=== PATIENT | female | born 1970 | race African-American/Black ===

== ENCOUNTER → 2018-08-12 | Outpatient (CLI) | payer BC ==
--- NOTE | 2018-08-13 07:09 | US ---
EXAMINATION TYPE: US thyroid st tissue head/neck DATE OF EXAM: 08/12/2018 COMPARISON: NONE CLINICAL HISTORY: E04.1 SINGLE THYROID NODULE. Left neck palpable area x 1 month GLAND SIZE: Right Lobe: 6.4 x 1.6 x 2.2 cm Overall Parenchyma: mildly heterogeneous Left Lobe: 5.5 x 2.5 x 2.3 cm Overall Parenchyma: mildly heterogeneous Isthmus Thickness: 0.4 cm NODULES RIGHT: # of nodules measured on right: 1 1. 0.2 X 0.2 x 0.3 cm calcification at the mid pole with well-defined margins. This nodule is wider than tall and shows no intranodular vascularity. Prior size: no previous LEFT: # of nodules measured on left: 1 1. 2.4 X 2.2 x 2.4 cm hyperechoic solid nodule at the mid/inferior pole with well-defined margins. This nodule is wider than tall and shows intranodular vascularity. Prior size: no previous ISTHMUS: # of nodules measured in the isthmus: 0 Bilateral neck scanned, no evidence of lymphadenopathy. IMPRESSION: There is a 2.4 cm left thyroid nodule. Thyroid tissue is heterogeneous and thyroid gland is enlarged correlate for thyroiditis.
--- NOTE | 2018-08-13 07:09 | US ---
EXAMINATION TYPE: US pelvic complete DATE OF EXAM: 08/12/2018 COMPARISON: NONE CLINICAL HISTORY: D25.9 LELOMAYOMA OF UTERUS. History of uterine fibroids, 3, para 2, miscarr iage 1, history of 2 c-sections TECHNIQUE: . Transabdominal sonographic images of the pelvis were acquired. Transvaginal sonographi c images were medically necessary to better assess the following anatomy: ovaries and endometrium Date of LMP: 2 weeks ago EXAM MEASUREMENTS: Uterus: 13.7 x 10.4 x 10.1 cm Endometrial Stripe: not seen Right Ovary: not seen Left Ovary: not seen 1. Uterus: anteverted, enlarged, bulky, multiple nabothian cysts, 10.6 x 8.3 x 9.3cm hypoechoic area fundal portion of uterus, probable fibroid 2. Endometrium: unable to visualized due to uterine fibroid 3. Right Ovary: not seen 4. Left Ovary: not seen 5. Bilateral Adnexa: wnl 6. Posterior cul-de-sac: wnl IMPRESSION: 1. Uterus is enlarged and lobulated measuring 13.7 x 10.4 x 10.1 cm with a 10.6 suspected myometrial mass within the uterine fundus. This most likely is related to a uterine fibroid.
== END | disposition home or self-care (01) ==
LOC: RADUSWWP 15:37
PROVIDERS: ATTEND Family Medicine
DX: N85.2 Hypertrophy of uterus (principal); E04.1 Nontoxic single thyroid nodule
CPT/HCPCS: 76536; 76830; 76856

== ENCOUNTER → 2018-09-08 | Outpatient (CLI) | payer BC ==
[2018-09-08 15:46] LABS: Anisocytosis Slight; HCT 31.3 % (34.0-46.0); HGB 9.2 gm/dL (11.4-16.0); Hypochromasia Marked; MCH 20.9 pg (25.0-35.0); MCHC 29.5 g/dL (31.0-37.0); MCV 70.8 fL (80.0-100.0); Mean Platelet Volume 8.2; Microcytosis Marked; Platelet Count 245 k/uL (150-450); Poikilocytosis Slight; RBC 4.42 m/uL (3.80-5.40); RDW 18.5 % (11.5-15.5); WBC 5.6 k/uL (3.8-10.6)
[2018-09-09 01:24] LABS: Albumin 4.6 g/dL (3.80-4.90); Albumin/Globulin Ratio 1.64 (1.60-3.17); Anion Gap 10.8 mmol/L (4.00-12.00); BUN/Creat Ratio 15.56 Ratio (12.00-20.00); Calcium 9.5 mg/dL (8.7-10.3); Carbon Dioxide 24.2 mmol/L (21.6-31.8); Globulin 2.8 g/dL (1.6-3.3); Potassium 4.1 mmol/L (3.5-5.5); Total Bilirubin 0.2 mg/dL (0.2-1.2); Total Protein 7.4 g/dL (6.2-8.2)
[2018-09-09 01:25] LABS: Thyroid Peroxidase Antibodies 93.1 U/mL (0.0-60.0)
[2018-09-09 01:32] LABS: T4, Free (Free Thyroxine) 0.9 ng/dL (0.80-1.80)
== END | disposition home or self-care (01) ==
LOC: LABWHC1 15:19
PROVIDERS: ATTEND Internal Medicine Endocrinology, Diabetes & Metabolism
DX: E04.2 Nontoxic multinodular goiter (principal); R53.83 Other fatigue
CPT/HCPCS: 36415; 80053; 82024; 82533; 82607; 84146; 84439; 84443; 84481; 85027; 86376

== ENCOUNTER → 2018-09-18 | Outpatient (CLI) | payer BC ==
[2018-09-18 16:02] LABS: Anisocytosis Slight; Basophils # (A) 0.1 k/uL (0-0.2); Basophils % (A) 2 %; Eosinophils # (A) 0.1 k/uL (0-0.7); Eosinophils % (A) 2 %; HCT 31.6 % (34.0-46.0); HGB 9.2 gm/dL (11.4-16.0); Hypochromasia Marked; Lymphocytes # (A) 1.2 k/uL (1.0-4.8); Lymphocytes % (A) 25 %; MCH 21.2 pg (25.0-35.0); MCHC 29.1 g/dL (31.0-37.0); MCV 73.1 fL (80.0-100.0); Mean Platelet Volume 7.1; Microcytosis Moderate; Monocytes # (A) 0.5 k/uL (0-1.0); Monocytes % (A) 11 %; Neutrophils # (A) 2.6 k/uL (1.3-7.7); Neutrophils % (A) 57 %; Platelet Count 253 k/uL (150-450); Poikilocytosis Slight; RBC 4.33 m/uL (3.80-5.40); RDW 18.4 % (11.5-15.5); WBC 4.7 k/uL (3.8-10.6)
[2018-09-19 00:28] LABS: African American GFR (CKD) 117.9 (60.0-200.0); Albumin 4.4 g/dL (3.80-4.90); Albumin/Globulin Ratio 1.52 (1.60-3.17); Anion Gap 8.7 mmol/L (4.00-12.00); BUN/Creat Ratio 24.29 Ratio (12.00-20.00); Calcium 9.5 mg/dL (8.7-10.3); Carbon Dioxide 28.3 mmol/L (21.6-31.8); Globulin 2.9 g/dL (1.6-3.3); LDL Cholesterol,Calculated 114.6 mg/dL (0.0-131.0); Total Bilirubin 0.3 mg/dL (0.3-1.2); Total Protein 7.3 g/dL (6.2-8.2); VLDL Calculation 17.4 mg/dL (5.00-40.00)
== END | disposition home or self-care (01) ==
LOC: LABWHC1 15:16
PROVIDERS: ATTEND Physician Assistant
DX: Z00.00 Encounter for general adult medical examination without abnormal findings (principal); I10 Essential (primary) hypertension; D64.9 Anemia, unspecified; Z53.9 Procedure and treatment not carried out, unspecified reason
CPT/HCPCS: 36415; 80053; 80061; 80323; 82728; 84443; 85025

== ENCOUNTER → 2018-10-28 | Outpatient (CLI) | payer BC ==
--- NOTE | 2018-10-30 10:36 | MM ---
Reason for exam: screening (asymptomatic). History: Benign excisional biopsy of the left breast, 2008. Physical Findings: A clinical breast exam by your physician is recommended on an annual basis and results should be correlated with mammographic findings. MG 3D Screening Mammo W/Cad Bilateral CC and MLO view(s) were taken. No prior studies available for comparison. The breast tissue is heterogeneously dense. This may lower the sensitivity of mammography. There is a focal lobular asymmetry on left breast. ASSESSMENT: Probably benign, BI-RAD 3 RECOMMENDATION: Follow-up diagnostic mammogram of the left breast in 6 months.
== END | disposition home or self-care (01) ==
LOC: RADMAMWWP 15:26
PROVIDERS: ATTEND Family Medicine
DX: Z12.31 Encounter for screening mammogram for malignant neoplasm of breast (principal)
CPT/HCPCS: 77063; 77067

== ENCOUNTER 2018-11-14 10:19 | Day surgery (SDC) | payer BC ==
[2018-11-12 15:47] VITALS: BMI 31.7
--- NOTE | 2018-11-14 09:36 | P.GSHP ---
History of Present Illness H&P Date: 11/14/18 CHIEF COMPLAINT: Colon screen HISTORY OF PRESENT ILLNESS: The patient is a 48-year-old female who presents for colon screen. Lower endoscopy was offered for further evaluation and management. PAST MEDICAL HISTORY: Please see list. PAST SURGICAL HISTORY: Please see list. MEDICATIONS: Please see list. ALLERGIES: Please see list. SOCIAL HISTORY: No illicit drug use FAMILY HISTORY: No reports of Crohn disease or ulcerative colitis. REVIEW OF ORGAN SYSTEMS: CONSTITUTIONAL: No reports of fevers or chills. PHYSICAL EXAM: VITAL SIGNS: Stable GENERAL: Well-developed pleasant in no acute distress. HEENT: No scleral icterus. Extraocular movements grossly intact. Moist buccal mucosa. NECK: Supple without lymphadenopathy. CHEST: Unlabored respirations. Equal bilateral excursions. CARDIOVASCULAR: Regular rate and rhythm. Distal 2+ pulses. ABDOMEN: Soft, nontender, nondistended. MUSCULOSKELETAL: No clubbing, cyanosis, or edema. ASSESSMENT: 1. Colon screen. PLAN: 1. Recommend proceeding with a lower endoscopy Past Medical History Past Medical History: Hypertension History of Any Multi-Drug Resistant Organisms: None Reported Past Surgical History: Breast Surgery, Section Additional Past Surgical History / Comment(s): lt breast biospy-benign Past Anesthesia/Blood Transfusion Reactions: No Reported Reaction Smoking Status: Former smoker - Past Family History Mother Family Medical History: Cancer Medications and Allergies Home Medications Medication Instructions Recorded Confirmed Type Calcium/Magnesium/Zinc 1 each PO DAILY 11/12/18 11/12/18 History [Rqnsglm-Udhrrjtjr-Bitj Tablet] Ferrous Sulfate [Feosol] 325 mg PO DAILY 11/12/18 11/12/18 History Losartan [Cozaar] 12.5 mg PO DAILY 11/12/18 11/12/18 History Multivitamins, Thera [Multivitamin 1 tab PO DAILY 11/12/18 11/12/18 History (formulary)] Allergies Allergy/AdvReac Type Severity Reaction Status Date / Time No Known Allergies Allergy Verified 11/12/18 15:40
[~2018-11-14 10:19] MED LIST: DEXAMETHASONE SOD PHOSPHATE 10 MG/ML 1 ML VIAL IV ONE; LACTATED RINGERS 1,000 ML IV SCH; LIDOCAINE 1% 20 ML VIAL (10MG/ML) FOR IV START INTRADERMA PRN
[2018-11-14 10:51] VITALS: RESP 16; TEMP 97.5
[2018-11-14] MEDS ORDERED: PROPOFOL 10 MG/ML 20 ML VIAL IV ONE (11:31)
[2018-11-14] MEDS ORDERED: LIDOCAINE 1% INJ 10MG/ML (20 ML MDV) ONE (11:31)
--- NOTE | 2018-11-14 11:45 | P.PCN ---
Date of Procedure: 11/14/18 Description of Procedure: PREOPERATIVE DIAGNOSIS: Colonoscopy screening, first POSTOPERATIVE DIAGNOSIS: Colonoscopy screening, first Diverticulosis, scattered External hemorrhoids, grade 4 OPERATION: Colonoscopy to the ileocecal valve and appendiceal orifice. SURGEON: Lakia Ovalles MD. ANESTHESIA: MAC. INDICATIONS: The patient is a 48-year-old female who presents for colonoscopy screening. This is her first colonoscopy. Benefits and risks were described and informed consent was obtained. DESCRIPTION OF PROCEDURE: The patient had undergone Suprep. He had been brought into the operating room and laid in the left lateral decubitus position. After adequate intravenous sedation, the rectum was examined with 2% lidocaine jelly. External hemorrhoids were encountered. The rectal tone was within normal limits. No lesions were palpated in the rectal vault. An Olympus colonoscope was advanced until the ileocecal valve and appendiceal orifice were clearly viewed. The prep was excellent with clear visualization of the mucosal folds. The scope was removed with visualization of each mucosal fold. Moderate scattered diverticulosis was encountered. No colonic polyps were found. Localized inflammation of the rectum was identified however mild. Retroflexion of the scope demonstrated grade 2 internal hemorrhoids without active bleeding or inflammation. The colon was desufflated. The patient had tolerated the procedure well. Withdrawal time was over 6 minutes. FINDINGS: Aronchick preparation quality scale 1 (1-5) Internal hemorrhoids, grade 2 External prolapsed hemorrhoids, grade 4 No arteriovenous malformations. No adenomatous polyps. Moderate sigmoid including scattered diverticulosis Localized inflammation of the rectum, mild RECOMMENDATIONS: Lower endoscopy in 10 years, 2028 Plan - Discharge Summary Discharge Rx Participant: Yes New Discharge Prescriptions: No Action Multivitamins, Thera [Multivitamin (formulary)] 1 tab PO DAILY Losartan [Cozaar] 12.5 mg PO DAILY Ferrous Sulfate [Feosol] 325 mg PO DAILY Calcium/Magnesium/Zinc [Fpijrpf-Hqziabpiz-Gkwa Tablet] 1 each PO DAILY Discharge Medication List Calcium/Magnesium/Zinc [Pxcgrne-Fvueqshzq-Pikl Tablet] 1 each PO DAILY 11/12/18 [History] Ferrous Sulfate [Feosol] 325 mg PO DAILY 11/12/18 [History] Losartan [Cozaar] 12.5 mg PO DAILY 11/12/18 [History] Multivitamins, Thera [Multivitamin (formulary)] 1 tab PO DAILY 11/12/18 [History]
[2018-11-14 12:18] VITALS: BP 160/93; PULSE 66
== END 2018-11-14 12:26 | disposition home or self-care (01) ==
LOC: ORWHC2ENDO 10:19
PROVIDERS: ATTEND Surgery Plastic and Reconstructive Surgery
DX: Z12.11 Encounter for screening for malignant neoplasm of colon (principal); K57.30 Diverticulosis of large intestine without perforation or abscess without bleeding; K64.4 Residual hemorrhoidal skin tags; K64.1 Second degree hemorrhoids; K62.89 Other specified diseases of anus and rectum; I10 Essential (primary) hypertension; Z79.899 Other long term (current) drug therapy; Z98.890 Other specified postprocedural states; Z87.891 Personal history of nicotine dependence; Z80.9 Family history of malignant neoplasm, unspecified
CPT/HCPCS: 81025; J2001; J2704; G0121

== ENCOUNTER → 2019-12-04 | Outpatient (CLI) | payer BC ==
--- NOTE | 2019-12-07 09:03 | MM ---
Reason for exam: screening (asymptomatic). Last mammogram was performed 1 year and 1 month ago. History: Benign excisional biopsy of the left breast, 2008. Physical Findings: A clinical breast exam by your physician is recommended on an annual basis and results should be correlated with mammographic findings. MG 3D Screening Mammo W/Cad Bilateral CC and MLO view(s) were taken. Prior study comparison: October 28, 2018, bilateral MG 3d screening mammo w/cad. There are scattered fibroglandular densities. Finding #1: There is a 11 mm oval mass located 5.3 cm from the nipple in the lower outer quadrant, middle position of the left breast. Finding #2: There are typically benign calcifications in both breasts. More defined since October 28, 2018. ASSESSMENT: Incomplete: need additional imaging evaluation, BI-RAD 0 RECOMMENDATION: Special view mammogram and ultrasound of the left breast. [facility] will attempt to contact patient to return for supplemental views and ultrasound.
== END | disposition home or self-care (01) ==
LOC: RADMAMWWP 06:57
PROVIDERS: ATTEND Family Medicine
DX: Z12.31 Encounter for screening mammogram for malignant neoplasm of breast (principal)
CPT/HCPCS: 77063; 77067

== ENCOUNTER → 2019-12-25 | Outpatient (CLI) | payer BC ==
--- NOTE | 2019-12-25 10:14 | MM ---
Reason for exam: additional evaluation requested from abnormal screening. Last mammogram was performed 1 month ago. History: Benign excisional biopsy of the left breast, 2008. Physical Findings: Nurse did not find any significant physical abnormalities on exam. MG 3D Work Up W/Cad LT Spot compression CC, spot compression MLO, and LM view(s) were taken of the left breast. Prior study comparison: December 04, 2019, bilateral MG 3d screening mammo w/cad. October 28, 2018, bilateral MG 3d screening mammo w/cad. The breast tissue is heterogeneously dense. This may lower the sensitivity of mammography. Finding: There is a 11 mm microlobulated round mass located 6 cm from the nipple in the slight lower outer quadrant of the left breast. These results were verbally communicated with the patient and result sheet given to the patient on 12/25/19. ASSESSMENT: Incomplete: need additional imaging evaluation, BI-RAD 0 RECOMMENDATION: Ultrasound of the left breast.
--- NOTE | 2019-12-25 10:16 | USB ---
Reason for exam: additional evaluation requested from abnormal screening. History: Benign excisional biopsy of the left breast, 2008. US Breast Workup Limited LT Left limited breast ultrasound including focal area of concern, retroareolar and axilla demonstrates a 12 x 4 x 9mm oval, cystic lesion at 5 o'clock, stable from 10/28/18 mammogram, thin walled cyst. These results were verbally communicated with the patient and result sheet given to the patient on 12/25/19. ASSESSMENT: Benign, BI-RAD 2 RECOMMENDATION: Return to routine screening mammogram schedule for both breasts.
== END | disposition home or self-care (01) ==
LOC: RADMAMWWP 08:11
PROVIDERS: ATTEND Family Medicine
DX: R92.8 Other abnormal and inconclusive findings on diagnostic imaging of breast (principal)
CPT/HCPCS: 77061; 77065

== ENCOUNTER → 2020-07-22 | Outpatient (CLI) | payer BC ==
--- NOTE | 2020-07-22 20:18 | US ---
EXAMINATION TYPE: US pelvic complete DATE OF EXAM: 07/22/2020 COMPARISON: Previous pelvic ultrasound CLINICAL HISTORY: D25.9 Leiomyoma of uterus. TECHNIQUE: Transabdominal (TA). Transabdominal sonographic images of the pelvis were acquired. Tra nsvaginal sonographic images not attempted due to large uterine size. Transvaginal sonography would b e unable to penetrate. Date of LMP: 07-19-20 EXAM MEASUREMENTS: Uterus: 17.5 x 7.9 x 12.7 cm Endometrial Stripe: 1.7 cm Right Ovary: obscured by large uterus, overlying bowel Left Ovary: obscured by large uterus, overlying bowel 1. Uterus: grossly heterogeneous, fibroid uterus 2. Endometrium: appears heterogeneous and thickened 3. Right Ovary: obscured by large uterus, overlying bowel 4. Left Ovary: obscured by large uterus, overlying bowel 5. Bilateral Adnexa: wnl 6. Posterior cul-de-sac: wnl IMPRESSION: Fibroid uterus, measurement of endometrium is equivocal, endometrium not well seen, limit ed exam
== END | disposition home or self-care (01) ==
LOC: RADUSWWP 15:38
PROVIDERS: ATTEND Family Medicine
DX: D25.9 Leiomyoma of uterus, unspecified (principal)
CPT/HCPCS: 76856

== ENCOUNTER 2023-03-12 14:38 | Inpatient (IN) | payer BC, OTHER ==
[2023-03-12 15:50] LABS: Anisocytosis Slight; Basophils # (A) 0.1 k/uL (0-0.2); Basophils % (A) 1 %; Eosinophils # (A) 0.2 k/uL (0-0.7); Eosinophils % (A) 2 %; HCT 30.8 % (34.0-46.0); HGB 9.4 gm/dL (11.4-16.0); Hypochromasia Marked; Lymphocytes # (A) 0.8 k/uL (1.0-4.8); Lymphocytes % (A) 10 %; MCH 23.1 pg (25.0-35.0); MCHC 30.6 g/dL (31.0-37.0); MCV 75.4 fL (80.0-100.0); Mean Platelet Volume 8.7; Microcytosis Slight; Monocytes # (A) 0.7 k/uL (0-1.0); Monocytes % (A) 9 %; Neutrophils % (A) 75 %; Platelet Count 356 k/uL (150-450); RBC 4.08 m/uL (3.80-5.40); RDW 16.6 % (11.5-15.5)
[2023-03-12 16:08] LABS: Partial Thromboplastin Time 25.8 sec (22.0-30.0); Prothrombin Time 11.1 sec (10.0-12.5)
[2023-03-12 16:15] LABS: ALT 12 U/L (4-34); AST 17 U/L (14-36); African American GFR (CKD) >90 (>60 ml/min/1.73 sqM); Albumin 3.8 g/dL (3.5-5.0); Alkaline Phosphatase 107 U/L (38-126); Anion Gap 13 mmol/L; Blood Urea Nitrogen 10 mg/dL (7-17); Calcium 9.7 mg/dL (8.4-10.2); Carbon Dioxide 23 mmol/L (22-30); Chloride 103 mmol/L (98-107); Glucose 87 mg/dL (74-99); Lipase 31 U/L (23-300); Non-African American GFR(CKD) >90 (>60 ml/min/1.73 sqM); Potassium 3.8 mmol/L (3.5-5.1); Sodium 139 mmol/L (137-145); Total Bilirubin 0.5 mg/dL (0.2-1.3); Total Protein 7.8 g/dL (6.3-8.2)
--- NOTE | 2023-03-12 16:31 | ED ---
GI Bleed HPI - General Source: patient Mode of arrival: ambulatory Limitations: no limitations <JoseJamal - Last Filed: 03/12/23 16:28> - General Source: RN notes reviewed, old records reviewed - History of Present Illness MD complaint: blood on toilet paper -: days(s) Radiation: none Severity scale (1-10): 6 Quality: painless, cramping, burning Consistency: constant Improves with: none Worsens with: none Context: history of GI bleed Associated Symptoms: abdominal pain, loss of appetite, weakness Treatments Prior to Arrival: none <Jorge Rivas - Last Filed: 03/16/23 16:50> - General Chief complaint: GI Bleed Stated complaint: Abd/Rectal Pain - History of Present Illness Initial comments: This is a 52-year-old female to the ER for evaluation. Patient presents to the ER today for evaluation regards to severe weakness lightheadedness and nausea patient does not feel hungry but does have bloody bowel movement. No recent diarrhea no fever. Patient is recent travel history or sick contacts. Patient has severe abdominal pain. (Jorge Rivas) - Related Data Home Medications Medication Instructions Recorded Confirmed No Known Home Medications 03/12/23 03/12/23 Allergies Allergy/AdvReac Type Severity Reaction Status Date / Time No Known Allergies Allergy Verified 03/12/23 20:08 Review of Systems ROS Other: All systems not noted in ROS Statement are negative. <JoseJamal - Last Filed: 03/12/23 16:28> ROS Other: All systems not noted in ROS Statement are negative. <Jorge Rivas - Last Filed: 03/16/23 16:50> ROS Statement: Those systems with pertinent positive or pertinent negative responses have been documented in the HPI. Past Medical History Past Medical History: Hyperlipidemia, Hypertension History of Any Multi-Drug Resistant Organisms: None Reported Past Surgical History: Section Smoking Status: Former smoker Past Alcohol Use History: None Reported Past Drug Use History: None Reported <Jamal Garcia - Last Filed: 03/12/23 16:28> General Exam Limitations: no limitations <JoseJamal - Last Filed: 03/12/23 16:28> General appearance: alert, in no apparent distress Head exam: Present: atraumatic, normocephalic, normal inspection Eye exam: Present: normal appearance, PERRL, EOMI. Absent: scleral icterus, conjunctival injection, periorbital swelling ENT exam: Present: normal exam, mucous membranes moist Neck exam: Present: normal inspection. Absent: tenderness, meningismus, lymphadenopathy Respiratory exam: Present: normal lung sounds bilaterally. Absent: respiratory distress, wheezes, rales, rhonchi, stridor Cardiovascular Exam: Present: regular rate, normal rhythm, normal heart sounds. Absent: systolic murmur, diastolic murmur, rubs, gallop, clicks GI/Abdominal exam: Present: soft, normal bowel sounds. Absent: distended, tenderness, guarding, rebound, rigid Extremities exam: Present: normal inspection, full ROM, normal capillary refill. Absent: tenderness, pedal edema, joint swelling, calf tenderness Back exam: Present: normal inspection Neurological exam: Present: alert, oriented X3, CN II-XII intact Psychiatric exam: Present: normal affect, normal mood Skin exam: Present: warm, dry, intact, normal color. Absent: rash <Jorge Rivas - Last Filed: 03/16/23 16:50> Course <Jorge Rivas - Last Filed: 03/16/23 16:50> Vital Signs 03/12/23 03/12/23 03/12/23 14:52 20:05 22:23 Temperature 98.2 F Pulse Rate 92 94 80 Respiratory 16 18 18 Rate Blood Pressure 205/111 193/96 142/78 O2 Sat by Pulse 98 100 100 Oximetry 03/13/23 03/13/23 03/13/23 04:47 04:48 07:37 Temperature 99.6 F 97.8 F 99.8 F H Pulse Rate 88 74 79 Respiratory 18 16 16 Rate Blood Pressure 147/72 129/67 122/72 O2 Sat by Pulse 98 98 100 Oximetry 03/13/23 03/13/23 03/13/23 08:36 12:35 12:49 Temperature 100.8 F H 99 F 98.9 F Pulse Rate 52 L 54 L Respiratory 18 18 Rate Blood Pressure 128/78 116/68 O2 Sat by Pulse 95 100 Oximetry - Reevaluation(s) Reevaluation #1: 03/12/23 21:09 Records reviewed (Jorge Rivas) Reevaluation #2: 03/12/23 21:09 Patient symptoms are unchanged (Jorge Rivas) Reevaluation #3: 03/12/23 21:09 Patient for results questions answered (Jorge Rivas) Reevaluation #4: 03/12/23 21:09 Was pt. sent in by a medical professional or institution ([facility], [employer], urgent care, hospital, or half-way...) When possible be specific @ -no Did you speak to anyone other than the patient for history (EMS, parent, family, police, friend...)? What history was obtained from this source @ -no Did you review nursing and triage notes (agree or disagree)? Why? @ -agree Are old charts reviewed (outside hosp., previous admission, EMS record, old EKG, old radiological studies, urgent care reports/EKG's, half-way records)? Report findings @ -yes Differential Diagnosis (chest pain, altered mental status, abdominal pain women, abdominal pain men, vaginal bleeding, weakness, fever, dyspnea, syncope, headache, dizziness, GI bleed, back pain, seizure, CVA, palpatations, mental health, musculoskeletal)? @ -prior EKG interpreted by me (3pts min.). @ -yes X-rays interpreted by me (1pt min.). @ -no CT interpreted by me (1pt min.). @ -Yes negative for acute disease U/S interpreted by me (1pt. min.). @ -no What testing was considered but not performed or refused? (CT, X-rays, U/S, labs)? Why? @ -none What meds were considered but not given or refused? Why? @ -none Did you discuss the management of the patient with other professionals (professionals i.e. [facility] Moreau, [employer], lab, RT, psych nurse, director social welfare, reliability technologist, teacher, diplomatic officer, case loader operator)? Give summary @ -no Was smoking cessation discussed for >3mins.? @ -no Was critical care preformed (if so, how long)? @ -no Were there social determinants of health that impacted care today? How? (Homelessness, low income, unemployed, alcoholism, drug addiction, transportation, low edu. Level, literacy, decrease access to med. care, shelter, rehab)? @ -none Was there de-escalation of care discussed even if they declined (Discuss DNR or withdrawal of care, Hospice)? DNR status @ -no What co-morbidities impacted this encounter? (DM, HTN, Smoking, COPD, CAD, Cancer, CVA, ARF, Chemo, Hep., AIDS, mental health diagnosis, sleep apnea, morbid obesity)? @ -none Was patient admitted / discharged? Hospital course, mention meds given and route, prescriptions, significant lab abnormalities, going to OR and other pertinent info. @ - 52 female to the ER for evaluation of blood in the stool with significant weight loss and right red blood per rectum since yesterday. Patient is having diminished appetite and increased weight loss lately which she is not intentionally trying to lose weight she believes around 20 to 25 pounds Admitted Undiagnosed new problem with uncertain prognosis? @ -no Drug Therapy requiring intensive monitoring for toxicity (Heparin, Nitro, Insulin, Cardizem)? @ -no Were any procedures done? @ -no Diagnosis/symptom? @ -GI bleed Acute, or Chronic, or Acute on Chronic? @ -Acute Uncomplicated (without systemic symptoms) or Complicated (systemic symptoms)? @ -Complicated Side effects of treatment? @ -no Exacerbation, Progression, or Severe Exacerbation? @ -exacerbation Poses a threat to life or bodily function? How? (Chest pain, USA, DC, pneumonia, PE, COPD, DKA, ARF, appy, cholecystitis, CVA, Diverticulitis, Homicidal, Suicidal, threat to staff... and all critical care pts) @ -yes significant recent weight loss and GI bleed (Jorge Rivas) Reevaluation #5: 03/12/23 21:17 Differential Abdominal Pain Women: Appendicitis, Cholecystitis, diverticulosis, ischemic bowel, pancreatitis, h epatitis, UTI, gastroenteritis, AAA, incarcerated hernia, bowel obstruction, constipation, inflammatory bowel, hepatitis, peptic ulcer disease, splenic infarction, perforated viscus, vulvitis, ovarian torsion, PID, kidney stone, placenta abruption, this is not meant to be an all-inclusive list Differential Weakness: Hypoglycemia, shock, sepsis, hyponatremia, anemia, infection, DC, ETOH, adverse medicine reaction, overdose, stroke, this is not meant to be an all-inclusive list. (Jorge Rivas) - Consultations Consultation #1: spoke w admitted physician is Dr. Alas who agrees to admit the patient (Jorge Rivas) Medical Decision Making - Lab Data Result diagrams: 03/12/23 15:00 03/12/23 15:00 <Jamal Garcia - Last Filed: 03/12/23 16:28> - Lab Data Result diagrams: 03/16/23 08:29 03/16/23 08:29 - EKG Data -: EKG Interpreted by Me (EKG is sinus 74 IL 135 QRS 84 QTc 405) - Radiology Data Radiology results: report reviewed (CT chest abdomen pelvis negative for oncologic findings, patient does have colitis), image reviewed <Jorge Rivas - Last Filed: 03/16/23 16:50> - Medical Decision Making This patient presents to the emergency department complaining of dark red blood per rectum since yesterday. Complaining of some abdominal cramping. Does have a history of hypertension, did not take her blood pressure medications today. I have a diminished appetite and weight loss which is going on for a few months. Visual Physical Exam Vital signs reviewed General: Well-appearing, nontoxic, no acute distress. Head: Normocephalic, atraumatic Eyes: PERRLA, EOMI ENT: Airway patent Chest: Nonlabored breathing Skin: No visual rash, normal skin tone Neuro: Alert and oriented 3 Musculoskeletal: No gross abnormalities Jamal Garcia PA-C (Jamal Garcia) 52 female to the ER for evaluation of blood in the stool with significant weight loss and right red blood per rectum since yesterday. Patient is having diminished appetite and increased weight loss lately which she is not intentionally trying to lose weight she believes around 20 to 25 pounds. (Jorge Rivas) - Lab Data Lab Results 03/12/23 03/12/23 03/12/23 Range/Units 15:00 15:00 15:00 WBC 8.0 (3.8-10.6) k/uL RBC 4.08 (3.80-5.40) m/uL Hgb 9.4 L (11.4-16.0) gm/dL Hct 30.8 L (34.0-46.0) % MCV 75.4 L (80.0-100.0) fL MCH 23.1 L (25.0-35.0) pg MCHC 30.6 L (31.0-37.0) g/dL RDW 16.6 H (11.5-15.5) % Plt Count 356 (150-450) k/uL MPV 8.7 Neutrophils % 75 % Lymphocytes % 10 % Monocytes % 9 % Eosinophils % 2 % Basophils % 1 % Neutrophils # 6.0 (1.3-7.7) k/uL Lymphocytes # 0.8 L (1.0-4.8) k/uL Monocytes # 0.7 (0-1.0) k/uL Eosinophils # 0.2 (0-0.7) k/uL Basophils # 0.1 (0-0.2) k/uL Hypochromasia Marked Poikilocytosis Anisocytosis Slight Microcytosis Slight Retic Count (0.5-2.0) % PT 11.1 (10.0-12.5) sec INR 1.0 (<1.2) APTT 25.8 (22.0-30.0) sec Sodium 139 (137-145) mmol/L Potassium 3.8 (3.5-5.1) mmol/L Chloride 103 (98-107) mmol/L Carbon Dioxide 23 (22-30) mmol/L Anion Gap 13 mmol/L BUN 10 (7-17) mg/dL Creatinine 0.71 (0.52-1.04) mg/dL Est GFR (CKD-EPI)AfAm >90 (>60 ml/min/1.73 sqM) Est GFR (CKD-EPI)NonAf >90 (>60 ml/min/1.73 sqM) Glucose 87 (74-99) mg/dL Calcium 9.7 (8.4-10.2) mg/dL Phosphorus (2.5-4.5) mg/dL Magnesium 2.0 (1.6-2.3) mg/dL Iron (50-170) UG/DL TIBC (228-460) UG/DL % Saturation (12.00-45.00) Transferrin (204.0-354.0) mg/dL Ferritin (10.0-291.0) ng/mL Total Bilirubin 0.5 (0.2-1.3) mg/dL AST 17 (14-36) U/L ALT 12 (4-34) U/L Alkaline Phosphatase 107 (38-126) U/L Troponin I (0.000-0.034) ng/mL Total Protein 7.8 (6.3-8.2) g/dL Albumin 3.8 (3.5-5.0) g/dL Lipase 31 (23-300) U/L Vitamin B12 (200.0-944.0) pg/mL Folate (4.40-31.00) ng/mL Blood Type Blood Type Confirm Blood Type Recheck Bld Type Recheck Status Antibody Screen Crossmatch Spec Expiration Date 03/12/23 03/12/23 03/12/23 Range/Units 15:00 15:20 15:25 WBC (3.8-10.6) k/uL RBC (3.80-5.40) m/uL Hgb (11.4-16.0) gm/dL Hct (34.0-46.0) % MCV (80.0-100.0) fL MCH (25.0-35.0) pg MCHC (31.0-37.0) g/dL RDW (11.5-15.5) % Plt Count (150-450) k/uL MPV Neutrophils % % Lymphocytes % % Monocytes % % Eosinophils % % Basophils % % Neutrophils # (1.3-7.7) k/uL Lymphocytes # (1.0-4.8) k/uL Monocytes # (0-1.0) k/uL Eosinophils # (0-0.7) k/uL Basophils # (0-0.2) k/uL Hypochromasia Poikilocytosis Anisocytosis Microcytosis Retic Count (0.5-2.0) % PT (10.0-12.5) sec INR (<1.2) APTT (22.0-30.0) sec Sodium (137-145) mmol/L Potassium (3.5-5.1) mmol/L Chloride (98-107) mmol/L Carbon Dioxide (22-30) mmol/L Anion Gap mmol/L BUN (7-17) mg/dL Creatinine (0.52-1.04) mg/dL Est GFR (CKD-EPI)AfAm (>60 ml/min/1.73 sqM) Est GFR (CKD-EPI)NonAf (>60 ml/min/1.73 sqM) Glucose (74-99) mg/dL Calcium (8.4-10.2) mg/dL Phosphorus (2.5-4.5) mg/dL Magnesium (1.6-2.3) mg/dL Iron (50-170) UG/DL TIBC (228-460) UG/DL % Saturation (12.00-45.00) Transferrin (204.0-354.0) mg/dL Ferritin (10.0-291.0) ng/mL Total Bilirubin (0.2-1.3) mg/dL AST (14-36) U/L ALT (4-34) U/L Alkaline Phosphatase (38-126) U/L Troponin I <0.012 (0.000-0.034) ng/mL Total Protein (6.3-8.2) g/dL Albumin (3.5-5.0) g/dL Lipase (23-300) U/L Vitamin B12 (200.0-944.0) pg/mL Folate (4.40-31.00) ng/mL Blood Type A Positive Blood Type Confirm A Positive Blood Type Recheck No Previous Record Bld Type Recheck Status CABO Indicated Antibody Screen NEGATIVE Crossmatch See Detail Spec Expiration Date 03/15/2023 - 232403/13/23 03/13/23 03/13/23 Range/Units 09:29 09:29 09:29 WBC 7.4 (3.8-10.6) k/uL RBC 2.88 L (3.80-5.40) m/uL Hgb 6.8 L* D (11.4-16.0) gm/dL Hct 22.0 L (34.0-46.0) % MCV 76.3 L (80.0-100.0) fL MCH 23.5 L (25.0-35.0) pg MCHC 30.8 L (31.0-37.0) g/dL RDW 16.3 H (11.5-15.5) % Plt Count 270 (150-450) k/uL MPV 9.3 Neutrophils % 78 % Lymphocytes % 9 % Monocytes % 9 % Eosinophils % 1 % Basophils % 1 % Neutrophils # 5.8 (1.3-7.7) k/uL Lymphocytes # 0.7 L (1.0-4.8) k/uL Monocytes # 0.7 (0-1.0) k/uL Eosinophils # 0.1 (0-0.7) k/uL Basophils # 0.0 (0-0.2) k/uL Hypochromasia Marked Poikilocytosis Slight Anisocytosis Slight Microcytosis Slight Retic Count 1.3 (0.5-2.0) % PT (10.0-12.5) sec INR (<1.2) APTT (22.0-30.0) sec Sodium 136 L (137-145) mmol/L Potassium 3.2 L (3.5-5.1) mmol/L Chloride 107 (98-107) mmol/L Carbon Dioxide 20 L (22-30) mmol/L Anion Gap 9 mmol/L BUN 7 (7-17) mg/dL Creatinine 0.64 (0.52-1.04) mg/dL Est GFR (CKD-EPI)AfAm >90 (>60 ml/min/1.73 sqM) Est GFR (CKD-EPI)NonAf >90 (>60 ml/min/1.73 sqM) Glucose 111 H (74-99) mg/dL Calcium 8.4 (8.4-10.2) mg/dL Phosphorus 2.8 (2.5-4.5) mg/dL Magnesium 1.7 (1.6-2.3) mg/dL Iron (50-170) UG/DL TIBC (228-460) UG/DL % Saturation (12.00-45.00) Transferrin (204.0-354.0) mg/dL Ferritin (10.0-291.0) ng/mL Total Bilirubin 0.3 (0.2-1.3) mg/dL AST 15 (14-36) U/L ALT 10 (4-34) U/L Alkaline Phosphatase 79 (38-126) U/L Troponin I (0.000-0.034) ng/mL Total Protein 6.1 L (6.3-8.2) g/dL Albumin 2.8 L (3.5-5.0) g/dL Lipase (23-300) U/L Vitamin B12 (200.0-944.0) pg/mL Folate (4.40-31.00) ng/mL Blood Type Blood Type Confirm Blood Type Recheck Bld Type Recheck Status Antibody Screen Crossmatch Spec Expiration Date 03/13/23 03/13/23 Range/Units 09:29 09:29 WBC (3.8-10.6) k/uL RBC (3.80-5.40) m/uL Hgb (11.4-16.0) gm/dL Hct (34.0-46.0) % MCV (80.0-100.0) fL MCH (25.0-35.0) pg MCHC (31.0-37.0) g/dL RDW (11.5-15.5) % Plt Count (150-450) k/uL MPV Neutrophils % % Lymphocytes % % Monocytes % % Eosinophils % % Basophils % % Neutrophils # (1.3-7.7) k/uL Lymphocytes # (1.0-4.8) k/uL Monocytes # (0-1.0) k/uL Eosinophils # (0-0.7) k/uL Basophils # (0-0.2) k/uL Hypochromasia Poikilocytosis Anisocytosis Microcytosis Retic Count (0.5-2.0) % PT (10.0-12.5) sec INR (<1.2) APTT (22.0-30.0) sec Sodium (137-145) mmol/L Potassium (3.5-5.1) mmol/L Chloride (98-107) mmol/L Carbon Dioxide (22-30) mmol/L Anion Gap mmol/L BUN (7-17) mg/dL Creatinine (0.52-1.04) mg/dL Est GFR (CKD-EPI)AfAm (>60 ml/min/1.73 sqM) Est GFR (CKD-EPI)NonAf (>60 ml/min/1.73 sqM) Glucose (74-99) mg/dL Calcium (8.4-10.2) mg/dL Phosphorus (2.5-4.5) mg/dL Magnesium (1.6-2.3) mg/dL Iron <6 L (50-170) UG/DL TIBC 218 L (228-460) UG/DL % Saturation <2.75 L (12.00-45.00) Transferrin 156.0 L (204.0-354.0) mg/dL Ferritin 39.2 (10.0-291.0) ng/mL Total Bilirubin (0.2-1.3) mg/dL AST (14-36) U/L ALT (4-34) U/L Alkaline Phosphatase (38-126) U/L Troponin I (0.000-0.034) ng/mL Total Protein (6.3-8.2) g/dL Albumin (3.5-5.0) g/dL Lipase (23-300) U/L Vitamin B12 1504.0 H (200.0-944.0) pg/mL Folate 11.70 (4.40-31.00) ng/mL Blood Type Blood Type Confirm Blood Type Recheck Bld Type Recheck Status Antibody Screen Crossmatch Spec Expiration Date Disposition <Jamal Garcia - Last Filed: 03/12/23 16:28> Is patient prescribed a controlled substance at d/c from ED?: No Time of Disposition: 21:00 <Jorge Rivas - Last Filed: 03/16/23 16:50> Clinical Impression: GI bleed, Abdominal pain, Gastritis, Hemorrhoids Disposition: ADMITTED IP TO THIS HOSP Condition: Fair
[2023-03-12] MEDS ORDERED: SODIUM CHLORIDE 0.9% 1,000 ML IV STA (18:01)
--- NOTE | 2023-03-12 20:08 | CT ---
EXAMINATION TYPE: CT abdomen pelvis w con DATE OF EXAM: 03/12/2023 COMPARISON: None HISTORY: Lower abdominal cramping and rectal bleeding. CT DLP: 876.6 mGycm Automated exposure control for dose reduction was used. TECHNIQUE: Helical acquisition of images was performed from the lung bases through the pelvis. CONTRAST: Performed without Oral Contrast and with IV Contrast, patient injected with 100ml mL of Isovue 370. FINDINGS: The lung bases are clear. The gallbladder is normal without distention, wall thickening, pericholecystic fluid or gallstone. Th ere is no biliary ductal dilatation. There is no focal mass or organomegaly involving the liver, pancreas, spleen or adrenal glands. Caliber the abdominal aorta is normal. There is no solid renal mass or hydronephrosis. The bowel loops are normal in caliber is no evidence of obstruction. There is diffuse thickening of t he wall of the descending colon and within the rectum consistent with colitis. There is no free intraperitoneal air or fluid and no discrete abdominal or pelvic abscess. There is a large fibroid uterus measuring 11.3 x 17.6 x 11 cm. This was identified on prior pelvic ul trasound dated 07/14/2020. There is no pelvic adenopathy or free fluid. The osseous structures are intact. IMPRESSION: 1. Diffuse thickening of the descending colon wall and rectal wall consistent with colitis. No bowel obstruction, free intraperitoneal air or fluid. 2. Massive fibroid uterus as described above
--- NOTE | 2023-03-12 20:13 | CT ---
EXAMINATION TYPE: CT angio chest DATE OF EXAM: 03/12/2023 7:55 PM COMPARISON: None HISTORY: Lower abdominal cramping and rectal bleeding. CT DLP: 876.6 mGycm Automated exposure control for dose reduction was used. CONTRAST: CTA scan of the thorax is performed with IV Contrast, patient injected with 100ml mL of Isovue 370, p ulmonary embolism protocol. 3-D postprocessing was performed. FINDINGS: LUNGS: The lungs are grossly clear, there is no concerning parenchymal mass or nodule identified. T here is no pleural effusion or pneumothorax seen. The tracheobronchial tree is patent. MEDIASTINUM: There is satisfactory enhancement of the pulmonary artery and its branches, there is no CT evidence for pulmonary embolism. There are no greater than 1 cm hilar or mediastinal lymph nodes. No pericardial effusion is seen. OTHER: No additional significant abnormality is seen. IMPRESSION: 1. NO ACUTE CARDIOPULMONARY DISEASE. 2. NO EVIDENCE OF PULMONARY EMBOLISM.
[2023-03-12] MEDS ORDERED: NALOXONE 0.4 MG/ML 1 ML VIAL IV PRN (21:01)
[2023-03-12] MEDS: SODIUM CHLORIDE 0.9% 1,000 ML IV SCH (22:20)
[2023-03-12] MEDS: ONDANSETRON 4 MG/2 ML VIAL IVP PRN (22:31)
[2023-03-12] MEDS: MORPHINE SULFATE 4 MG/ML SYRINGE IV PRN (22:31)
--- NOTE | 2023-03-13 02:23 | HP ---
HISTORY AND PHYSICAL HISTORY OF PRESENT ILLNESS: A 52-year-old white female, abdominal pain, came to the ER for evaluations, found to have GI bleeding, bloody bowel movements. She came in for severe weakness, lightheadedness, found to have positive colitis on CT scan. She is admitted for CT scan for acute colitis, upper quadrant pain, possible GI bleed. HOME MEDICINES: Negative. REVIEW OF SYSTEMS: A 14-point review of systems otherwise negative. PHYSICAL EXAMINATION: VITAL SIGNS: Stable, afebrile. Temperature 98.2, pulse 92 to 94, respiratory rate 16 to 18, blood pressure is 193 to 205 over 96 to 111, O2 of 98% to 100%. CARDIOVASCULAR: S1, S2. LUNGS: Clear. GI: Soft. HEMATOLOGY: Negative Homans. PSYCH: Fair mood and affect. NEUROLOGIC: Alert and oriented x3. ASSESSMENT: Hypertension acceleration, acute colitis, acute on chronic anemia. GI consult. Check CBC in the morning, possible endoscopy. Prognosis guarded. MMODL / IJN: [id number] /
[2023-03-13] MEDS ORDERED: LEVOFLOXACIN 500MG-D5W PMX 500 MG in DEXTROSE/WATER 1 100ML.BAG IVPB SCH (08:15)
[2023-03-13] MEDS: MORPHINE SULFATE 4 MG/ML SYRINGE IV PRN ×2 (09:20→17:08)
[2023-03-13] MEDS: PANTOPRAZOLE 40 MG/10 ML VIAL IV SCH (09:20)
[2023-03-13] MEDS: LOSARTAN-HCTZ 50-12.5 MG 1 EACH TAB PO SCH (09:21)
[2023-03-13] MEDS: ONDANSETRON 4 MG/2 ML VIAL IVP PRN (09:21)
[2023-03-13 10:10] LABS: Anisocytosis Slight; Basophils % (A) 1 %; Eosinophils # (A) 0.1 k/uL (0-0.7); Eosinophils % (A) 1 %; Hypochromasia Marked; Lymphocytes # (A) 0.7 k/uL (1.0-4.8); Lymphocytes % (A) 9 %; MCH 23.5 pg (25.0-35.0); MCHC 30.8 g/dL (31.0-37.0); MCV 76.3 fL (80.0-100.0); Mean Platelet Volume 9.3; Microcytosis Slight; Monocytes # (A) 0.7 k/uL (0-1.0); Monocytes % (A) 9 %; Neutrophils # (A) 5.8 k/uL (1.3-7.7); Neutrophils % (A) 78 %; Platelet Count 270 k/uL (150-450); Poikilocytosis Slight; RBC 2.88 m/uL (3.80-5.40); RDW 16.3 % (11.5-15.5); WBC 7.4 k/uL (3.8-10.6)
[2023-03-13 10:49] LABS: HGB 6.8 gm/dL (11.4-16.0)
[2023-03-13 12:03] LABS: ALT 10 U/L (4-34); AST 15 U/L (14-36); African American GFR (CKD) >90 (>60 ml/min/1.73 sqM); Albumin 2.8 g/dL (3.5-5.0); Alkaline Phosphatase 79 U/L (38-126); Anion Gap 9 mmol/L; Blood Urea Nitrogen 7 mg/dL (7-17); Calcium 8.4 mg/dL (8.4-10.2); Carbon Dioxide 20 mmol/L (22-30); Chloride 107 mmol/L (98-107); Glucose 111 mg/dL (74-99); Magnesium 1.7 mg/dL (1.6-2.3); Non-African American GFR(CKD) >90 (>60 ml/min/1.73 sqM); Phosphorus 2.8 mg/dL (2.5-4.5); Potassium 3.2 mmol/L (3.5-5.1); Sodium 136 mmol/L (137-145); Total Bilirubin 0.3 mg/dL (0.2-1.3); Total Protein 6.1 g/dL (6.3-8.2)
--- NOTE | 2023-03-13 13:21 | P.GSCN ---
History of Present Illness Consult date: 03/13/23 History of present illness: CHIEF COMPLAINT: Abdominal pain HISTORY OF PRESENT ILLNESS: This is a 52-year-old female presented with left lower quadrant abdominal pain with bright red blood per rectum 2 days. Patient reports no prior history of GI bleed. She denies any NSAID use or any blood thinners. She also reports having some nausea. Last colonoscopy was 2019 revealing diverticulosis and hemorrhoids. Patient has computed tomography scan abdomen and pelvis reported a diffuse thickening of the distending colon wall and rectal wall consistent with colitis. No bowel obstruction, free intraperitoneal air or fluid. Massive fibroid uterus. Patient denies any fever chills or sweats. Patient did have a low-grade temp of 100.8 this morning. PAST MEDICAL HISTORY: Hyperlipidemia, hypertension, diverticulosis PAST SURGICAL HISTORY: MEDICATIONS: See below ALLERGIES: See below SOCIAL HISTORY: No illicit drug use. REVIEW OF SYSTEMS: CONSTITUTIONAL: Denies fever or chills. HEENT: Denies blurred vision, vision changes, or eye pain. Denies hemoptysis CARDIOVASCULAR: Denies chest pain or pressure. RESPIRATORY: No shortness of breath. GASTROINTESTINAL: See HPI for pertinent findings HEMATOLOGIC: Denies bleeding disorders. GENITOURINARY: Denies any blood in urine or increased urinary frequency. SKIN: Denies pruitis. Denies rash. PHYSICAL EXAM: VITAL SIGNS: Reviewed GENERAL: Well-developed in no acute distress. ABDOMEN: Soft. Nondistended. Tenderness to palpation left lower quadrant. Firmness noted with palpation of the suprapubic area NEUROLOGIC: Alert and oriented. Cranial nerves II through XII grossly intact. LABORATORY DATA: WBC 7.4 Hgb 9.4 down to 6.8 platelets 270 INR 1.0 Sodium 139 potassium 3.8 creatinine 0.71 IMAGING: Computed tomography scan abdomen and pelvis diffuse thickening of the descending colon wall and rectal wall consistent with colitis. No bowel obstruction. Massive fibroid uterus. CTA of the chest no acute cardiopulmonary disease. No evidence of PE. ASSESSMENT: 1. Acute GI bleed with bright red blood per rectum 2. Acute blood loss anemia 3. Colitis. Computed tomography scan reports diffuse thickening of the descending colon wall and rectal wall consistent with colitis PLAN: -Plan for EGD and colonoscopy tomorrow with Dr. Olvera -Continue antibiotics -1 unit of blood ordered for hemoglobin of 6.8 -Continue monitor hemoglobin -Continue to monitor for any signs or symptoms of bleeding -Continue IV fluids Thank you for this consultation Physician Order Puller note has been reviewed by physician. Signing provider agrees with the documented findings, assessment, and plan of care. Past Medical History Past Medical History: Hyperlipidemia, Hypertension History of Any Multi-Drug Resistant Organisms: None Reported Past Surgical History: Section Smoking Status: Former smoker Past Alcohol Use History: None Reported Past Drug Use History: None Reported Medications and Allergies Home Medications Medication Instructions Recorded Confirmed Type No Known Home Medications 03/12/23 03/12/23 History Allergies Allergy/AdvReac Type Severity Reaction Status Date / Time No Known Allergies Allergy Verified 03/12/23 20:08 Surgical - Exam Vital Signs Temp Pulse Resp BP Pulse Ox 98.2 F 92 16 205/111 98 03/12/23 14:52 03/12/23 14:52 03/12/23 14:52 03/12/23 14:52 03/12/23 14:52 Results - Labs 03/13/23 09:29 03/13/23 09:29 Abnormal Lab Results - Last 24 Hours (Table) 03/12/23 Range/Units 15:00 Hgb 9.4 L (11.4-16.0) gm/dL Hct 30.8 L (34.0-46.0) % MCV 75.4 L (80.0-100.0) fL MCH 23.1 L (25.0-35.0) pg MCHC 30.6 L (31.0-37.0) g/dL RDW 16.6 H (11.5-15.5) % Lymphocytes # 0.8 L (1.0-4.8) k/uL Diabetes panel 03/12/23 Range/Units 15:00 Sodium 139 (137-145) mmol/L Potassium 3.8 (3.5-5.1) mmol/L Chloride 103 (98-107) mmol/L Carbon Dioxide 23 (22-30) mmol/L BUN 10 (7-17) mg/dL Creatinine 0.71 (0.52-1.04) mg/dL Glucose 87 (74-99) mg/dL Calcium 9.7 (8.4-10.2) mg/dL AST 17 (14-36) U/L ALT 12 (4-34) U/L Alkaline Phosphatase 107 (38-126) U/L Total Protein 7.8 (6.3-8.2) g/dL Albumin 3.8 (3.5-5.0) g/dL Calcium panel 03/12/23 Range/Units 15:00 Calcium 9.7 (8.4-10.2) mg/dL Albumin 3.8 (3.5-5.0) g/dL Pituitary panel 03/12/23 Range/Units 15:00 Sodium 139 (137-145) mmol/L Potassium 3.8 (3.5-5.1) mmol/L Chloride 103 (98-107) mmol/L Carbon Dioxide 23 (22-30) mmol/L BUN 10 (7-17) mg/dL Creatinine 0.71 (0.52-1.04) mg/dL Glucose 87 (74-99) mg/dL Calcium 9.7 (8.4-10.2) mg/dL Adrenal panel 03/12/23 Range/Units 15:00 Sodium 139 (137-145) mmol/L Potassium 3.8 (3.5-5.1) mmol/L Chloride 103 (98-107) mmol/L Carbon Dioxide 23 (22-30) mmol/L BUN 10 (7-17) mg/dL Creatinine 0.71 (0.52-1.04) mg/dL Glucose 87 (74-99) mg/dL Calcium 9.7 (8.4-10.2) mg/dL Total Bilirubin 0.5 (0.2-1.3) mg/dL AST 17 (14-36) U/L ALT 12 (4-34) U/L Alkaline Phosphatase 107 (38-126) U/L Total Protein 7.8 (6.3-8.2) g/dL Albumin 3.8 (3.5-5.0) g/dL
[2023-03-13] MEDS ORDERED: PEG 3350 (236 GM/BTL) + LYTES 4,000 ML BOTTLE PO ONE (13:22)
[2023-03-13] MEDS ORDERED: POTASSIUM CHLORIDE ER 20 MEQ TAB.ER PO STA (13:24)
[2023-03-13] MEDS ORDERED: MAGNESIUM SULFATE-D5W PMX 1 GM in DEXTROSE/WATER 1 100ML.BAG IVPB ONE (13:24)
--- NOTE | 2023-03-13 14:44 | P.CONS ---
History of Present Illness - Reason for Consult Consult date: 03/13/23 GI bleed Requesting physician: Jorge Rivas - Chief Complaint Abdominal pain, rectal bleeding - History of Present Illness This is a 52-year-old female who presented with left lower quadrant abdominal pain with bright red blood per rectum 2 days. She states symptoms started mid Brennan with diarrhea and then with all blood, which she states is bright red. She states she had 10 bowel movements that day. States yesterday she had a bloody bowel movements. And this morning bleeding had slowed down. Patient reports no prior history of GI bleed. She denies any NSAID use or any blood thinners. She also reports having some nausea. Last col onoscopy was 2018 with Marcos Ovalles with findings of diverticulosis and grade 4 hemorrhoids. Patient has computed tomography scan abdomen and pelvis reported a diffuse thickening of the distending colon wall and rectal wall consistent with colitis. No bowel obstruction, free intraperitoneal air or fluid. Massive fibroid uterus. Patient denies any fever chills or sweats. Patient did have a low-grade temp of 100.8 this morning. Admitting labs WBC 8.0, hemoglobin 9.4, hematocrit 30.8, platelet count 356,000. INR 1.0, sodium 139, potassium 3.8, BUN 10, creatinine 0.7, total bilirubin 0.5, AST 17 ALT is 12, alkaline phosphatase 107. Review of Systems REVIEW OF SYSTEMS: CARDIOPULMONARY: No chest pain, shortness of breath. Gastrointestinal: Abdominal pain, mostly left lower quadrant. Nausea but no vomiting. No hematemesis, coffee-ground emesis. Diarrhea with Ganga rectal bleeding. GENITOURINARY: No dysuria or hematuria. MUSCULOSKELETAL: Reports normal range of motion. SKIN: No rashes. No jaundice. ENDOCRINE: No chills, fevers. No excessive weight gain or loss. No polydipsia or polyuria. PSYCHIATRIC: Unremarkable. NEUROLOGY: No change in mental status. Denies dizziness, headache. ENT: Vision unremarkable. CONSTITUTIONAL: No recent weight loss. No fever, chills, night sweats. Past Medical History Past Medical History: Hyperlipidemia, Hypertension History of Any Multi-Drug Resistant Organisms: None Reported Past Surgical History: Section Smoking Status: Former smoker Past Alcohol Use History: None Reported Past Drug Use History: None Reported Medications and Allergies Home Medications Medication Instructions Recorded Confirmed Type No Known Home Medications 03/12/23 03/12/23 History Allergies Allergy/AdvReac Type Severity Reaction Status Date / Time No Known Allergies Allergy Verified 03/12/23 20:08 Physical Exam Vitals: Vital Signs Temp Pulse Resp BP Pulse Ox 03/13/23 07:37 99.8 F H 79 16 122/72 100 03/13/23 04:48 97.8 F 74 16 129/67 98 03/13/23 04:47 99.6 F 88 18 147/72 98 03/12/23 22:23 80 18 142/78 100 03/12/23 20:05 94 18 193/96 100 03/12/23 14:52 98.2 F 92 16 205/111 98 General appearance: The patient is alert, oriented, appears in no acute distress. HET: Head is normocephalic and atraumatic. Conjunctiva pink. Sclera anicteric. Neck: Supple without lymphadenopathy. Trachea midline. Heart: Regular. Lungs: Equal expansion, normal respiratory effort. Abdomen: Soft, left lower quadrant tenderness nondistended. No guarding or rigidity. Skin: No rashes. No jaundice. Extremities: Normal skin color and turgor. No pedal edema. Neurological: No focal deficits. Alert and oriented x3. Results CBC & Chem 7: 03/13/23 09:29 03/13/23 09:29 Labs: Abnormal Lab Results - Last 24 Hours (Table) 03/12/23 Range/Units 15:00 Hgb 9.4 L (11.4-16.0) gm/dL Hct 30.8 L (34.0-46.0) % MCV 75.4 L (80.0-100.0) fL MCH 23.1 L (25.0-35.0) pg MCHC 30.6 L (31.0-37.0) g/dL RDW 16.6 H (11.5-15.5) % Lymphocytes # 0.8 L (1.0-4.8) k/uL Comments: computed tomography scan abdomen and pelvis reported a diffuse thickening of the distending colon wall and rectal wall consistent with colitis. No bowel obstruction, free intraperitoneal air or fluid. Massive fibroid uterus. Assessment and Plan (1) GI bleed Narrative/Plan: 52-year-old female presenting with abdominal pain and rectal bleeding 2 days duration with low-grade fever of 100.8. No prior history of GI bleed. No anticoagulation use. Last colonoscopy 2019 significant for diverticulosis and grade 4 internal hemorrhoids. She had a CT of the abdomen and pelvis significant for diffuse thickening of descending colon and rectal wall consistent with colitis. Most likely infectious colitis. Will start patient on antibiotics, maintain on clear liquid diet, and continue to follow. If no improvement will consider possible colonoscopy. Current Visit: Yes Status: Acute Code(s): K92.2 - GASTROINTESTINAL HEMORRHAGE, UNSPECIFIED SNOMED Code(s): 75805399 (2) Colitis Current Visit: Yes Status: Acute Code(s): K52.9 - NONINFECTIVE GASTROENTERITIS AND COLITIS, UNSPECIFIED SNOMED Code(s): 10813173 (3) Abdominal pain Current Visit: Yes Status: Acute Code(s): R10.9 - UNSPECIFIED ABDOMINAL PAIN SNOMED Code(s): 84297995 Plan: 1. Continue symptomatic and supportive care. 2. Patient may have clear liquid diet. 3. Daily CBC, transfuse for hemoglobin less than 7 4. IV Levaquin and Flagyl started 5. Zofran as needed for nausea 6. No planned at this time for endoscopic evaluation, we'll continue to follow. If no improvement will consider colonoscopy Thank you for this consultation, we will continue to follow. Dr. Anton Cee I agree with the dictator's note, documented as a scribe by Ngozi Gil.
[2023-03-13] MEDS: SODIUM CHLORIDE 0.9% 1,000 ML IV SCH (15:58)
[2023-03-13] MEDS: metroNIDAZOLE-NS PMX 500 MG in SALINE 1 100ML.BAG IVPB SCH ×2 (15:59→23:44)
[2023-03-13 22:35] LABS: Anisocytosis Slight; HCT 24.6 % (34.0-46.0); Hypochromasia Marked; MCH 24.7 pg (25.0-35.0); MCHC 32.4 g/dL (31.0-37.0); MCV 76.2 fL (80.0-100.0); Microcytosis Slight; Platelet Count 268 k/uL (150-450); Poikilocytosis Slight; RBC 3.23 m/uL (3.80-5.40); RDW 17.1 % (11.5-15.5); WBC 10.7 k/uL (3.8-10.6)
--- NOTE | 2023-03-13 22:50 | PN ---
PROGRESS NOTE SUBJECTIVE: Lanie Hooper came in with bright red blood per rectum for 2 days. Denies any NSAIDs. She had a colonoscopy in 2019, diverticulitis and hemorrhoids. CT of abdomen shows diffuse thickening of the distal colon and rectal vault consistent with colitis. Hemoglobin is down to 8.3, she was given IV Venofer. She has GI and Surgery seeing her. They said she had acute GI bleed with bright red blood per rectum, acute blood- loss anemia with colitis of the diffuse descending colon and rectal wall consistent with colitis. They ordered unit of blood for hemoglobin of 6.8. Monitor hemoglobin. EGD and colonoscopy tomorrow with surgery. Continue IV antibiotics for colitis. PROGNOSIS: Guarded. Please see further orders. MMODL / IJN: [id number] /
[2023-03-14] MEDS: SODIUM CHLORIDE 0.9% 1,000 ML IV SCH ×2 (04:45→16:11)
--- NOTE | 2023-03-14 07:30 | P.PN ---
Subjective Progress Note Date: 03/14/23 Principal diagnosis: GI bleed, colitis This is a 52-year-old female who presented with left lower quadrant abdominal pain with bright red blood per rectum 2 days. She states symptoms started mid Saturday with diarrhea and then with all blood, which she states is bright red. She states she had 10 bowel movements that day. States yesterday she had a bloody bowel movements. And this morning bleeding had slowed down. Patient reports no prior history of GI bleed. She denies any NSAID use or any blood thinners. She also reports having some nausea. Last co lonoscopy was 2018 with Marcos Ovalles with findings of diverticulosis and grade 4 hemorrhoids. Patient has computed tomography scan abdomen and pelvis reported a diffuse thickening of the distending colon wall and rectal wall consistent with colitis. No bowel obstruction, free intraperitoneal air or fluid. Massive fibroid uterus. Patient denies any fever chills or sweats. Patient did have a low-grade temp of 100.8 this morning. Admitting labs WBC 8.0, hemoglobin 9.4, hematocrit 30.8, platelet count 356,000. INR 1.0, sodium 139, potassium 3.8, BUN 10, creatinine 0.7, total bilirubin 0.5, AST 17 ALT is 12, alkaline phosphatase 107. 03/14/2023 Patient seen and examined today as a follow-up. She states she's continued to have bright red blood per rectum. Multiple times through the night. She was seen by general surgery yesterday who scheduled patient for colonoscopy today. States she did bowel prep. She received 1 unit of blood yesterday with a repeat hemoglobin of 8.0. Still having lower abdominal cramping and pain. No nausea or vomiting. She is currently afebrile. She did have low-grade fever yesterday afternoon. Objective - Vital Signs Vital signs: Vital Signs Temp 98.2 F 03/14/23 04:00 Pulse 82 03/14/23 04:00 Resp 16 03/14/23 04:00 BP 142/74 03/14/23 04:00 Pulse Ox 97 03/14/23 04:00 FiO2 Intake & Output 03/13/23 03/14/23 03/14/23 18:59 06:59 18:59 Intake Total 310 720 Balance 310 720 Intake: Oral 720 Blood Product 310 Rc As-1 Unit 310 [id number] Other: Voiding Method Toilet Toilet # Voids 2 - Exam General appearance: The patient is alert, oriented, appears in no acute distress. HET: Head is normocephalic and atraumatic. Conjunctiva pink. Sclera anicteric. Neck: Supple without lymphadenopathy. Abdomen: Soft, tender to palpation, nondistended. No guarding or rigidity. Extremities: Normal skin color and turgor. No pedal edema Skin: No rashes, no jaundice Neurological: No focal deficits. Alert and oriented. - Labs CBC & Chem 7: 03/13/23 22:11 03/13/23 09:29 Labs: Abnormal Lab Results - Last 24 Hours (Table) 03/12/23 03/13/23 03/13/23 Range/Units 15:25 09:29 09:29 WBC (3.8-10.6) k/uL RBC 2.88 L (3.80-5.40) m/uL Hgb 6.8 L* D (11.4-16.0) gm/dL Hct 22.0 L (34.0-46.0) % MCV 76.3 L (80.0-100.0) fL MCH 23.5 L (25.0-35.0) pg MCHC 30.8 L (31.0-37.0) g/dL RDW 16.3 H (11.5-15.5) % Lymphocytes # 0.7 L (1.0-4.8) k/uL Sodium 136 L (137-145) mmol/L Potassium 3.2 L (3.5-5.1) mmol/L Carbon Dioxide 20 L (22-30) mmol/L Glucose 111 H (74-99) mg/dL Total Protein 6.1 L (6.3-8.2) g/dL Albumin 2.8 L (3.5-5.0) g/dL Crossmatch See Detail 03/13/23 Range/Units 22:11 WBC 10.7 H (3.8-10.6) k/uL RBC 3.23 L (3.80-5.40) m/uL Hgb 8.0 L (11.4-16.0) gm/dL Hct 24.6 L (34.0-46.0) % MCV 76.2 L (80.0-100.0) fL MCH 24.7 L (25.0-35.0) pg MCHC (31.0-37.0) g/dL RDW 17.1 H (11.5-15.5) % Lymphocytes # (1.0-4.8) k/uL Sodium (137-145) mmol/L Potassium (3.5-5.1) mmol/L Carbon Dioxide (22-30) mmol/L Glucose (74-99) mg/dL Total Protein (6.3-8.2) g/dL Albumin (3.5-5.0) g/dL Crossmatch Assessment and Plan (1) GI bleed Narrative/Plan: 52-year-old female presenting with abdominal pain and rectal bleeding 2 days duration with low-grade fever of 100.8. No prior history of GI bleed. No anticoagulation use. Last colonoscopy 2019 significant for diverticulosis and grade 4 internal hemorrhoids. She had a CT of the abdomen and pelvis s ignificant for diffuse thickening of descending colon and rectal wall consistent with colitis. Most likely infectious colitis. Will start patient on antibiotics, maintain on clear liquid diet, and continue to follow. If no improvement will consider possible colonoscopy. Current Visit: Yes Status: Acute Code(s): K92.2 - GASTROINTESTINAL HEMORRHAGE, UNSPECIFIED SNOMED Code(s): 72843447 (2) Colitis Current Visit: Yes Status: Acute Code(s): K52.9 - NONINFECTIVE GASTROENTERITIS AND COLITIS, UNSPECIFIED SNOMED Code(s): 12029692 (3) Abdominal pain Current Visit: Yes Status: Acute Code(s): R10.9 - UNSPECIFIED ABDOMINAL PAIN SNOMED Code(s): 93725484 Plan: 1. Continue symptomatic and supportive care. 2. Continue IV Levaquin and Flagyl started 3. Zofran as needed for nausea 4. Patient is scheduled for colonoscopy with general surgery, Dr. Olvera Thank you for allowing us to participate in the care of the patient, the GI service will sign off, gastroenterology will not be available at the hospital this weekend and through next week. Dr. Anton Cee I agree with the dictator's note, documented as a scribe by Ngozi Gil.
[2023-03-14 07:35] LABS: Anisocytosis Slight; Basophils % (A) 1 %; Eosinophils # (A) 0.1 k/uL (0-0.7); Eosinophils % (A) 1 %; HCT 24.7 % (34.0-46.0); HGB 7.9 gm/dL (11.4-16.0); Hypochromasia Marked; Lymphocytes # (A) 0.8 k/uL (1.0-4.8); Lymphocytes % (A) 9 %; MCH 24.4 pg (25.0-35.0); MCV 76.3 fL (80.0-100.0); Mean Platelet Volume 9.3; Microcytosis Slight; Monocytes # (A) 0.8 k/uL (0-1.0); Monocytes % (A) 9 %; Neutrophils # (A) 6.9 k/uL (1.3-7.7); Neutrophils % (A) 78 %; Platelet Count 289 k/uL (150-450); Poikilocytosis Slight; RBC 3.24 m/uL (3.80-5.40); RDW 17.1 % (11.5-15.5); WBC 8.9 k/uL (3.8-10.6)
[2023-03-14 08:07] LABS: ALT 10 U/L (4-34); AST 15 U/L (14-36); African American GFR (CKD) >90 (>60 ml/min/1.73 sqM); Albumin 2.8 g/dL (3.5-5.0); Alkaline Phosphatase 84 U/L (38-126); Anion Gap 8 mmol/L; Blood Urea Nitrogen 6 mg/dL (7-17); Calcium 8.5 mg/dL (8.4-10.2); Carbon Dioxide 23 mmol/L (22-30); Chloride 105 mmol/L (98-107); Glucose 100 mg/dL (74-99); Non-African American GFR(CKD) >90 (>60 ml/min/1.73 sqM); Potassium 2.9 mmol/L (3.5-5.1); Sodium 136 mmol/L (137-145); Total Bilirubin 0.5 mg/dL (0.2-1.3); Total Protein 6.1 g/dL (6.3-8.2)
[2023-03-14] MEDS ORDERED: IV FLUID CONTINUATION 600 ML IV ONE (08:42)
[2023-03-14] MEDS ORDERED: PROPOFOL 10 MG/ML 20 ML VIAL IV ONE (08:45)
--- NOTE | 2023-03-14 09:01 | P.CONS ---
History of Present Illness - Reason for Consult Consult date: 03/13/23 Fever Requesting physician: Phi Alas - Chief Complaint Bleeding per rectum x 1 day - History of Present Illness Patient is a 52-year-old -[place] female with a past medical history significant for hypertension hyperlipidemia patient presenting to the hospital for evaluation of bleeding per rectum patient symptoms started the day of presentation to the hospital patient was complaining of feeling nauseated and did have lightheadedness also complaining of some left lower abdominal pain describing the pain to be more of a dull aching to colicky moderate intensity without any radiation patient on presentation to the hospital was afebrile however he did spike a fever this morning of 100.8 F from previous infectious disease consultation patient was not significantly tachycardic hypotensive or hypoxic patient did have a white count of 10.7 hemoglobin 8 after transfusion creatinine was normal liver isms are normal patient did have a CT abdominal pelvis diffuse thickening of the descending colon wall and rectal wall consistent with colitis no bowel obstruction patient also have a CT angiogram of the chest no acute cardiopulmonary disease and no evidence of pulm embolism patient was started on Levaquin and Flagyl, pending infectious disease evaluati on patient mention she has not been on antibiotic in the recent past and has never problem with the bleeding per rectum in the past Review of Systems Positive point and negatives has been mentioned in the HPI, complete review of systems was performed and all other systems are negative Past Medical History Past Medical History: Hyperlipidemia, Hypertension History of Any Multi-Drug Resistant Organisms: None Reported Past Surgical History: Section Past Anesthesia/Blood Transfusion Reactions: No Reported Reaction Smoking Status: Former smoker Past Alcohol Use History: None Reported Past Drug Use History: None Reported Medications and Allergies Home Medications Medication Instructions Recorded Confirmed Type Pantoprazole [Protonix] 40 mg PO AC-BRKFST 90 Days #90 tab 03/18/23 Rx amLODIPine [Norvasc] 5 mg PO DAILY 90 Days #90 tab 03/18/23 Rx metroNIDAZOLE [Flagyl] 500 mg PO TID 7 Days #21 tab 03/18/23 Rx predniSONE [Deltasone] 40 mg PO DAILY 5 Days #5 tab 03/18/23 Rx Allergies Allergy/AdvReac Type Severity Reaction Status Date / Time No Known Allergies Allergy Verified 03/12/23 20:08 Physical Exam Vitals: Vital Signs Temp Pulse Resp BP Pulse Ox 03/13/23 16:03 99.8 F H 99 16 137/81 98 03/13/23 14:10 100.5 F H 98 16 127/78 94 L 03/13/23 12:49 98.9 F 54 L 18 116/68 100 03/13/23 12:35 99 F 52 L 18 128/78 95 03/13/23 08:36 100.8 F H 03/13/23 07:37 99.8 F H 79 16 122/72 100 03/13/23 04:48 97.8 F 74 16 129/67 98 03/13/23 04:47 99.6 F 88 18 147/72 98 03/12/23 22:23 80 18 142/78 100 03/12/23 20:05 94 18 193/96 100 Intake and Output 03/13/23 03/13/23 03/13/23 06:59 14:59 22:59 Intake Total 0 310 Balance 0 310 Intake: Blood Product 0 310 Rc As-1 Unit 0 310 [id number] Other: Voiding Method Toilet GENERAL DESCRIPTION: Middle-aged female lying in bed, no distress. No tachypnea or accessory muscle of respiration use. HEENT: Shows Pallor , no scleral icterus. Oral mucous membrane is dry. No pharyngeal erythema or thrush NECK: Trachea central, no thyromegaly. LUNGS: Unlabored breathing. Clear to auscultation anteriorly. No wheeze or crackle. HEART: S1, S2, regular rate and rhythm. No loud murmur ABDOMEN: Soft, no tenderness , guarding or rigidity, no organomegaly EXTREMITIES: No edema of feet. SKIN: No rash, no masses palpable. NEUROLOGICAL: The patient is awake, alert, oriented x3, mood and affect normal. Results CBC & Chem 7: 03/16/23 08:29 03/16/23 08:29 Labs: Abnormal Lab Results - Last 24 Hours (Table) 03/12/23 03/13/23 03/13/23 Range/Units 15:25 09:29 09:29 RBC 2.88 L (3.80-5.40) m/uL Hgb 6.8 L* D (11.4-16.0) gm/dL Hct 22.0 L (34.0-46.0) % MCV 76.3 L (80.0-100.0) fL MCH 23.5 L (25.0-35.0) pg MCHC 30.8 L (31.0-37.0) g/dL RDW 16.3 H (11.5-15.5) % Lymphocytes # 0.7 L (1.0-4.8) k/uL Sodium 136 L (137-145) mmol/L Potassium 3.2 L (3.5-5.1) mmol/L Carbon Dioxide 20 L (22-30) mmol/L Glucose 111 H (74-99) mg/dL Total Protein 6.1 L (6.3-8.2) g/dL Albumin 2.8 L (3.5-5.0) g/dL Crossmatch See Detail Assessment and Plan (1) Colitis Status: Acute Priority: High Code(s): K52.9 - NONINFECTIVE GASTROENTERITIS AND COLITIS, UNSPECIFIED SNOMED Code(s): 51826614 (2) Fever Status: Acute Code(s): R50.9 - FEVER, UNSPECIFIED SNOMED Code(s): 239257348 Plan: 1patient with a fever in this patient presented to hospital predominantly with GI symptoms patient did have a lower abdominal pain and bleeding per rectum also have evidence of colitis on the CT concerning for possible infectious colitis versus ischemic no history of recent antibiotic exposure 2-we will obtain stool studies and the patient is getting bowel prep for colonoscopy and GI 3-we will discontinue Levaquin and start the patient on Rocephin 2 g daily and continue with the Flagyl 4-avoid antimotility agents We will follow on clinical condition and cultures to further adjust medication if needed Thank you for this consultation we will follow the patient along with you Dictation was produced using [employer] dictation software. please excuse any grammatical, word or spelling errors. Time with Patient: Less than 30
--- NOTE | 2023-03-14 09:22 | P.OP ---
Date of Procedure: 03/14/23 Preoperative Diagnosis: GI bleed Postoperative Diagnosis: GI bleed External hemorrhoids Mild gastritis Procedure(s) Performed: EGD Colonoscopy Anesthesia: MAC Surgeon: Celestine Olvera Pathology: other (Antrum) Condition: stable Disposition: PACU Description of Procedure: The patient's placed on the endoscopy table in the lateral position. She received IV sedation. The gastro-/oropharynx passed in the esophagus and stomach. Scope was placed through the pylorus. The first and second portion of the duodenum appeared normal. Scope summer back the antrum this. Mildly inflamed. A biopsy was performed. Scope was then retroflexed remainder stomach appeared normal. The GE junction was at 40 cm. The distal esophagus appeared normal. The proximal esophagus appeared normal. Scope was then withdrawn. Next digital rectal exam was performed. There were extensive external and internal hemorrhoids appeared to be some bleeding from hemorrhoids. The flexible colonoscope was then placed patient anus passed with colon. The scope couldn't be advanced the cecum due to poor colon prep. This point scope withdrawn. The visualized right colon, transverse colon and descending colon appeared normal. The sigmoid colon appeared normal. Scope was brought back the rectum this appeared normal. Scope was withdrawn through the anus and internal extremities are noted. Presumed patient's bleeding from internal and external hemorrhoids.
[2023-03-14] MEDS: PANTOPRAZOLE 40 MG/10 ML VIAL IV SCH (10:00)
[2023-03-14] MEDS: LOSARTAN-HCTZ 50-12.5 MG 1 EACH TAB PO SCH (10:00)
[2023-03-14] MEDS: metroNIDAZOLE-NS PMX 500 MG in SALINE 1 100ML.BAG IVPB SCH ×3 (10:01→23:51)
[2023-03-14 10:29] LABS: Reticulocyte % 1.3 % (0.5-2.0)
--- NOTE | 2023-03-14 11:34 | P.PN ---
Subjective Progress Note Date: 03/14/23 CHIEF COMPLAINT: GI bleeding HISTORY OF PRESENT ILLNESS: Patient lying in bed comfortably. She status post EGD and colonoscopy. The results revealed external hemorrhoids and mild gastritis. Presumed patient's bleeding is from internal and external hemorrhoids. Patient denies any abdominal pain. Denies any nausea vomiting she did have a low-grade temperature 100.5 yesterday afternoon. Hemoglobin is up from 6.8 to 7.9 this morning. Potassium 2.9. Mg 1.9Vital stable. Patient status post 1 unit of blood yesterday. PHYSICAL EXAM: VITAL SIGNS: Reviewed. GENERAL: Well-developed in no acute distress. ABDOMEN: Soft. Nondistended. Nontender. ASSESSMENT: 1. Acute GI bleed likely due to hemorrhoids status post EGD and colonoscopy revealing external hemorrhoids and mild gastritis 2. Colitis on computed tomography scan 3. Hypokalemia PLAN: -Continue antibiotic -Continue PPI -Advance diet to Full liquids Physician Opto Mechanical Technician note has been reviewed by physician. Signing provider agrees with the documented findings, assessment, and plan of care. Objective - Vital Signs Vital signs: Vital Signs Temp 98.9 F 03/14/23 08:00 Pulse 98 03/14/23 08:00 Resp 16 03/14/23 08:00 BP 147/80 03/14/23 08:00 Pulse Ox 98 03/14/23 08:00 FiO2 Intake & Output 03/13/23 03/14/23 03/14/23 18:59 06:59 18:59 Intake Total 310 720 200 Balance 310 720 200 Intake: IV 200 Oral 720 Blood Product 310 Rc As-1 Unit 310 [id number] Other: Voiding Method Toilet Toilet Toilet # Voids 2 - Labs CBC & Chem 7: 03/14/23 07:21 03/14/23 07:21 Labs: Abnormal Lab Results - Last 24 Hours (Table) 03/12/23 03/13/23 03/13/23 Range/Units 15:25 09:29 09:29 WBC (3.8-10.6) k/uL RBC 2.88 L (3.80-5.40) m/uL Hgb 6.8 L* D (11.4-16.0) gm/dL Hct 22.0 L (34.0-46.0) % MCV 76.3 L (80.0-100.0) fL MCH 23.5 L (25.0-35.0) pg MCHC 30.8 L (31.0-37.0) g/dL RDW 16.3 H (11.5-15.5) % Lymphocytes # 0.7 L (1.0-4.8) k/uL Sodium 136 L (137-145) mmol/L Potassium 3.2 L (3.5-5.1) mmol/L Carbon Dioxide 20 L (22-30) mmol/L BUN (7-17) mg/dL Glucose 111 H (74-99) mg/dL Total Protein 6.1 L (6.3-8.2) g/dL Albumin 2.8 L (3.5-5.0) g/dL Crossmatch See Detail 03/13/23 03/14/23 03/14/23 Range/Units 22:11 07:21 07:21 WBC 10.7 H (3.8-10.6) k/uL RBC 3.23 L 3.24 L (3.80-5.40) m/uL Hgb 8.0 L 7.9 L (11.4-16.0) gm/dL Hct 24.6 L 24.7 L (34.0-46.0) % MCV 76.2 L 76.3 L (80.0-100.0) fL MCH 24.7 L 24.4 L (25.0-35.0) pg MCHC (31.0-37.0) g/dL RDW 17.1 H 17.1 H (11.5-15.5) % Lymphocytes # 0.8 L (1.0-4.8) k/uL Sodium 136 L (137-145) mmol/L Potassium 2.9 L (3.5-5.1) mmol/L Carbon Dioxide (22-30) mmol/L BUN 6 L (7-17) mg/dL Glucose 100 H (74-99) mg/dL Total Protein 6.1 L (6.3-8.2) g/dL Albumin 2.8 L (3.5-5.0) g/dL Crossmatch
[2023-03-14] MEDS: POTASSIUM CHLORIDE ER 20 MEQ TAB.ER PO SCH ×2 (12:20→13:27)
--- NOTE | 2023-03-14 15:09 | P.PN ---
Subjective Progress Note Date: 03/14/23 Principal diagnosis: Reason for follow-up is fever and colitis Patient is a 52-year-old -[place] female with a past medical history significant for hypertension hyperlipidemia patient presenting to the hospital for evaluation of bleeding per rectum, patient did have a CT abdominal pelvis concerning for diffuse thickening of the descending colon and rectal wall concerning for colitis and the patient spike a fever prompting this infectious disease consultation. The patient is status post EGD and colonoscopy completed on 03/14/2023 with evidence of gastritis and hemorrhoids. On today's evaluation that is 03/14/2023 the patient did have resolution of her fever and is afebrile this morning, the patient is breathing comfortably on room air, patient denies chest pain cough, the patient denies having any abdominal pain no nausea vomiting still complaining of some bleeding per rectum. Patient white count is 8.9, creatinine 0.60 cultures pending Objective - Vital Signs Vital signs: Vital Signs Temp 99 F 03/14/23 12:00 Pulse 90 03/14/23 12:00 Resp 16 03/14/23 12:00 BP 157/86 03/14/23 12:00 Pulse Ox 98 03/14/23 12:00 FiO2 Intake & Output 03/13/23 03/14/23 03/14/23 18:59 06:59 18:59 Intake Total 310 720 200 Balance 310 720 200 Intake: IV 200 Oral 720 Blood Product 310 Rc As-1 Unit 310 [id number] Other: Voiding Method Toilet Toilet Toilet # Voids 2 - Exam GENERAL DESCRIPTION: Middle-aged female lying in bed in no distress RESPIRATORY SYSTEM: Unlabored breathing , decreased breath sounds at bases HEART: S1 S2 regular rate and rhythm , ABDOMEN: Soft , no tenderness EXTREMITIES: No edema feet - Labs CBC & Chem 7: 03/14/23 07:21 03/14/23 07:21 Labs: Abnormal Lab Results - Last 24 Hours (Table) 03/12/23 03/13/23 03/14/23 Range/Units 15:25 22:11 07:21 WBC 10.7 H (3.8-10.6) k/uL RBC 3.23 L (3.80-5.40) m/uL Hgb 8.0 L (11.4-16.0) gm/dL Hct 24.6 L (34.0-46.0) % MCV 76.2 L (80.0-100.0) fL MCH 24.7 L (25.0-35.0) pg RDW 17.1 H (11.5-15.5) % Lymphocytes # (1.0-4.8) k/uL Sodium 136 L (137-145) mmol/L Potassium 2.9 L (3.5-5.1) mmol/L BUN 6 L (7-17) mg/dL Glucose 100 H (74-99) mg/dL Total Protein 6.1 L (6.3-8.2) g/dL Albumin 2.8 L (3.5-5.0) g/dL Crossmatch See Detail 03/14/23 Range/Units 07:21 WBC (3.8-10.6) k/uL RBC 3.24 L (3.80-5.40) m/uL Hgb 7.9 L (11.4-16.0) gm/dL Hct 24.7 L (34.0-46.0) % MCV 76.3 L (80.0-100.0) fL MCH 24.4 L (25.0-35.0) pg RDW 17.1 H (11.5-15.5) % Lymphocytes # 0.8 L (1.0-4.8) k/uL Sodium (137-145) mmol/L Potassium (3.5-5.1) mmol/L BUN (7-17) mg/dL Glucose (74-99) mg/dL Total Protein (6.3-8.2) g/dL Albumin (3.5-5.0) g/dL Crossmatch Assessment and Plan (1) Fever Current Visit: Yes Status: Acute Code(s): R50.9 - FEVER, UNSPECIFIED SNO MED Code(s): 971582197 (2) Colitis Current Visit: Yes Status: Acute Code(s): K52.9 - NONINFECTIVE GASTROENTERITIS AND COLITIS, UNSPECIFIED SNOMED Code(s): 81896429 Plan: 1patient with a fever in this patient presented to hospital predominantly with GI symptoms patient did have a lower abdominal pain and bleeding per rectum also have evidence of colitis on the CT concerning for possible infectious colitis versus ischemic no history of recent antibiotic exposure 2-patient is status post colonoscopy mention hemorrhoids and gastritis on the EGD 3-patient to continue Rocephin 2 g daily and Flagyl while waiting for the workup to be completed Dictation was produced using [employer] dictation software. please excuse any grammatical, word or spelling errors. Time with Patient: Less than 30
[2023-03-14 16:41] LABS: % Iron Saturation <2.75 (12.00-45.00); Ferritin 39.2 ng/mL (10.0-291.0); Iron <6 UG/DL (50-170); Total Iron Binding Capacity 218 UG/DL (228-460)
--- NOTE | 2023-03-14 16:45 | P.CONS ---
History of Present Illness - Reason for Consult Consult date: 03/14/23 anemia Requesting physician: Phi Alas - Chief Complaint abd pain, rectal bleeding - History of Present Illness Mrs. Hooper is a pleasant 52-year-old female we have been asked to see for anemia. She presented with complaints of left lower quadrant abdominal pain, diarrhea and bright red blood with stool for a few weeks. She reports occasional NSAID use, no blood thinners. She had a colonoscopy a few years ago, denied any pathology from that exam, no history of GI disease or GI surgeries. She denies requiring blood transfusion previously, she has been instructed to take iron in the past but, she only does it occasionally due to constipation. She has not had a menstrual period for over a year, no Hx of menorrhagia. Denies any recent vaginal bleeding or discharge. She has lost 30 pounds in about the last 3 months due to loss of appetite. No other constitutional symptoms reported. In this medical record hemoglobin in 2019 was noted to be at 9. Last colonoscopy was 2019 revealing diverticulosis and hemorrhoids. CT AP with contrast reports diffuse thickening of the distending colon wall and rectal wall consistent with colitis. No bowel obstruction, free intraperitoneal air or fluid. Massive fibroid uterus. CTA was negative for PE or other acute process. Operative note reports extensive external and internal hemorrhoids. Scope was not advanced to the cecum due to poor colon prep transverse, descending, sigmoid colon appeared normal. EGD reports mild inflammation of the antrum, biopsy performed, normal esophagus. Hgb 7.9, microcytic, hypochromic, potassium 2.9, BUN and creatinine normal. Back in 2019 ferritin was 12.7. Review of Systems 10 point review of systems is negative except as stated in HPI Past Medical History Past Medical History: Hyperlipidemia, Hypertension History of Any Multi-Drug Resistant Organisms: None Reported Past Surgical History: Section Past Anesthesia/Blood Transfusion Reactions: No Reported Reaction Past Psychological History: No Psychological Hx Reported Smoking Status: Former smoker Past Alcohol Use History: None Reported Past Drug Use History: None Reported Medications and Allergies Home Medications Medication Instructions Recorded Confirmed Type No Known Home Medications 03/12/23 03/12/23 History Allergies Allergy/AdvReac Type Severity Reaction Status Date / Time No Known Allergies Allergy Verified 03/12/23 20:08 Physical Exam Vitals: Vital Signs Temp Pulse Pulse Resp BP BP Pulse Ox 03/14/23 08:00 98.9 F 98 16 147/80 98 03/14/23 04:00 98.2 F 82 16 142/74 97 03/14/23 01:39 66 18 03/14/23 00:00 66 18 112/79 98 03/13/23 20:00 98.2 F 98 16 166/100 03/13/23 16:06 99.8 F H 99 16 137/81 98 03/13/23 16:03 99.8 F H 99 16 137/81 98 03/13/23 14:10 100.5 F H 98 16 127/78 94 L 03/13/23 12:49 98.9 F 54 L 18 116/68 100 03/13/23 12:35 99 F 52 L 18 128/78 95 Intake and Output 03/13/23 03/14/23 03/14/23 22:59 06:59 14:59 Intake Total 790 240 200 Balance 790 240 200 Intake: IV 200 Oral 480 240 Blood Product 310 Rc As-1 Unit 310 [id number] Other: Voiding Method Toilet Toilet Toilet # Voids 3 2 - Constitutional General appearance: average body habitus, cooperative, no acute distress - EENT Eyes: anicteric sclerae, EOMI ENT: hearing grossly normal, normal oropharynx - Neck Neck: no lymphadenopathy - Respiratory Respiratory: bilateral: CTA - Cardiovascular Rhythm: regular Heart sounds: normal: S1, S2 Abnormal Heart Sounds: no systolic murmur, no diastolic murmur, no rub, no S3 Gallop, no S4 Gallop, no click, no other leg Peripheral Edema: bilateral: None - Gastrointestinal General gastrointestinal: no absent bowel sounds, no decreased bowel sounds, no distended, no hepatomegaly, no hyperactive bowel sounds, normal bowel sounds, no organomegaly, no rigid, no scaphoid, soft, no splenomegaly, no tenderness, no umbilical hernia, no ventral hernia - Integumentary Integumentary: normal - Neurologic Neurologic: CNII-XII intact - Musculoskeletal Musculoskeletal: strength equal bilaterally - Psychiatric Psychiatric: A&O x's 3, appropriate affect, intact judgment & insight Results CBC & Chem 7: 03/14/23 07:21 03/14/23 07:21 Labs: Abnormal Lab Results - Last 24 Hours (Table) 03/12/23 03/13/23 03/13/23 Range/Units 15:25 09:29 09:29 WBC (3.8-10.6) k/uL RBC 2.88 L (3.80-5.40) m/uL Hgb 6.8 L* D (11.4-16.0) gm/dL Hct 22.0 L (34.0-46.0) % MCV 76.3 L (80.0-100.0) fL MCH 23.5 L (25.0-35.0) pg MCHC 30.8 L (31.0-37.0) g/dL RDW 16.3 H (11.5-15.5) % Lymphocytes # 0.7 L (1.0-4.8) k/uL Sodium 136 L (137-145) mmol/L Potassium 3.2 L (3.5-5.1) mmol/L Carbon Dioxide 20 L (22-30) mmol/L BUN (7-17) mg/dL Glucose 111 H (74-99) mg/dL Total Protein 6.1 L (6.3-8.2) g/dL Albumin 2.8 L (3.5-5.0) g/dL Crossmatch See Detail 03/13/23 03/14/23 03/14/23 Range/Units 22:11 07:21 07:21 WBC 10.7 H (3.8-10.6) k/uL RBC 3.23 L 3.24 L (3.80-5.40) m/uL Hgb 8.0 L 7.9 L (11.4-16.0) gm/dL Hct 24.6 L 24.7 L (34.0-46.0) % MCV 76.2 L 76.3 L (80.0-100.0) fL MCH 24.7 L 24.4 L (25.0-35.0) pg MCHC (31.0-37.0) g/dL RDW 17.1 H 17.1 H (11.5-15.5) % Lymphocytes # 0.8 L (1.0-4.8) k/uL Sodium 136 L (137-145) mmol/L Potassium 2.9 L (3.5-5.1) mmol/L Carbon Dioxide (22-30) mmol/L BUN 6 L (7-17) mg/dL Glucose 100 H (74-99) mg/dL Total Protein 6.1 L (6.3-8.2) g/dL Albumin 2.8 L (3.5-5.0) g/dL Crossmatch CT scan - abdomen: report reviewed CT scan - chest: report reviewed CT scan - pelvis: report reviewed Assessment and Plan (1) Microcytic hypochromic anemia Current Visit: Yes Status: Chronic Priority: Medium Code(s): D50.9 - IRON DEFICIENCY ANEMIA, UNSPECIFIED SNOMED Code(s): 47736059 (2) GI bleed Current Visit: Yes Status: Acute Priority: High Code(s): K92.2 - GASTROINTESTINAL HEMORRHAGE, UNSPECIFIED SNOMED Code(s): 43029606 Plan: Microcytic, hypochromic anemia -Anemia work up ordered -Did have appropriate response to 1 unit PRBCs. -Endoscopy report reviewed. Recommend repeat endoscopy in the near future with better prep for full examination of colon -ID and GI have seen pt. Stool cultures ordered. Abx ordered -Is the wt loss 2/2 colitis? Pending work up results for further rec ommendations. Doctor attests: I performed a history and physical examination of this patient, developed impression and plan of care. Discussed with dictator. I agree with dictators note, documented as a scribe.
[2023-03-14] MEDS: amLODIPine 5 MG TAB PO SCH (21:30)
[2023-03-14] MEDS: MORPHINE SULFATE 4 MG/ML SYRINGE IV PRN (23:51)
--- NOTE | 2023-03-15 01:38 | PN ---
PROGRESS NOTE SUBJECTIVE: A 52-year-old female, had an EGD and colonoscopy today. Remains on , Hyzaar for hypertension. Biopsy of the stomach was done. CT abdomen and pelvis concerned for diffuse thickening of the descending colon and rectal vault with colitis. Infectious Disease has been consulted. Creatinine 0.6, platelets 329. OBJECTIVE: CARDIOVASCULAR: S1, S2. LUNGS: Clear. GI: Soft. HEMATOLOGY: Negative Homans. PSYCH: Fair mood and affect. Hemoglobin is 8. Fever, possible dehiscence, possible colitis, possible GI bleed. Transfuse 1 unit of blood. Prognosis guarded. Follow up in the next 24 to 48 hours. Continue Rocephin 2 g daily and Flagyl. She had hemorrhoids and gastritis on EGD. Please see further orders. MMODL / IJN: [id number] /
[2023-03-15] MEDS: SODIUM CHLORIDE 0.9% 1,000 ML IV SCH ×2 (02:55→16:16)
[2023-03-15] MEDS: metroNIDAZOLE-NS PMX 500 MG in SALINE 1 100ML.BAG IVPB SCH ×3 (09:25→23:18)
[2023-03-15] MEDS: LOSARTAN-HCTZ 50-12.5 MG 1 EACH TAB PO SCH (09:25)
[2023-03-15] MEDS: amLODIPine 5 MG TAB PO SCH (09:25)
[2023-03-15] MEDS: PANTOPRAZOLE 40 MG/10 ML VIAL IV SCH (09:26)
--- NOTE | 2023-03-15 10:39 | P.PN ---
Subjective Progress Note Date: 03/15/23 Principal diagnosis: Reason for follow-up is fever and colitis Patient is a 52-year-old -[place] female with a past medical history significant for hypertension hyperlipidemia patient presenting to the hospital for evaluation of bleeding per rectum, patient did have a CT abdominal pelvis concerning for diffuse thickening of the descending colon and rectal wall concerning for colitis and the patient spike a fever prompting this infectious disease consultation. The patient is status post EGD and colonoscopy completed on 03/14/2023 with evidence of gastritis and hemorrhoids. On today's evaluation that is 03/15/2023 the patient did have a low-grade fever of 100 F last night however the patient is afebrile this morning, the patient is breathing comfortably on room air, patient denies chest pain cough, the patient complaining of some lower abdominal pain no nausea vomiting no further bleeding per rectum did have loose stool Patient white count is 8.9 as of 03/14/2023, creatinine 0.60 cultures pending Objective - Vital Signs Vital signs: Vital Signs Temp 98.6 F 03/15/23 09:16 Pulse 91 03/15/23 09:16 Resp 16 03/15/23 09:16 BP 145/86 03/15/23 09:16 Pulse Ox 98 03/15/23 09:16 FiO2 Intake & Output 03/14/23 03/15/23 03/15/23 18:59 06:59 18:59 Intake Total 800 1000 125 Output Total 540 Balance 800 460 125 Intake: IV 200 Intake, IV Titration 1000 Amount Sodium Chloride 0.9% 1, 900 000 ml @ 75 mls/hr IV . [id number] [facility] Rx#:[id number] metroNIDAZOLE-NS PMX 500 100 mg In Saline 1 100ml.bag @ 100 mls/hr IVPB Q8HR [facility] Rx#:[id number] Oral 600 125 Output: Urine 540 Other: Voiding Method Toilet Toilet # Voids 2 2 - Exam GENERAL DESCRIPTION: Middle-aged female lying in bed in no distress RESPIRATORY SYSTEM: Unlabored breathing , decreased breath sounds at bases HEART: S1 S2 regular rate and rhythm , ABDOMEN: Soft , no tenderness EXTREMITIES: No edema feet - Labs CBC & Chem 7: 03/14/23 07:21 03/15/23 07:59 Labs: Abnormal Lab Results - Last 24 Hours (Table) 03/13/23 03/15/23 Range/Units 09:29 07:59 Potassium 3.4 L (3.5-5.1) mmol/L Iron <6 L (50-170) UG/DL TIBC 218 L (228-460) UG/DL % Saturation <2.75 L (12.00-45.00) Transferrin 156.0 L (204.0-354.0) mg/dL Vitamin B12 1504.0 H (200.0-944.0) pg/mL Microbiology - Last 24 Hours (Table) 03/13/23 08:25 Blood Culture - Preliminary Blood 03/13/23 08:10 Blood Culture - Preliminary Blood Assessment and Plan (1) Fever Current Visit: Yes Status: Acute Code(s): R50.9 - FEVER, UNSPECIFIED SNOMED Code(s): 879745841 (2) Colitis Current Visit: Yes Status: Acute Code(s): K52.9 - NONINFECTIVE GASTROENTERITIS AND COLITIS, UNSPECIFIED SNOMED Code(s): 57962940 Plan: 1patient with a fever in this patient presented to hospital predominantly with GI symptoms patient did have a lower abdominal pain and bleeding per rectum also have evidence of colitis on the CT concerning for possible infectious colitis versus ischemic no history of recent antibiotic exposure 2-patient is status post colonoscopy mention hemorrhoids and gastritis on the EGD 3-patient did have overall improvement in the fever pattern, patient to continue Rocephin 2 g daily and Flagyl with a plan to finish therapy with oral antibiotics Dictation was produced using [employer] dictation software. please excuse any grammatical, word or spelling errors. Time with Patient: Less than 30
[2023-03-15] MEDS ORDERED: POTASSIUM CHLORIDE ER 20 MEQ TAB.ER PO STA (11:23)
--- NOTE | 2023-03-15 11:26 | P.PN ---
Subjective Progress Note Date: 03/15/23 CHIEF COMPLAINT: GI bleeding HISTORY OF PRESENT ILLNESS: Patient lying in bed comfortably. She status post EGD and colonoscopy. The results revealed external hemorrhoids and mild gastritis. Presumed patient's bleeding is from internal and external hemorrhoids. Patient denies any abdominal pain. Patient has had no further rectal bleeding. Denies any nausea vomiting. Low-grade temp of 100.1 last n ight. Potassium 3.4 PHYSICAL EXAM: VITAL SIGNS: Reviewed. GENERAL: Well-developed in no acute distress. ABDOMEN: Soft. Nondistended. Nontender. ASSESSMENT: 1. Acute GI bleed likely due to hemorrhoids status post EGD and colonoscopy revealing external hemorrhoids and mild gastritis 2. Colitis on computed tomography scan 3. Hypokalemia PLAN: -Patient scheduled for hemorrhoidectomy 03/20/[address] Olvera -Patient to receive a Fleet enema the morning of surgery -Continue antibiotics per ID -Continue PPI -Continue Regular diet -Replace Potassium Physician Remote Inpatient Coder note has been reviewed by physician. Signing provider agrees with the documented findings, assessment, and plan of care. Objective - Vital Signs Vital signs: Vital Signs Temp 98.6 F 03/15/23 09:16 Pulse 91 03/15/23 09:16 Resp 16 03/15/23 09:16 BP 145/86 03/15/23 09:16 Pulse Ox 98 03/15/23 09:16 FiO2 Intake & Output 03/14/23 03/15/23 03/15/23 18:59 06:59 18:59 Intake Total 800 1000 125 Output Total 540 Balance 800 460 125 Intake: IV 200 Intake, IV Titration 1000 Amount Sodium Chloride 0.9% 1, 900 000 ml @ 75 mls/hr IV . [id number] [facility] Rx#:[id number] metroNIDAZOLE-NS PMX 500 100 mg In Saline 1 100ml.bag @ 100 mls/hr IVPB Q8HR [facility] Rx#:[id number] Oral 600 125 Output: Urine 540 Other: Voiding Method Toilet Toilet # Voids 2 2 - Labs CBC & Chem 7: 03/14/23 07:21 03/15/23 07:59 Labs: Abnormal Lab Results - Last 24 Hours (Table) 03/13/23 03/15/23 Range/Units 09:29 07:59 Potassium 3.4 L (3.5-5.1) mmol/L Iron <6 L (50-170) UG/DL TIBC 218 L (228-460) UG/DL % Saturation <2.75 L (12.00-45.00) Transferrin 156.0 L (204.0-354.0) mg/dL Vitamin B12 1504.0 H (200.0-944.0) pg/mL Microbiology - Last 24 Hours (Table) 03/13/23 08:25 Blood Culture - Preliminary Blood 03/13/23 08:10 Blood Culture - Preliminary Blood
--- NOTE | 2023-03-15 16:58 | P.PN ---
Subjective Progress Note Date: 03/15/23 At today's visit patient is resting currently in bed. Denies nausea vomiting and abdominal pain. Reports feeling improved today. hemoglobin 7.9, platelets 289,000 Objective - Vital Signs Vital signs: Vital Signs Temp 98.6 F 03/15/23 09:16 Pulse 87 03/15/23 16:19 Resp 18 03/15/23 16:19 BP 157/88 03/15/23 16:19 Pulse Ox 98 03/15/23 16:19 FiO2 Intake & Output 03/14/23 03/15/23 03/15/23 18:59 06:59 18:59 Intake Total 800 1000 365 Output Total 540 Balance 800 460 365 Intake: IV 200 Intake, IV Titration 1000 Amount Sodium Chloride 0.9% 1, 900 000 ml @ 75 mls/hr IV . [id number] [facility] Rx#:[id number] metroNIDAZOLE-NS PMX 500 100 mg In Saline 1 100ml.bag @ 100 mls/hr IVPB Q8HR [facility] Rx#:[id number] Oral 600 365 Output: Urine 540 Other: Voiding Method Toilet Toilet Toilet # Voids 2 2 - Constitutional General appearance: Present: average body habitus, no acute distress - EENT Eyes: Present: anicteric sclerae, EOMI ENT: Present: hearing grossly normal - Respiratory Details: breathing even and unlabored - Cardiovascular Details: skin warm and dry - Gastrointestinal General gastrointestinal: Present: soft. Absent: tenderness - Integumentary Integumentary: Absent: cyanotic - Neurologic Neurologic: Present: CNII-XII intact - Musculoskeletal Musculoskeletal: Present: strength equal bilaterally - Psychiatric Psychiatric: Present: A&O x's 3 - Labs CBC & Chem 7: 03/14/23 07:21 03/15/23 07:59 Labs: Abnormal Lab Results - Last 24 Hours (Table) 03/15/23 Range/Units 07:59 Potassium 3.4 L (3.5-5.1) mmol/L Microbiology - Last 24 Hours (Table) 03/13/23 08:25 Blood Culture - Preliminary Blood 03/13/23 08:10 Blood Culture - Preliminary Blood Assessment and Plan (1) Colitis Current Visit: Yes Status: Acute Priority: High Code(s): K52.9 - NO NINFECTIVE GASTROENTERITIS AND COLITIS, UNSPECIFIED SNOMED Code(s): 75556612 (2) GI bleed Current Visit: Yes Status: Acute Priority: High Code(s): K92.2 - GASTROINTESTINAL HEMORRHAGE, UNSPECIFIED SNOMED Code(s): 33670781 (3) Microcytic hypochromic anemia Current Visit: Yes Status: Chronic Priority: Medium Code(s): D50.9 - IRON DEFICIENCY ANEMIA, UNSPECIFIED SNOMED Code(s): 33704053 Plan: Microcytic, hypochromic anemia -Anemia work up ordered. Anemia labs consistent with iron deficiency anemia. Vitamin B12/folate normal. Will hold parenteral iron at this time due to acute infection. Once acutely recovered can order transfusion, this can also be scheduled oupt -Did have appropriate response to 1 unit PRBCs. Hgb 7.9 today -Endoscopy report reviewed. Recommend repeat endoscopy in the near future with better prep for full examination of colon. Acute GI bleed likely due to hemorrhoids. Plan for hemorrhoidectomy on 03/20/23. -ID and GI following. Stool cultures ordered. Continues on abx -Will continue to monitor. Please transfuse for hgb < 7 or if symptomatic
--- NOTE | 2023-03-15 19:31 | PN ---
PROGRESS NOTE SUBJECTIVE: This 52-year-old -Serbian female came in with hypertension acceleration and bleeding. She is given 1 unit of blood. Her blood pressure was treated with Norvasc last night. OBJECTIVE: VITAL SIGNS: Blood pressure is improving down to 116-150 over 70s to 80s, O2 saturation 98 on room air, temp, pulse 87 to 88, respiratory rate 16 to 18. CARDIOVASCULAR: S1, S2. LUNGS: Transmitted upper sounds. GI: Soft. HEMATOLOGY: Negative Homans. Possible discharge home is improved. Did have some loose stool. No further blood per rectum. Breathing better. EGD was reviewed cardiovascular S1, S2. Lungs clear. GI soft on aspirin. The patient over improvement of the fever pattern on Rocephin and Flagyl. Switched to oral antibiotics. History of colitis on CAT scan for possible infectious colitis. Please see further orders. MMODL / IJN: [id number] /
[2023-03-15] MEDS: MORPHINE SULFATE 4 MG/ML SYRINGE IV PRN (19:45)
[2023-03-15] MEDS: methylPREDNISolone SOD SUCCI 40 MG/ML 1 ML VIAL IV SCH (23:18)
[2023-03-16] MEDS ORDERED: LACTATED RINGERS 1,000 ML IV SCH (01:05)
[2023-03-16] MEDS: SODIUM CHLORIDE 0.9% 1,000 ML IV SCH (04:37)
[2023-03-16 09:00] LABS: Anisocytosis Slight; Basophils % (A) 0 %; Eosinophils % (A) 0 %; HCT 30.1 % (34.0-46.0); HGB 9.1 gm/dL (11.4-16.0); Hypochromasia Marked; Lymphocytes # (A) 0.6 k/uL (1.0-4.8); Lymphocytes % (A) 7 %; MCH 23.7 pg (25.0-35.0); MCHC 30.1 g/dL (31.0-37.0); MCV 78.6 fL (80.0-100.0); Mean Platelet Volume 8.4; Microcytosis Slight; Monocytes # (A) 0.2 k/uL (0-1.0); Monocytes % (A) 2 %; Neutrophils # (A) 7.8 k/uL (1.3-7.7); Neutrophils % (A) 90 %; Platelet Count 417 k/uL (150-450); Poikilocytosis Slight; RBC 3.84 m/uL (3.80-5.40); RDW 17.5 % (11.5-15.5); WBC 8.7 k/uL (3.8-10.6)
[2023-03-16] MEDS: PANTOPRAZOLE 40 MG/10 ML VIAL IV SCH (09:11)
[2023-03-16] MEDS: LOSARTAN-HCTZ 50-12.5 MG 1 EACH TAB PO SCH (09:11)
[2023-03-16] MEDS: amLODIPine 5 MG TAB PO SCH (09:11)
[2023-03-16] MEDS: methylPREDNISolone SOD SUCCI 40 MG/ML 1 ML VIAL IV SCH ×3 (09:11→23:46)
[2023-03-16 09:21] LABS: ALT 10 U/L (4-34); AST 17 U/L (14-36); African American GFR (CKD) >90 (>60 ml/min/1.73 sqM); Albumin 3.2 g/dL (3.5-5.0); Alkaline Phosphatase 98 U/L (38-126); Anion Gap 8 mmol/L; Blood Urea Nitrogen 4 mg/dL (7-17); Calcium 9.1 mg/dL (8.4-10.2); Carbon Dioxide 24 mmol/L (22-30); Chloride 102 mmol/L (98-107); Glucose 185 mg/dL (74-99); Non-African American GFR(CKD) >90 (>60 ml/min/1.73 sqM); Potassium 3.9 mmol/L (3.5-5.1); Sodium 134 mmol/L (137-145); Total Bilirubin 0.3 mg/dL (0.2-1.3); Total Protein 6.8 g/dL (6.3-8.2)
[2023-03-16] MEDS: metroNIDAZOLE-NS PMX 500 MG in SALINE 1 100ML.BAG IVPB SCH ×3 (10:45→23:46)
--- NOTE | 2023-03-16 16:33 | P.PN ---
Subjective Progress Note Date: 03/16/23 Principal diagnosis: GI bleeding CHIEF COMPLAINT: GI bleeding HISTORY OF PRESENT ILLNESS: Patient lying in bed comfortably. She status post EGD and colonoscopy. The results revealed external hemorrhoids and mild gastritis. Presumed patient's bleeding is from internal and external hemorrhoids. plan for hemorrhoidectomy by the surgeon on records during the week. Objective - Vital Signs Vital signs: Vital Signs Temp 98.5 F 03/16/23 09:08 Pulse 85 03/16/23 14:00 Resp 16 03/16/23 14:00 BP 131/84 03/16/23 14:00 Pulse Ox 98 03/16/23 14:00 FiO2 Intake & Output 03/15/23 03/16/23 03/16/23 18:59 06:59 18:59 Intake Total 365 360 Balance 365 360 Intake: Oral 365 360 Other: Voiding Method Toilet Toilet Toilet - Labs CBC & Chem 7: 03/16/23 08:29 03/16/23 08:29 Labs: Abnormal Lab Results - Last 24 Hours (Table) 03/16/23 03/16/23 Range/Units 08:29 08:29 Hgb 9.1 L (11.4-16.0) gm/dL Hct 30.1 L (34.0-46.0) % MCV 78.6 L (80.0-100.0) fL MCH 23.7 L (25.0-35.0) pg MCHC 30.1 L (31.0-37.0) g/dL RDW 17.5 H (11.5-15.5) % Neutrophils # 7.8 H (1.3-7.7) k/uL Lymphocytes # 0.6 L (1.0-4.8) k/uL Sodium 134 L (137-145) mmol/L BUN 4 L (7-17) mg/dL Creatinine 0.50 L (0.52-1.04) mg/dL Glucose 185 H (74-99) mg/dL Albumin 3.2 L (3.5-5.0) g/dL Microbiology - Last 24 Hours (Table) 03/13/23 08:25 Blood Culture - Preliminary Blood 03/13/23 08:10 Blood Culture - Preliminary Blood
[2023-03-16] MEDS: hydrALAZINE HCL 20 MG/ML 1 ML VIAL IVP PRN (20:27)
--- NOTE | 2023-03-17 00:08 | P.PN ---
Progress Note - Text Progress Note Date: 03/16/23 Hospital course: I'm rounding for Dr. Phi Alas. 03/16/2023: Laying in bed. Tired. Has trouble sitting up because of her hemorrhoids. Has been taking full liquids. Up to the bathroom. Some abdominal discomfort. No tenderness. Patient is having 2 or 3 bowel movements a day. No blood in the stool for last couple of days. Active Medications Amlodipine Besylate (Amlodipine 5 Mg Tab) 5 mg PO DAILY [facility] Last Admin: 03/16/23 09:11 Dose: 5 mg HCTZ/Losartan Potassium (Losartan-Hctz 50-12.5 Mg 1 Each Tab) 1 each PO DAILY [facility] Last Admin: 03/16/23 09:11 Dose: 1 each Hydralazine HCl (Hydralazine Hcl 20 Mg/Ml 1 Ml Vial) 10 mg IVP Q6HR PRN PRN Reason: Blood Pressure - High Last Admin: 03/16/23 20:27 Dose: 10 mg Sodium Chloride (Saline 0.9%) 1,000 mls @ 75 mls/hr IV .[id number] [facility] Last Admin: 03/16/23 04:37 Dose: 75 mls/hr Metronidazole 500 mg/ IV (Solution) 100 mls @ 100 mls/hr IVPB Q8HR [facility]; Protocol Last Admin: 03/16/23 23:46 Dose: 100 mls/hr Ceftriaxone Sodium 2 gm/ (Sodium Chloride) 50 mls @ 100 mls/hr IVPB Q24HR [facility]; Protocol Last Admin: 03/16/23 09:11 Dose: 100 mls/hr Lactated Ringer's (Lactated Ringers) 1,000 mls @ 20 mls/hr IV .Q24H [facility] Last Admin: 03/16/23 09:10 Dose: Not Given Methylprednisolone Sodium Succinate (Methylprednisolone Sod Succi 40 Mg/Ml 1 Ml Vial) 40 mg IV Q8HR [facility] Last Admin: 03/16/23 23:46 Dose: 40 mg Morphine Sulfate (Morphine Sulfate 4 Mg/Ml Syringe) 4 mg IV Q4HR PRN PRN Reason: Severe Pain (Scale 7 to 10) Last Admin: 03/15/23 19:45 Dose: 4 mg Naloxone HCl (Naloxone 0.4 Mg/Ml 1 Ml Vial) 0.2 mg IV Q2M PRN PRN Reason: Opioid Reversal Ondansetron HCl (Ondansetron 4 Mg/2 Ml Vial) 4 mg IVP Q8HR PRN PRN Reason: Nausea And Vomiting Last Admin: 03/13/23 09:21 Dose: 4 mg Pantoprazole Sodium (Pantoprazole 40 Mg Tablet) 40 mg PO AC-BRKFST [facility] Sodium Biphosphate/Sodium Phosphate (Na Phos,M-B/Na Phos,Di-Ba 133 Ml Enema) 133 ml RECTAL ONCE ONE Stop: 03/20/23 07:01 On examination: VITAL SIGNS: [98.5, 94, 16, 1 4687, 98% room air] GENERAL APPEARANCE: Laying in bed, awake, tired. HEENT: Normal external appearance of nose and ear. Oral cavity normal EYES: Pupils equal. Conjunctiva normal. NECK: JVD not raised. Mass not palpable. RESPIRATORY: Respiratory effort normal. Lungs clear to auscultation. CARDIOVASCULAR: First and second sounds normal. No edema. ABDOMEN: Soft. Liver and spleen not palpable. Minimal tenderness. No mass palpable. PSYCHIATRY: Alert and oriented x3. Mood and affect normal. INVESTIGATIONS, reviewed in the clinical context: 03/16/2023: White count 8.7 hemoglobin 9.1 potassium 3.9 BUN 4 creatinine 0.5 Stool: C. diff negative Chest CTA: Negative for PE CT abdomen pelvis: Diffuse thickening of the descending colon wall rectal wall consistent with colitis. Massive fibroid uterus. Assessment and plan: -Acute left-sided descending colitis: Slowly improving IV ceftriaxone. IV Flagyl. IV Solu-Medrol. -Painful symptomatic hemorrhoids Scheduled for hemorrhoidectomy by Dr. Olvera 03/20/2023. -Macrocytic Anemia, secondary to blood loss anemia and iron deficiency anemia. Patient received 1 unit of blood -Mild gastritis and esophagitis PPI -Massive fibroid uterus -Essential hypertension Amlodipine -Full code
[2023-03-17] MEDS: SODIUM CHLORIDE 0.9% 1,000 ML IV SCH (01:46)
--- NOTE | 2023-03-17 02:51 | P.PN ---
Subjective Progress Note Date: 03/16/23 Principal diagnosis: Reason for follow-up is fever and colitis This is a telehealth visit Patient is a 52-year-old -[place] female with a past medical history significant for hypertension hyperlipidemia patient presenting to the hospital for evaluation of bleeding per rectum, patient did have a CT abdominal pelvis concerning for diffuse thickening of the descending colon and rectal wall concerning for colitis and the patient spike a fever prompting this infectious disease consultation. The patient is status post EGD and colonoscopy completed on 03/14/2023 with evide nce of gastritis and hemorrhoids. On today's evaluation that is 03/16/2023 the patient remains to be afebrile, the patient is breathing comfortably currently on room air, the patient denies having any chest pain shortness of breath or cough no nausea no vomiting no abdominal pain however still having some diarrhea but no further bleeding per rectum. The patient white count 8.7, creatinine is 0.50 cultures are currently pending Objective - Vital Signs Vital signs: Vital Signs Temp 98.5 F 03/16/23 09:08 Pulse 85 03/16/23 14:00 Resp 16 03/16/23 14:00 BP 131/84 03/16/23 14:00 Pulse Ox 98 03/16/23 14:00 FiO2 Intake & Output 03/15/23 03/16/23 03/16/23 18:59 06:59 18:59 Intake Total 365 360 Output Total 0 Balance 365 360 Intake: Oral 365 360 Output: Gastric Drainage 0 Urine 0 Stool 0 Urine/Stool Mix 0 Emesis 0 Oral Regurgitation 0 Other 0 Other: Voiding Method Toilet Toilet Toilet # Bowel Movements 0 - Exam GENERAL DESCRIPTION: Middle-aged female lying in bed in no distress RESPIRATORY SYSTEM: Unlabored breathing , decreased breath sounds at bases HEART: S1 S2 regular rate and rhythm , ABDOMEN: Soft , no tenderness EXTREMITIES: No edema feet - Labs CBC & Chem 7: 03/16/23 08:29 03/16/23 08:29 Labs: Abnormal Lab Results - Last 24 Hours (Table) 03/16/23 03/16/23 Range/Units 08:29 08:29 Hgb 9.1 L (11.4-16.0) gm/dL Hct 30.1 L (34.0-46.0) % MCV 78.6 L (80.0-100.0) fL MCH 23.7 L (25.0-35.0) pg MCHC 30.1 L (31.0-37.0) g/dL RDW 17.5 H (11.5-15.5) % Neutrophils # 7.8 H (1.3-7.7) k/uL Lymphocytes # 0.6 L (1.0-4.8) k/uL Sodium 134 L (137-145) mmol/L BUN 4 L (7-17) mg/dL Creatinine 0.50 L (0.52-1.04) mg/dL Glucose 185 H (74-99) mg/dL Albumin 3.2 L (3.5-5.0) g/dL Microbiology - Last 24 Hours (Table) 03/13/23 08:25 Blood Culture - Preliminary Blood 03/13/23 08:10 Blood Culture - Preliminary Blood Assessment and Plan (1) Fever Current Visit: Yes Status: Acute Code(s): R50.9 - FEVER, UNSPECIFIED SNOMED Code(s): 340811928 (2) Colitis Current Visit: Yes Status: Acute Priority: High Code(s): K52.9 - NONINF ECTIVE GASTROENTERITIS AND COLITIS, UNSPECIFIED SNOMED Code(s): 44259744 Plan: 1patient with a fever in this patient presented to hospital predominantly with GI symptoms patient did have a lower abdominal pain and bleeding per rectum also have evidence of colitis on the CT concerning for possible infectious colitis versus ischemic no history of recent antibiotic exposure 2-patient is status post colonoscopy mention hemorrhoids and gastritis on the EGD 3-patient did have resolution of her fever and white count normal, patient to continue Rocephin 2 g daily and Flagyl and monitor clinical course closely Dictation was produced using [employer] dictation software. please excuse any grammatical, word or spelling errors. Time with Patient: Less than 30
[2023-03-17] MEDS: DEXTROSE 5%-0.45% NACL 1,000 ML IV SCH ×3 (05:49→23:34)
[2023-03-17] MEDS: PANTOPRAZOLE 40 MG TABLET PO SCH (05:57)
[2023-03-17] MEDS: metroNIDAZOLE-NS PMX 500 MG in SALINE 1 100ML.BAG IVPB SCH ×3 (08:41→23:34)
[2023-03-17] MEDS: amLODIPine 5 MG TAB PO SCH (08:41)
[2023-03-17] MEDS: LOSARTAN-HCTZ 50-12.5 MG 1 EACH TAB PO SCH (08:41)
--- NOTE | 2023-03-17 10:50 | P.PN ---
Subjective Progress Note Date: 03/17/23 Patient [place] stable. Patient has very large internal/external hemorrhoids. Patient is tentatively scheduled for hemorrhoidectomy on Saturday. Objective - Vital Signs Vital signs: Vital Signs Temp 97.8 F 03/17/23 08:39 Pulse 75 03/17/23 10:34 Resp 18 03/17/23 10:34 BP 149/80 03/17/23 08:39 Pulse Ox 100 03/17/23 08:39 FiO2 Intake & Output 03/16/23 03/17/23 03/17/23 18:59 06:59 18:59 Intake Total 480 240 Output Total 0 Balance 480 240 Intake: Oral 480 240 Output: Gastric Drainage 0 Urine 0 Stool 0 Urine/Stool Mix 0 Emesis 0 Oral Regurgitation 0 Other 0 Other: Voiding Method Toilet Toilet Toilet # Bowel Movements 0 - Labs CBC & Chem 7: 03/16/23 08:29 03/16/23 08:29 Labs: Microbiology - Last 24 Hours (Table) 03/13/23 08:25 Blood Culture - Preliminary Blood 03/13/23 08:10 Blood Culture - Preliminary Blood
--- NOTE | 2023-03-17 11:44 | CA ---
Transthoracic Echo Report Name: Lanie Hooper Age: 52 Gender: F : 1970 Exam Date: 03/16/2023 13:38 Exam Location: [facility] Ht (in): 61 Wt (lb): 147 Ordering Physician: Phi Alas MD Attending/Referring Phys: Ins[employer] Cutter And Former Tabatha Aburto Procedure CPT: Indications: HTN Cardiac Hx: Technical Quality: Fair Contrast 1: Total Dose (mL): Contrast 2: Total Dose (mL): MEASUREMENTS (Male / Female) Normal Values 2D ECHO LV Diastolic Diameter PLAX 4.4 cm 4.2 - 5.9 / 3.9 - 5.3 cm LV Systolic Diameter PLAX 2.2 cm IVS Diastolic Thickness 1.2 cm 0.6 - 1.0 / 0.6 - 0.9 cm LVPW Diastolic Thickness 1.1 cm 0.6 - 1.0 / 0.6 - 0.9 cm LV Relative Wall Thickness 0.5 RV Internal Dim ED PLAX 2.8 cm LVOT Diameter 1.9 cm Aortic Root Diameter 2.9 cm LA Systolic Diameter LX 2.4 cm 3.0 - 4.0 / 2.7 - 3.8 cm LV Diastolic Volume MOD BP 49.4 cm??? 67 - 155 / 56 - 104 cm??? LV Systolic Volume MOD BP 19.0 cm??? 22 - 58 / 19 - 49 cm??? LV Ejection Fraction MOD BP 61.6 % >= 55 % LV Cardiac Index MOD BP 1384.7 cm???/min???m??? LV Diastolic Volume MOD 4C 56.2 cm??? LV Systolic Volume MOD 4C 18.5 cm??? LV Ejection Fraction MOD 4C 67.1 % LV Cardiac Index MOD 4C 1715.6 cm???/min???m??? LV Diastolic Length 4C 6.1 cm LV Systolic Length 4C 5.3 cm LV Diastolic Volume MOD 2C 42.4 cm??? LV Systolic Volume MOD 2C 17.5 cm??? LV Ejection Fraction MOD 2C 58.7 % LV Cardiac Index MOD 2C 1132.1 cm???/min???m??? LV Diastolic Length 2C 6.3 cm LV Systolic Length 2C 5.9 cm LA Volume 37.4 cm??? 18 - 58 / 22 - 52 cm??? LA Volume Index 21.8 cm???/m??? 16 - 28 cm???/m??? Ascending Aorta Diameter 2.8 cm DOPPLER AV Peak Velocity 157.2 cm/s AV Peak Gradient 9.9 mmHg AV Mean Velocity 93.4 cm/s AV Mean Gradient 4.0 mmHg AV Velocity Time Integral 26.8 cm MV Peak Velocity 116.6 cm/s MV Peak Gradient 5.4 mmHg MV Mean Velocity 62.4 cm/s MV Mean Gradient 1.9 mmHg MV Velocity Time Integral 37.1 cm Mitral E Point Velocity 78.8 cm/s Mitral A Point Velocity 96.1 cm/s Mitral E to A Ratio 0.8 MV Deceleration Time 187.9 ms TR Peak Velocity 115.4 cm/s TR Peak Gradient 5.3 mmHg Right Ventricular Systolic Press 10.3 mmHg FINDINGS Left Ventricle Normal LV size. Moderate concentric LVH. Left ventricular ejection fraction is estimated at 55-60 %. Right Ventricle Normal right ventricular size and function. Right Atrium Normal right atrial size. Left Atrium Mild left atrial dilatation. LA volume index= 22.5ml/m2 Mitral Valve Structurally normal mitral valve. No mitral stenosis. No mitral regurgitation. Aortic Valve Trileaflet aortic valve. No aortic stenosis. No aortic regurgitation. Tricuspid Valve Structurally normal tricuspid valve. Trace TR. Pulmonic Valve Pulmonic valve not well visualized. No pulmonic regurgitation. Pericardium Small global pericardial effusion. Aorta Normal size aortic root and proximal ascending aorta. CONCLUSIONS Normal LV size and systolic function. Moderate concentric LVH, EF 55% Mild LV dilatation No significant valvular dysfunction Small pericardial effusion Previewed by: Dr Randy Valverde (Electronically Signed) Final Date: 17 March 2023 11:43
[2023-03-17] MEDS: hydrALAZINE HCL 20 MG/ML 1 ML VIAL IVP PRN (14:38)
[2023-03-17 19:54] VITALS: RESP 16
--- NOTE | 2023-03-17 22:29 | P.PN ---
Subjective Progress Note Date: 03/17/23 Principal diagnosis: Reason for follow-up is fever and colitis This is a telehealth visit Patient is a 52-year-old -[place] female with a past medical history significant for hypertension hyperlipidemia patient presenting to the hospital for evaluation of bleeding per rectum, patient did have a CT abdominal pelvis concerning for diffuse thickening of the descending colon and rectal wall concerning for colitis and the patient spike a fever prompting this infectious disease consultation. The patient is status post EGD and colonoscopy completed on 03/14/2023 with evide nce of gastritis and hemorrhoids. On today's evaluation that is 03/17/2023 the patient continues to be afebrile, the patient is breathing comfortably on room air patient denies having any chest pain occasional cough no sputum production, the pt denies nausea vomiting no abdominal pain did have improvement in her diarrhea and no further hematochezia. Patient white count of 8.7, creatinine 0.50 culture has been negative Objective - Vital Signs Vital signs: Vital Signs Temp 98.7 F 03/17/23 19:38 Pulse 70 03/17/23 19:38 Resp 16 03/17/23 19:38 BP 153/77 03/17/23 19:38 Pulse Ox 99 03/17/23 19:38 FiO2 Intake & Output 03/17/23 03/17/23 03/18/23 06:59 18:59 06:59 Intake Total 960 Balance 960 Intake: Intake, IV Titration 600 Amount Dextrose 5%-0.45% NaCl 1, 300 000 ml @ 100 mls/hr IV . Q10H [facility] Rx#:[id number] cefTRIAXone 2 gm In 100 Sodium Chloride 0.9% 50 ml @ 100 mls/hr IVPB Q24HR [facility] Rx#:[id number] metroNIDAZOLE-NS PMX 500 200 mg In Saline 1 100ml.bag @ 100 mls/hr IVPB Q8HR [facility] Rx#:[id number] Oral 360 Other: Voiding Method Toilet Toilet Toilet - Exam GENERAL DESCRIPTION: Middle-aged female lying in bed in no distress RESPIRATORY SYSTEM: Unlabored breathing , decreased breath sounds at bases HEART: S1 S2 regular rate and rhythm , ABDOMEN: Soft , no tenderness EXTREMITIES: No edema feet - Labs CBC & Chem 7: 03/16/23 08:29 03/16/23 08:29 Labs: Microbiology - Last 24 Hours (Table) 03/14/23 20:27 Stool Culture - Final Stool Assessment and Plan (1) Fever Current Visit: Yes Status: Acute Code(s): R50.9 - FEVER, UNSPECIFIED SNOMED Code(s): 481528456 (2) Colitis Current Visit: Yes Status: Acute Priority: High Code(s): K52.9 - NONINFECTIVE GASTROENTERITIS AND COLITIS, UNSPECIFIED SNOMED Code(s): 31697310 Plan: 1patient with a fever in this patient presented to hospital predominantly with GI symptoms patient did have a lower abdominal pain and bleeding per rectum also have evidence of colitis on the CT concerning for possible infectious colitis versus ischemic no history of recent antibiotic exposure 2-patient is status post colonoscopy mention hemorrhoids and gastritis on the EGD 3-patient did have resolution of her fever and white count normal, culture has been negative so far 4-patient to continue Rocephin 2 g daily and Flagyl with a plan to finish therapy with oral Ceftin and Flagyl x 7 days on discharge Dictation was produced using [employer] dictation software. please excuse any grammatical, word or spelling errors. Time with Patient: Less than 30
--- NOTE | 2023-03-17 23:23 | P.PN ---
Progress Note - Text Progress Note Date: 03/17/23 Hospital course: I'm rounding for Dr. hPi Alas. 03/16/2023: Laying in bed. Tired. Has trouble sitting up because of her hemorrhoids. Has been taking full liquids. Up to the bathroom. Some abdominal discomfort. No tenderness. Patient is having 2 or 3 bowel movements a day. No blood in the stool for last couple of days. 03/17/2023: Patient feels much better. She had good meial today after several days. Had a bowel movement. No abdominal pain. Dr. Olvera spreading outpatient surgery for hemorrhoids. Was changed to oral prednisone for the morning. Discussed with patient. She is keen to go home tomorrow.. Antibiotics per ID Active Medications Amlodipine Besylate (Amlodipine 5 Mg Tab) 5 mg PO DAILY [facility] Last Admin: 03/17/23 08:41 Dose: 5 mg HCTZ/Losartan Potassium (Losartan-Hctz 50-12.5 Mg 1 Each Tab) 1 each PO DAILY [facility] Last Admin: 03/17/23 08:41 Dose: 1 each Hydralazine HCl (Hydralazine Hcl 20 Mg/Ml 1 Ml Vial) 10 mg IVP Q6HR PRN PRN Reason: Blood Pressure - High Last Admin: 03/17/23 14:38 Dose: 10 mg Metronidazole 500 mg/ IV (Solution) 100 mls @ 100 mls/hr IVPB Q8HR [facility]; Protocol Last Admin: 03/17/23 15:32 Dose: 100 mls/hr Ceftriaxone Sodium 2 gm/ (Sodium Chloride) 50 mls @ 100 mls/hr IVPB Q24HR [facility]; Protocol Last Admin: 03/17/23 10:07 Dose: 100 mls/hr Dextrose/Sodium Chloride (Dextrose 5%-1/2ns Iv Soln) 1,000 mls @ 100 mls/hr IV .Q10H [facility] Last Admin: 03/17/23 12:17 Dose: 100 mls/hr Morphine Sulfate (Morphine Sulfate 4 Mg/Ml Syringe) 4 mg IV Q4HR PRN PRN Reason: Severe Pain (Scale 7 to 10) Last Admin: 03/15/23 19:45 Dose: 4 mg Naloxone HCl (Naloxone 0.4 Mg/Ml 1 Ml Vial) 0.2 mg IV Q2M PRN PRN Reason: Opioid Reversal Ondansetron HCl (Ondansetron 4 Mg/2 Ml Vial) 4 mg IVP Q8HR PRN PRN Reason: Nausea And Vomiting Last Admin: 03/13/23 09:21 Dose: 4 mg Pantoprazole Sodium (Pantoprazole 40 Mg Tablet) 40 mg PO AC-BRKFST [facility] Last Admin: 03/17/23 05:57 Dose: 40 mg Prednisone (Prednisone 20 Mg Tab) 40 mg PO DAILY [facility] Sodium Biphosphate/Sodium Phosphate (Na Phos,M-B/Na Phos,Di-Ba 133 Ml Enema) 133 ml RECTAL ONCE ONE Stop: 03/20/23 07:01 On examination: VITAL SIGNS: 98.7, 70, 16, 153 with 77, 99% room air GENERAL APPEARANCE: Laying in bed, awake, not comfortable today HEENT: Normal external appearance of nose and ear. Oral cavity normal EYES: Pupils equal. Conjunctiva normal. NECK: JVD not raised. Mass not palpable. RESPIRATORY: Respiratory effort normal. Lungs clear to auscultation. CARDIOVASCULAR: First and second sounds normal. No edema. ABDOMEN: Soft. Liver and spleen not palpable. no tenderness. No mass palpable. PSYCHIATRY: Alert and oriented x3. Mood and affect normal. INVESTIGATIONS, reviewed in the clinical context: 03/16/2023: White count 8.7 hemoglobin 9.1 potassium 3.9 BUN 4 creatinine 0.5 Stool: C. diff negative Chest CTA: Negative for PE CT abdomen pelvis: Diffuse thickening of the descending colon wall rectal wall consistent with colitis. Massive fibroid uterus. Assessment and plan: -Acute left-sided descending colitis: Much better IV ceftriaxone. IV Flagyl. IV [id number] after today Start prednisone 40 mg tomorrow further dosing as per Dr. Alas. -Painful symptomatic hemorrhoids Scheduled for hemorrhoidectomy by Dr. Olvera 03/20/2023. -Macrocytic Anemia, secondary to blood loss anemia and iron deficiency anemia. Patient received 1 unit of blood -Mild gastritis and esophagitis PPI -Massive fibroid uterus -Essential hypertension Amlodipine -Full code
[2023-03-18] MEDS: PANTOPRAZOLE 40 MG TABLET PO SCH (06:24)
[2023-03-18] MEDS ORDERED: methylPREDNISolone SOD SUCCI 40 MG/ML 1 ML VIAL IV SCH (09:00)
[2023-03-18] MEDS ORDERED: predniSONE 20 MG TAB PO SCH (09:00)
[2023-03-18] MEDS: LOSARTAN-HCTZ 50-12.5 MG 1 EACH TAB PO SCH (09:02)
[2023-03-18] MEDS: metroNIDAZOLE-NS PMX 500 MG in SALINE 1 100ML.BAG IVPB SCH ×2 (09:02→15:44)
[2023-03-18] MEDS: amLODIPine 5 MG TAB PO SCH (09:02)
[2023-03-18] MEDS: DEXTROSE 5%-0.45% NACL 1,000 ML IV SCH ×2 (12:41→15:45)
--- NOTE | 2023-03-18 14:20 | P.PN ---
Subjective Progress Note Date: 03/18/23 CHIEF COMPLAINT: GI bleeding HISTORY OF PRESENT ILLNESS: Patient lying in bed comfortably. She status post EGD and colonoscopy. The results revealed external hemorrhoids and mild gastritis. Presumed patient's bleeding is from internal and external hemorrhoids. Patient denies any abdominal pain. Patient has had no further rectal bleeding. Denies any nausea vomiting. Afebrile. WBC 8.7 hgb is up from 7.9-9.1 as of 03/16/23 PHYSICAL EXAM: VITAL SIGNS: Reviewed. GENERAL: Well-developed in no acute distress. ABDOMEN: Soft. Nondistended. Nontender. ASSESSMENT: 1. Acute GI bleed likely due to hemorrhoids status post EGD and colonoscopy revealing external hemorrhoids and mild gastritis 2. Colitis on computed tomography scan 3. Hypokalemia resolved PLAN: -Patient scheduled for hemorrhoidectomy 03/20/[address] Olvera -Patient to receive a Fleet enema the morning of surgery -Continue antibiotics per ID -Continue PPI -Continue Regular diet -Hemorrhoidectomy can be completed outpatient Physician Air Vice [employer] note has been reviewed by physician. Signing provider agrees with the documented findings, assessment, and plan of care. Objective - Vital Signs Vital signs: Vital Signs Temp 98.0 F 03/18/23 11:20 Pulse 74 03/18/23 11:20 Resp 16 03/18/23 11:20 BP 128/82 03/18/23 11:20 Pulse Ox 99 03/18/23 11:20 FiO2 Intake & Output 03/17/23 03/18/23 03/18/23 18:59 06:59 18:59 Intake Total 960 400 Balance 960 400 Intake: Intake, IV Titration 600 Amount Dextrose 5%-0.45% NaCl 1, 300 000 ml @ 100 mls/hr IV . Q10H [facility] Rx#:[id number] cefTRIAXone 2 gm In 100 Sodium Chloride 0.9% 50 ml @ 100 mls/hr IVPB Q24HR [facility] Rx#:[id number] metroNIDAZOLE-NS PMX 500 200 mg In Saline 1 100ml.bag @ 100 mls/hr IVPB Q8HR [facility] Rx#:[id number] Oral 360 400 Other: Voiding Method Toilet Toilet Toilet # Voids 1 - Labs CBC & Chem 7: 03/16/23 08:29 03/16/23 08:29 Labs: Microbiology - Last 24 Hours (Table) 03/14/23 20:27 Stool Culture - Final Stool
--- NOTE | 2023-03-18 14:29 | P.PN ---
Subjective Progress Note Date: 03/18/23 Principal diagnosis: Iron def anemia In f/u pt reports feeling pretty good, no fever, N,V, acute bleeding. She is ambulatory, no breathing difficulties. Objective - Vital Signs Vital signs: Vital Signs Temp 98.0 F 03/18/23 11:20 Pulse 74 03/18/23 11:20 Resp 16 03/18/23 11:20 BP 128/82 03/18/23 11:20 Pulse Ox 99 03/18/23 11:20 FiO2 Intake & Output 03/17/23 03/18/23 03/18/23 18:59 06:59 18:59 Intake Total 960 400 Balance 960 400 Intake: Intake, IV Titration 600 Amount Dextrose 5%-0.45% NaCl 1, 300 000 ml @ 100 mls/hr IV . Q10H [facility] Rx#:[id number] cefTRIAXone 2 gm In 100 Sodium Chloride 0.9% 50 ml @ 100 mls/hr IVPB Q24HR [facility] Rx#:[id number] metroNIDAZOLE-NS PMX 500 200 mg In Saline 1 100ml.bag @ 100 mls/hr IVPB Q8HR [facility] Rx#:[id number] Oral 360 400 Other: Voiding Method Toilet Toilet Toilet # Voids 1 - Constitutional General appearance: Present: average body habitus, cooperative, no acute distress - EENT Eyes: Present: anicteric sclerae, EOMI ENT: Present: hearing grossly normal - Respiratory Details: resp even and unlabored - Cardiovascular Details: skin warm and dry to touch - Peripheral edema leg Peripheral Edema: bilateral: None - Integumentary Integumentary: Present: normal - Neurologic Neurologic: Present: CNII-XII intact - Musculoskeletal Musculoskeletal: Present: strength equal bilaterally - Psychiatric Psychiatric: Present: A&O x's 3, appropriate affect, intact judgment & insight - Labs CBC & Chem 7: 03/16/23 08:29 03/16/23 08:29 Labs: Microbiology - Last 24 Hours (Table) 03/14/23 20:27 Stool Culture - Final Stool Assessment and Plan (1) Microcytic hypochromic anemia Current Visit: Yes Status: Chronic Priority: Medium Code(s): D50.9 - IRON DEFICIENCY ANEMIA, UNSPECIFIED SNOMED Code(s): 48098255 (2) GI bleed Current Visit: Yes Status: Acute Priority: High Code(s): K92.2 - GASTROINTESTINAL HEMORRHAGE, UNSPECIFIED SNOMED Code(s): 26545096 Plan: Microcytic, hypochromic anemia -Anemia work up revealed significant iron deficiency. Plan for IV supplementation outpt, after pt treated adequately for colitis -Did have appropriate response to 1 unit PRBCs on 03/13. Hgb 9.1 today -Endoscopy report reviewed. Gastritis. Recommend repeat lower endoscopy in the near future with better prep for full examination of colon but, hemorrhoids seen. Tx for the same planned 03/20 -ID and GI have seen pt. Stool cultures ordered. Abx cont -Is the wt loss 2/2 colitis? Pt will be followed outpt and see how she does once colitis and anemia treated. Pt agrees with plan. Will get appt to discharge plan
[2023-03-18 20:10] VITALS: BP 153/84; PULSE 66; TEMP 98.5
[2023-03-18] MEDS ORDERED: metroNIDAZOLE 500 MG TAB PO SCH (22:00)
--- NOTE | 2023-03-18 23:46 | P.PN ---
Subjective Progress Note Date: 03/18/23 Principal diagnosis: Reason for follow-up is fever and colitis This is a telehealth visit Patient is a 52-year-old -[place] female with a past medical history significant for hypertension hyperlipidemia patient presenting to the hospital for evaluation of bleeding per rectum, patient did have a CT abdominal pelvis concerning for diffuse thickening of the descending colon and rectal wall concerning for colitis and the patient spike a fever prompting this infectious disease consultation. The patient is status post EGD and colonoscopy completed on 03/14/2023 with evide nce of gastritis and hemorrhoids. On today's evaluation that is 03/18/2023 the patient remains to be afebrile, patient is breathing comfortably on room air without need for supplemental oxygen, the patient denies having any chest pain no significant cough or sputum production no nausea vomiting no abdominal pain no further hematochezia and the patient diarrhea has resolved. Patient white count of 8.7 creatinine 0.50 as of 03/16/2023 no lab draw today stool culture has been negative Objective - Vital Signs Vital signs: Vital Signs Temp 98.3 F 03/18/23 08:58 Pulse 74 03/18/23 08:58 Resp 16 03/18/23 08:58 BP 147/87 03/18/23 08:58 Pulse Ox 99 03/18/23 08:58 FiO2 Intake & Output 03/17/23 03/18/23 03/18/23 18:59 06:59 18:59 Intake Total 960 Balance 960 Intake: Intake, IV Titration 600 Amount Dextrose 5%-0.45% NaCl 1, 300 000 ml @ 100 mls/hr IV . Q10H SORIN Rx#:[id number] cefTRIAXone 2 gm In 100 Sodium Chloride 0.9% 50 ml @ 100 mls/hr IVPB Q24HR SORIN Rx#:[id number] metroNIDAZOLE-NS PMX 500 200 mg In Saline 1 100ml.bag @ 100 mls/hr IVPB Q8HR SORIN Rx#:[id number] Oral 360 Other: Voiding Method Toilet Toilet Toilet # Voids 1 - Labs CBC & Chem 7: 03/16/23 08:29 03/16/23 08:29 Labs: Microbiology - Last 24 Hours (Table) 03/14/23 20:27 Stool Culture - Final Stool Assessment and Plan (1) Fever Status: Acute Code(s): R50.9 - FEVER, UNSPECIFIED SNOMED Code(s): 307980090 (2) Colitis Status: Acute Priority: High Code(s): K52.9 - NONINFECTIVE GASTROENTERITIS AND COLITIS, UNSPECIFIED SNOMED Code(s): 28593523 Plan: 1patient with a fever in this patient presented to hospital predominantly with GI symptoms patient did have a lower abdominal pain and bleeding per rectum also have evidence of colitis on the CT concerning for possible infectious colitis versus ischemic no history of recent antibiotic exposure 2-patient is status post colonoscopy mention hemorrhoids and gastritis on the EGD 3-patient did have resolution of her fever and white count normal, culture has been negative so far 4-patient has shown clinical improvement and will finish therapy with oral Ceftin and Flagyl x 7 days on discharge Dictation was produced using [employer] dictation software. please excuse any grammatical, word or spelling errors. Time with Patient: Less than 30
--- NOTE | 2023-03-19 00:15 | PN ---
PROGRESS NOTE MEDICATIONS: 1. Rocephin 2 g daily. 2. Amlodipine 5 mg daily. 3. Hyzaar 50/12.5 one daily. 4. Flagyl 500 IV q.8h. 5. Protonix 40 daily. 6. Prednisone oral daily. 7. Fleet enema p.r.n. Hemoglobin bleeding, she is better. OBJECTIVE: HEENT: Normocephalic. ABDOMEN: Soft. HEMATOLOGY: Negative Homans. PSYCH: Fair mood and affect. ASSESSMENT: Microcytic hypochromic anemia, gastrointestinal bleed. treated for colitis. She got 1 unit of packed red blood. Hemoglobin is better. She would possibly be able to go home in a day or 2. Prognosis guarded. MMODL / RAYN: [id number] /
[2023-03-20] MEDS ORDERED: NA PHOS,M-B/NA PHOS,DI-BA 133 ML ENEMA RECTAL ONE (07:00)
== END 2023-03-18 21:41 | disposition home or self-care (01) | DRG 254 ==
LOC: EC 14:38 → 3SCARD 21:01 → INTOOBSV 03-13 14:37 → OBSVTOIN 03-13 14:37
PROVIDERS: ADMIT Family Medicine; ATTEND Family Medicine
PROC: 30233N1 Transfusion of Nonautologous Red Blood Cells into Peripheral Vein, Percutaneous Approach (ICD-10-PCS; 2023-03-13)
PROC: 0DB78ZX Excision of Stomach, Pylorus, Via Natural or Artificial Opening Endoscopic, Diagnostic (ICD-10-PCS; principal; 2023-03-14 10:35)
PROC: 0DJD8ZZ Inspection of Lower Intestinal Tract, Via Natural or Artificial Opening Endoscopic (ICD-10-PCS; 2023-03-14 10:35)
DX: K64.3 Fourth degree hemorrhoids (principal); K29.51 Unspecified chronic gastritis with bleeding; D62 Acute posthemorrhagic anemia; I10 Essential (primary) hypertension; R63.4 Abnormal weight loss; E78.5 Hyperlipidemia, unspecified; D25.9 Leiomyoma of uterus, unspecified; E87.6 Hypokalemia; K20.90 Esophagitis, unspecified without bleeding; A09 Infectious gastroenteritis and colitis, unspecified; Z87.19 Personal history of other diseases of the digestive system; Z87.891 Personal history of nicotine dependence; Z79.899 Other long term (current) drug therapy; Z68.27 Body mass index [BMI] 27.0-27.9, adult
CPT/HCPCS: 36415; 43239; 45378; 71275; 74177; 80053; 82607; 82728; 82746; 83540; 83550; 83690; 83735; 84100; 84132; 84484; 85025; 85027; 85045; 85610; 85730; 86850; 86900; 86901; 86920; 87040; 87045; 87046; 87324; 88305; 93005; 93306; 96361; 96365; 96375; 96376; 99285

== ENCOUNTER 2023-03-20 08:27 | Day surgery (SDC) | payer OTHER ==
[~2023-03-20 08:27] MED LIST changes: +ACETAMINOPHEN TAB 500 MG TAB PO PRN; -DEXAMETHASONE SOD PHOSPHATE 10 MG/ML 1 ML VIAL IV ONE; +HEPARIN SODIUM,PORCINE 5,000 UNIT/ML 1 ML VIAL SQ PRN; -LACTATED RINGERS 1,000 ML IV SCH; -LIDOCAINE 1% 20 ML VIAL (10MG/ML) FOR IV START INTRADERMA PRN; +Pre Op ABX Message 1 EACH MISC MISCELLANE ONE
[2023-03-20] MEDS ORDERED: DEXAMETHASONE SOD PHOSPHATE 4 MG/ML 1 ML VIAL IV ONE (08:45)
[2023-03-20] MEDS ORDERED: ONDANSETRON 4 MG/2 ML VIAL IVP ONE (08:45)
[2023-03-20] MEDS ORDERED: HYDROmorphone 0.5 MG/0.5 ML SYRINGE IVP PRN (08:45)
[2023-03-20] MEDS ORDERED: LACTATED RINGERS 1,000 ML IV SCH (08:45)
--- NOTE | 2023-03-20 09:58 | P.GSHP ---
History of Present Illness H&P Date: 03/20/23 Chief Complaint: Internal and external hemorrhoids This is a 52-year-old female who had complaints of rectal bleeding due to internal/external hemorrhoids. Patient presents today for hemorrhoidectomy. Past Medical History Past Medical History: Hyperlipidemia, Hypertension History of Any Multi-Drug Resistant Organisms: None Reported Past Surgical History: Section Past Anesthesia/Blood Transfusion Reactions: No Reported Reaction Smoking Status: Former smoker - Past Family History Mother Family Medical History: Cancer Additional Family Medical History / Comment(s): lung Medications and Allergies Home Medications Medication Instructions Recorded Confirmed Type amLODIPine [Norvasc] 5 mg PO DAILY 90 Days #90 tab 03/18/23 03/20/23 Rx Acetaminophen Tab [Tylenol] 325 mg PO Q4H PRN 03/19/23 03/20/23 History Ibuprofen [Advil] 1 tab PO Q4H PRN 03/19/23 03/20/23 History Allergies Allergy/AdvReac Type Severity Reaction Status Date / Time Milk Containing Products AdvReac Abdominal Verified 03/20/23 08:45 (Dairy) Pain [Dairy] Surgical - Exam Vital Signs Temp Pulse Resp BP Pulse Ox 97.2 F L 81 18 151/80 100 03/20/23 08:45 03/20/23 08:45 03/20/23 08:45 03/20/23 08:45 03/20/23 08:45 - General well developed, well nourished, no distress - Eyes PERRL - ENT normal pinna - Neck no masses - Respiratory normal expansion - Cardiovascular Rhythm: regular - Abdomen Abdomen: soft, non tender - Rectum Large internal/external hemorrhoids Assessment and Plan Assessment: Large internal/external hemorrhoids. Patient be scheduled for hemorrhoidectomy.
[2023-03-20] MEDS ORDERED: fentaNYL (PF) 50 MCG/ML 2 ML AMP ONE (10:13)
[2023-03-20] MEDS ORDERED: SUCCINYLCHOLINE CHLORIDE 200 MG/10 ML VIAL IV ONE (10:13)
[2023-03-20] MEDS ORDERED: KETOROLAC 15 MG/ML 1 ML VIAL ONE (10:13)
[2023-03-20] MEDS ORDERED: PROPOFOL 10 MG/ML 20 ML VIAL IV ONE (10:13)
[2023-03-20] MEDS ORDERED: KETAMINE HCL IN 0.9 % NACL 50 MG/5 ML SYRINGE ONE (10:13)
[2023-03-20] MEDS ORDERED: MIDAZOLAM 2 MG/2 ML VIAL ONE (10:13)
[2023-03-20] MEDS ORDERED: LIDOCAINE 1% INJ 10MG/ML (20 ML MDV) ONE (10:13)
[2023-03-20] MEDS ORDERED: SODIUM CHLORIDE 0.9% 50 ML with ceFAZolin 1,000 MG IV ONE ×2 (10:18)
[2023-03-20] MEDS ORDERED: LIDOCAINE 1%-EPI 1:100,000 50 ML VIAL SQ ONE (10:18)
--- NOTE | 2023-03-20 11:00 | P.OP ---
Date of Procedure: 03/20/23 Preoperative Diagnosis: Internal/external hemorrhoids Postoperative Diagnosis: Internal and external hemorrhoids Anal fistula Procedure(s) Performed: Excision of internal/external hemorrhoids Unroofing of anal fistula Anesthesia: [facility] Surgeon: Celestine Olvera Estimated Blood Loss (ml): 10 Pathology: other (Internal/external hemorrhoids) Condition: stable Disposition: PACU Description of Procedure: The patient was placed in the operative table in the prone jackknife position after receiving general anesthesia. Her anus was prepped and draped in sterile fashion. The patient had extensive internal extra hemorrhoids. The anal retractor placed anus. There appeared to be a fistula at the 7 o'clock position. The fistula was probed with a anal probe and the opening was seen in the rectum. The patient was then unroofed electrocautery. Next the hemorrhoidal columns were dissected. The left lateral right anterior and right posterior hemorrhoidal columns were grasped with a pair of Allis clamps and removed with the harmonic scissors. The wound is better hemostasis. The anus is anesthetized with 1% local Xylocaine. There was no bleeding seen. Patient tolerated well. She was sent to recovery room in stable condition.
[2023-03-20 11:35] VITALS: TEMP 97.7
[2023-03-20] MEDS ORDERED: hydrALAZINE HCL 20 MG/ML 1 ML VIAL IVP ONE (11:39)
[2023-03-20 12:26] VITALS: BP 145/82
[2023-03-20 12:52] VITALS: PULSE 102; RESP 16
== END 2023-03-20 13:19 | disposition home or self-care (01) ==
LOC: OR 08:27
PROVIDERS: ATTEND Surgery
DX: K64.8 Other hemorrhoids (principal); K64.4 Residual hemorrhoidal skin tags; K60.3 Anal fistula; I10 Essential (primary) hypertension; E78.5 Hyperlipidemia, unspecified; L72.0 Epidermal cyst; Z87.891 Personal history of nicotine dependence
CPT/HCPCS: 81025; 88304; 46260; J2250; J0330; J0360; J1644; J1100; J2405; J0690; J2001; J3010; J1885; J2704; J1170

== ENCOUNTER → 2024-06-09 | Outpatient (CLI) | payer OTHER ==
[2024-06-09 15:00] LABS: Basophils # (A) 0.09 X 10*3/uL (0.00-0.10); Basophils % (A) 1.2 %; Eosinophils # (A) 0.26 X 10*3/uL (0.04-0.35); Eosinophils % (A) 3.4 %; HCT 34.3 % (37.2-46.3); Lymphocytes # (A) 1.61 X 10*3/uL (0.90-5.00); Lymphocytes % (A) 21.3 %; MCH 25.1 pg (27.0-32.0); MCHC 29.2 g/dL (32.0-37.0); MCV 86.2 FL (80.0-97.0); Mean Platelet Volume 11.2 FL (9.5-12.2); Monocytes # (A) 0.61 X 10*3/uL (0.20-1.00); Monocytes % (A) 8.1 %; NRBC Per 100 WBC 0 X 10*3/uL (0.00-0.01); Neutrophils # (A) 4.97 X 10*3/uL (1.80-7.70); Neutrophils % (A) 65.9 %; Platelet Count 384 X 10*3/uL (140-440); RBC 3.98 X 10*6/uL (4.10-5.20); RDW 18.6 % (11.5-14.5); WBC 7.55 X 10*3/uL (4.50-10.00)
[2024-06-09 15:28] LABS: % Iron Saturation 39.72 (12.00-45.00)
== END | disposition home or self-care (01) ==
LOC: LABWHC1 08:54
PROVIDERS: ATTEND Internal Medicine
DX: D64.9 Anemia, unspecified (principal); E61.1 Iron deficiency
CPT/HCPCS: 36415; 82728; 83540; 83550; 85025

== ENCOUNTER → 2024-06-15 | Outpatient (CLI) | payer OTHER ==
[2024-06-15 15:37] LABS: Basophils # (A) 0.09 X 10*3/uL (0.00-0.10); Basophils % (A) 1.4 %; Eosinophils % (A) 4.7 %; HCT 33.7 % (37.2-46.3); Lymphocytes # (A) 0.96 X 10*3/uL (0.90-5.00); Lymphocytes % (A) 15.1 %; MCH 25.6 pg (27.0-32.0); MCHC 29.7 g/dL (32.0-37.0); MCV 86.2 FL (80.0-97.0); Mean Platelet Volume 10.9 FL (9.5-12.2); Monocytes # (A) 0.45 X 10*3/uL (0.20-1.00); Monocytes % (A) 7.1 %; NRBC Per 100 WBC 0 X 10*3/uL (0.00-0.01); Neutrophils # (A) 4.54 X 10*3/uL (1.80-7.70); Neutrophils % (A) 71.5 %; Platelet Count 371 X 10*3/uL (140-440); RBC 3.91 X 10*6/uL (4.10-5.20); WBC 6.35 X 10*3/uL (4.50-10.00)
[2024-06-15 16:03] LABS: % Iron Saturation 15.71 (12.00-45.00)
== END | disposition home or self-care (01) ==
LOC: LABWHC1 08:59
PROVIDERS: ATTEND Internal Medicine
DX: D50.9 Iron deficiency anemia, unspecified (principal); D72.819 Decreased white blood cell count, unspecified
CPT/HCPCS: 36415; 82728; 83540; 83550; 85025

== ENCOUNTER 2024-07-21 17:16 | Inpatient (IN) | payer OTHER ==
--- NOTE | 2024-07-21 17:51 | ED ---
Weakness HPI - General Chief complaint: Weakness Stated complaint: Pain, fatigue Time Seen by Provider: 07/21/24 17:35 Source: patient, RN notes reviewed, old records reviewed Mode of arrival: wheelchair Limitations: no limitations - History of Present Illness Initial comments: This is a53 female with a poor story and weakness chest pain back pain light headedness dizziness nausea vomiting at times decreased appetite increased weight loss multiple recent hospital admissions. Patient is a poor historian MD Complaint: generalized weakness, lack of energy, difficulty walking -: week(s) Severity: severe Severity scale (1-10): 10 Consistency: constant Improves with: none Worsens with: none Context: recent illness, history of similar Associated Symptoms: confusion, loss of appetite, nausea/vomiting, shortness of breath - Related Data Home Medications Medication Instructions Recorded Confirmed Ciprofloxacin HCl [Cipro] 500 mg PO BID 07/21/24 07/21/24 metroNIDAZOLE [Flagyl] 500 mg PO TID 07/21/24 07/21/24 Allergies Allergy/AdvReac Type Severity Reaction Status Date / Time lisinopril Allergy Swelling Verified 07/21/24 18:45 Review of Systems ROS Statement: Those systems with pertinent positive or pertinent negative responses have been documented in the HPI. ROS Other: All systems not noted in ROS Statement are negative. Past Medical History Past Medical History: Hyperlipidemia, Hypertension Additional Past Medical History / Comment(s): Iron deficiency anemia History of Any Multi-Drug Resistant Organisms: None Reported Past Surgical History: Section Additional Past Surgical History / Comment(s): Breast Biopsy; D/C for mi scarriage, colon resection for bowel obstruction april 2023-ileostomy, was in ICU had trach, fistula repair Past Anesthesia/Blood Transfusion Reactions: No Reported Reaction Past Psychological History: No Psychological Hx Reported Smoking Status: Former smoker Past Alcohol Use History: None Reported Past Drug Use History: Marijuana - Past Family History Mother Family Medical History: Cancer Additional Family Medical History / Comment(s): lung General Exam Limitations: no limitations, altered mental status General appearance: alert, anxious, in distress, cachectic Head exam: Present: atraumatic, normocephalic, normal inspection Eye exam: Present: normal appearance, PERRL, EOMI. Absent: scleral icterus, conjunctival injection, periorbital swelling ENT exam: Present: normal exam, mucous membranes moist Neck exam: Present: normal inspection. Absent: tenderness, meningismus, lymphadenopathy Respiratory exam: Present: normal lung sounds bilaterally. Absent: respiratory distress, wheezes, rales, rhonchi, stridor Cardiovascular Exam: Present: regular rate, normal rhythm, normal heart sounds. Absent: systolic murmur, diastolic murmur, rubs, gallop, clicks GI/Abdominal exam: Present: soft, normal bowel sounds. Absent: distended, tenderness, guarding, rebound, rigid Extremities exam: Present: normal inspection, full ROM, normal capillary refill. Absent: tenderness, pedal edema, joint swelling, calf tenderness Back exam: Present: normal inspection Neurological exam: Present: alert, oriented X3, CN II-XII intact Psychiatric exam: Present: normal affect, normal mood Skin exam: Present: warm, dry, intact, normal color. Absent: rash Course Vital Signs 07/21/24 07/21/24 07/21/24 17:19 17:25 18:17 Temperature 97.8 F Pulse Rate 127 H 94 Respiratory 20 22 18 Rate Blood Pressure 85/67 125/68 O2 Sat by Pulse 94 L 98 Oximetry 07/21/24 07/21/24 07/21/24 18:23 19:41 22:50 Temperature 98.7 F 98.4 F Pulse Rate 81 79 61 Respiratory 16 16 16 Rate Blood Pressure 100/72 117/85 104/62 O2 Sat by Pulse 100 99 99 Oximetry 07/22/24 07/22/24 07/22/24 02:04 02:31 04:15 Temperature 97.5 F L Pulse Rate 68 68 61 Respiratory 16 16 16 Rate Blood Pressure 106/68 97/63 100/63 O2 Sat by Pulse 98 99 97 Oximetry - Reevaluation(s) Reevaluation #1: 07/21/24 21:47 Medical records reviewed Reevaluation #2: 07/21/24 21:48 Patient symptoms improving Reevaluation #3: 07/21/24 21:48 Patient informed of results and questions answered Reevaluation #4: Was pt. sent in by a medical professional or institution (, PA, CREAM DUMPER, urgent care, hospital, or retirement...) When possible be specific @ -no Did you speak to anyone other than the patient for history (EMS, parent, family, police, friend...)? What history was obtained from this source @ -no Did you review nursing and triage notes (agree or disagree)? Why? @ -agree Are old charts reviewed (outside hosp., previous admission, EMS record, old EKG, old radiological studies, urgent care reports/EKG's, retirement records)? Report findings @ -yes Differential Diagnosis (chest pain, altered mental status, abdominal pain women, abdominal pain men, vaginal bleeding, weakness, fever, dyspnea, syncope, headache, dizziness, GI bleed, back pain, seizure, CVA, palpatations, mental health, musculoskeletal)? @ -prior EKG interpreted by me (3pts min.). @ -yes X-rays interpreted by me (1pt min.). @ -Yes negative for acute disease CT interpreted by me (1pt min.). @ -yes negative for acute disease U/S interpreted by me (1pt. min.). @ -no What testing was considered but not performed or refused? (CT, X-rays, U/S, la bs)? Why? @ -none What meds were considered but not given or refused? Why? @ -none Did you discuss the management of the patient with other professionals (professionals i.e. , PA, CREAM DUMPER, lab, RT, psych nurse, social media marketing specialist, glue spreader, teacher, safety officer, watch caser)? Give summary @ -no Was smoking cessation discussed for >3mins.? @ -no Was critical care preformed (if so, how long)? @ -no Were there social determinants of health that impacted care today? How? (Homelessness, low income, unemployed, alcoholism, drug addiction, transportation, low edu. Level, literacy, decrease access to med. care, alf, rehab)? @ -none Was there de-escalation of care discussed even if they declined (Discuss DNR or withdrawal of care, Hospice)? DNR status @ -no What co-morbidities impacted this encounter? (DM, HTN, Smoking, COPD, CAD, Cancer, CVA, ARF, Chemo, Hep., AIDS, mental health diagnosis, sleep apnea, morbid obesity)? @ -none Was patient admitted / discharged? Hospital course, mention meds given and route, prescriptions, significant lab abnormalities, going to OR and other pertinent info. @ - 53 female rule out infection rule out sepsis will admit for severe malnutrition and chronic pain Admit Undiagnosed new problem with uncertain prognosis? @ -no Drug Therapy requiring intensive monitoring for toxicity (Heparin, Nitro, Insulin, Cardizem)? @ -no Were any procedures done? @ -no Diagnosis/symptom? @ -Severe malnutrition, chronic pain, abdominal pain postoperative pain Acute, or Chronic, or Acute on Chronic? @ -Acute Uncomplicated (without systemic symptoms) or Complicated (systemic symptoms)? @ -Complicated Side effects of treatment? @ -no Exacerbation, Progression, or Severe Exacerbation? @ -exacerbation Poses a threat to life or bodily function? How? (Chest pain, USA, CA, pneumonia, PE, COPD, DKA, ARF, appy, cholecystitis, CVA, Diverticulitis, Homicidal, Suici manish, threat to staff... and all critical care pts) @ -yes severe malnutrition Reevaluation #5: Differential Weakness: Hypoglycemia, shock, sepsis, hyponatremia, anemia, infection, CA, ETOH, adverse medicine reaction, overdose, stroke, this is not meant to be an all-inclusive list. - Consultations Consultation #1: Spoke with Dr. J Luis Snow who agrees to admit this patient EKG Findings - EKG Comments: EKG Findings:: EKG is sinus tachycardia 127 NE 100 QRS 81 QTc 353 there does appear to be ST elevation on this EKG although tachycardic - EKG Results: EKG: interpreted by ERMD EKG shows: tachycardia Medical Decision Making - Medical Decision Making 53 female rule out infection rule out sepsis will admit for severe malnutrition and chronic pain - Lab Data Result diagrams: 07/25/24 04:20 07/25/24 04:20 Lab Results 07/21/24 07/21/24 07/21/24 Range/Units 17:43 17:43 17:43 WBC 20.98 H (4.50-10.00) 10*3/uL RBC 4.19 (4.10-5.20) 10*6/uL Hgb 11.0 L (12.0-15.0) g/dL Hct 34.4 L (37.2-46.3) % MCV 82.1 (80.0-97.0) fL MCH 26.3 L (27.0-32.0) pg MCHC 32.0 (32.0-37.0) g/dL Plt Count 678 H (140-440) 10*3/uL MPV 10.4 (9.5-12.2) fL Immature Gran % (Auto) 0.6 % Neutrophils % 85.4 % Lymphocytes % 6.5 % Monocytes % 6.5 % Eosinophils % 0.3 % Basophils % 0.7 % Immature Gran # 0.13 H (0.00-0.04) 10*3/uL Neutrophils # 17.90 H (1.80-7.70) 10*3/uL Lymphocytes # 1.37 (0.90-5.00) 10*3/uL Monocytes # 1.37 H (0.20-1.00) 10*3/uL Eosinophils # 0.06 (0.04-0.35) 10*3/uL Basophils # 0.15 H (0.00-0.10) 10*3/uL PT 10.8 (10.0-12.5) sec INR 1.0 (<1.2) APTT 22.4 (22.0-30.0) sec D-Dimer 1.49 H (<0.60) mg/L FEU Sodium 136 L (137-145) mmol/L Potassium 5.3 H (3.5-5.1) mmol/L Chloride 113 H (98-107) mmol/L Carbon Dioxide 9 L* (22-30) mmol/L Anion Gap 14 mmol/L BUN 61 H (7-17) mg/dL Creatinine 1.81 H (0.52-1.04) mg/dL Est GFR (CKD-EPI)AfAm 36 (>60 ml/min/1.73 sqM) Est GFR (CKD-EPI)NonAf 31 (>60 ml/min/1.73 sqM) Glucose 154 H (74-99) mg/dL Plasma Lactic Acid Reyes (0.7-2.0) mmol/L Calcium 12.1 H (8.4-10.2) mg/dL Phosphorus 5.2 H (2.5-4.5) mg/dL Magnesium 2.5 H (1.6-2.3) mg/dL Total Bilirubin 0.4 (0.2-1.3) mg/dL AST 18 (14-36) U/L ALT 11 (4-34) U/L Alkaline Phosphatase 121 (38-126) U/L Troponin I (0.000-0.034) ng/mL C-Reactive Protein (<1.0) mg/dL NT-Pro-B Natriuret Pep 166 pg/mL Total Protein 8.4 H (6.3-8.2) g/dL Albumin 4.0 (3.5-5.0) g/dL Prealbumin (18.0-42.0) mg/dL Lipase (23-300) U/L Procalcitonin (0.02-0.50) ng/mL TSH 1.520 (0.465-4.680) mIU/L Urine Color Urine Appearance (Clear) Urine pH (5.0-8.0) Ur Specific [place] (1.001-1.035) Urine Protein (Negative) Urine Glucose (UA) (Negative) Urine Ketones (Negative) Urine Blood (Negative) Urine Nitrite (Negative) Urine Bilirubin (Negative) Urine Urobilinogen (<2.0) mg/dL Ur Leukocyte Esterase (Negative) Urine RBC (0-5) /hpf Urine WBC (0-5) /hpf Ur Squamous Epith Cells (0-4) /hpf Calcium Oxalate Crystal (None) /hpf Urine Bacteria (None) /hpf Hyaline Casts (0-2) /lpf Granular Casts (0) /lpf Urine Mucus (None) /hpf 07/21/24 07/21/24 07/21/24 Range/Units 17:43 17:43 17:43 WBC (4.50-10.00) 10*3/uL RBC (4.10-5.20) 10*6/uL Hgb (12.0-15.0) g/dL Hct (37.2-46.3) % MCV (80.0-97.0) fL MCH (27.0-32.0) pg MCHC (32.0-37.0) g/dL Plt Count (140-440) 10*3/uL MPV (9.5-12.2) fL Immature Gran % (Auto) % Neutrophils % % Lymphocytes % % Monocytes % % Eosinophils % % Basophils % % Immature Gran # (0.00-0.04) 10*3/uL Neutrophils # (1.80-7.70) 10*3/uL Lymphocytes # (0.90-5.00) 10*3/uL Monocytes # (0.20-1.00) 10*3/uL Eosinophils # (0.04-0.35) 10*3/uL Basophils # (0.00-0.10) 10*3/uL PT (10.0-12.5) sec INR (<1.2) APTT (22.0-30.0) sec D-Dimer (<0.60) mg/L FEU Sodium (137-145) mmol/L Potassium (3.5-5.1) mmol/L Chloride (98-107) mmol/L Carbon Dioxide (22-30) mmol/L Anion Gap mmol/L BUN (7-17) mg/dL Creatinine (0.52-1.04) mg/dL Est GFR (CKD-EPI)AfAm (>60 ml/min/1.73 sqM) Est GFR (CKD-EPI)NonAf (>60 ml/min/1.73 sqM) Glucose (74-99) mg/dL Plasma Lactic Acid Reyes 1.8 (0.7-2.0) mmol/L Calcium (8.4-10.2) mg/dL Phosphorus (2.5-4.5) mg/dL Magnesium (1.6-2.3) mg/dL Total Bilirubin (0.2-1.3) mg/dL AST (14-36) U/L ALT (4-34) U/L Alkaline Phosphatase (38-126) U/L Troponin I <0.012 (0.000-0.034) ng/mL C-Reactive Protein (<1.0) mg/dL NT-Pro-B Natriuret Pep pg/mL Total Protein (6.3-8.2) g/dL Albumin (3.5-5.0) g/dL Prealbumin (18.0-42.0) mg/dL Lipase 283 (23-300) U/L Procalcitonin (0.02-0.50) ng/mL TSH (0.465-4.680) mIU/L Urine Color Urine Appearance (Clear) Urine pH (5.0-8.0) Ur Specific [place] (1.001-1.035) Urine Protein (Negative) Urine Glucose (UA) (Negative) Urine Ketones (Negative) Urine Blood (Negative) Urine Nitrite (Negative) Urine Bilirubin (Negative) Urine Urobilinogen (<2.0) mg/dL Ur Leukocyte Esterase (Negative) Urine RBC (0-5) /hpf Urine WBC (0-5) /hpf Ur Squamous Epith Cells (0-4) /hpf Calcium Oxalate Crystal (None) /hpf Urine Bacteria (None) /hpf Hyaline Casts (0-2) /lpf Granular Casts (0) /lpf Urine Mucus (None) /hpf 07/21/24 07/21/24 07/21/24 Range/Units 17:43 17:43 21:20 WBC (4.50-10.00) 10*3/uL RBC (4.10-5.20) 10*6/uL Hgb (12.0-15.0) g/dL Hct (37.2-46.3) % MCV (80.0-97.0) fL MCH (27.0-32.0) pg MCHC (32.0-37.0) g/dL Plt Count (140-440) 10*3/uL MPV (9.5-12.2) fL Immature Gran % (Auto) % Neutrophils % % Lymphocytes % % Monocytes % % Eosinophils % % Basophils % % Immature Gran # (0.00-0.04) 10*3/uL Neutrophils # (1.80-7.70) 10*3/uL Lymphocytes # (0.90-5.00) 10*3/uL Monocytes # (0.20-1.00) 10*3/uL Eosinophils # (0.04-0.35) 10*3/uL Basophils # (0.00-0.10) 10*3/uL PT (10.0-12.5) sec INR (<1.2) APTT (22.0-30.0) sec D-Dimer (<0.60) mg/L FEU Sodium (137-145) mmol/L Potassium (3.5-5.1) mmol/L Chloride (98-107) mmol/L Carbon Dioxide (22-30) mmol/L Anion Gap mmol/L BUN (7-17) mg/dL Creatinine (0.52-1.04) mg/dL Est GFR (CKD-EPI)AfAm (>60 ml/min/1.73 sqM) Est GFR (CKD-EPI)NonAf (>60 ml/min/1.73 sqM) Glucose (74-99) mg/dL Plasma Lactic Acid Reyes (0.7-2.0) mmol/L Calcium (8.4-10.2) mg/dL Phosphorus (2.5-4.5) mg/dL Magnesium (1.6-2.3) mg/dL Total Bilirubin (0.2-1.3) mg/dL AST (14-36) U/L ALT (4-34) U/L Alkaline Phosphatase (38-126) U/L Troponin I (0.000-0.034) ng/mL C-Reactive Protein 1.7 H (<1.0) mg/dL NT-Pro-B Natriuret Pep pg/mL Total Protein (6.3-8.2) g/dL Albumin (3.5-5.0) g/dL Prealbumin 32.0 (18.0-42.0) mg/dL Lipase (23-300) U/L Procalcitonin 0.46 (0.02-0.50) ng/mL TSH (0.465-4.680) mIU/L Urine Color Yellow Urine Appearance Cloudy H (Clear) Urine pH 5.5 (5.0-8.0) Ur Specific [place] 1.015 (1.001-1.035) Urine Protein 1+ H (Negative) Urine Glucose (UA) Negative (Negative) Urine Ketones Negative (Negative) Urine Blood Small H (Negative) Urine Nitrite Negative (Negative) Urine Bilirubin Negative (Negative) Urine Urobilinogen <2.0 (<2.0) mg/dL Ur Leukocyte Esterase Large H (Negative) Urine RBC 7 H (0-5) /hpf Urine WBC 171 H (0-5) /hpf Ur Squamous Epith Cells 3 (0-4) /hpf Calcium Oxalate Crystal Rare H (None) /hpf Urine Bacteria Few H (None) /hpf Hyaline Casts 15 H (0-2) /lpf Granular Casts 8 (0) /lpf Urine Mucus Rare H (None) /hpf - EKG Data -: EKG Interpreted by Me - Radiology Data Radiology results: report reviewed (Chest x-ray CT abdomen pelvis negative for acute disease), image reviewed Disposition Clinical Impression: Abdominal pain, Gastritis, Colitis, Dehydration, Malnutrition Disposition: ADMITTED IP TO THIS HOSP Condition: Fair Is patient prescribed a controlled substance at d/c from ED?: No Time of Disposition: 21:45
[2024-07-21] MEDS: SODIUM CHLORIDE 0.9% 1,000 ML IV ONE (18:01)
[2024-07-21] MEDS: HYDROmorphone 1 MG/ML 1 ML SYRINGE IVP STA (18:03)
[2024-07-21] MEDS: ONDANSETRON 4 MG/2 ML VIAL IVP STA (18:03)
[2024-07-21 18:06] LABS: Basophils # (A) 0.15 10*3/uL (0.00-0.10); Basophils % (A) 0.7 %; Eosinophils # (A) 0.06 10*3/uL (0.04-0.35); Eosinophils % (A) 0.3 %; HCT 34.4 % (37.2-46.3); Lymphocytes # (A) 1.37 10*3/uL (0.90-5.00); Lymphocytes % (A) 6.5 %; MCH 26.3 pg (27.0-32.0); MCV 82.1 fL (80.0-97.0); Mean Platelet Volume 10.4 fL (9.5-12.2); Monocytes # (A) 1.37 10*3/uL (0.20-1.00); Monocytes % (A) 6.5 %; Neutrophils % (A) 85.4 %; Platelet Count 678 10*3/uL (140-440); RBC 4.19 10*6/uL (4.10-5.20); RDW 19.4 % (11.5-14.5); WBC 20.98 10*3/uL (4.50-10.00)
[2024-07-21 18:18] LABS: ALT 11 U/L (4-34); AST 18 U/L (14-36); African American GFR (CKD) 36 (>60 ml/min/1.73 sqM); Alkaline Phosphatase 121 U/L (38-126); Anion Gap 14 mmol/L; Blood Urea Nitrogen 61 mg/dL (7-17); Calcium 12.1 mg/dL (8.4-10.2); Chloride 113 mmol/L (98-107); Glucose 154 mg/dL (74-99); Magnesium 2.5 mg/dL (1.6-2.3); Non-African American GFR(CKD) 31 (>60 ml/min/1.73 sqM); Phosphorus 5.2 mg/dL (2.5-4.5); Potassium 5.3 mmol/L (3.5-5.1); Sodium 136 mmol/L (137-145); Total Bilirubin 0.4 mg/dL (0.2-1.3); Total Protein 8.4 g/dL (6.3-8.2)
[2024-07-21 18:23] LABS: Carbon Dioxide 9 mmol/L (22-30)
[2024-07-21 18:26] LABS: NT-Pro-B-Type Natriuretic Pept 166 pg/mL
--- NOTE | 2024-07-21 18:47 | XR ---
EXAMINATION TYPE: XR chest 2V DATE OF EXAM: 07/21/2024 6:39 PM COMPARISON: None. CLINICAL INDICATION: Female, 53 years old with history of Weakness: Shortness of breath TECHNIQUE: XR chest 2V views of the chest are obtained. FINDINGS: Scattered senescent parenchymal changes noted. Hyperinflation compatible with COPD. No evidence for infiltrate. No evidence for atelectasis. Heart size is stable. Mediastinal structures are stable and grossly unremarkable. No evidence for hilar prominence. Degenerative changes dorsal spine. IMPRESSION: 1. No evidence for acute pulmonary disease. [facility], , 07/21/2024 6:45 PM
[2024-07-21] MEDS: AMPICILLIN-SULBACTAM 3 GM in SODIUM CHLORIDE 0.9% 100 ML IVPB STA (18:55)
[2024-07-21 18:56] LABS: Partial Thromboplastin Time 22.4 sec (22.0-30.0); Prothrombin Time 10.8 sec (10.0-12.5)
[2024-07-21] MEDS: SODIUM CHLORIDE 0.9% 500 ML 500 ML IV ONE (18:57)
[2024-07-21] MEDS: ENOXAPARIN 40 MG/0.4 ML SYRINGE SQ STA (19:56)
--- NOTE | 2024-07-21 20:32 | CT ---
EXAMINATION TYPE: CT abdomen pelvis wo con DATE OF EXAM: 07/21/2024 8:14 PM COMPARISON: 03/12/2023 CLINICAL INDICATION: Female, 53 years old with history of pain, Adominal and rectal pain with minor r ectal bleeding, hx of rectal fistula surgery back in May. TECHNIQUE: Axial images with sagittal coronal reformats. Examination of the solid and hollow viscera is limited given the lack of contrast. CT DLP: 195.2 mGycm, Automated exposure control for dose reduction was used. FINDINGS: LUNG BASES: No evidence for nodule. No evidence for infiltrate. LIVER/GB: The gallbladder is unremarkable. No space-occupying hepatic lesion. PANCREAS: No pancreatic mass identified. No inflammatory process seen. SPLEEN: No evidence for splenomegaly. No intrasplenic lesions seen. ADRENALS: No adrenal nodules identified. No evidence for thickening. KIDNEYS: No evidence for renal mass. 4 mm nonobstructing calculus upper pole right kidney. No hydrone phrosis. BOWEL: Left-sided ostomy with parastomal hernia. Appendix has a normal appearance. No evidence of bow el obstruction. No inflammatory process. Lymph nodes: No evidence for adenopathy greater than 1 cm. Abdominal aorta: Atheromatous changes seen. No evidence for aneurysm. Genital organs: Large difficult to measure soft tissue mass within the pelvis may reflect leiomyomato us change with areas of internal calcification. Mass of other etiology is difficult to exclude. Appea rs to be an IUD in place. Other: No significant abnormality. IMPRESSION: 1.Large difficult to measure soft tissue mass within the pelvis may reflect leiomyomatous change with areas of internal calcification. Mass of other etiology is difficult to exclude. 2. Left-sided ostomy with peristomal hernia. No obstructive changes seen. No evidence for free air or abscess. 3. Nonobstructing right-sided renal calculus. [facility], , 07/21/2024 8:30 PM
[2024-07-21 21:36] LABS: Appearance,Urine Cloudy (Clear); Bacteria,Urine Few /hpf; Bilirubin,Urine Negative (Negative); Blood,Urine Small (Negative); Calcium Oxalate Crystals,Urine Rare /hpf; Color,Urine Yellow; Glucose,Urine (UA) Negative (Negative); Granular Casts,Urine 8 /lpf (0); Hyaline Casts,Urine 15 /lpf (0-2); Ketones,Urine Negative (Negative); Leukocyte Esterase,Urine Large (Negative); Mucus,Urine Rare /hpf; Nitrite,Urine Negative (Negative); PH, Urine 5.5 (5.0-8.0); Protein,Urine 1+ (Negative); RBC,Urine 7 /hpf (0-5); Specific Gravity,Urine 1.015 (1.001-1.035); Squamous Epithelial Cell,Urine 3 /hpf (0-4); Urobilinogen,Urine <2.0 mg/dL (<2.0); WBC,Urine 171 /hpf (0-5)
[2024-07-21] MEDS ORDERED: ONDANSETRON 4 MG/2 ML VIAL IVP PRN (21:41)
[2024-07-21] MEDS ORDERED: NALOXONE 0.4 MG/ML 1 ML VIAL IV PRN (21:41)
[2024-07-21] MEDS: DEXTROSE 5%-0.45% NACL 1,000 ML IV SCH (21:59)
[2024-07-21 22:01] LABS: C Reactive Protein 1.7 mg/dL (<1.0)
[2024-07-21 22:52] LABS: Influenza A Not Detected (Not Detectd); Influenza B Not Detected (Not Detectd); RSV Not Detected (Not Detectd)
[2024-07-21] MEDS: HEPARIN SODIUM,PORCINE 5,000 UNIT/ML 1 ML VIAL SQ SCH (23:52)
[2024-07-22] MEDS: DEXTROSE 5%-LACTATED RINGERS 1,000 ML IV SCH (00:13)
[2024-07-22 00:25] LABS: Basophils # (A) 0.12 10*3/uL (0.00-0.10); Basophils % (A) 0.8 %; Eosinophils # (A) 0.04 10*3/uL (0.04-0.35); Eosinophils % (A) 0.3 %; HCT 27.8 % (37.2-46.3); Lymphocytes # (A) 1.12 10*3/uL (0.90-5.00); Lymphocytes % (A) 7.3 %; MCH 26.4 pg (27.0-32.0); MCHC 31.3 g/dL (32.0-37.0); MCV 84.2 fL (80.0-97.0); Mean Platelet Volume 9.8 fL (9.5-12.2); Monocytes # (A) 1.36 10*3/uL (0.20-1.00); Monocytes % (A) 8.9 %; Neutrophils # (A) 12.55 10*3/uL (1.80-7.70); Neutrophils % (A) 81.7 %; Platelet Count 496 10*3/uL (140-440); RDW 19.7 % (11.5-14.5); WBC 15.34 10*3/uL (4.50-10.00)
[2024-07-22 00:36] LABS: ALT 9 U/L (4-34); AST 14 U/L (14-36); African American GFR (CKD) 44 (>60 ml/min/1.73 sqM); Albumin 3.2 g/dL (3.5-5.0); Alkaline Phosphatase 108 U/L (38-126); Anion Gap 11 mmol/L; Blood Urea Nitrogen 53 mg/dL (7-17); Chloride 113 mmol/L (98-107); Glucose 117 mg/dL (74-99); Magnesium 2.3 mg/dL (1.6-2.3); Non-African American GFR(CKD) 38 (>60 ml/min/1.73 sqM); Phosphorus 4.6 mg/dL (2.5-4.5); Potassium 4.4 mmol/L (3.5-5.1); Sodium 133 mmol/L (137-145); Total Bilirubin 0.2 mg/dL (0.2-1.3); Total Protein 6.7 g/dL (6.3-8.2)
[2024-07-22 00:37] LABS: Carbon Dioxide 9 mmol/L (22-30)
[2024-07-22 00:42] LABS: HGB 8.7 g/dL (12.0-15.0)
[2024-07-22] MEDS: HYDROmorphone 1 MG/ML 1 ML SYRINGE IVP PRN (02:09)
--- NOTE | 2024-07-22 08:18 | US ---
EXAMINATION TYPE: US kidneys/renal and bladder DATE OF EXAM: 07/22/2024 COMPARISON: CT 07/21/24 CLINICAL INDICATION: Female, 53 years old with history of marisa,pyelonephitis; MARISA. Patient has left si ded ostomy bag TECHNIQUE: Grayscale imaging of the bilateral kidneys and urinary bladder: FINDINGS: EXAM MEASUREMENTS: Right Kidney: 10.4 x 4.2 x 5.2 cm Left Kidney: 10.7 x 5.3 x 4.3 cm Right Kidney: wnl as best seen Left Kidney: wnl as best seen, posterior approach used Bladder: wnl as best seen Bilateral Jets seen: not visualized at this time There is a 12.0 x 7.7 x 9.5cm heterogeneous, complex area with internal calcifications and vascular ity seen within the midline pelvis There is no evidence for hydronephrosis at this point in time. No nephrolithiasis is seen. No su s are identified. The urinary bladder is anechoic. IMPRESSION: 1. Heterogenous complex mass arising from the pelvis of uncertain etiology. 2. No sonographic evidence to suggest pyelonephritis however clinical correlation is advised. [facility], , 07/22/2024 8:16 AM
--- NOTE | 2024-07-22 09:03 | NM ---
EXAMINATION TYPE: NM pul vent and perfuse DATE OF EXAM: 07/22/2024 CLINICAL INDICATION: Female, 53 years old with history of PE; COMPARISON: Radiograph 07/21/2024 TECHNIQUE: Utilizing inhalation of 66.8 mCi Tc 99m DTPA aerosol and intravenous injection of 5.2 mCi of Tc 99m MAA, ventilation and perfusion images are acquired post injection in multiple projections. FINDINGS: Normal radiotracer distribution is noted in the lungs. There is no evidence of mismatched defects. IMPRESSION: No mismatched defects to suggest pulmonary embolus by PIOPED criteria. [facility], , 07/22/2024 9:01 AM
[2024-07-22] MEDS: PANTOPRAZOLE 40 MG/10 ML VIAL IV SCH (09:35)
[2024-07-22 10:50] LABS: % Iron Saturation 18.28 (12.00-45.00)
--- NOTE | 2024-07-22 12:47 | P.CONS ---
History of Present Illness - Reason for Consult Consult date: 07/22/24 Failure to thrive Requesting physician: Jorge Rivas - Chief Complaint Increased weakness, nausea and decreased appetite - History of Present Illness This a pleasant 53-year-old female who is admitted to the hospital with leukocytosis, chest pain, back pain, weakness, nausea and decreased appetite. She was admitted with acute kidney injury. She has a past medical history of hypertension, hyperlipidemia, iron deficiency anemia, bowel obstruction status post resection with ileostomy, rectal fistula with flap repair recently done in May at [facility] on [address]. Patient states that since her rectal fistula flap repair done in May she has felt like she has been going downhill. States that she has little appetite, she has nausea without vomiting. States that she feels that she lost 68 pounds in the last 2 weeks duration. Last few days she has had nausea, denies any abdominal pain. She has ileostomy states that she has good output from her ileostomy. States she just does not have an appetite and nothing sounds good to eat. She does drink Ensure clear at home as she does have a lactose allergy. Patient was admitted with leukocytosis with a white count as high as 20.9, hyperkalemia, acute kidney injury, again denies any abdominal pain states that she was having some back pain and chest pain. She has been afebrile but states that she does have chills but that she is always cold. Patient's admitting hemoglobin 11.0, with repeat today of 8.7. She denies any blood in her stool or black stool. She is supposed to be taking iron but she stopped taking it because it was making her stool dark. Today's labs WBC 15.3 hemoglobin 8.7 hematocrit 27.8 platelet count 496,000 sodium 133 potassium 4.4 BUN 53 creatinine 1.5 glucose 117 iron 34 TIBC 186 saturation 18.2 ferritin 879 total bilirubin 0.2 AST 14 ALT 9 alkaline phosphatase 108 albumin 3.2 vitamin B12 [address] abdomen pelvis without contrast reports large difficult to measure soft tissue mass within the pelvis may reflect Avi myomatous change with areas of internal calcification. Mass of other etiologies difficult to exclude. Left- sided ostomy with parastomal hernia. No obstructive changes seen. No evidence for free air or abscess. Nonobstructing right-sided renal calculus Ultrasound kidneys/renal and bladder reports heterogeneous complex mass arising from the pelvis of uncertain etiology. No sonographic evidence to suggest py elonephritis however clinical correlation is advised. Review of Systems REVIEW OF SYSTEMS: CARDIOPULMONARY: No chest pain or shortness of breath. Gastrointestinal: No abdominal pain. Nausea without vomiting. No hematemesis, coffee-ground emesis. No rectal bleeding, or melena. Ileostomy with soft green stool. Decreased appetite. GENITOURINARY: No dysuria or hematuria. MUSCULOSKELETAL: Reports normal range of motion. Joint pain. SKIN: No rashes. No jaundice. ENDOCRINE: Chills, no fevers. Decreased appetite with 68 pound weight loss last 2 weeks. No polydipsia or polyuria. PSYCHIATRIC: Unremarkable. NEUROLOGY: No change in mental status. Denies dizziness, headache. ENT: Vision unremarkable. CONSTITUTIONAL: Decreased appetite with 6 to 8 pound weight loss in last 2 weeks, no fever, night sweats. Past Medical History Past Medical History: Hyperlipidemia, Hypertension Additional Past Medical History / Comment(s): Iron deficiency anemia, "lung collapsed" may 2023 History of Any Multi-Drug Resistant Organisms: None Reported Past Surgical History: Section Additional Past Surgical History / Comment(s): Breast Biopsy; D/C for miscarriage, colon resection for bowel obstruction april 2023-ileostomy, was in ICU had trach, fistula repair may 2024 Past Anesthesia/Blood Transfusion Reactions: No Reported Reaction Past Psychological History: No Psychological Hx Reported Smoking Status: Former smoker Past Alcohol Use History: None Reported Past Drug Use History: Marijuana - Past Family History Mother Family Medical History: Cancer Additional Family Medical History / Comment(s): lung Medications and Allergies Home Medications Medication Instructions Recorded Confirmed Type Ciprofloxacin HCl [Cipro] 500 mg PO BID 07/21/24 07/21/24 History metroNIDAZOLE [Flagyl] 500 mg PO TID 07/21/24 07/21/24 History Allergies Allergy/AdvReac Type Severity Reaction Status Date / Time lisinopril Allergy Swelling Verified 07/21/24 18:45 Milk Containing Products Allergy Anaphylaxis Verified 07/21/24 18:45 (Dairy) [Dairy] Physical Exam Vitals: Vital Signs Temp Pulse Pulse Pulse Resp BP BP 07/22/24 12:00 97.7 F 69 16 104/60 07/22/24 09:30 98.3 F 62 16 112/65 07/22/24 04:42 97.5 F L 54 L 17 142/81 07/22/24 04:15 97.5 F L 61 16 100/63 07/22/24 02:31 68 16 97/63 07/22/24 02:04 68 16 106/68 07/21/24 22:50 98.4 F 61 16 104/62 07/21/24 19:41 98.7 F 79 16 117/85 07/21/24 18:23 81 16 100/72 07/21/24 18:17 18 07/21/24 17:25 94 22 125/68 07/21/24 17:19 97.8 F 127 H 20 85/67 Pulse Ox 07/22/24 12:00 92 L 07/22/24 09:30 97 07/22/24 04:42 97 07/22/24 04:15 97 07/22/24 02:31 99 07/22/24 02:04 98 07/21/24 22:50 99 07/21/24 19:41 99 07/21/24 18:23 100 07/21/24 18:17 07/21/24 17:25 98 07/21/24 17:19 94 L Intake and Output 07/21/24 07/22/24 07/22/24 22:59 06:59 14:59 Intake Total 180 Balance 180 Intake: Oral 180 Other: # Voids 1 1 # Bowel Movements 1 Weight 39.009 kg 39.009 kg General appearance: The patient is alert, oriented, appears in no acute distress. HET: Head is normocephalic and atraumatic. Conjunctiva pink. Sclera anicteric. Neck: Supple without lymphadenopathy. Trachea midline. Heart: Regular. Lungs: Equal expansion, normal respiratory effort. Abdomen: Soft, nontender, thin, ileostomy with loose green stool, nondistended. Skin: No rashes. No jaundice. Extremities: Normal skin color and turgor. No pedal edema. Neurological: No focal deficits. Alert and oriented x3. Results CBC & Chem 7: 07/22/24 00:05 07/22/24 00:05 Labs: Abnormal Lab Results - Last 24 Hours (Table) 07/21/24 07/21/24 07/21/24 Range/Units 17:43 17:43 17:43 WBC 20.98 H (4.50-10.00) 10*3/uL RBC (4.10-5.20) 10*6/uL Hgb 11.0 L (12.0-15.0) g/dL Hct 34.4 L (37.2-46.3) % MCH 26.3 L (27.0-32.0) pg MCHC (32.0-37.0) g/dL Plt Count 678 H (140-440) 10*3/uL Immature Gran # 0.13 H (0.00-0.04) 10*3/uL Neutrophils # 17.90 H (1.80-7.70) 10*3/uL Monocytes # 1.37 H (0.20-1.00) 10*3/uL Basophils # 0.15 H (0.00-0.10) 10*3/uL D-Dimer 1.49 H (<0.60) mg/L FEU Sodium 136 L (137-145) mmol/L Potassium 5.3 H (3.5-5.1) mmol/L Chloride 113 H (98-107) mmol/L Carbon Dioxide 9 L* (22-30) mmol/L BUN 61 H (7-17) mg/dL Creatinine 1.81 H (0.52-1.04) mg/dL Glucose 154 H (74-99) mg/dL Calcium 12.1 H (8.4-10.2) mg/dL Phosphorus 5.2 H (2.5-4.5) mg/dL Magnesium 2.5 H (1.6-2.3) mg/dL Iron (50-170) UG/DL TIBC (228-460) UG/DL Transferrin (204.0-354.0) mg/dL Ferritin (10.0-291.0) ng/mL C-Reactive Protein (<1.0) mg/dL Total Protein 8.4 H (6.3-8.2) g/dL Albumin (3.5-5.0) g/dL Urine Appearance (Clear) Urine Protein (Negative) Urine Blood (Negative) Ur Leukocyte Esterase (Negative) Urine RBC (0-5) /hpf Urine WBC (0-5) /hpf Calcium Oxalate Crystal (None) /hpf Urine Bacteria (None) /hpf Hyaline Casts (0-2) /lpf Urine Mucus (None) /hpf 07/21/24 07/21/24 07/22/24 Range/Units 17:43 21:20 00:05 WBC 15.34 H (4.50-10.00) 10*3/uL RBC 3.30 L (4.10-5.20) 10*6/uL Hgb 8.7 L D (12.0-15.0) g/dL Hct 27.8 L (37.2-46.3) % MCH 26.4 L (27.0-32.0) pg MCHC 31.3 L (32.0-37.0) g/dL Plt Count 496 H (140-440) 10*3/uL Immature Gran # 0.15 H (0.00-0.04) 10*3/uL Neutrophils # 12.55 H (1.80-7.70) 10*3/uL Monocytes # 1.36 H (0.20-1.00) 10*3/uL Basophils # 0.12 H (0.00-0.10) 10*3/uL D-Dimer (<0.60) mg/L FEU Sodium (137-145) mmol/L Potassium (3.5-5.1) mmol/L Chloride (98-107) mmol/L Carbon Dioxide (22-30) mmol/L BUN (7-17) mg/dL Creatinine (0.52-1.04) mg/dL Glucose (74-99) mg/dL Calcium (8.4-10.2) mg/dL Phosphorus (2.5-4.5) mg/dL Magnesium (1.6-2.3) mg/dL Iron (50-170) UG/DL TIBC (228-460) UG/DL Transferrin (204.0-354.0) mg/dL Ferritin (10.0-291.0) ng/mL C-Reactive Protein 1.7 H (<1.0) mg/dL Total Protein (6.3-8.2) g/dL Albumin (3.5-5.0) g/dL Urine Appearance Cloudy H (Clear) Urine Protein 1+ H (Negative) Urine Blood Small H (Negative) Ur Leukocyte Esterase Large H (Negative) Urine RBC 7 H (0-5) /hpf Urine WBC 171 H (0-5) /hpf Calcium Oxalate Crystal Rare H (None) /hpf Urine Bacteria Few H (None) /hpf Hyaline Casts 15 H (0-2) /lpf Urine Mucus Rare H (None) /hpf 07/22/24 07/22/24 Range/Units 00:05 00:05 WBC (4.50-10.00) 10*3/uL RBC (4.10-5.20) 10*6/uL Hgb (12.0-15.0) g/dL Hct (37.2-46.3) % MCH (27.0-32.0) pg MCHC (32.0-37.0) g/dL Plt Count (140-440) 10*3/uL Immature Gran # (0.00-0.04) 10*3/uL Neutrophils # (1.80-7.70) 10*3/uL Monocytes # (0.20-1.00) 10*3/uL Basophils # (0.00-0.10) 10*3/uL D-Dimer (<0.60) mg/L FEU Sodium 133 L (137-145) mmol/L Potassium (3.5-5.1) mmol/L Chloride 113 H (98-107) mmol/L Carbon Dioxide 9 L* (22-30) mmol/L BUN 53 H (7-17) mg/dL Creatinine 1.52 H (0.52-1.04) mg/dL Glucose 117 H (74-99) mg/dL Calcium 11.0 H (8.4-10.2) mg/dL Phosphorus 4.6 H (2.5-4.5) mg/dL Magnesium (1.6-2.3) mg/dL Iron 34 L (50-170) UG/DL TIBC 186 L (228-460) UG/DL Transferrin 133.0 L (204.0-354.0) mg/dL Ferritin 879.0 H (10.0-291.0) ng/mL C-Reactive Protein (<1.0) mg/dL Total Protein (6.3-8.2) g/dL Albumin 3.2 L (3.5-5.0) g/dL Urine Appearance (Clear) Urine Protein (Negative) Urine Blood (Negative) Ur Leukocyte Esterase (Negative) Urine RBC (0-5) /hpf Urine WBC (0-5) /hpf Calcium Oxalate Crystal (None) /hpf Urine Bacteria (None) /hpf Hyaline Casts (0-2) /lpf Urine Mucus (None) /hpf Assessment and Plan (1) Decreased appetite Narrative/Plan: 53-year-old female with multiple comorbidities with decreased appetite, nausea without vomiting who recently underwent fistula rectal flap repair in May at [facility] with increase in her symptoms since that surgery with increase in the last couple weeks duration. Patient states she has been very weak she was complaining of chest pain and back pain. She has a history of bowel obstruction with perforation and resection with ileostomy. Also has history of iron deficiency anemia she is supposed to be taking iron supplementations but states that she stabbed secondary to making her stool black. She is supposed to follow-up with her surgeon Dr. Olsen July 29. Talked to patient recommend small frequent meals, will order Ensure clear secondary to patient's lactose intolerance last allergy. Current Visit: Yes Status: Acute Code(s): R63.0 - ANOREXIA SNOMED Code(s): 32634288 (2) Nausea without vomiting Narrative/Plan: Antiemetics as needed. Protonix 40 mg daily for GI prophylaxis Current Visit: Yes Status: Acute Code(s): R11.0 - NAUSEA SNOMED Code(s): 696417837 (3) Acute kidney injury Current Visit: Yes Status: Acute Code(s): N17.9 - ACUTE KIDNEY FAILURE, UNSPECIFIED SNOMED Code(s): 25100468 (4) Leukocytosis Current Visit: Yes Status: Acute Code(s): D72.829 - ELEVATED WHITE BLOOD CELL COUNT, UNSPECIFIED SNOMED Code(s): 597220861 (5) Chronic anemia Current Visit: Yes Status: Acute Code(s): D64.9 - ANEMIA, UNSPECIFIED SNOMED Code(s): 530275375 (6) Pelvic mass Current Visit: Yes Status: Acute Code(s): R19.00 - INTRA-ABD AND PELVIC SWELLING, MASS AND LUMP, UNSP SITE SNOMED Code(s): 62118963 Plan: 1. Continue symptomatic and supportive care 2. Antiemetics as needed 3. Protonix 40 mg daily for GI prophylaxis 4. Encourage patient to have small frequent meals we will add Ensure clear 3 times daily with meals 5. Infectious disease on consultation for leukocytosis 6. No plans on endoscopic evaluation 7. Consider further evaluation of pelvic mass will defer to primary medical physician Thank you for this consultation, we will continue to follow. Dr. Anton Cee I agree with the dictator's note, documented as a scribe by Ngozi Gil.
--- NOTE | 2024-07-22 13:16 | CA ---
Transthoracic Echo Report Name: Lanie Hooper Age: 53 Gender: F : 1970 Exam Date: 07/22/2024 10:26 Exam Location: [place] [facility] Ht (in): 61 Wt (lb): 85 Ordering Physician: Bong Nichols MD Attending/Referring Phys: Skin Toggler Alfredo Guzmán RDCS Procedure CPT: Indications: antroseptal TX by EKG,hypotension Cardiac Hx: Technical Quality: Good Contrast 1: Total Dose (mL): Contrast 2: Total Dose (mL): MEASUREMENTS (Male / Female) Normal Values 2D ECHO LV Diastolic Diameter PLAX 4.2 cm 4.2 - 5.9 / 3.9 - 5.3 cm LV Systolic Diameter PLAX 2.5 cm IVS Diastolic Thickness 0.9 cm 0.6 - 1.0 / 0.6 - 0.9 cm LVPW Diastolic Thickness 0.9 cm 0.6 - 1.0 / 0.6 - 0.9 cm LV Relative Wall Thickness 0.4 RV Internal Dim ED PLAX 3.2 cm LVOT Diameter 1.7 cm LA Systolic Diameter LX 3.0 cm 3.0 - 4.0 / 2.7 - 3.8 cm LV Diastolic Volume MOD 4C 68.1 cm??? LV Systolic Volume MOD 4C 26.4 cm??? LV Ejection Fraction MOD 4C 61.2 % LV Diastolic Length 4C 6.4 cm LV Systolic Length 4C 5.4 cm LA Volume 35.9 cm??? 18 - 58 / 22 - 52 cm??? LA Volume Index 28.1 cm???/m??? 16 - 28 cm???/m??? DOPPLER MV Area PHT 3.3 cm??? Mitral E Point Velocity 91.2 cm/s Mitral A Point Velocity 85.8 cm/s Mitral E to A Ratio 1.1 MV Deceleration Time 230.9 ms FINDINGS Left Ventricle Left ventricular ejection fraction is estimated at 55-60%. Normal Left ventricular size, wall thickness, systolic function with no obvious regional wall motion abnormalities. Right Ventricle Normal right ventricular size and function. Unable to estimate the right ventricular systolic pressure. Right Atrium Normal right atrial size. Left Atrium Normal left atrial size. Mitral Valve Mitral valve thickened. No mitral stenosis. Trace mitral regurgitation. Aortic Valve Trileaflet aortic valve. No aortic valve stenosis or regurgitation. Tricuspid Valve Structurally normal tricuspid valve. No tricuspid stenosis. Trace tricuspid regurgitation. Pulmonic Valve Structurally normal pulmonic valve. No pulmonic stenosis. No pulmonic regurgitation. Pericardium Small pericardial effusion. Aorta Normal size aortic root and proximal ascending aorta. CONCLUSIONS Normal biventricular systolic function Small pericardial effusion Previewed by: Dr. Isaias Zimmerman MD (Electronically Signed) Final Date: 22 Jul 2024 13:16
[2024-07-22 14:35] VITALS: BMI 16.2
--- NOTE | 2024-07-22 14:47 | P.HPIM ---
History of Present Illness H&P Date: 07/22/24 History and physical Date of Location 355 bed [address]. D[address]ation [address]. Nichols Chief complaint Patient presented to the ER physician with weakness fatigue, arrived by wheelchair. History of present illness 53 years old female single she presented to Dr. Malik Humphrey With pain weakness dizziness lightheaded nausea and vomiting at times, decreased appetite, severe weight loss with multiple hospitalization in [facility] By general surgeon for fistula repair, her done third time on June 18 and was discharged on June 19, 2024 with the severe pain in the pelvic and anal area Which she was medicated with [place] for 1 week and subsequently advised by them to use ibuprofen and Tylenol which patient was in the average 7-8/10 and internal medicine severe With lack of energy, difficulty of walking and generalized weakness, she estimated in her just last surgery lost 14 pound. With the occasional scale 10/10. She was treated with Cipro and Flagyl, Cipro 500 mg twice daily for 2 months prescription and Flagyl 500 mg 3 times daily for 2 months prescription on June 26, 2024. Past medical history: Initial story that she was admitted to [facility] with acute perforation of the colon assumed to be ruptured diverticula and was complicated admission was not under my care at that time she was also intubated and on ventilator followed by tracheostomy and colostomy that happened last year on [address] Huber who who is not in the [facility] anymore At the time 6 months later patient seeks several entity of surgeon to do the revision of the colostomy and found Dr. Conner a general surgeon at [facility] who did her revision of the colostomy but he found another problem with the bowel and he did ileostomy which currently she had. 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 In between the follow-up she underwent another surgery for repair of the fistulectomy and subsequently she become ill and sick admitted again to [facility] was sepsis and she had infection as well as E SLB E. coli resistant and treated with Bactrim per infectious disease at [facility] and subsequently she was also anemic and had iron transfusion time 3. Patient did well improved and she was able to start to gain weight after severe nutritional deficiency and protein calorie deficiency, Subsequently patient went to Dr. Olsen who on June 18 did the last revision of her fistulectomy and it did help however they discharged her on the second day with the continued poor control of her pain and she lost the appetite. And activities could not move as well as lost her ADLs The illness has been continued uncontrolled she presented in in the ER at [facility], because her insurance was not accepted in [facility] anymore. On admission Laboratory on admission: WBC 20.98, hemoglobin 11, hematocrit 34.4, MCV 82, and platelet 678. PT 10.8, INR 1, PTT 22.4 with a D-dimer 1.49 Chemistry sodium 136, potassium four 5.3, chloride 113 and anion gap 14 BUN 61, creatinine 1.81, glucose 154, lactic acid 1.8, calcium 12.1, phosphorus 5.2, magnesium 2.5 Total bilirubin 0.4, AST 18, ALT 11, alk phos 121, troponin was less than 0.012 C-reactive protein 1.7 total protein 8.4, albumin 4 and prealbumin was 32 lipase 283 procalcitonin 0.46, TSH 1.520 Urine analysis indicating large leukocyte Estrace small blood RBCs 7, WBC 171 and few bacteria 15 hyaline cast. Her semiology was indicating negative influenza AMB PCR, negative RSV PCR, negative SARSCove2 PCR. Social history she is single live with her granddaughter Non-smoker nondrinker and no alcohol intake to marijuana no street drugs. Central nervous system negative and no blurred vision no headache and no falling attacks. She is conscious alert oriented severe discomfort with pain. Cardiovascular no chest pain and no palpitation Respiratory no shortness of breath GI she lost her appetite and she had ileostomy bag and decrease oral intake and severe pain in her anal area. Endocrine no history of diabetes or thyroid disease History of iron deficiency anemia in the past with multiple surgery. Skin no complaint Genitourinary no complaint except that she had flank pain Rest of 14 [place] noncontributory On exam: Temperature on admission 97.5, pulse rate 61 regular, respiratory rate 16, blood pressure 100/63 with fluctuating hypotension and leukocytosis. Head was normocephalic atraumatic, pupils equal reactive conjunctiva was pale, severely dehydrated, normal hearing, oropharynx natural teeth able to swallow Neck supple, scar from previous tracheostomy tube for ventilation on her last year surgery no lymphadenopathy Chest severe loss of muscle mass on the chest, atrophic breast mild increased anteroposterior diameter Normal breath sound bilateral no wheezes no rhonchi's Heart regular sinus rhythm soft murmur on the apex grade 1/6 Abdomen ileostomy bag with the stoma functioning. Positive bowel sounds. Pain in her anal area. Extremities no edema and positive pulses. Neurologically: No lateralizing sign no neurodeficit Psychiatry no depression or anxiety but severely frustrated with her illness. Assessment: And plan 1. In the CT scan done in the ER mentioned mass in the pelvis, however patient said that she had history of fibroid since her age of 18 and 28 and we will be obtaining consultation with the gynecology Dr. Chavez to evaluate the fibroid if it is versus mass or abscess 2. Leukocytosis with a probable association with the urinary tract infection a nd pyelonephritis with a history of prior infection and sepsis and leg [facility] and the organism was ESBL resistant E. coli urine culture and sensitivity has been requested 3. Sepsis and hypotension 4. Dehydration. 5. Consultation with infectious disease 6. Consultation with gastroenterology for evaluation with the association of the diverticulosis and fistula in the anal area and ileostomy bag after revision of the colostomy I thought possibility of inflammatory bowel disease for that reason I did consult gastroenterology to evaluate for probability of Crohn's disease. #7 severe dehydration and anemia and will repeat again the iron study after hydration as well as protein and albumin and calcium. 8. Falls assumption of hypercalcemia, hyper proteinemia which is associated with severe volume contraction and once patient hydrated will be changed. 9. Hydration gradually 10 nutritional support with severe weight loss. Past Medical History Past Medical History: Hyperlipidemia, Hypertension Additional Past Medical History / Comment(s): Iron deficiency anemia, "lung collapsed" may 2023 History of Any Multi-Drug Resistant Organisms: None Reported Past Surgical History: Section Additional Past Surgical History / Comment(s): Breast Biopsy; D/C for miscarriage, colon resection for bowel obstruction april 2023-ileostomy, was in ICU had trach, fistula repair may 2024 Past Anesthesia/Blood Transfusion Reactions: No Reported Reaction Past Psychological History: No Psychological Hx Reported Smoking Status: Former smoker Past Alcohol Use History: None Reported Past Drug Use History: Marijuana - Past Family History Mother Family Medical History: Cancer Additional Family Medical History / Comment(s): lung Medications and Allergies Home Medications Medication Instructions Recorded Confirmed Type Ciprofloxacin HCl [Cipro] 500 mg PO BID 07/21/24 07/21/24 History metroNIDAZOLE [Flagyl] 500 mg PO TID 07/21/24 07/21/24 History Allergies Allergy/AdvReac Type Severity Reaction Status Date / Time lisinopril Allergy Swelling Verified 07/21/24 18:45 Milk Containing Products Allergy Anaphylaxis Verified 07/21/24 18:45 (Dairy) [Dairy] Physical Exam Vitals: Vital Signs Temp Pulse Pulse Pulse Resp BP BP 07/22/24 12:00 97.7 F 69 16 104/60 07/22/24 09:30 98.3 F 62 16 112/65 07/22/24 04:42 97.5 F L 54 L 17 142/81 07/22/24 04:15 97.5 F L 61 16 100/63 07/22/24 02:31 68 16 97/63 07/22/24 02:04 68 16 106/68 07/21/24 22:50 98.4 F 61 16 104/62 07/21/24 19:41 98.7 F 79 16 117/85 07/21/24 18:23 81 16 100/72 07/21/24 18:17 18 07/21/24 17:25 94 22 125/68 07/21/24 17:19 97.8 F 127 H 20 85/67 Pulse Ox 07/22/24 12:00 92 L 07/22/24 09:30 97 07/22/24 04:42 97 07/22/24 04:15 97 07/22/24 02:31 99 07/22/24 02:04 98 07/21/24 22:50 99 07/21/24 19:41 99 07/21/24 18:23 100 07/21/24 18:17 07/21/24 17:25 98 07/21/24 17:19 94 L Intake and Output 07/21/24 07/22/24 07/22/24 22:59 06:59 14:59 Intake Total 180 Balance 180 Intake: Oral 180 Other: # Voids 1 1 # Bowel Movements 1 Weight 39.009 kg 39.009 kg Results CBC & Chem 7: 07/22/24 00:05 07/22/24 00:05 Labs: Abnormal Lab Results - Last 24 Hours (Table) 07/21/24 07/21/24 07/21/24 Range/Units 17:43 17:43 17:43 WBC 20.98 H (4.50-10.00) 10*3/uL RBC (4.10-5.20) 10*6/uL Hgb 11.0 L (12.0-15.0) g/dL Hct 34.4 L (37.2-46.3) % MCH 26.3 L (27.0-32.0) pg MCHC (32.0-37.0) g/dL Plt Count 678 H (140-440) 10*3/uL Immature Gran # 0.13 H (0.00-0.04) 10*3/uL Neutrophils # 17.90 H (1.80-7.70) 10*3/uL Monocytes # 1.37 H (0.20-1.00) 10*3/uL Basophils # 0.15 H (0.00-0.10) 10*3/uL D-Dimer 1.49 H (<0.60) mg/L FEU Sodium 136 L (137-145) mmol/L Potassium 5.3 H (3.5-5.1) mmol/L Chloride 113 H (98-107) mmol/L Carbon Dioxide 9 L* (22-30) mmol/L BUN 61 H (7-17) mg/dL Creatinine 1.81 H (0.52-1.04) mg/dL Glucose 154 H (74-99) mg/dL Calcium 12.1 H (8.4-10.2) mg/dL Phosphorus 5.2 H (2.5-4.5) mg/dL Magnesium 2.5 H (1.6-2.3) mg/dL Iron (50-170) UG/DL TIBC (228-460) UG/DL Transferrin (204.0-354.0) mg/dL Ferritin (10.0-291.0) ng/mL C-Reactive Protein (<1.0) mg/dL Total Protein 8.4 H (6.3-8.2) g/dL Albumin (3.5-5.0) g/dL Urine Appearance (Clear) Urine Protein (Negative) Urine Blood (Negative) Ur Leukocyte Esterase (Negative) Urine RBC (0-5) /hpf Urine WBC (0-5) /hpf Calcium Oxalate Crystal (None) /hpf Urine Bacteria (None) /hpf Hyaline Casts (0-2) /lpf Urine Mucus (None) /hpf 07/21/24 07/21/24 07/22/24 Range/Units 17:43 21:20 00:05 WBC 15.34 H (4.50-10.00) 10*3/uL RBC 3.30 L (4.10-5.20) 10*6/uL Hgb 8.7 L D (12.0-15.0) g/dL Hct 27.8 L (37.2-46.3) % MCH 26.4 L (27.0-32.0) pg MCHC 31.3 L (32.0-37.0) g/dL Plt Count 496 H (140-440) 10*3/uL Immature Gran # 0.15 H (0.00-0.04) 10*3/uL Neutrophils # 12.55 H (1.80-7.70) 10*3/uL Monocytes # 1.36 H (0.20-1.00) 10*3/uL Basophils # 0.12 H (0.00-0.10) 10*3/uL D-Dimer (<0.60) mg/L FEU Sodium (137-145) mmol/L Potassium (3.5-5.1) mmol/L Chloride (98-107) mmol/L Carbon Dioxide (22-30) mmol/L BUN (7-17) mg/dL Creatinine (0.52-1.04) mg/dL Glucose (74-99) mg/dL Calcium (8.4-10.2) mg/dL Phosphorus (2.5-4.5) mg/dL Magnesium (1.6-2.3) mg/dL Iron (50-170) UG/DL TIBC (228-460) UG/DL Transferrin (204.0-354.0) mg/dL Ferritin (10.0-291.0) ng/mL C-Reactive Protein 1.7 H (<1.0) mg/dL Total Protein (6.3-8.2) g/dL Albumin (3.5-5.0) g/dL Urine Appearance Cloudy H (Clear) Urine Protein 1+ H (Negative) Urine Blood Small H (Negative) Ur Leukocyte Esterase Large H (Negative) Urine RBC 7 H (0-5) /hpf Urine WBC 171 H (0-5) /hpf Calcium Oxalate Crystal Rare H (None) /hpf Urine Bacteria Few H (None) /hpf Hyaline Casts 15 H (0-2) /lpf Urine Mucus Rare H (None) /hpf 07/22/24 07/22/24 Range/Units 00:05 00:05 WBC (4.50-10.00) 10*3/uL RBC (4.10-5.20) 10*6/uL Hgb (12.0-15.0) g/dL Hct (37.2-46.3) % MCH (27.0-32.0) pg MCHC (32.0-37.0) g/dL Plt Count (140-440) 10*3/uL Immature Gran # (0.00-0.04) 10*3/uL Neutrophils # (1.80-7.70) 10*3/uL Monocytes # (0.20-1.00) 10*3/uL Basophils # (0.00-0.10) 10*3/uL D-Dimer (<0.60) mg/L FEU Sodium 133 L (137-145) mmol/L Potassium (3.5-5.1) mmol/L Chloride 113 H (98-107) mmol/L Carbon Dioxide 9 L* (22-30) mmol/L BUN 53 H (7-17) mg/dL Creatinine 1.52 H (0.52-1.04) mg/dL Glucose 117 H (74-99) mg/dL Calcium 11.0 H (8.4-10.2) mg/dL Phosphorus 4.6 H (2.5-4.5) mg/dL Magnesium (1.6-2.3) mg/dL Iron 34 L (50-170) UG/DL TIBC 186 L (228-460) UG/DL Transferrin 133.0 L (204.0-354.0) mg/dL Ferritin 879.0 H (10.0-291.0) ng/mL C-Reactive Protein (<1.0) mg/dL Total Protein (6.3-8.2) g/dL Albumin 3.2 L (3.5-5.0) g/dL Urine Appearance (Clear) Urine Protein (Negative) Urine Blood (Negative) Ur Leukocyte Esterase (Negative) Urine RBC (0-5) /hpf Urine WBC (0-5) /hpf Calcium Oxalate Crystal (None) /hpf Urine Bacteria (None) /hpf Hyaline Casts (0-2) /lpf Urine Mucus (None) /hpf Thrombosis Risk Factor Assmnt - Choose All That Apply Any of the Below Risk Factors Present?: Yes Each Factor Represents 1 point: Age 41-60 years Other Risk Factors: No Other congenital or acquired thrombophilia - If yes, enter type in comment: No Thrombosis Risk Factor Assessment Total Risk Factor Score: 1 Thrombosis Risk Factor Assessment Level: Low Risk
[2024-07-22] MEDS: PIPERACILLIN-TAZOBACTAM 3.375 GM in SODIUM CHLORIDE 0.9% 100 ML IVPB SCH (16:23)
[2024-07-22] MEDS: IOPAMIDOL CONTRAST (ORAL USE) VIAL PO PRN (16:52)
--- NOTE | 2024-07-22 18:43 | CT ---
EXAMINATION TYPE: CT abdomen pelvis wo con DATE OF EXAM: 07/22/2024 6:24 PM COMPARISON: None. CLINICAL INDICATION: Female, 53 years old with history of abd pain and leukocytosis, Abdominal pain a nd leukocytosis TECHNIQUE: Axial images were obtained from above the diaphragm to the pubic rami in the axial plane a t 5 mm thick sections. Reconstructed images are reviewed on the computer in the coronal plane. CONTRAST: mL of . Study performed with Oral Contrast DLP: 226.7 mGycm, Automated exposure control for dose reduction was used. FINDINGS: Limited CT sections are obtained the lung bases. The lung bases are clear. CT ABDOMEN: Abdomen evaluation is somewhat limited due to lack of intra-abdominal fat. Subcutaneous a ir in the right anterior mid subcutaneous tissues diminished from comparison Liver: Normal Spleen: Normal Pancreas: Normal Adrenal glands: The adrenal glands are normal. Gallbladder: Not visualized Kidneys: No masses are evident. No hydronephrosis is present. No cysts are present. There may be a 0.3 cm calcification medial mid right kidney. No hydronephrosis is evident. No obvious hydroureter Aorta: Normal Inferior vena cava: Normal. CT PELVIS: Loops of bowel distended with oral contrast appear normal. There are multiple small bowel loops herni ated within the anterior left abdomen. Ostomy is present. A second ostomy may be present on the mid p eriumbilical region There are loops of bowel which are incompletely distended or lack oral contrast l imiting their evaluation. Appendix: Not identified Urinary bladder: Normal. Genitourinary structures: There is marked enlargement of the uterus. Multiple calcifications within t he uterus are present related to calcified fibroids. IUD is present Osseous structures: No suspicious lytic or sclerotic lesions. IMPRESSION: 1. Herniated contrast-filled small bowel loops into the ostomy region. No obstruction is identified. 2. 0.3 cm nonobstructing mid right ureteral stone may be present. 3. Enlarged uterus with multiple ossified fibroids. IUD is present. [facility], , 07/22/2024 6:40 PM
--- NOTE | 2024-07-22 22:23 | P.CONS ---
History of Present Illness - Reason for Consult Consult date: 07/22/24 ID Requesting physician: Jorge Rivas - Chief Complaint Lower abdominal/rectal pain and nausea x days - History of Present Illness Patient is a 53-year-old -[place] female with a past medical history of hypertension hyperlipidemia patient did have a complicated history of perforated diverticulitis with sepsis in 2023 for which the patient was treated at [facility] and did have a tracheostomy as well as colostomy during that admission subsequently the patient did [facility] also found to have fistula and subsequently patient did have ileostomy recently did have surgery at [facility] for revision of the fistulectomy and the patient was subsequently discharged however the patient could not have a follow-up with the fracture lower abdominal pain patient describes the pain to be mostly dull aching to sharp moderate intensity patient also felt nauseated and did have vomiting at times and severe weight loss with the symptoms the patient was evaluated on presentation to the hospital the patient was afebrile and no fever have been called subsequently patient was not tachycardic hypotensive or hypoxic not requiring any supplemental oxygen she did have a white count of 20,000 with a left shift BUN and creatinine was mildly elevated liver enzymes were normal patient did have a positive UA influenza RSV COVID testing was negative patient did have a chest x-ray that was reported evidence for acute pulmonary process did have abdominal pelvis CT however that was done without contrast mention soft tissue mass within the pelvis may reflect leiomyomatous change no obstruction free air or abscess patient was admitted to the hospital the patient was consulted because of elevated white count and need for antibiotic therapy Review of Systems Positive point and negatives has been mentioned in the HPI, complete review of systems was performed and all other systems are negative Past Medical History Past Medical History: Hyperlipidemia, Hypertension Additional Past Medical History / Comment(s): Iron deficiency anemia, "lung collapsed" may 2023 History of Any Multi-Drug Resistant Organisms: None Reported Past Surgical History: Section Additional Past Surgical History / Comment(s): Breast Biopsy; D/C for miscarriage, colon resection for bowel obstruction april 2023-ileostomy, was in ICU had trach, fistula repair may 2024 Past Anesthesia/Blood Transfusion Reactions: No Reported Reaction Past Psychological History: No Psychological Hx Reported Smoking Status: Former smoker Past Alcohol Use History: None Reported Past Drug Use History: Marijuana - Past Family History Mother Family Medical History: Cancer Additional Family Medical History / Comment(s): lung Medications and Allergies Home Medications Medication Instructions Recorded Confirmed Type Ciprofloxacin HCl [Cipro] 500 mg PO BID 07/21/24 07/21/24 History metroNIDAZOLE [Flagyl] 500 mg PO TID 07/21/24 07/21/24 History Allergies Allergy/AdvReac Type Severity Reaction Status Date / Time lisinopril Allergy Swelling Verified 07/21/24 18:45 Milk Containing Products Allergy Anaphylaxis Verified 07/21/24 18:45 (Dairy) [Dairy] Physical Exam Vitals: Vital Signs Temp Pulse Pulse Pulse Resp BP BP 07/22/24 09:30 98.3 F 62 16 112/65 07/22/24 04:42 97.5 F L 54 L 17 142/81 07/22/24 04:15 97.5 F L 61 16 100/63 07/22/24 02:31 68 16 97/63 07/22/24 02:04 68 16 106/68 07/21/24 22:50 98.4 F 61 16 104/62 07/21/24 19:41 98.7 F 79 16 117/85 07/21/24 18:23 81 16 100/72 07/21/24 18:17 18 07/21/24 17:25 94 22 125/68 07/21/24 17:19 97.8 F 127 H 20 85/67 Pulse Ox 07/22/24 09:30 97 07/22/24 04:42 97 07/22/24 04:15 97 07/22/24 02:31 99 07/22/24 02:04 98 07/21/24 22:50 99 07/21/24 19:41 99 07/21/24 18:23 100 07/21/24 18:17 07/21/24 17:25 98 07/21/24 17:19 94 L Intake and Output 07/21/24 07/22/24 07/22/24 22:59 06:59 14:59 Intake Total 180 Balance 180 Intake: Oral 180 Other: # Voids 1 1 # Bowel Movements 1 Weight 39.009 kg 39.009 kg GENERAL DESCRIPTION: Middle-age female lying in bed, no distress. No tachypnea or accessory muscle of respiration use. HEENT: Shows Pallor , no scleral icterus. Oral mucous membrane is dry. No pharyngeal erythema or thrush NECK: Trachea central, no thyromegaly. LUNGS: Unlabored breathing. Clear to auscultation anteriorly. No wheeze or crackle. HEART: S1, S2, regular rate and rhythm. No loud murmur ABDOMEN: Soft, mild tenderness EXTREMITIES: No edema of feet. SKIN: No rash, no masses palpable. NEUROLOGICAL: The patient is awake, alert, oriented x3, mood and affect normal. Results CBC & Chem 7: 07/23/24 05:15 07/23/24 05:15 Labs: Abnormal Lab Results - Last 24 Hours (Table) 07/21/24 07/21/24 07/21/24 Range/Units 17:43 17:43 17:43 WBC 20.98 H (4.50-10.00) 10*3/uL RBC (4.10-5.20) 10*6/uL Hgb 11.0 L (12.0-15.0) g/dL Hct 34.4 L (37.2-46.3) % MCH 26.3 L (27.0-32.0) pg MCHC (32.0-37.0) g/dL Plt Count 678 H (140-440) 10*3/uL Immature Gran # 0.13 H (0.00-0.04) 10*3/uL Neutrophils # 17.90 H (1.80-7.70) 10*3/uL Monocytes # 1.37 H (0.20-1.00) 10*3/uL Basophils # 0.15 H (0.00-0.10) 10*3/uL D-Dimer 1.49 H (<0.60) mg/L FEU Sodium 136 L (137-145) mmol/L Potassium 5.3 H (3.5-5.1) mmol/L Chloride 113 H (98-107) mmol/L Carbon Dioxide 9 L* (22-30) mmol/L BUN 61 H (7-17) mg/dL Creatinine 1.81 H (0.52-1.04) mg/dL Glucose 154 H (74-99) mg/dL Calcium 12.1 H (8.4-10.2) mg/dL Phosphorus 5.2 H (2.5-4.5) mg/dL Magnesium 2.5 H (1.6-2.3) mg/dL Iron (50-170) UG/DL TIBC (228-460) UG/DL Transferrin (204.0-354.0) mg/dL Ferritin (10.0-291.0) ng/mL C-Reactive Protein (<1.0) mg/dL Total Protein 8.4 H (6.3-8.2) g/dL Albumin (3.5-5.0) g/dL Urine Appearance (Clear) Urine Protein (Negative) Urine Blood (Negative) Ur Leukocyte Esterase (Negative) Urine RBC (0-5) /hpf Urine WBC (0-5) /hpf Calcium Oxalate Crystal (None) /hpf Urine Bacteria (None) /hpf Hyaline Casts (0-2) /lpf Urine Mucus (None) /hpf 07/21/24 07/21/24 07/22/24 Range/Units 17:43 21:20 00:05 WBC 15.34 H (4.50-10.00) 10*3/uL RBC 3.30 L (4.10-5.20) 10*6/uL Hgb 8.7 L D (12.0-15.0) g/dL Hct 27.8 L (37.2-46.3) % MCH 26.4 L (27.0-32.0) pg MCHC 31.3 L (32.0-37.0) g/dL Plt Count 496 H (140-440) 10*3/uL Immature Gran # 0.15 H (0.00-0.04) 10*3/uL Neutrophils # 12.55 H (1.80-7.70) 10*3/uL Monocytes # 1.36 H (0.20-1.00) 10*3/uL Basophils # 0.12 H (0.00-0.10) 10*3/uL D-Dimer (<0.60) mg/L FEU Sodium (137-145) mmol/L Potassium (3.5-5.1) mmol/L Chloride (98-107) mmol/L Carbon Dioxide (22-30) mmol/L BUN (7-17) mg/dL Creatinine (0.52-1.04) mg/dL Glucose (74-99) mg/dL Calcium (8.4-10.2) mg/dL Phosphorus (2.5-4.5) mg/dL Magnesium (1.6-2.3) mg/dL Iron (50-170) UG/DL TIBC (228-460) UG/DL Transferrin (204.0-354.0) mg/dL Ferritin (10.0-291.0) ng/mL C-Reactive Protein 1.7 H (<1.0) mg/dL Total Protein (6.3-8.2) g/dL Albumin (3.5-5.0) g/dL Urine Appearance Cloudy H (Clear) Urine Protein 1+ H (Negative) Urine Blood Small H (Negative) Ur Leukocyte Esterase Large H (Negative) Urine RBC 7 H (0-5) /hpf Urine WBC 171 H (0-5) /hpf Calcium Oxalate Crystal Rare H (None) /hpf Urine Bacteria Few H (None) /hpf Hyaline Casts 15 H (0-2) /lpf Urine Mucus Rare H (None) /hpf 07/22/24 07/22/24 Range/Units 00:05 00:05 WBC (4.50-10.00) 10*3/uL RBC (4.10-5.20) 10*6/uL Hgb (12.0-15.0) g/dL Hct (37.2-46.3) % MCH (27.0-32.0) pg MCHC (32.0-37.0) g/dL Plt Count (140-440) 10*3/uL Immature Gran # (0.00-0.04) 10*3/uL Neutrophils # (1.80-7.70) 10*3/uL Monocytes # (0.20-1.00) 10*3/uL Basophils # (0.00-0.10) 10*3/uL D-Dimer (<0.60) mg/L FEU Sodium 133 L (137-145) mmol/L Potassium (3.5-5.1) mmol/L Chloride 113 H (98-107) mmol/L Carbon Dioxide 9 L* (22-30) mmol/L BUN 53 H (7-17) mg/dL Creatinine 1.52 H (0.52-1.04) mg/dL Glucose 117 H (74-99) mg/dL Calcium 11.0 H (8.4-10.2) mg/dL Phosphorus 4.6 H (2.5-4.5) mg/dL Magnesium (1.6-2.3) mg/dL Iron 34 L (50-170) UG/DL TIBC 186 L (228-460) UG/DL Transferrin 133.0 L (204.0-354.0) mg/dL Ferritin 879.0 H (10.0-291.0) ng/mL C-Reactive Protein (<1.0) mg/dL Total Protein (6.3-8.2) g/dL Albumin 3.2 L (3.5-5.0) g/dL Urine Appearance (Clear) Urine Protein (Negative) Urine Blood (Negative) Ur Leukocyte Esterase (Negative) Urine RBC (0-5) /hpf Urine WBC (0-5) /hpf Calcium Oxalate Crystal (None) /hpf Urine Bacteria (None) /hpf Hyaline Casts (0-2) /lpf Urine Mucus (None) /hpf Assessment and Plan (1) Abdominal pain Current Visit: Yes Status: Acute Code(s): R10.9 - UNSPECIFIED ABDOMINAL PAIN SNOMED Code(s): 81575432 (2) Leukocytosis Current Visit: Yes Status: Acute Code(s): D72.829 - ELEVATED WHITE BLOOD CELL COUNT, UNSPECIFIED SNOMED Code(s): 420348367 Plan: 1patient with a complicated history of perforated diverticulitis in this patient who did have initial colostomy subsequently worsened and did have ileostomy and recently surgery for fistulectomy and [facility] enter male presenting to hospital with rectal and abdominal pain along with nausea and vomiting with abnormality seen on a noncontrast CT likely the source for her elevated white count and high clinical suspicion for possible abscess 2-we will obtain CT of abdominal pelvis with oral contrast for better definition of underlying abdominal pathology 3-I will empirically start the patient on Zosyn while waiting for the culture to finalize Multiple question concern answered We will follow on clinical condition and cultures to further adjust medication if needed Thank you for this consultation we will follow the patient along with you Dictation was produced using [employer] software. please excuse any grammatical, word or spelling errors. Time with Patient: Greater than 30
[2024-07-23 05:53] LABS: Basophils # (A) 0.09 10*3/uL (0.00-0.10); Basophils % (A) 0.9 %; Eosinophils # (A) 0.24 10*3/uL (0.04-0.35); Eosinophils % (A) 2.4 %; HCT 21.9 % (37.2-46.3); Lymphocytes # (A) 0.85 10*3/uL (0.90-5.00); Lymphocytes % (A) 8.4 %; MCH 26.2 pg (27.0-32.0); MCHC 31.5 g/dL (32.0-37.0); MCV 83.3 fL (80.0-97.0); Mean Platelet Volume 10.2 fL (9.5-12.2); Monocytes # (A) 1.16 10*3/uL (0.20-1.00); Monocytes % (A) 11.5 %; Neutrophils # (A) 7.63 10*3/uL (1.80-7.70); Neutrophils % (A) 75.9 %; Platelet Count 388 10*3/uL (140-440); RBC 2.63 10*6/uL (4.10-5.20); RDW 19.1 % (11.5-14.5); WBC 10.06 10*3/uL (4.50-10.00)
[2024-07-23 06:02] LABS: Ionized Calcium 5.6 mg/dL (4.5-5.3)
[2024-07-23 06:19] LABS: African American GFR (CKD) 77 (>60 ml/min/1.73 sqM); Anion Gap 11 mmol/L; Blood Urea Nitrogen 27 mg/dL (7-17); Calcium 9.5 mg/dL (8.4-10.2); Carbon Dioxide 12 mmol/L (22-30); Chloride 114 mmol/L (98-107); Glucose 139 mg/dL (74-99); Magnesium 1.8 mg/dL (1.6-2.3); Non-African American GFR(CKD) 67 (>60 ml/min/1.73 sqM); Potassium 3.2 mmol/L (3.5-5.1); Sodium 137 mmol/L (137-145)
[2024-07-23 06:30] LABS: HGB 6.9 g/dL (12.0-15.0)
[2024-07-23] MEDS ORDERED: Potassium Replacement Protocol 1 EACH MISC MISCELLANE PRN (07:37)
[2024-07-23] MEDS: POTASSIUM CHLORIDE ER 20 MEQ TAB.ER PO SCH (08:25)
--- NOTE | 2024-07-23 10:14 | P.NPCON ---
History of Present Illness - Reason for Consult acute renal failure - History of Present Illness Reason for consultation: Acute kidney injury History of present illness: Patient is a 53-year-old female seen in renal consultation for acute kidney injury. Creatinine on admission yesterday was 1.52 and is improved to 0.96 today. Quite acidotic with a bicarb level of 12 today. She is currently receiving LR at 100 cc an hour. Patient came to the hospital due to generalized weakness and nausea and poor intake going for about 2 weeks. Patient states in April 2023 she had a bowel perforation and underwent surgery. 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 Her most recent surgery was in May 2024. She currently has an ileostomy. Patient states she has 20/20 times a day. She denies any active bleeding. Hemoglobin was noted to be 6.9 and she is currently receiving blood transfusions. She does admit to taking Motrin 1-2 times daily as needed for pain. Denies history of diabetes or coronary artery disease. No vomiting. Vital signs are stable. General: No acute distress. HEENT: Head exam is unremarkable. LUNGS: No audible rhonchi or wheezes. HEART: Rate and Rhythm are regular. ABDOMEN: Nontender. Ileostomy noted. EXTREMITITES: No edema. Past Medical History Past Medical History: Hyperlipidemia, Hypertension Additional Past Medical History / Comment(s): Iron deficiency anemia, "lung collapsed" may 2023 History of Any Multi-Drug Resistant Organisms: None Reported Past Surgical History: Section Additional Past Surgical History / Comment(s): Breast Biopsy; D/C for miscarri age, colon resection for bowel obstruction april 2023-ileostomy, was in ICU had trach, fistula repair may 2024 Past Anesthesia/Blood Transfusion Reactions: No Reported Reaction Past Psychological History: No Psychological Hx Reported Smoking Status: Former smoker Past Alcohol Use History: None Reported Past Drug Use History: Marijuana - Past Family History Mother Family Medical History: Cancer Additional Family Medical History / Comment(s): lung Medications and Allergies Home Medications Medication Instructions Recorded Confirmed Type Ciprofloxacin HCl [Cipro] 500 mg PO BID 07/21/24 07/21/24 History metroNIDAZOLE [Flagyl] 500 mg PO TID 07/21/24 07/21/24 History Allergies Allergy/AdvReac Type Severity Reaction Status Date / Time lisinopril Allergy Swelling Verified 07/21/24 18:45 Milk Containing Products Allergy Anaphylaxis Verified 07/21/24 18:45 (Dairy) [Dairy] Physical Exam Vitals: Vital Signs Temp Pulse Pulse Pulse Resp BP BP 07/23/24 09:26 98.2 F 75 17 102/63 07/23/24 09:16 98.4 F 67 102/62 07/23/24 08:20 98.1 F 67 17 101/60 07/23/24 03:37 71 18 108/65 07/22/24 23:24 67 18 93/56 07/22/24 20:10 98.5 F 72 18 102/63 07/22/24 15:00 56 L 18 128/81 07/22/24 12:00 97.7 F 69 16 104/60 Pulse Ox 07/23/24 09:26 96 07/23/24 09:16 97 07/23/24 08:20 98 07/23/24 03:37 99 07/22/24 23:24 100 07/22/24 20:10 100 07/22/24 15:00 92 L 07/22/24 12:00 92 L Intake and Output 07/22/24 07/23/24 07/23/24 22:59 06:59 14:59 Intake Total 0 Balance 0 Intake: Blood Product 0 Unit 0 Other: Voiding Method Toilet # Voids 1 Results - Lab Results Most recent lab results Calcium 9.5 mg/dL (8.4-10.2) 07/23/24 05:15 Phosphorus 2.6 mg/dL (2.5-4.5) 07/22/24 22:38 Magnesium 1.8 mg/dL (1.6-2.3) 07/23/24 05:15 07/23/24 05:15 07/23/24 05:15 Assessment and Plan Plan: Assessment: 1. Acute kidney injury secondary to vasomotor nephropathy secondary to hypovolemia. Improved. Creatinine 0.96 today. No hydronephrosis noted on CT. 2. Metabolic acidosis secondary to GI losses and IV fluids. 3. Acute blood loss anemia. 4. Hypokalemia from poor intake and renal losses. 5. Hypercalcemia secondary to volume contraction. Improved. 6. Crohn's disease. Has ileostomy. Plan: Change IV fluids to isotonic bicarb drip. Potassium replaced. Consider GI evaluation. Has excessive output from ileostomy. Receiving blood transfusions today. Continue to monitor renal function and urine output. Preserved ejection fraction noted on echocardiogram. Thank you for the consultation. I will continue to follow the patient with you during her hospital stay.
--- NOTE | 2024-07-23 10:40 | CDI ---
Documentation Clarification Form Date: 07/23/2024 10:12:27 AM From: Padmini Christianson RN, CCDS Phone: [phone] Admit Date: 07/21/2024 09:42:00 PM Patient Name: Lanie Hooper Visit Number: [id number] Discharge Date: ATTENTION: The Clinical Documentation Specialists (CDI) and [facility] Coding Staff appreciate your assistance in clarifying documentation. Please respond to the clarification below the line at the bottom and electronically sign. The CDI & [facility] Coding staff will review the response and follow-up if needed. Please note: Queries are made part of the Legal Health Record. If you have any questions, please contact the author of this message via ITS. Doctor. Bong Nichols Malnutrition is documented in the ER assessment. Additional clarification regarding the severity of malnutrition is requested. History/Risk Factors: Iron deficiency anemia, bowel obstruction s/p resection w ileostomy. Clinical Indicators: weakness, inadequate energy intake, depression, nausea Current BMI: 16.2 Physical Findings: Emaciated severe muscle/fat loses: temporalis, trapezius, deltoids, quadriceps, calf, severe subcutaneous fat loses, </75% of EER>/=[address] Consult Assessment: Inadequate energy intake Malnutrition Severe, chronic Treatment: Commercial beverage Mirametrix BID Monitor PO Please clarify the severity of malnutrition, if known: [ ] Mild Protein-Calorie Malnutrition [ ] Moderate Protein-Calorie Malnutrition [ ] Severe Protein-Calorie Malnutrition [ ] Other condition, please specify [ ] Unable to Determine (Template Last Revised: August 2022) MTDD
[2024-07-23] MEDS: DEXTROSE 5% IN WATER 1,000 ML with SODIUM BICARB (1 MEQ/ML) 150 ML IV SCH (11:23)
--- NOTE | 2024-07-23 12:36 | P.PN ---
Subjective Progress Note Date: 07/23/24 Principal diagnosis: Failure to thrive This a pleasant 53-year-old female who is admitted to the hospital with leukocytosis, chest pain, back pain, weakness, nausea and decreased appetite. She was admitted with acute kidney injury. She has a past medical history of hypertension, hyperlipidemia, iron deficiency anemia, bowel obstruction status post resection with ileostomy, rectal fistula with flap repair recently done in May at [facility]. Patient states that since her rectal fistula flap repair done in May she has felt like she has been going downhill. States that she has little appetite, she has nausea without vomiting. States that she feels that she lost 68 pounds in the last 2 weeks duration. Last few days she has had nausea, denies any abdominal pain. She has ileostomy states that she has good output from her ileostomy. States she just does not have an appetite and nothing sounds good to eat. She does drink Ensure clear at home as she does have a lactose allergy. Patient was admitted with leukocytosis with a white count as high as 20.9, hyperkalemia, acute kidney injury, again denies any abdominal pain states that she was having some back pain and chest pain. She has been afebrile but states that she does have chills but that she is always cold. Patient's admitting hemoglobin 11.0, with repeat today of 8.7. She denies any blood in her stool or black stool. She is supposed to be taking iron but she stopped taking it because it was making her stool dark. Today's labs WBC 15.3 hemoglobin 8.7 hematocrit 27.8 platelet count 496,000 sodium 133 potassium 4.4 BUN 53 creatinine 1.5 glucose 117 iron 34 TIBC 186 saturation 18.2 ferritin 879 total bilirubin 0.2 AST 14 ALT 9 alkaline phosphatase 108 albumin 3.2 vitamin B12 908 folate 6.8 07/23/2024 Patient seen and examined today as a follow-up. States overall she is doing okay. Apparently had some rectal bleeding last night where she has fistula. Drop in hemoglobin today to 6.9. She denies any nausea or vomiting. States that she ate well yesterday. General surgery consulted for rectal bleeding. Objective - Vital Signs Vital signs: Vital Signs Temp 98.5 F 07/22/24 20:10 Pulse 71 07/23/24 03:37 Resp 18 07/23/24 03:37 BP 108/65 07/23/24 03:37 Pulse Ox 99 07/23/24 03:37 FiO2 Intake & Output 07/22/24 07/23/24 07/23/24 18:59 06:59 18:59 Intake Total 180 Balance 180 Weight 39.009 kg Intake: Oral 180 Other: Voiding Method Toilet # Voids 1 1 - Exam General appearance: The patient is alert, oriented, appears in no acute distress. HET: Head is normocephalic and atraumatic. Conjunctiva pink. Sclera anicteric. Neck: Supple without lymphadenopathy. Abdomen: Soft, thin, nontender, ileostomy, nondistended. Extremities: Normal skin color and turgor. No pedal edema Skin: No rashes, no jaundice Neurological: No focal deficits. Alert and oriented. - Labs CBC & Chem 7: 07/23/24 05:15 07/23/24 05:15 Labs: Abnormal Lab Results - Last 24 Hours (Table) 07/22/24 07/23/24 07/23/24 Range/Units 00:05 05:15 05:15 WBC 10.06 H (4.50-10.00) 10*3/uL RBC 2.63 L (4.10-5.20) 10*6/uL Hgb 6.9 L* D (12.0-15.0) g/dL Hct 21.9 L (37.2-46.3) % MCH 26.2 L (27.0-32.0) pg MCHC 31.5 L (32.0-37.0) g/dL Immature Gran # 0.09 H (0.00-0.04) 10*3/uL Lymphocytes # 0.85 L (0.90-5.00) 10*3/uL Monocytes # 1.16 H (0.20-1.00) 10*3/uL Potassium 3.2 L (3.5-5.1) mmol/L Chloride 114 H (98-107) mmol/L Carbon Dioxide 12 L (22-30) mmol/L BUN 27 H (7-17) mg/dL Glucose 139 H (74-99) mg/dL Ionized Calcium Ayaz 5.6 H (4.5-5.3) mg/dL Iron 34 L (50-170) UG/DL TIBC 186 L (228-460) UG/DL Transferrin 133.0 L (204.0-354.0) mg/dL Ferritin 879.0 H (10.0-291.0) ng/mL Crossmatch 07/23/24 Range/Units 06:57 WBC (4.50-10.00) 10*3/uL RBC (4.10-5.20) 10*6/uL Hgb (12.0-15.0) g/dL Hct (37.2-46.3) % MCH (27.0-32.0) pg MCHC (32.0-37.0) g/dL Immature Gran # (0.00-0.04) 10*3/uL Lymphocytes # (0.90-5.00) 10*3/uL Monocytes # (0.20-1.00) 10*3/uL Potassium (3.5-5.1) mmol/L Chloride (98-107) mmol/L Carbon Dioxide (22-30) mmol/L BUN (7-17) mg/dL Glucose (74-99) mg/dL Ionized Calcium Ayaz (4.5-5.3) mg/dL Iron (50-170) UG/DL TIBC (228-460) UG/DL Transferrin (204.0-354.0) mg/dL Ferritin (10.0-291.0) ng/mL Crossmatch See Detail Microbiology - Last 24 Hours (Table) 07/21/24 18:45 Blood Culture - Preliminary Blood Assessment and Plan (1) Decreased appetite Narrative/Plan: 53-year-old female with multiple comorbidities with decreased appetite, nausea without vomiting who recently underwent fistula rectal flap repair in May at [facility] with increase in her symptoms since that surgery with increase in the last couple weeks duration. Patient states she has been very weak she was complaining of chest pain and back pain. She has a history of bowel obstruction with perforation and resection with ileostomy. Also has history of iron deficiency anemia she is supposed to be taking iron supplementations but states that she stabbed secondary to making her stool black. She is supposed to follow-up with her surgeon Dr. Olsen July 29. Talked to patient recommend small frequent meals, will order Ensure clear secondary to patient's lactose intolerance last allergy. Current Visit: Yes Status: Acute Code(s): R63.0 - ANOREXIA SNOMED Code(s): 82137461 (2) Nausea without vomiting Narrative/Plan: Antiemetics as needed. Protonix 40 mg daily for GI prophylaxis Current Visit: Yes Status: Acute Code(s): R11.0 - NAUSEA SNOMED Code(s): 828350873 (3) Acute kidney injury Current Visit: Yes Status: Acute Code(s): N17.9 - ACUTE KIDNEY FAILURE, UNSPECIFIED SNOMED Code(s): 38802904 (4) Leukocytosis Current Visit: Yes Status: Acute Code(s): D72.829 - ELEVATED WHITE BLOOD CELL COUNT, UNSPECIFIED SNOMED Code(s): 802510003 (5) Chronic anemia Narrative/Plan: Acute on chronic anemia likely secondary to rectal bleeding. General surgery following. 1 unit of blood ordered Current Visit: Yes Status: Acute Code(s): D64.9 - ANEMIA, UNSPECIFIED SNO MED Code(s): 432288906 (6) Pelvic mass Current Visit: Yes Status: Acute Code(s): R19.00 - INTRA-ABD AND PELVIC SWELLING, MASS AND LUMP, UNSP SITE SNOMED Code(s): 44225766 (7) Hypokalemia Current Visit: Yes Status: Acute Code(s): E87.6 - HYPOKALEMIA SNOMED Code(s): 14108101 Plan: 1. Continue symptomatic and supportive care 2. Antiemetics as needed 3. Protonix 40 mg daily for GI prophylaxis 4. Encourage patient to have small frequent meals we will add Ensure clear 3 times daily with meals 5. Infectious disease on consultation for leukocytosis 6. I agree with blood transfusion as ordered 7. Replace potassium per protocol 8. No plans on endoscopic evaluation from gastroenterology 9. Continue with recommendations from multiple consultants Thank you for this consultation, we will sign off at this time. Dr. Anton Cee I agree with the dictator's note, documented as a scribe by Ngozi Gil.
--- NOTE | 2024-07-23 13:48 | P.GSCN ---
History of Present Illness Consult date: 07/23/24 History of present illness: CHIEF COMPLAINT: Weakness, fatigue and rectal pain HISTORY OF PRESENT ILLNESS: This is a 53-year-old female who presented the hospital with complaints of weakness, fatigue and rectal pain. Patient reports that she has been having pain from the rectum with passage of pink-tinged drainage. Patient reports that she is have this chronic date drainage. She has known fistulas and follows up with Dr. Olsen out of [facility] [place]. Patient has a hi story of perforated diverticulitis with a colostomy placed in May 2023 at [facility] by Dr. Huber. Patient reports having the colostomy reversed and due to a complication had the ileostomy placed by Dr. Conner. Patient has fistulas in the rectal area. She reports she has had chronic drainage from these fistulas. She also reports intermittent pink drainage from the rectum. She has had 3 repairs the last repair was June 18, [address] Olsen out of [facility] [place]. Patient reports she has a follow-up with him next week July 29. Patient's ileostomy is functioning appropriately. She denies any abdominal pain. Denies any blood in the ostomy output. Her hemoglobin has dropped to 6.9 from 8.7 and was 11 on admission. She is receiving 2 units of blood. Surgical service is consulted for low hemoglobin and blood from rectum. PAST MEDICAL HISTORY: See below PAST SURGICAL HISTORY: See below MEDICATIONS: See below ALLERGIES: See below SOCIAL HISTORY: No illicit drug use. REVIEW OF SYSTEMS: CONSTITUTIONAL: Denies fever or chills. HEENT: Denies blurred vision, vision changes, or eye pain. Denies hemoptysis CARDIOVASCULAR: Denies chest pain or pressure. RESPIRATORY: No shortness of breath. GASTROINTESTINAL: See HPI for pertinent findings HEMATOLOGIC: Denies bleeding disorders. GENITOURINARY: Denies any blood in urine or increased urinary frequency. SKIN: Denies pruitis. Denies rash. PHYSICAL EXAM: VITAL SIGNS: Reviewed GENERAL: Well-developed in no acute distress. HEENT: No sclera icterus. Extraocular movements grossly intact. Moist buccal mucosa. Head is atraumatic, normocephalic. No nasal drainage. ABDOMEN: Soft. Nondistended. Abdomen nontender. Ileostomy with liquidy greenish stool. Stoma present and pink in color. Anus opening is large with harrell pink-tinged fluid draining NEUROLOGIC: Alert and oriented. Cranial nerves II through XII grossly intact. LABORATORY DATA: WBC 20.9 down to 10.06 Hgb 11.0 down to 8.7 and then 6.9 platelets 388 Sodium 137 potassium 3.2 creatinine 0.96 Iron 34 IMAGING: CT scan abdomen pelvis reports herniated contrast filled small bowel loops into the ostomy region. No obstruction is identified. 0.3 cm nonobstructing mid right ureteral stone. Enlarged uterus with multiple ossified fibroids. IUD is present. ASSESSMENT: 1. Rectal pain with harrell and pink tinged drainage with known history of fistulous PLAN: - Agree with blood transfusion - Continue supportive care - Continue monitor hemoglobin - No surgical intervention planned - Recommend that patient follows up with GI service and her surgeon out of [place] after discharge Physician Fire Eater note has been reviewed by physician. Signing provider agrees with the documented findings, assessment, and plan of care. I have personally seen and examined the patient, reviewed the INDUSTRIAL ENGINEER /PAs history, exam and MDM and agree with the assessment and plan as written. Based on total visit time, I have performed more than 50% of the visit. As above: Patient with extensive perianal surgery by colorectal team at [facility]. No acute issues need to be addressed surgically at this time. Agree with transfusion. Short-term follow-up with them after discharge. Past Medical History Past Medical History: Hyperlipidemia, Hypertension Additional Past Medical History / Comment(s): Iron deficiency anemia, "lung collapsed" may 2023 History of Any Multi-Drug Resistant Organisms: None Reported Past Surgical History: Section Additional Past Surgical History / Comment(s): Breast Biopsy; D/C for miscarriage, colon resection for bowel obstruction april 2023-ileostomy, was in ICU had trach, fistula repair may 2024 Past Anesthesia/Blood Transfusion Reactions: No Reported Reaction Past Psychological History: No Psychological Hx Reported Smoking Status: Former smoker Past Alcohol Use History: None Reported Past Drug Use History: Marijuana - Past Family History Mother Family Medical History: Cancer Additional Family Medical History / Comment(s): lung Medications and Allergies Home Medications Medication Instructions Recorded Confirmed Type Ciprofloxacin HCl [Cipro] 500 mg PO BID 07/21/24 07/21/24 History metroNIDAZOLE [Flagyl] 500 mg PO TID 07/21/24 07/21/24 History Allergies Allergy/AdvReac Type Severity Reaction Status Date / Time lisinopril Allergy Swelling Verified 07/21/24 18:45 Milk Containing Products Allergy Anaphylaxis Verified 07/21/24 18:45 (Dairy) [Dairy] Surgical - Exam Vital Signs Temp Pulse Resp BP Pulse Ox 97.8 F 127 H 20 85/67 94 L 07/21/24 17:19 07/21/24 17:19 07/21/24 17:19 07/21/24 17:19 07/21/24 17:19 Results - Labs 07/23/24 05:15 07/23/24 05:15 Abnormal Lab Results - Last 24 Hours (Table) 07/22/24 07/23/24 07/23/24 Range/Units 00:05 05:15 05:15 WBC 10.06 H (4.50-10.00) 10*3/uL RBC 2.63 L (4.10-5.20) 10*6/uL Hgb 6.9 L* D (12.0-15.0) g/dL Hct 21.9 L (37.2-46.3) % MCH 26.2 L (27.0-32.0) pg MCHC 31.5 L (32.0-37.0) g/dL Immature Gran # 0.09 H (0.00-0.04) 10*3/uL Lymphocytes # 0.85 L (0.90-5.00) 10*3/uL Monocytes # 1.16 H (0.20-1.00) 10*3/uL Potassium 3.2 L (3.5-5.1) mmol/L Chloride 114 H (98-107) mmol/L Carbon Dioxide 12 L (22-30) mmol/L BUN 27 H (7-17) mg/dL Glucose 139 H (74-99) mg/dL Ionized Calcium Ayaz 5.6 H (4.5-5.3) mg/dL Iron 34 L (50-170) UG/DL TIBC 186 L (228-460) UG/DL Transferrin 133.0 L (204.0-354.0) mg/dL Ferritin 879.0 H (10.0-291.0) ng/mL Crossmatch 07/23/24 Range/Units 06:57 WBC (4.50-10.00) 10*3/uL RBC (4.10-5.20) 10*6/uL Hgb (12.0-15.0) g/dL Hct (37.2-46.3) % MCH (27.0-32.0) pg MCHC (32.0-37.0) g/dL Immature Gran # (0.00-0.04) 10*3/uL Lymphocytes # (0.90-5.00) 10*3/uL Monocytes # (0.20-1.00) 10*3/uL Potassium (3.5-5.1) mmol/L Chloride (98-107) mmol/L Carbon Dioxide (22-30) mmol/L BUN (7-17) mg/dL Glucose (74-99) mg/dL Ionized Calcium Ayaz (4.5-5.3) mg/dL Iron (50-170) UG/DL TIBC (228-460) UG/DL Transferrin (204.0-354.0) mg/dL Ferritin (10.0-291.0) ng/mL Crossmatch See Detail Microbiology - Last 24 Hours (Table) 07/21/24 18:45 Blood Culture - Preliminary Blood Diabetes panel 07/23/24 Range/Units 05:15 Sodium 137 (137-145) mmol/L Potassium 3.2 L (3.5-5.1) mmol/L Chloride 114 H (98-107) mmol/L Carbon Dioxide 12 L (22-30) mmol/L BUN 27 H (7-17) mg/dL Creatinine 0.96 (0.52-1.04) mg/dL Glucose 139 H (74-99) mg/dL Calcium 9.5 (8.4-10.2) mg/dL Calcium panel 07/22/24 07/23/24 Range/Units 22:38 05:15 Calcium 9.5 (8.4-10.2) mg/dL Ionized Calcium Ayaz 5.6 H (4.5-5.3) mg/dL Phosphorus 2.6 (2.5-4.5) mg/dL Pituitary panel 07/23/24 Range/Units 05:15 Sodium 137 (137-145) mmol/L Potassium 3.2 L (3.5-5.1) mmol/L Chloride 114 H (98-107) mmol/L Carbon Dioxide 12 L (22-30) mmol/L BUN 27 H (7-17) mg/dL Creatinine 0.96 (0.52-1.04) mg/dL Glucose 139 H (74-99) mg/dL Calcium 9.5 (8.4-10.2) mg/dL Adrenal panel 07/23/24 Range/Units 05:15 Sodium 137 (137-145) mmol/L Potassium 3.2 L (3.5-5.1) mmol/L Chloride 114 H (98-107) mmol/L Carbon Dioxide 12 L (22-30) mmol/L BUN 27 H (7-17) mg/dL Creatinine 0.96 (0.52-1.04) mg/dL Glucose 139 H (74-99) mg/dL Calcium 9.5 (8.4-10.2) mg/dL
--- NOTE | 2024-07-23 14:46 | P.PN ---
Subjective Progress Note Date: 07/23/24 Principal diagnosis: Reason for follow-up is leukocytosis Patient is a 53-year-old -Martiniquais female with a past medical history of hypertension hyperlipidemia patient did have a complicated history of perforated diverticulitis with sepsis in 2023 for which the patient was treated at [facility] and did have a tracheostomy as well as colostomy during that admission subsequently the patient [facility] also found to have fistula and subsequently patient did have ileostomy recently did have surgery at [facility] for revision of the fistulectomy now presented to hospital with rectal pain and drainage and abdominal pain did have elevated white count prompting this consultation. On today's evaluation that is 07/23/2024,the patient denies any fever or any chills, patient is breathing comfortably on room air, the patient denies chest pain shortness of breath and no significant cough, patient denies abdominal pain, no nausea vomiting still complaining of pain to the fistula area and some drainage as reported by the nursing staff. Patient white count is down to 10.06.6.9, creatinine of 9.6 urine with Yina albicans Objective - Vital Signs Vital signs: Vital Signs Temp 98.3 F 07/23/24 13:59 Pulse 90 07/23/24 13:59 Resp 16 07/23/24 13:59 BP 99/60 07/23/24 13:59 Pulse Ox 100 07/23/24 13:59 FiO2 Intake & Output 07/22/24 07/23/24 07/23/24 18:59 06:59 18:59 Intake Total 180 570 Balance 180 570 Weight 39.009 kg Intake: IV 20 Invasive Line 1 10 Invasive Line 2 10 Oral 180 240 Blood Product 310 Rc As-1 Unit 0 [id number] Rc As-1 Unit 310 [id number] Other: Voiding Method Toilet Toilet # Voids 1 1 - Exam GENERAL DESCRIPTION: Middle-age female lying in bed in no distress RESPIRATORY SYSTEM: Unlabored breathing , decreased breath sounds at bases HEART: S1 S2 regular rate and rhythm , ABDOMEN: Soft , no tenderness patient did have open wound to the perirectal area with some purulent drainage was cultured EXTREMITIES: No edema feet - Labs CBC & Chem 7: 07/23/24 05:15 07/23/24 05:15 Labs: Abnormal Lab Results - Last 24 Hours (Table) 07/23/24 07/23/24 07/23/24 Range/Units 05:15 05:15 06:57 WBC 10.06 H (4.50-10.00) 10*3/uL RBC 2.63 L (4.10-5.20) 10*6/uL Hgb 6.9 L* D (12.0-15.0) g/dL Hct 21.9 L (37.2-46.3) % MCH 26.2 L (27.0-32.0) pg MCHC 31.5 L (32.0-37.0) g/dL Immature Gran # 0.09 H (0.00-0.04) 10*3/uL Lymphocytes # 0.85 L (0.90-5.00) 10*3/uL Monocytes # 1.16 H (0.20-1.00) 10*3/uL Potassium 3.2 L (3.5-5.1) mmol/L Chloride 114 H (98-107) mmol/L Carbon Dioxide 12 L (22-30) mmol/L BUN 27 H (7-17) mg/dL Glucose 139 H (74-99) mg/dL Ionized Calcium Ayaz 5.6 H (4.5-5.3) mg/dL Crossmatch See Detail Microbiology - Last 24 Hours (Table) 07/21/24 23:53 Blood Culture - Preliminary Blood 07/21/24 21:20 Urine Culture - Final Urine,Voided Yina albicans 07/21/24 18:45 Blood Culture - Preliminary Blood Assessment and Plan (1) Abdominal pain Current Visit: Yes Status: Acute Code(s): R10.9 - UNSPECIFIED ABDOMINAL PAIN SNOMED Code(s): 59454417 (2) Leukocytosis Current Visit: Yes Status: Acute Code(s): D72.829 - ELEVATED WHITE BLOOD CELL COUNT, UNSPECIFIED SNOMED Code(s): 911548729 Plan: 1patient with a complicated history of perforated diverticulitis in this patient who did have initial colostomy subsequently worsened and did have ileostomy and recently surgery for fistulectomy and [facility] male presenting to hospital with rectal and abdominal pain along with nausea and vomiting with abnormality seen on a noncontrast CT likely the source for her elevated white count and high clinical suspicion for possible abscess 2-patient did have CT of abdominal pelvis with oral contrast did not show any intra-abdominal abscess or colitis patient did have a open draining wound to the perirectal area which has been cultured and more likely the source of this elevated white count 3-patient white count is down continue with Zosyn while waiting for the culture to finalize Dictation was produced using [employer] dictation software. please excuse any grammatical, word or spelling errors. Time with Patient: Less than 30
--- NOTE | 2024-07-23 17:07 | P.PN ---
Subjective Progress Note Date: 07/23/24 Progress note Date of service 07/23/[address] Nichols Location 355 bed 1 Interval event: I received a call from nursing staff at 5:30 AM with the complaint of bleeding per rectum and her hemoglobin dropped to 6.9. With the active bleeding, we ask for consultation with surgical consult from the on-call surgeon, Dr. Posada, as well as transfusion of 2 units packed RBCs with the history of previous fistulectomy repair by Dr. Olsen in [facility] who is the general surgeon. Which was done in June 1405/2024 and that is her third surgery on the same location. We also because of the active bleeding held aspirin as well heparin subcu and continue stocking and ambulation if possible. Her vital sign temperature 98.3 pulse rate 90/min and respiratory rate 16/min and a blood pressure fluctuating, earlier was 125/93 and subsequently dropped to 99/60 with a mean 73, oxygen saturation was 100% on room air. Laboratory: WBC 10.06, hemoglobin 6.9 however yesterday was 8.7 with the drop secondary to rectal bleeding Hematocrit today 21.9 and yesterday 27.8 Platelet count 388 and yesterday was 496. For the chemistry today sodium 137 recovered and potassium 3.2 and patient supplemented by protocol. Chloride 114, and carbon dioxide was 12 her BUN 27 was yesterday 53, creatinine 0.96 and yesterday was 1.52 eGFR today 67 and yesterday was 78 with the conclusion of good recovery except the bleeding per rectum Calcium was today 9.5 normal and yesterday was 11, however ionized calcium 5.6 mildly elevated Phosphate 4.6 yesterday and today's normalized to 2.6 Magnesium today normal 1.8 however yesterday 2.3 Knoop Her iron was 34 with the bleeding and she may need iron supplementation She had leukocytosis and improving with the current antibiotic and the urine cul ture was indicating Yina albicans [id number]. PA/physician publisher assistant from surgical team dictated the note for behalf of surgery stated they have no concern and to follow with her surgeon Dr. Rosi calixto. For underlying history of fibroid and IUD since age of 30s and currently she is in menopausal and postmenopausal actually and that IUD has been sitting there for long time and we consulted Dr. Chavez the PHOTOGRAPH EDITOR to evaluate and possible to remove that IUD to avoid infection also patient not in the age of as well as possibility of getting infection with the prolonged presence, so far we do not have response from PHOTOGRAPH EDITOR. I did also consult pain clinic with the severe pain in the anal area and the rectum requiring having injection and we looking for pain control and possible pelvic block by the pain management and anesthesia. Dr. Cates nephrology came and saw the patient thanks for his help and effort. On the physical examination: Patient is conscious alert oriented x 3 able to eat and swallow Head was normocephalic atraumatic and pupil equal reactive she was pale and we transfused her 2 units of packed RBCs and will check tomorrow CBC and a BMP Oropharynx natural teeth, normal hearing, no nasal rhinitis Neck supple no JVD no thyromegaly no lymphadenopathy General condition severe weight loss and cachectic, emaciated and clinically severe protein calorie deficiency Chest: Normal breath sound no wheezes no rhonchi Heart regular sinus rhythm on the mitral area soft murmur grade 1/6 no gallop Abdomen: She has positive bowel sound, ileostomy bag functioning with the pr esence of abnormalities on the CT of the pelvis parastomal hernia hernia. Extremities: No edema and positive pulses Neurologically: Stable no lateralizing sign Psychiatry stable Pain assessment, she had still severe pain in the anal area and we control it with IV medication and we waiting for pain management for helping the patient and if possible block that would be great Assessment: 1. Acute GI bleeding from the anal rectal area with a drop of hemoglobin to 6.9 2. Severe dehydration 3. Mixed anemia with blood loss due to repeated surgical intervention. 4. Ileostomy with ileostomy bag will consult ostomy service and nurse 5. Blood transfusion 2 units. 6. Leukocytosis and dehydration and pain and loss of muscle mass 7. Protein calorie deficiency severe on admission prealbumin was normal due to severe dehydration with the hydration hemoglobin and everything else to drop we will 8. Hypercalcemia on admission due to severe contracted volume 9. Acute kidney injury secondary to vasomotor and volume restriction. 10. Hypotension, used to be hypertension echocardiogram done negative results. Plan: 1. Continue hydration 2. Recheck hemoglobin with the CBC in a.m. as well as BMP and magnesium 3. Waiting for PHOTOGRAPH EDITOR exam and recommendation and hopefully the IUD removed. 4. Waiting for pain management to evaluate and if possible block for the pelvic pain., #5 Patient management and communication with the patient and consulting physician 6. Time spent more than 35 minutes. Objective - Vital Signs Vital signs: Vital Signs Temp 98.6 F 07/23/24 16:32 Pulse 61 07/23/24 16:32 Resp 17 07/23/24 16:32 BP 115/70 07/23/24 16:32 Pulse Ox 100 07/23/24 16:32 FiO2 Intake & Output 07/22/24 07/23/24 07/23/24 18:59 06:59 18:59 Intake Total 180 880 Balance 180 880 Weight 39.009 kg Intake: IV 20 Invasive Line 1 10 Invasive Line 2 10 Oral 180 240 Blood Product 620 Rc As-1 Unit 310 [id number] Rc As-1 Unit 310 [id number] Other: Voiding Method Toilet Toilet # Voids 1 1 - Labs CBC & Chem 7: 07/23/24 05:15 07/23/24 05:15 Labs: Abnormal Lab Results - Last 24 Hours (Table) 07/23/24 07/23/24 07/23/24 Range/Units 05:15 05:15 06:57 WBC 10.06 H (4.50-10.00) 10*3/uL RBC 2.63 L (4.10-5.20) 10*6/uL Hgb 6.9 L* D (12.0-15.0) g/dL Hct 21.9 L (37.2-46.3) % MCH 26.2 L (27.0-32.0) pg MCHC 31.5 L (32.0-37.0) g/dL Immature Gran # 0.09 H (0.00-0.04) 10*3/uL Lymphocytes # 0.85 L (0.90-5.00) 10*3/uL Monocytes # 1.16 H (0.20-1.00) 10*3/uL Potassium 3.2 L (3.5-5.1) mmol/L Chloride 114 H (98-107) mmol/L Carbon Dioxide 12 L (22-30) mmol/L BUN 27 H (7-17) mg/dL Glucose 139 H (74-99) mg/dL Ionized Calcium Ayaz 5.6 H (4.5-5.3) mg/dL Crossmatch See Detail Microbiology - Last 24 Hours (Table) 07/21/24 23:53 Blood Culture - Preliminary Blood 07/21/24 21:20 Urine Culture - Final Urine,Voided Yina albicans 07/21/24 18:45 Blood Culture - Preliminary Blood
--- NOTE | 2024-07-23 20:19 | P.OBCN ---
History of Present Illness Consult date: 07/23/24 Reason for consult: pelvic mass History of present illness: The patient is a 53-year-old 3 para 2-0-1-2. As noted on multiple previous dictations, the patient has a longstanding history over the last year of several GI surgeries to include colostomy for ruptured diverticular abscess. She then had the colostomy reversed after which time there were some complications leading to ileostomy placement through a general surgeon at [facility]. She presented to this hospital with complaints of abdominal and rectal pain. She continues to have some drainage from the rectum which is somewhat bloody in nature. On questioning, the patient has had a longstanding known history of fibroid uterus. She had an IUD placed at approximately age 28 by her recollection, likely a ParaGard or copper IUD, placed by Dr. Gongora. Fibroids were known at that time. Historically, the fibroids were present at the time of her deliveries which were both by section with 1 miscarriage. Menopause occurred approximately 5 years ago and she has had no vaginal bleeding since that time. It has been several years since she has had a gynecologic examination but she reports the Pap smears and other gynecologic concerns have been benign in the past. CT scan and abdominal ultrasound at the time of this admission demonstrated an enlarged uterus with calcified fibroids present. There was initially some concern as to whether they could represent a source of infection or potential abscess. Obstetrical history: 3 para 2-0-1-2 with 2 term sections and 1 early miscarriage. She has had an IUD, most likely a ParaGard, in place since around the age of 28. Gynecologic history: Menopause has been in place for approximately 5 years with no postmenopausal bleeding nor any gynecologic concerns. Pap smears have reportedly been benign in nature though it has been several years. Fibroids have been a known finding for more than 20 years and have caused her no significant discomfort or problems. Review of Systems Review of systems is confined to history of present illness. Past Medical History Past Medical History: Hyperlipidemia, Hypertension Additional Past Medical History / Comment(s): Iron deficiency anemia, "lung collapsed" may 2023 History of Any Multi-Drug Resistant Organisms: None Reported Past Surgical History: Section Additional Past Surgical History / Comment(s): Breast Biopsy; D/C for miscarriage, colon resection for bowel obstruction april 2023-ileostomy, was in ICU had trach, fistula repair may 2024 Past Anesthesia/Blood Transfusion Reactions: No Reported Reaction Past Psychological History: No Psychological Hx Reported Smoking Status: Former smoker Past Alcohol Use History: None Reported Past Drug Use History: Marijuana - Past Family History Mother Family Medical History: Cancer Additional Family Medical History / Comment(s): lung Medications and Allergies Home Medications Medication Instructions Recorded Confirmed Type Ciprofloxacin HCl [Cipro] 500 mg PO BID 07/21/24 07/21/24 History metroNIDAZOLE [Flagyl] 500 mg PO TID 07/21/24 07/21/24 History Allergies Allergy/AdvReac Type Severity Reaction Status Date / Time lisinopril Allergy Swelling Verified 07/21/24 18:45 Milk Containing Products Allergy Anaphylaxis Verified 07/21/24 18:45 (Dairy) [Dairy] Exam Vital Signs Temp Pulse Pulse Resp BP BP Pulse Ox 07/23/24 16:32 98.6 F 61 17 115/70 100 07/23/24 13:59 98.3 F 90 16 99/60 100 07/23/24 13:39 98.7 F 93 17 104/65 100 07/23/24 13:29 99.2 F 93 17 129/88 100 07/23/24 12:06 98.9 F 64 17 115/65 07/23/24 11:47 98.9 F 68 17 125/73 97 07/23/24 09:46 98.4 F 70 17 115/60 95 07/23/24 09:26 98.2 F 75 17 102/63 96 07/23/24 09:16 98.4 F 67 102/62 97 07/23/24 08:20 98.1 F 67 17 101/60 98 07/23/24 03:37 71 18 108/65 99 07/22/24 23:24 67 18 93/56 100 Intake and Output 07/23/24 07/23/24 07/23/24 06:59 14:59 22:59 Intake Total 570 310 Balance 570 310 Intake: IV 20 Invasive Line 1 10 Invasive Line 2 10 Oral 240 Blood Product 310 310 Rc As-1 Unit 0 310 [id number] Rc As-1 Unit 310 [id number] Other: Voiding Method Toilet # Voids 1 # Bowel Movements 3 In general, this is a pleasant -[place] female in no acute distress. She is an excellent historian. Her heart has a regular rhythm and rate without murmur. Her lungs clear to auscultation bilateral in all villa. I did not perform an abdominal exam nor pelvic exam, specifically at the patient's request as she reports that it is uncomfortable. Her extremities are without any cyanosis, clubbing, or significant edema and are nontender to palpation bilaterally. Results Result Diagrams: 07/23/24 05:15 07/23/24 05:15 Abnormal Lab Results - Last 24 Hours (Table) 07/23/24 07/23/24 07/23/24 Range/Units 05:15 05:15 06:57 WBC 10.06 H (4.50-10.00) 10*3/uL RBC 2.63 L (4.10-5.20) 10*6/uL Hgb 6.9 L* D (12.0-15.0) g/dL Hct 21.9 L (37.2-46.3) % MCH 26.2 L (27.0-32.0) pg MCHC 31.5 L (32.0-37.0) g/dL Immature Gran # 0.09 H (0.00-0.04) 10*3/uL Lymphocytes # 0.85 L (0.90-5.00) 10*3/uL Monocytes # 1.16 H (0.20-1.00) 10*3/uL Potassium 3.2 L (3.5-5.1) mmol/L Chloride 114 H (98-107) mmol/L Carbon Dioxide 12 L (22-30) mmol/L BUN 27 H (7-17) mg/dL Glucose 139 H (74-99) mg/dL Ionized Calcium Ayaz 5.6 H (4.5-5.3) mg/dL Crossmatch See Detail Microbiology - Last 24 Hours (Table) 07/21/24 23:53 Blood Culture - Preliminary Blood 07/21/24 21:20 Urine Culture - Final Urine,Voided Yina albicans 07/21/24 18:45 Blood Culture - Preliminary Blood Assessment and Plan (1) Abdominal pain Current Visit: Yes Status: Acute Code(s): R10.9 - UNSPECIFIED ABDOMINAL PAIN SNOMED Code(s): 58289948 (2) Pelvic mass Current Visit: Yes Status: Acute Code(s): R19.00 - INTRA-ABD AND PELVIC SWELLING, MASS AND LUMP, UNSP SITE SNOMED Code(s): 45623483 Plan: The pelvic mass for which I was consulted is undoubtably the fibroid uterus which has been present for many years. There is no evidence of it growing nor causing any particular issues for the patient. The IUD has been in place for many years and does not need attention at this time. The fibroid uterus is highly unlikely to be a source for nor even a contributor to her ongoing problems which most likely stem from all of her GI concerns and surgeries. I have offered the patient to follow-up as an outpatient in the office for gynecologic care if she wishes but otherwise we will leave further ongoing care to the medical team in place. I agree with discharging the patient as soon as clinically stable to follow-up with her primary general surgeon in the [facility] for further follow-up, diagnosis, and treatment. Otherwise, thank you for the consult and the opportunity to interact with this very pleasant lady.
[2024-07-24 07:41] LABS: African American GFR (CKD) >90 (>60 ml/min/1.73 sqM); Anion Gap 4 mmol/L; Blood Urea Nitrogen 13 mg/dL (7-17); Calcium 8.8 mg/dL (8.4-10.2); Carbon Dioxide 26 mmol/L (22-30); Chloride 107 mmol/L (98-107); Glucose 129 mg/dL (74-99); Magnesium 1.3 mg/dL (1.6-2.3); Non-African American GFR(CKD) 89 (>60 ml/min/1.73 sqM); Potassium 2.9 mmol/L (3.5-5.1); Sodium 137 mmol/L (137-145)
[2024-07-24 07:54] LABS: Basophils % (A) 0.7 %; Eosinophils # (A) 0.46 10*3/uL (0.04-0.35); Eosinophils % (A) 3.3 %; HCT 30.7 % (37.2-46.3); Lymphocytes # (A) 1.24 10*3/uL (0.90-5.00); Lymphocytes % (A) 8.8 %; MCH 27.1 pg (27.0-32.0); MCHC 34.2 g/dL (32.0-37.0); MCV 79.3 fL (80.0-97.0); Mean Platelet Volume 10.7 fL (9.5-12.2); Monocytes # (A) 1.61 10*3/uL (0.20-1.00); Monocytes % (A) 11.4 %; Neutrophils # (A) 10.64 10*3/uL (1.80-7.70); Neutrophils % (A) 75.1 %; Platelet Count 393 10*3/uL (140-440); RBC 3.87 10*6/uL (4.10-5.20); RDW 17.3 % (11.5-14.5); WBC 14.15 10*3/uL (4.50-10.00)
[2024-07-24 08:07] LABS: HGB 10.5 g/dL (12.0-15.0)
[2024-07-24] MEDS: POTASSIUM CHLORIDE ER 20 MEQ TAB.ER PO SCH (08:52)
--- NOTE | 2024-07-24 10:57 | P.PN ---
Subjective Patient is seen in follow-up for acute kidney injury. Renal function improved. Hemoglobin also better. No active complaints. Vital signs are stable. General: No acute distress. HEENT: Head exam is unremarkable. LUNGS: No audible rhonchi or wheezes. HEART: Rate and Rhythm are regular. ABDOMEN: Ileostomy noted. EXTREMITITES: No edema. Objective - Vital Signs Vital signs: Vital Signs Temp 98.5 F 07/24/24 08:28 Pulse 80 07/24/24 08:28 Resp 18 07/24/24 08:28 BP 111/70 07/24/24 08:28 Pulse Ox 100 07/24/24 08:28 FiO2 Intake & Output 07/23/24 07/24/24 07/24/24 18:59 06:59 18:59 Intake Total 880 Balance 880 Intake: IV 20 Invasive Line 1 10 Invasive Line 2 10 Oral 240 Blood Product 620 Rc As-1 Unit 310 [id number] Rc As-1 Unit 310 [id number] Other: Voiding Method Toilet Toilet # Voids 2 # Bowel Movements 3 - Labs CBC & Chem 7: 07/24/24 06:25 07/24/24 06:25 Labs: Abnormal Lab Results - Last 24 Hours (Table) 07/23/24 07/24/24 07/24/24 Range/Units 06:57 06:25 06:25 WBC 14.15 H (4.50-10.00) 10*3/uL RBC 3.87 L (4.10-5.20) 10*6/uL Hgb 10.5 L D (12.0-15.0) g/dL Hct 30.7 L (37.2-46.3) % MCV 79.3 L (80.0-97.0) fL Immature Gran # 0.10 H (0.00-0.04) 10*3/uL Neutrophils # 10.64 H (1.80-7.70) 10*3/uL Monocytes # 1.61 H (0.20-1.00) 10*3/uL Eosinophils # 0.46 H (0.04-0.35) 10*3/uL Potassium 2.9 L (3.5-5.1) mmol/L Glucose 129 H (74-99) mg/dL Magnesium 1.3 L (1.6-2.3) mg/dL Crossmatch See Detail Microbiology - Last 24 Hours (Table) 07/21/24 18:45 Blood Culture - Preliminary Blood 07/21/24 23:53 Blood Culture - Preliminary Blood 07/21/24 21:20 Urine Culture - Final Urine,Voided Yina albicans Assessment and Plan Plan: Assessment: 1. Acute kidney injury secondary to vasomotor nephropathy secondary to hypovolemia. Improved. Creatinine 0.76 today. No hydronephrosis noted on CT. 2. Metabolic acidosis secondary to GI losses and IV fluids. Improved with bicarb drip. 3. Acute blood loss anemia. Status post blood transfusions. Better. 4. Hypokalemia from intracellular shifting from IV bicarb and hypomagnesemia. 5. Hypercalcemia secondary to volume contraction. Improved. Plan: Hep-Lock IV fluids. Encouraged oral intake. Replace potassium and magnesium. Preserved ejection fraction noted on echocardiogram.
[2024-07-24] MEDS: MAGNESIUM SULFATE-D5W PMX 1 GM in DEXTROSE/WATER 1 100ML.BAG IVPB SCH (12:56)
--- NOTE | 2024-07-24 13:09 | P.PN ---
Subjective Progress Note Date: 07/24/24 Dictation progress note Date of service 07/24/[address] Nichols Location 355 bed 1 Patient seen today [id number] discussed with the patient and her sister at bedside. Interval: Laboratory today found to have hypomagnesemia and hypokalemia. Which is supplemented and will be checking tomorrow again. Her Hemoglobin 10.5 with 2 units packed RBCs transfused, her white count 14.15. She is on IV piggyback Zosyn per infectious disease Chemistry: Sodium 137, potassium 2.9 supplemented. Carbon dioxide 26 with the severe metabolic acidosis has been improved anion gap is 4 BUN 13 and creatinine 0.76 and EGFR for Yessi more than 90 and patient reach the baseline. However the electrolyte abnormalities as well as the magnesium 1.3 which is also supplemented. And her blood glucose was 129 nonfasting. Note: A+ blood type, negative antibody screen. Blood cultures so far negative. Patient seen by Dr. Loredo [employer] as we consulted the Dr. Chavez and he is covering Dr. Chavez and he stated no need for extraction of the IUD with the presence of fibroid. Which is a foreign body present in the uterus for more than 30 years. And no need for further action. Surgical consult also indicating that mild bleeding per rectum and advised to go follow-up on discharge with her Dr. Platt the surgeon and son Phi. Vital sign: Temperature 98.5 F oral, pulse 80, respiratory rate 18 and blood pressure 111/70 with a mean 83 and oxygen saturation 100%. Patient had still pain in the range of 7-8 and has been treated with IV Dilaudid as needed and we will be changing that to oral medication. Until she is seen her surgeon We did consult pain management clinic in the hospital but so far no response and we was also looking for pelvic block as well as advice with her severe pain patient require. In the infection basis has been improved white count yesterday now is back again with elevated WBC and Dr. Medina is following the patient infectious disease. On the exam patient is conscious alert oriented x 3 no shortness of breath still have the pain. Head was normocephalic oropharynx was normal and normal hearing natural teeth Neck was supple no JVD no thyromegaly no lymphadenopathy trachea midline Chest was clear to auscultation percussion Heart was regular sinus rhythm Abdomen soft. Bowel sounds with the ileostomy bag with gas and functioning. No pain in the 4 quadrant. Except the pain is present in the anal area with the previous 3 surgery for fistulectomy. Extremities no edema positive pulses. Neurologically stable Psychiatry stable. Assessment: And plan 1. Will be discontinuing Dilaudid and start patient on p.o. [place] every 8 hour 5/325 mg. 2Patient with anemia and iron deficiency with blood loss we will start iron 1 tablet was main meal. 3. Discontinue the pantoprazole IV and started p.o. 40 mg every morning AC breakfast. 4. Supplementation with iron once a day if continued tolerated may be increased to twice a day. 5. Will resume heparin subcu every 12 hour and monitor if there is further bleeding will occur. 6. Underlying metabolic acidosis severe has been resolved 7. Acute kidney injury with severe dehydration. Resolved 8. Electrolyte imbalance with hypomagnesemia and hypokalemia has been monitored. 9. Fibroid of the uterus with underlying IUD has been present in the uterus for [address] Jacy Schwab stated that it is not bothering her no need for removal. 10. Anemia mixed picture with iron deficiency and chronic anemia. 11 history of diverticular disease with perforation with the operation and ostomy bag and reversed 12. Subsequently had ileostomy bag with abnormalities of the small bowel Followed by 3 time fistulectomy of the anal 13. Suspicious of inflammatory bowel disease as Crohn's however make any comment or address the presence or nonpresent. Objective - Vital Signs Vital signs: Vital Signs Temp 98.5 F 07/24/24 08:28 Pulse 80 07/24/24 08:28 Resp 18 07/24/24 08:28 BP 111/70 07/24/24 08:28 Pulse Ox 100 07/24/24 08:28 FiO2 Intake & Output 07/23/24 07/24/24 07/24/24 18:59 06:59 18:59 Intake Total 880 Balance 880 Intake: IV 20 Invasive Line 1 10 Invasive Line 2 10 Oral 240 Blood Product 620 As-1 Unit 310 [id number] Rc As-1 Unit 310 [id number] Other: Voiding Method Toilet Toilet # Voids 2 # Bowel Movements 3 - Labs CBC & Chem 7: 07/24/24 06:25 07/24/24 06:25 Labs: Abnormal Lab Results - Last 24 Hours (Table) 07/23/24 07/24/24 07/24/24 Range/Units 06:57 06:25 06:25 WBC 14.15 H (4.50-10.00) 10*3/uL RBC 3.87 L (4.10-5.20) 10*6/uL Hgb 10.5 L D (12.0-15.0) g/dL Hct 30.7 L (37.2-46.3) % MCV 79.3 L (80.0-97.0) fL Immature Gran # 0.10 H (0.00-0.04) 10*3/uL Neutrophils # 10.64 H (1.80-7.70) 10*3/uL Monocytes # 1.61 H (0.20-1.00) 10*3/uL Eosinophils # 0.46 H (0.04-0.35) 10*3/uL Potassium 2.9 L (3.5-5.1) mmol/L Glucose 129 H (74-99) mg/dL Magnesium 1.3 L (1.6-2.3) mg/dL Crossmatch See Detail Microbiology - Last 24 Hours (Table) 07/21/24 18:45 Blood Culture - Preliminary Blood 07/21/24 23:53 Blood Culture - Preliminary Blood 07/21/24 21:20 Urine Culture - Final Urine,Voided Yina albicans
--- NOTE | 2024-07-24 13:19 | P.PN ---
Subjective Progress Note Date: 07/24/24 Principal diagnosis: Perineal wound Patient says she feels better today. Ostomy output bilious. No blood. Still some purulent semisanguinous drainage from the rectum. Less sore there today. Feels more energy after the transfusion. Hemoglobin 10.5. Objective - Vital Signs Vital signs: Vital Signs Temp 98.5 F 07/24/24 08:28 Pulse 80 07/24/24 08:28 Resp 18 07/24/24 08:28 BP 100/64 07/24/24 13:00 Pulse Ox 100 07/24/24 08:28 FiO2 Intake & Output 07/23/24 07/24/24 07/24/24 18:59 06:59 18:59 Intake Total 880 Balance 880 Intake: IV 20 Invasive Line 1 10 Invasive Line 2 10 Oral 240 Blood Product 620 Rc As-1 Unit 310 [id number] Rc As-1 Unit 310 [id number] Other: Voiding Method Toilet Toilet # Voids 2 # Bowel Movements 3 - Exam Perianal wound with tenderness, no erythema, small amount of purulent drainage, wound is clean with good granulation tissue - Labs CBC & Chem 7: 07/24/24 06:25 07/24/24 06:25 Labs: Abnormal Lab Results - Last 24 Hours (Table) 07/23/24 07/24/24 07/24/24 Range/Units 06:57 06:25 06:25 WBC 14.15 H (4.50-10.00) 10*3/uL RBC 3.87 L (4.10-5.20) 10*6/uL Hgb 10.5 L D (12.0-15.0) g/dL Hct 30.7 L (37.2-46.3) % MCV 79.3 L (80.0-97.0) fL Immature Gran # 0.10 H (0.00-0.04) 10*3/uL Neutrophils # 10.64 H (1.80-7.70) 10*3/uL Monocytes # 1.61 H (0.20-1.00) 10*3/uL Eosinophils # 0.46 H (0.04-0.35) 10*3/uL Potassium 2.9 L (3.5-5.1) mmol/L Glucose 129 H (74-99) mg/dL Magnesium 1.3 L (1.6-2.3) mg/dL Crossmatch See Detail Microbiology - Last 24 Hours (Table) 07/21/24 23:53 Blood Culture - Preliminary Blood 07/21/24 18:45 Blood Culture - Preliminary Blood 07/21/24 21:20 Urine Culture - Final Urine,Voided Yina albicans Assessment and Plan (1) Open wound of pelvic region Narrative/Plan: 53-year-old female with perianal wound. Status post flap reconstruction and management of fistula by colorectal team at [facility]. Continue local wound care. No surgical intervention planned here. Follow-up 07/29 with colorectal surgery team as outpatient. Will sign off. Please reconsult if needed. Current Visit: Yes Status: Acute Code(s): S31.000A - UNSP OPN WND LOW BACK AND PELV W/O PENET RETROPERITON, INIT SNOMED Code(s): 338559466
--- NOTE | 2024-07-24 15:24 | P.PN ---
Subjective Progress Note Date: 07/24/24 Principal diagnosis: Reason for follow-up is leukocytosis Patient is a 53-year-old -[place] female with a past medical history of hypertension hyperlipidemia patient did have a complicated history of perforated diverticulitis with sepsis in 2023 for which the patient was treated at [facility] and did have a tracheostomy as well as colostomy during that admission subsequently the patient [facility] also found to have fistula and subsequently patient did have ileostomy recently did have surgery at [facility] for revision of the fistulectomy now presented to hospital with rectal pain and drainage and abdominal pain did have elevated white count prompting this consultation. On today's evaluation that is 07/24/2024,the patient remains to be afebrile, patient is on room air not requiring supplemental oxygen and denies any shortness of breath no chest pain or cough.Patient denies having any nausea or vomiting, no abdominal pain still complaining of pain to the perirectal wound area did have some drainage from it. Patient white count is 14.15 today, creatinine 0.76 urine is growing Yina local cultures pending Objective - Vital Signs Vital signs: Vital Signs Temp 98.5 F 07/24/24 08:28 Pulse 80 07/24/24 08:28 Resp 18 07/24/24 08:28 BP 100/64 07/24/24 13:00 Pulse Ox 100 07/24/24 08:28 FiO2 Intake & Output 07/23/24 07/24/24 07/24/24 18:59 06:59 18:59 Intake Total 880 Balance 880 Intake: IV 20 Invasive Line 1 10 Invasive Line 2 10 Oral 240 Blood Product 620 As-1 Unit 310 [id number] As-1 Unit 310 [id number] Other: Voiding Method Toilet Toilet # Voids 2 # Bowel Movements 3 - Exam GENERAL DESCRIPTION: Middle-age female lying in bed in no distress RESPIRATORY SYSTEM: Unlabored breathing , decreased breath sounds at bases HEART: S1 S2 regular rate and rhythm , ABDOMEN: Soft , no tenderness EXTREMITIES: No edema feet - Labs CBC & Chem 7: 07/24/24 06:25 07/24/24 06:25 Labs: Abnormal Lab Results - Last 24 Hours (Table) 07/23/24 07/24/24 07/24/24 Range/Units 06:57 06:25 06:25 WBC 14.15 H (4.50-10.00) 10*3/uL RBC 3.87 L (4.10-5.20) 10*6/uL Hgb 10.5 L D (12.0-15.0) g/dL Hct 30.7 L (37.2-46.3) % MCV 79.3 L (80.0-97.0) fL Immature Gran # 0.10 H (0.00-0.04) 10*3/uL Neutrophils # 10.64 H (1.80-7.70) 10*3/uL Monocytes # 1.61 H (0.20-1.00) 10*3/uL Eosinophils # 0.46 H (0.04-0.35) 10*3/uL Potassium 2.9 L (3.5-5.1) mmol/L Glucose 129 H (74-99) mg/dL Magnesium 1.3 L (1.6-2.3) mg/dL Crossmatch See Detail Microbiology - Last 24 Hours (Table) 07/21/24 23:53 Blood Culture - Preliminary Blood 07/21/24 18:45 Blood Culture - Preliminary Blood 07/21/24 21:20 Urine Culture - Final Urine,Voided Yina albicans Assessment and Plan (1) Abdominal pain Current Visit: Yes Status: Acute Code(s): R10.9 - UNSPECIFIED ABDOMINAL PAIN SNOMED Code(s): 12141467 (2) Leukocytosis Current Visit: Yes Status: Acute Code(s): D72.829 - ELEVATED WHITE BLOOD CELL COUNT, UNSPECIFIED SNOMED Code(s): 634824350 Plan: 1patient with a complicated history of perforated diverticulitis in this patient who did have initial colostomy subsequently worsened and did have ileostomy and recently surgery for fistulectomy and [facility] male presenting to hospital with rectal and abdominal pain along with nausea and vomiting with abnormality seen on a noncontrast CT likely the source for her elevated white count and high clinical suspicion for possible abscess 2-patient did have CT of abdominal pelvis with oral contrast did not show any intra-abdominal abscess or colitis patient did have a open draining wound to the perirectal area which has been cultured and currently pending 3-patient white count is slightly up today will be monitored closely for now continue with Zosyn while waiting for the culture to finalize Dictation was produced using [email or web address] dictation software. please excuse any grammatical, word or spelling errors. Time with Patient: Less than 30
[2024-07-24] MEDS: HYDROcodone/APAP 5-325MG 1 EACH TAB PO PRN (16:36)
[2024-07-24] MEDS: HEPARIN SODIUM,PORCINE 5,000 UNIT/ML 1 ML VIAL SQ SCH (19:52)
[2024-07-25 04:49] LABS: Basophils # (A) 0.12 10*3/uL (0.00-0.10); Basophils % (A) 0.8 %; Eosinophils # (A) 0.73 10*3/uL (0.04-0.35); HCT 29.3 % (37.2-46.3); HGB 9.9 g/dL (12.0-15.0); Lymphocytes # (A) 1.84 10*3/uL (0.90-5.00); Lymphocytes % (A) 12.6 %; MCH 27.1 pg (27.0-32.0); MCHC 33.8 g/dL (32.0-37.0); MCV 80.3 fL (80.0-97.0); Mean Platelet Volume 10.2 fL (9.5-12.2); Monocytes # (A) 1.38 10*3/uL (0.20-1.00); Monocytes % (A) 9.4 %; Neutrophils # (A) 10.47 10*3/uL (1.80-7.70); Neutrophils % (A) 71.5 %; Platelet Count 372 10*3/uL (140-440); RBC 3.65 10*6/uL (4.10-5.20); RDW 17.4 % (11.5-14.5); WBC 14.64 10*3/uL (4.50-10.00)
[2024-07-25 05:15] LABS: African American GFR (CKD) >90 (>60 ml/min/1.73 sqM); Anion Gap 5 mmol/L; Blood Urea Nitrogen 13 mg/dL (7-17); Carbon Dioxide 25 mmol/L (22-30); Chloride 106 mmol/L (98-107); Glucose 91 mg/dL (74-99); Potassium 3.5 mmol/L (3.5-5.1); Sodium 136 mmol/L (137-145)
[2024-07-25 05:16] LABS: Calcium 9.1 mg/dL (8.4-10.2); Magnesium 2.1 mg/dL (1.6-2.3); Non-African American GFR(CKD) 84 (>60 ml/min/1.73 sqM)
--- NOTE | 2024-07-25 11:17 | P.PN ---
Subjective Patient is seen in follow-up for acute kidney injury. Renal function back to baseline. Tolerating oral intake. No active complaints. Vital signs are stable. General: No acute distress. HEENT: Head exam is unremarkable. LUNGS: No audible rhonchi or wheezes. HEART: Rate and Rhythm are regular. ABDOMEN: Ileostomy noted. EXTREMITITES: No edema. Objective - Vital Signs Vital signs: Vital Signs Temp 98.1 F 07/25/24 07:12 Pulse 52 L 07/25/24 07:12 Resp 14 07/25/24 07:12 BP 118/68 07/25/24 07:12 Pulse Ox 98 07/25/24 09:16 FiO2 Intake & Output 07/24/24 07/25/24 07/25/24 18:59 06:59 18:59 Intake Total 582 590 Balance 582 590 Weight 39.009 kg Intake: Oral 582 590 Other: Voiding Method Toilet - Labs CBC & Chem 7: 07/25/24 04:20 07/25/24 04:20 Labs: Abnormal Lab Results - Last 24 Hours (Table) 07/25/24 07/25/24 Range/Units 04:20 04:20 WBC 14.64 H (4.50-10.00) 10*3/uL RBC 3.65 L (4.10-5.20) 10*6/uL Hgb 9.9 L (12.0-15.0) g/dL Hct 29.3 L (37.2-46.3) % Immature Gran # 0.10 H (0.00-0.04) 10*3/uL Neutrophils # 10.47 H (1.80-7.70) 10*3/uL Monocytes # 1.38 H (0.20-1.00) 10*3/uL Eosinophils # 0.73 H (0.04-0.35) 10*3/uL Basophils # 0.12 H (0.00-0.10) 10*3/uL Sodium 136 L (137-145) mmol/L Microbiology - Last 24 Hours (Table) 07/21/24 18:45 Blood Culture - Preliminary Blood 07/23/24 12:57 Gram Stain - Preliminary Rectum Wound Culture - Preliminary Escherichia coli Yina albicans 07/21/24 23:53 Blood Culture - Preliminary Blood Assessment and Plan Plan: Assessment: 1. Acute kidney injury secondary to vasomotor nephropathy secondary to hypovolemia. Improved. Creatinine 0.8 today. No hydronephrosis noted on CT. 2. Metabolic acidosis secondary to GI losses and IV fluids. Improved with bicarb drip. 3. Acute blood loss anemia. Status post blood transfusions. Better. 4. Hypokalemia from intracellular shifting from IV bicarb and hypomagnesemia. 5. Hypercalcemia secondary to volume contraction. Improved. 6. Hypomagnesemia from GI losses. Replaced. Better. Plan: Off IV fluids. Encouraged oral intake. Replace potassium. Preserved ejection fraction noted on echocardiogram.
[2024-07-25] MEDS: FERROUS SULFATE 325 MG TAB PO SCH (12:14)
[2024-07-25] MEDS: POTASSIUM CHLORIDE ER 20 MEQ TAB.ER PO STA (12:14)
[2024-07-25] MEDS: FLUCONAZOLE 100 MG TAB PO ONE (14:53)
--- NOTE | 2024-07-25 16:05 | P.PN ---
Subjective Progress Note Date: 07/25/24 Principal diagnosis: Reason for follow-up is leukocytosis Patient is a 53-year-old -Guyanese female with a past medical history of hypertension hyperlipidemia patient did have a complicated history of perforated diverticulitis with sepsis in 2023 for which the patient was treated at [facility] and did have a tracheostomy as well as colostomy during that admission subsequently the patient 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 for revision of the fistulectomy now presented to hospital with rectal pain and drainage and abdominal pain did have elevated white count prompting this consultation. On today's evaluation that is 07/25/2024, the patient continues to be afebrile, the patient is on room air and breathing comfortably, the Pt denies having any chest pain or cough, the patient denies having any abdominal pain no vomiting and pain to the bilateral area has decreased in intensity. Patient white count is 14.64 creatinine 0.8 perirectal culture growing E. coli and Yina albicans Objective - Vital Signs Vital signs: Vital Signs Temp 98.5 F 07/25/24 12:40 Pulse 57 L 07/25/24 12:40 Resp 16 07/25/24 12:40 BP 102/58 07/25/24 12:40 Pulse Ox 100 07/25/24 12:40 FiO2 Intake & Output 07/24/24 07/25/24 07/25/24 18:59 06:59 18:59 Intake Total 582 590 480 Balance 582 590 480 Weight 39.009 kg Intake: Oral 582 590 480 Other: Voiding Method Toilet - Exam GENERAL DESCRIPTION: Middle-age female lying in bed in no distress RESPIRATORY SYSTEM: Unlabored breathing , decreased breath sounds at bases HEART: S1 S2 regular rate and rhythm , ABDOMEN: Soft , no tenderness EXTREMITIES: No edema feet - Labs CBC & Chem 7: 07/25/24 04:20 07/25/24 04:20 Labs: Abnormal Lab Results - Last 24 Hours (Table) 07/25/24 07/25/24 Range/Units 04:20 04:20 WBC 14.64 H (4.50-10.00) 10*3/uL RBC 3.65 L (4.10-5.20) 10*6/uL Hgb 9.9 L (12.0-15.0) g/dL Hct 29.3 L (37.2-46.3) % Immature Gran # 0.10 H (0.00-0.04) 10*3/uL Neutrophils # 10.47 H (1.80-7.70) 10*3/uL Monocytes # 1.38 H (0.20-1.00) 10*3/uL Eosinophils # 0.73 H (0.04-0.35) 10*3/uL Basophils # 0.12 H (0.00-0.10) 10*3/uL Sodium 136 L (137-145) mmol/L Microbiology - Last 24 Hours (Table) 07/21/24 23:53 Blood Culture - Preliminary Blood 07/21/24 18:45 Blood Culture - Preliminary Blood 07/23/24 12:57 Gram Stain - Preliminary Rectum Wound Culture - Preliminary Escherichia coli Yina albicans Assessment and Plan (1) Abdominal pain Current Visit: Yes Status: Acute Code(s): R10.9 - UNSPECIFIED ABDOMINAL PAIN SNOMED Code(s): 81897279 (2) Leukocytosis Current Visit: Yes Status: Acute Code(s): D72.829 - ELEVATED WHITE BLOOD CELL COUNT, UNSPECIFIED SNOMED Code(s): 841907235 Plan: 1patient with a complicated history of perforated diverticulitis in this patient who did have initial colostomy subsequently worsened and did have ileostomy and recently surgery for fistulectomy and [facility] male presenting to hospital with rectal and abdominal pain along with nausea and vomiting with abnormality seen on a noncontrast CT likely the source for her elevated white count and high clinical suspicion for possible abscess 2-patient did have CT of abdominal pelvis with oral contrast did not show any intra-abdominal abscess or colitis patient did have a open draining wound to the perirectal area which has been cultured 3-patient perirectal cultures currently growing E. coli with sensitivities pending and Yina albicans, continue Zosyn will add Diflucan Dictation was produced using [employer] dictation software. please excuse any grammatical, word or spelling errors. Time with Patient: Less than 30
--- NOTE | 2024-07-25 16:12 | P.PN ---
Subjective Progress Note Date: 07/25/24 Progress note Date of service 07/25/[address] Nichols Location 530 bed 1 Patient seen [id number] today Yesterday at night I was called by Starr from third floor surveillance monitor by nursing staff requesting patient to be transferred to [facility] on telemetry. Because of the need the bed Patient transferred to 530 bed 1 where she was seen today Main complaint her pain still persistent and the medication the [place] every 8 hours is not satisfactory and not relieving the pain and we will increase it to every 6 hour The pain management consult was not responded by the pain management and [facility] and no advice for requesting block we will be continuing the pain for the pelvis if possible or other advice. In regard of surgery consult, Dr. Posada did have a note and I reviewed it and he advised the patient to go to her surgeon Dr. Olsen on discharge with the p resence of serosanguineous and pus purulent no intervention will be done in [facility]. Dr. Medina infectious disease did see the patient today reviewed the culture and started her on Diflucan for fungal infection, culture indicating from the wound E. coli and Yina albicans as well. As well as the urine culture indicating Yina albicans. In regard of anemia and blood loss, patient currently on iron tolerated well and will adjusted to be twice a day in the future. And her hemoglobin 9.9 and hematocrit 29.3. Much improved from 6.9, patient transfused 2 units of packed RBCs. And subsequent hemoglobin and the following day was 10.5 and hematocrit 30.7. Electrolyte indicating her potassium 3.5 on the borderline and spite of yesterday supplementation, we will continue with potassium chloride ER 20 mEq daily and will check the BMP tomorrow. Renal function sodium 136, potassium 3.5, chloride 106, 25 with a history of severe metabolic acidosis and corrected with bicarb infusion by Dr. Cates., Her renal function stabilized and returned to the baseline with the BUN 13 and creatinine 0.80 and the EGFR for -Cameroonian more than 90. Blood glucose stable 91- calcium normalized to 9.1 and magnesium 2.1., On 07/23/2024 the check PTH intact was normal 17.9. 40 mg she had 40 we increased [place] to every 6 hours because she still 7 to 8 years thank you on the physical exam Exam: Vital sign temperature 98.5 F oral, heart rate 57, respiratory rate 16 normal nonlabored and blood pressure 102/58 with a mean 72, oxygen saturation 100%. Patient conscious alert oriented x 3 Complaining that the pain in the average 7-8/10 and will increase her frequency of the [place] to every 6 hour to give her some relief of the pain. Pain management consult no response. Head was normocephalic atraumatic pupil was equal reactive conjunctiva was pink sclera was nonicteric oropharynx natural teeth. Neck was supple no JVD no thyromegaly no lymphadenopathy trachea midline Chest clear to auscultation percussion no wheezes no rhonchi's Heart regular sinus rhythm. Abdomen soft positive bowel sound with the ileostomy bag functioning patient had no suprapubic tenderness but she had anal pain Extremities no edema. Pulses Neurologically stable no lateralizing sign Psychiatrically stable Assessment: #1 patient admitted with severe pain in the anal area 2. Severe hemoconcentration with the with the hemoglobin 11 and hematocrit 34.4 with the platelet count 678 3. Leukocytosis with the associated sepsis and hypotension 4. Acute kidney injury, with creatinine 1.5 to and BUN 53 secondary to vasomotor and volume depletion associated with elevated phosphate 4.6 and elevated calcium 11.0 5. Her iron l profile was fictitiously normal and once hydration will be dropped, her C-reactive protein elevated 1.7. And sodium was low 133 with hyponatremia 6. Metabolic acidosis with the carbon dioxide on admission 9 and subsequently corrected with the bicarb infusion. 7. Culture was obtained found to have E. coli in the urine with the history and past hospitalization with ESBL which not noted on this admission. 8. Culture of the wound fistula repair showed E. coli and Yina which is treated by Dr. Medina with the antibiotic for both. 9. IUD in the uterus chronically present for the evaluation 30 years seen by [employer] on consultation. 10. History of sigmoid bowel perforation treated with colostomy with extended time in ICU and she had ventilator and tracheostomy which was done at [facility] prior to be under my care 11 patient currently under care of surgically by Dr. Olsen in [facility] general surgeon and he found that she has another problem with the ileum and he surgical resection and ileostomy after revision of the colostomy 12. 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 Olsen advised her to have surgery, underwent 3 surgery and the last one was on June 18, 2024. 13. Patient treated with pain medication for 1 week then advised to use Tylenol and ibuprofen with no relief until she is seen in the ER at [facility]. Plan: 1. Will continue the antibiotic and monitor her potassium and magnesium 2. Will wait for the white count improvement 3. Ambulation. 4. And future plan for discharge and to follow-up with Dr. Olsen in send patient stated that she had appointment next Saturday with. Objective - Vital Signs Vital signs: Vital Signs Temp 98.5 F 07/25/24 12:40 Pulse 57 L 07/25/24 12:40 Resp 16 07/25/24 12:40 BP 102/58 07/25/24 12:40 Pulse Ox 100 07/25/24 12:40 FiO2 Intake & Output 07/24/24 07/25/24 07/25/24 18:59 06:59 18:59 Intake Total 582 590 480 Balance 582 590 480 Weight 39.009 kg Intake: Oral 582 590 480 Other: Voiding Method Toilet - Labs CBC & Chem 7: 07/25/24 04:20 07/25/24 04:20 Labs: Abnormal Lab Results - Last 24 Hours (Table) 07/25/24 07/25/24 Range/Units 04:20 04:20 WBC 14.64 H (4.50-10.00) 10*3/uL RBC 3.65 L (4.10-5.20) 10*6/uL Hgb 9.9 L (12.0-15.0) g/dL Hct 29.3 L (37.2-46.3) % Immature Gran # 0.10 H (0.00-0.04) 10*3/uL Neutrophils # 10.47 H (1.80-7.70) 10*3/uL Monocytes # 1.38 H (0.20-1.00) 10*3/uL Eosinophils # 0.73 H (0.04-0.35) 10*3/uL Basophils # 0.12 H (0.00-0.10) 10*3/uL Sodium 136 L (137-145) mmol/L Microbiology - Last 24 Hours (Table) 07/21/24 23:53 Blood Culture - Preliminary Blood 07/21/24 18:45 Blood Culture - Preliminary Blood 07/23/24 12:57 Gram Stain - Preliminary Rectum Wound Culture - Preliminary Escherichia coli Yina albicans
[2024-07-25] MEDS: POTASSIUM CHLORIDE ER 20 MEQ TAB.ER PO SCH (16:29)
[2024-07-25] MEDS: HYDROcodone/APAP 5-325MG 1 EACH TAB PO PRN (16:29)
[2024-07-26] MEDS: FLUCONAZOLE 100 MG TAB PO SCH (08:12)
[2024-07-26 09:28] LABS: Basophils # (A) 0.12 X 10*3/uL (0.00-0.10); Basophils % (A) 0.8 %; Eosinophils # (A) 0.54 X 10*3/uL (0.04-0.35); Eosinophils % (A) 3.8 %; HCT 29.5 % (37.2-46.3); HGB 9.2 g/dL (12.0-15.0); Lymphocytes % (A) 8.4 %; MCHC 31.2 g/dL (32.0-37.0); MCV 83.3 FL (80.0-97.0); Mean Platelet Volume 11.1 FL (9.5-12.2); Monocytes # (A) 1.32 X 10*3/uL (0.20-1.00); Monocytes % (A) 9.2 %; NRBC Per 100 WBC 0 X 10*3/uL (0.00-0.01); Neutrophils # (A) 11.08 X 10*3/uL (1.80-7.70); Neutrophils % (A) 77.2 %; Platelet Count 368 X 10*3/uL (140-440); RBC 3.54 X 10*6/uL (4.10-5.20); RDW 18.2 % (11.5-14.5); WBC 14.34 X 10*3/uL (4.50-10.00)
[2024-07-26 09:53] LABS: BUN/Creat Ratio 13.75 Ratio (12.00-20.00); Glucose 86 mg/dL (70-110)
[2024-07-26 09:54] LABS: Calcium 8.7 mg/dL (8.7-10.3); Carbon Dioxide 19.4 mmol/L (21.6-31.8); Chloride 112 mmol/L (96-109); Potassium 3.9 mmol/L (3.5-5.5); Sodium 139 mmol/L (135-145)
--- NOTE | 2024-07-26 11:35 | P.PN ---
Subjective Patient is seen in follow-up for acute kidney injury. Renal function back to baseline. Tolerating oral intake. No active complaints. Vital signs are stable. General: No acute distress. HEENT: Head exam is unremarkable. LUNGS: No audible rhonchi or wheezes. HEART: Rate and Rhythm are regular. ABDOMEN: Ileostomy noted. EXTREMITITES: No edema. Objective - Vital Signs Vital signs: Vital Signs Temp 98.3 F 07/26/24 07:55 Pulse 50 L 07/26/24 08:00 Resp 14 07/26/24 07:55 BP 113/68 07/26/24 07:55 Pulse Ox 100 07/26/24 07:55 FiO2 Intake & Output 07/25/24 07/26/24 07/26/24 18:59 06:59 18:59 Intake Total 1440 590 480 Balance 1440 590 480 Intake: Oral 1440 590 480 Other: Voiding Method Toilet Toilet # Voids 3 # Bowel Movements 2 - Labs CBC & Chem 7: 07/26/24 03:42 07/26/24 03:42 Labs: Abnormal Lab Results - Last 24 Hours (Table) 07/26/24 07/26/24 Range/Units 03:42 03:42 WBC 14.34 H (4.50-10.00) X 10*3/uL RBC 3.54 L (4.10-5.20) X 10*6/uL Hgb 9.2 L (12.0-15.0) g/dL Hct 29.5 L (37.2-46.3) % MCH 26.0 L (27.0-32.0) pg MCHC 31.2 L (32.0-37.0) g/dL RDW 18.2 H (11.5-14.5) % Immature Gran # 0.08 H (0.00-0.04) X 10*3/uL Neutrophils # 11.08 H (1.80-7.70) X 10*3/uL Monocytes # 1.32 H (0.20-1.00) X 10*3/uL Eosinophils # 0.54 H (0.04-0.35) X 10*3/uL Basophils # 0.12 H (0.00-0.10) X 10*3/uL Chloride 112 H (96-109) mmol/L Carbon Dioxide 19.4 L (21.6-31.8) mmol/L Microbiology - Last 24 Hours (Table) 07/23/24 12:57 Anaerobic Culture - Preliminary Rectum 07/23/24 12:57 Gram Stain - Final Rectum Wound Culture - Final Escherichia coli Yina albicans 07/21/24 23:53 Blood Culture - Preliminary Blood Assessment and Plan Plan: Assessment: 1. Acute kidney injury secondary to vasomotor nephropathy secondary to hypovolemia. Improved. Creatinine 0.8 today. No hydronephrosis noted on CT. 2. Metabolic acidosis secondary to GI losses and IV fluids. Improved with bicarb drip. 3. Acute blood loss anemia. Status post blood transfusions. Better. 4. Hypokalemia from intracellular shifting from IV bicarb and hypomagnesemia. 5. Hypercalcemia secondary to volume contraction. Improved. 6. Hypomagnesemia from GI losses. Replaced. Better. Plan: Off IV fluids. Encouraged oral intake. Preserved ejection fraction noted on echocardiogram. Follow-up outpatient 1 week postdischarge.
--- NOTE | 2024-07-26 13:55 | P.PN ---
Subjective Progress Note Date: 07/26/24 Progress note Date of service 07/26/[address] Nichols Location 530 with 1 Patient seen and evaluated today [id number], discussed with Dr. Medina infectious disease, Reviewed also the note from Dr. Cates. Dr. Cates impression: Acute kidney injury secondary to vasomotor nephropathy secondary to hypovolemia improved creatinine 0.8, no hydronephrosis per CT scan 2. Metabolic acidosis due to GI losses and IV fluid improved with bicarb infusion 3. Acute blood loss with anemia and status posttransfusion 2 units feeling better 4. Hypokalemia due to intra cellular shifting from IV bicarb and hypomagnesemia 5. Hypercalcemia secondary to volume contraction improved 6. Hypomagnesemia. As discussion was Dr. Medina infectious disease with the persistent leukocytosis and culture of the anal at the fistulectomy site with presence of E. coli and Yina albicans, Patient treated with Diflucan as well as Zosyn which will be changed to Unasyn today. Per Dr. Medina Leukocytosis persistent with the infection and the fistulectomy indicated by the culture and that may be needed when she discharge to follow-up with Dr. Olsen the surgeon at [facility] for further evaluation and treatment. And probably on the discharge patient will be on antibiotic. Vital sign today temperature 98.3 F oral, heart rate 50 regular sinus with bradycardia unknown etiology, respiratory rate between 16-14/min nonlabored, and blood pressure 113/68 with a mean 83 and pulse ox 100% on room air. Patient only took 1 pill of painkiller [place] today and no complaint of pain which has been increased yesterday to relieve her pain which was from 7-8 today is comfortable. On the exam: Conscious alert oriented x 3 no nausea no vomiting and her ileostomy pouch functioning. Head was normocephalic atraumatic, pupils equal reactive, normal hearing, no nasal discharge, oropharynx able to eat however she is very selective eating. Neck was supple no JVD no thyromegaly no lymphadenopathy. Chest clear to auscultation percussion Heart regular sinus rhythm no symptoms of arrhythmia. And the echo was stable Abdomen soft positive bowel sound no organ enlargement she had ileostomy bag functioning no pain in the abdomen in the 4 quadrant. Extremities no edema and positive pulses bilateral she is able to stand and ambulate. Neurologically stable no lateralizing sign Psychiatry stable no lateralizing sign. Assessment as mentioned above Plan will see tomorrow and will check her blood testing and if she is stable patient will be discharged home however the leukocytosis will be persistent until Dr. olsen the surgeon at [place] to look at it and see what else can be done for removing the infection Probably Dr. Medina will prescribe some antibiotic to be followed as outpatient. Lab today: Sodium 139, potassium 3.9 with hypokalemia resolved Chloride 112, carbon dioxide 19.4, creatinine 0.8 and BUN 11 glucose 86, calcium 8.7 normalized., Magnesium 2.1 normalized WBC 14.34, hemoglobin 9.2, hematocrit 29.5. MCV 83.3 and platelet count 368. The IV fluid discontinued however the antibiotic continued as IV as well Objective - Vital Signs Vital signs: Vital Signs Temp 98.3 F 07/26/24 07:55 Pulse 50 L 07/26/24 08:00 Resp 14 07/26/24 07:55 BP 113/68 07/26/24 07:55 Pulse Ox 100 07/26/24 07:55 FiO2 Intake & Output 07/25/24 07/26/24 07/26/24 18:59 06:59 18:59 Intake Total 1440 590 480 Balance 1440 590 480 Intake: Oral 1440 590 480 Other: Voiding Method Toilet Toilet # Voids 3 # Bowel Movements 2 - Labs CBC & Chem 7: 07/26/24 03:42 07/26/24 03:42 Labs: Abnormal Lab Results - Last 24 Hours (Table) 07/26/24 07/26/24 Range/Units 03:42 03:42 WBC 14.34 H (4.50-10.00) X 10*3/uL RBC 3.54 L (4.10-5.20) X 10*6/uL Hgb 9.2 L (12.0-15.0) g/dL Hct 29.5 L (37.2-46.3) % MCH 26.0 L (27.0-32.0) pg MCHC 31.2 L (32.0-37.0) g/dL RDW 18.2 H (11.5-14.5) % Immature Gran # 0.08 H (0.00-0.04) X 10*3/uL Neutrophils # 11.08 H (1.80-7.70) X 10*3/uL Monocytes # 1.32 H (0.20-1.00) X 10*3/uL Eosinophils # 0.54 H (0.04-0.35) X 10*3/uL Basophils # 0.12 H (0.00-0.10) X 10*3/uL Chloride 112 H (96-109) mmol/L Carbon Dioxide 19.4 L (21.6-31.8) mmol/L Microbiology - Last 24 Hours (Table) 07/23/24 12:57 Anaerobic Culture - Preliminary Rectum 07/23/24 12:57 Gram Stain - Final Rectum Wound Culture - Final Escherichia coli Yina albicans 07/21/24 23:53 Blood Culture - Preliminary Blood
--- NOTE | 2024-07-26 15:10 | P.PN ---
Subjective Progress Note Date: 07/26/24 Principal diagnosis: Reason for follow-up is leukocytosis Patient is a 53-year-old -H[place]ian female with a past medical history of hypertension hyperlipidemia patient did have a complicated history of perforated diverticulitis with sepsis in 2023 for which the patient was treated at [facility] and did have a tracheostomy as well as colostomy during that admission subsequently the patient did follow-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 On today's evaluation that is 07/26/2024, Patient is afebrile patient is currently on room air and denies having any shortness of breath, the patient denies any chest pain or cough, the patient denies any nausea vomiting did not have any abdominal pain and pain to the peritoneal has decreased in intensity. Patient white count is slightly down to 14.34 creatinine 0.8 local culture with E. coli sensitive pathogen as well as Yina albicans Objective - Vital Signs Vital signs: Vital Signs Temp 98.4 F 07/26/24 12:47 Pulse 51 L 07/26/24 12:47 Resp 14 07/26/24 12:47 BP 120/72 07/26/24 12:47 Pulse Ox 100 07/26/24 12:47 FiO2 Intake & Output 07/25/24 07/26/24 07/26/24 18:59 06:59 18:59 Intake Total 1440 590 480 Balance 1440 590 480 Intake: Oral 1440 590 480 Other: Voiding Method Toilet Toilet # Voids 3 # Bowel Movements 2 - Exam GENERAL DESCRIPTION: Middle-age female lying in bed in no distress RESPIRATORY SYSTEM: Unlabored breathing , decreased breath sounds at bases HEART: S1 S2 regular rate and rhythm , ABDOMEN: Soft , no tenderness EXTREMITIES: No edema feet - Labs CBC & Chem 7: 07/26/24 03:42 07/26/24 03:42 Labs: Abnormal Lab Results - Last 24 Hours (Table) 07/26/24 07/26/24 Range/Units 03:42 03:42 WBC 14.34 H (4.50-10.00) X 10*3/uL RBC 3.54 L (4.10-5.20) X 10*6/uL Hgb 9.2 L (12.0-15.0) g/dL Hct 29.5 L (37.2-46.3) % MCH 26.0 L (27.0-32.0) pg MCHC 31.2 L (32.0-37.0) g/dL RDW 18.2 H (11.5-14.5) % Immature Gran # 0.08 H (0.00-0.04) X 10*3/uL Neutrophils # 11.08 H (1.80-7.70) X 10*3/uL Monocytes # 1.32 H (0.20-1.00) X 10*3/uL Eosinophils # 0.54 H (0.04-0.35) X 10*3/uL Basophils # 0.12 H (0.00-0.10) X 10*3/uL Chloride 112 H (96-109) mmol/L Carbon Dioxide 19.4 L (21.6-31.8) mmol/L Microbiology - Last 24 Hours (Table) 07/23/24 12:57 Anaerobic Culture - Preliminary Rectum 07/23/24 12:57 Gram Stain - Final Rectum Wound Culture - Final Escherichia coli Yina albicans 07/21/24 23:53 Blood Culture - Preliminary Blood Assessment and Plan (1) Abdominal pain Current Visit: Yes Status: Acute Code(s): R10.9 - UNSPECIFIED ABDOMINAL PAIN SNOMED Code(s): 00791533 (2) Leukocytosis Current Visit: Yes Status: Acute Code(s): D72.829 - ELEVATED WHITE BLOOD CELL COUNT, UNSPECIFIED SNOMED Code(s): 005528381 Plan: 1patient with a complicated history of perforated diverticulitis in this patient who did have initial colostomy subsequently worsened and did have ileostomy and recently surgery for fistulectomy and [facility] male presenting to hospital with rectal and abdominal pain along with nausea and vomiting with abnormality seen on a noncontrast CT likely the source for her elevated white count and high clinical suspicion for possible abscess 2-patient did have CT of abdominal pelvis with oral contrast did not show any intra-abdominal abscess or colitis patient did have a open draining wound to the perirectal area which has been cultured 3-patient perirectal cultures currently growing E. coli which is sensitive to Unasyn as well as Yina albicans 4white count is still high we will switch antibiotic to Unasyn continue with the Diflucan and if the white count start trending down tomorrow finish therapy with oral Augmentin Diflucan discussed with the admitting physician Dictation was produced using [employer] dictation software. please excuse any grammatical, word or spelling errors.
[2024-07-26] MEDS: AMPICILLIN-SULBACTAM 3 GM in SODIUM CHLORIDE 0.9% 100 ML IVPB SCH (17:44)
[2024-07-27 08:12] LABS: Basophils # (A) 0.12 X 10*3/uL (0.00-0.10); Basophils % (A) 0.8 %; Eosinophils # (A) 0.42 X 10*3/uL (0.04-0.35); Eosinophils % (A) 2.9 %; HCT 30.4 % (37.2-46.3); HGB 9.7 g/dL (12.0-15.0); Lymphocytes # (A) 1.11 X 10*3/uL (0.90-5.00); Lymphocytes % (A) 7.7 %; MCH 26.6 pg (27.0-32.0); MCHC 31.9 g/dL (32.0-37.0); MCV 83.3 FL (80.0-97.0); Mean Platelet Volume 11.4 FL (9.5-12.2); Monocytes # (A) 1.15 X 10*3/uL (0.20-1.00); NRBC Per 100 WBC 0 X 10*3/uL (0.00-0.01); Neutrophils # (A) 11.51 X 10*3/uL (1.80-7.70); Neutrophils % (A) 80.1 %; Platelet Count 353 X 10*3/uL (140-440); RBC 3.65 X 10*6/uL (4.10-5.20); RDW 18.2 % (11.5-14.5); WBC 14.38 X 10*3/uL (4.50-10.00)
[2024-07-27 08:22] LABS: Blood Urea Nitrogen 10.2 mg/dL (9.0-27.0); Carbon Dioxide 20.1 mmol/L (21.6-31.8); Chloride 110 mmol/L (96-109); Glucose 93 mg/dL (70-110); Magnesium 1.5 mg/dL (1.5-2.4); Potassium 3.8 mmol/L (3.5-5.5); Sodium 138 mmol/L (135-145)
[2024-07-27 08:30] VITALS: BP 109/66; PULSE 55; RESP 16; TEMP 98
--- NOTE | 2024-07-27 10:50 | P.DS ---
Providers Date of admission: 07/21/24 21:42 Expected date of discharge: 07/27/24 Attending physician: Bong Nichols Consults: 07/21/24 21:41 Consult Physician Routine Consulting Provider: Radha Medina Consult Reason/Comments: ID Do you want consulting provider notified?: Yes 07/22/24 13:56 Consult Physician Routine Consulting Provider: Carrie Chavez Consult Reason/Comments: Presence of mass in the pelvis with possible fibroid , rule out abscess form Do you want consulting provider notified?: Yes 07/22/24 22:07 Consult Physician Routine Consulting Provider: Kina Wilson Consult Reason/Comments: MARISA,leucocytosis,sepsis Do you want consulting provider notified?: Yes, Notify in am Primary care physician: Bong Nichols Discharge summary date of service 07/27/[address] Nichols Location 530 bed 1 Disposition: Stable for discharge to follow-up with Dr. Olsen the general surgeon at [facility] on 07/29/2024 for further follow-up on infected fistulectomy. Antibiotic designed and given by Dr. Medina infectious disease on discharge. Previous antibiotic ciprofloxacin and and Flagyl has been discontinued. Please copy of the discharge to Dr. Olsen [facility] general surgeon.. Final diagnosis: 1. Acute kidney injury secondary to vasomotor nephropathy secondary to hypovolemia improved creatinine no evidence of hydronephrosis per CT scan. 2. Metabolic acidosis due to GI loss and improved with the IV fluid as well as bicarb. 3. Acute blood loss with anemia with the status post transfusion 2 units in this hospitalization and feeling better 4. Hypokalemia due to intracellular shifting from the IV bicarb 5. Hypomagnesemia transfused and advised to have Slow-Mag 2 tablet [id number] on a daily basis and recheck with the follow-up. 6. 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 7. Prolonged IUD in the uterus for presence of [address] Marcelino Baig. MUSEUM PREPARATOR 8. Severe pain in the anal area 10/10 no response from pain management consult. 9. GI consultation on the chart with consideration of underlying possibility of inflammatory bowel disease with the repeated colostomy followed by ileostomy followed by fistulectomy x 3. 10. Nonsymptomatic bradycardia. #11 severe weight loss and protein calorie deficiency. Patient presented to the ER with known history weakness chest pain back pain lightheadedness dizziness nausea vomiting intermittently loss of appetite and weight loss with anal pain. With the disposition as abdominal pain gastritis colitis dehydration malnutrition. Hospital course, patient admitted to telemetry monitored floor with the hypomagnesemia and hypercalcemia with the initial lab was due to severe dehydration and acute kidney injury subsequently she underwent CT scan in the ER as well as followed by pelvic CT scan found that she had IUD and on questioning the patient stated that has been there from her 30s and and 20s and she had 30 years of presents and we thought that could be causing infection as well with the underlying leukocytosis. Found to have IUD and we consulted MUSEUM PREPARATOR Dr. Monalisa Baig who indicating that it does not have no effect, also we consulted the pain clinic however no response and the patient continued to have severe pain started on pain medication temporarily and on discharge will give her 3 days only of pain medication until seen by Dr. Conner in the general surgeon. Patient has also several other testing echocardiogram pulmonary perfusion with mild elevation of D-dimer and she had abdomen and bladder ultrasound as well as a chest x-ray and EKG she also seen by infectious disease and nephrology. Patient her symptoms of bleeding per rectum and the nursing staff stated that she is bleeding subsequently General Surgeon was consulted Dr. Posada who stated that his serous sanguinous and the hemoglobin dropped to 6.9 and patient transfused 2 units of packed RBCs and Dr. Posada stated that she has to be evaluated by her general surgeon again Dr. Brown. Patient has severe metabolic acidosis with the carbon dioxide [address] Cates started her on IV bicarb and recovered. And IV fluid has been adjusted accordingly with her magnesium and potassium and supplementation for both of them. As patient has been monitored with the CBC still her white count is elevated and Dr. Medina changed her antibiotic and he will be giving her prescription for that and found that the culture indicating in the urine fungal infection and E. 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 coli and fungal infection Yina albicans and at that time treated currently on Unasyn and Diflucan however that will be changed on discharge to oral medication and to be followed by Dr. Brown and if she would like to follow-up with Dr. Medina infectious disease as outpatient. As patient is stable general condition On dischargeAcute kidney injury secondary to vasomotor nephropathy secondary to hypovolemia improved temperature 98 or F oral temperature 98F oral and heart rate is 54 respiratory rate 16 and blood pressure 109/66 with a mean 80 as well as her oxygen saturation on room air 100%. Laboratory today indicating WBC still elevated with the presence of chronic infection with the WBC 14.38 and hemoglobin 9.7 and hematocrit 30.4. Chemistry indicating that sodium 138 potassium 3.8 chloride 110, carbon dioxide 20.1 and BUN 10.2, creatinine 0.5 and EGFR for -Kosovan 111, glucose 93, calcium 9, and magnesium 1.5 which was prior to that 2.1 with the tendency to lose magnesium through the GI and we will be giving her 2 g of magnesium before discharge and also as I discussed it with the pharmacist we will give her Slow- Mag which is magnesium chloride [id number] 2 tablet once a day and to be rechecked in the future. Patient will have the antibiotics through Dr. Medina infectious disease. With the underlying iron deficiency anemia she and blood loss will continue the higher 1 tablet twice a day 325 mg. New On the exam Conscious alert oriented x 3 ambulatory feeling much better HEENT negative normal, head was normocephalic atraumatic pupil equal reactive conjunctiva was pale but better than it was with the hemoglobin 6.9 oropharynx natural teeth able to eat and swallow with no difficulties Neck was supple no JVD no thyromegaly no lymphadenopathy trachea midline Chest was clear to auscultation percussion No shortness of breath Heart regular sinus bradycardia and no chest pain echocardiogram was essentially Abdomen is soft positive bowel sound with the ileostomy bag anal area with the history of fistulectomy and infection Extremities no edema and positive pulses. Psychiatry stable 9 neurology stable no lateralizing sign. Assessment patient stable for discharge home and to be followed with Dr. Brown the surgeon as she had appointment on 07/29/2024 with her general surgeon She will be followed also by Dr. Medina infectious disease. And follow-up with myself in 1 week. Disposition discharged today to be seen on next Saturday. Patient Condition at Discharge: Fair Plan - Discharge Summary New Discharge Prescriptions: New Fluconazole [Diflucan] 100 mg PO DAILY tab Potassium Chloride ER [K-Dur 20] 20 meq PO DAILY tab Ampicillin-Sulbactam [Unasyn 3 gm vial] 3 gm IVPB Q6HR each Ferrous Sulfate [Iron (65 MG Elemental)] 325 mg PO BID #60 tab HYDROcodone/APAP 5-325MG [[place] 5-325] 1 each PO Q6HR PRN #12 tab PRN Reason: Pain Discontinued Ciprofloxacin HCl [Cipro] 500 mg PO BID metroNIDAZOLE [Flagyl] 500 mg PO TID Discharge Medication List Ampicillin-Sulbactam [Unasyn 3 gm vial] 3 gm IVPB Q6HR each 07/27/24 [Rx] Ferrous Sulfate [Iron (65 MG Elemental)] 325 mg PO BID #60 tab 07/27/24 [Rx] Fluconazole [Diflucan] 100 mg PO DAILY tab 07/27/24 [Rx] HYDROcodone/APAP 5-325MG [[place] 5-325] 1 each PO Q6HR PRN #12 tab 07/27/24 [Rx] Potassium Chloride ER [K-Dur 20] 20 meq PO DAILY tab 07/27/24 [Rx] Follow up Appointment(s)/Referral(s): Bong Nichols MD [Primary Care Provider] - 1-2 days Discharge Disposition: HOME SELF-CARE
[2024-07-27] MEDS: MAGNESIUM SULFATE-D5W PMX 1 GM in DEXTROSE/WATER 1 100ML.BAG IVPB SCH (10:55)
--- NOTE | 2024-07-27 11:09 | CDI ---
Documentation Clarification Form Date: 07/27/2024 10:59:00 AM From: Padmini Christianson RN, CCDS Phone: [phone] Admit Date: 07/21/2024 09:42:00 PM Patient Name: Lanie Hooper Visit Number: [id number] Discharge Date: ATTENTION: The Clinical Documentation Specialists (CDI) and [facility] Coding Staff appreciate your assistance in clarifying documentation. Please respond to the clarification below the line at the bottom and electronically sign. The CDI & [facility] Coding staff will review the response and follow-up if needed. Please note: Queries are made part of the Legal Health Record. If you have any questions, please contact the author of this message via ITS. Doctor. Bong Nichols Malnutrition is documented in the ER assessment. Additional clarification regarding the severity of malnutrition is requested. History/Risk Factors: Iron deficiency anemia, bowel obstruction s/p resection w ileostomy. Clinical Indicators: weakness, inadequate energy intake, depression, nausea Current BMI: 16.2 Physical Findings: Emaciated severe muscle/fat loses: temporalis, trapezius, deltoids, quadriceps, calf severe subcutaneous fat loses, </75% of EER>/=[address] Consult Assessment: Inadequate energy intake Malnutrition Severe, chronic Treatment: Commercial beverage Dhingana BID Monitor PO Please clarify the severity of malnutrition, if known: [ x ] Severe Protein-Calorie Malnutrition [ ] Other condition, please specify [ ] Unable to Determine (Template Last Revised: August 2022) MTDD
--- NOTE | 2024-07-28 17:15 | P.PN ---
Subjective Progress Note Date: 07/27/24 Principal diagnosis: Reason for follow-up is leukocytosis Patient is a 53-year-old -Chinese female with a past medical history of hypertension hyperlipidemia patient did have a complicated history of perforated diverticulitis with sepsis in 2023 for which the patient was treated at [facility] and did have a tracheostomy as well as colostomy during that admission subsequently the patient [facility] also found to have fistula and subsequently patient did have ileostomy recently did have surgery at [facility] for revision of the fistulectomy now presented to hospital with rectal pain and drainage and abdominal pain did have elevated white count prompting this consultation. On today's evaluation that is 07/27/2024, patient has been afebrile, patient is breathing comfortably and is currently on room air, patient denies having any chest pain and cough, patient denies nausea vomiting or diarrhea and no abdominal pain and pain to the perirectal area has decreased in intensity. Patient white count is 14.38, creatinine 0.5 Objective - Vital Signs Vital signs: Vital Signs Temp 98 F 07/27/24 08:00 Pulse 55 L 07/27/24 08:00 Resp 16 07/27/24 08:00 BP 109/66 07/27/24 08:00 Pulse Ox 100 07/27/24 08:00 FiO2 Intake & Output 07/26/24 07/27/24 07/27/24 18:59 06:59 18:59 Intake Total 1440 Balance 1440 Intake: Oral 1440 Other: Voiding Method Toilet Toilet # Voids 3 1 # Bowel Movements 3 - Exam GENERAL DESCRIPTION: Middle-age female lying in bed in no distress RESPIRATORY SYSTEM: Unlabored breathing , decreased breath sounds at bases HEART: S1 S2 regular rate and rhythm , ABDOMEN: Soft , no tenderness EXTREMITIES: No edema feet - Labs CBC & Chem 7: 07/27/24 04:45 07/27/24 04:45 Labs: Abnormal Lab Results - Last 24 Hours (Table) 07/27/24 07/27/24 Range/Units 04:45 04:45 WBC 14.38 H (4.50-10.00) X 10*3/uL RBC 3.65 L (4.10-5.20) X 10*6/uL Hgb 9.7 L (12.0-15.0) g/dL Hct 30.4 L (37.2-46.3) % MCH 26.6 L (27.0-32.0) pg MCHC 31.9 L (32.0-37.0) g/dL RDW 18.2 H (11.5-14.5) % Immature Gran # 0.07 H (0.00-0.04) X 10*3/uL Neutrophils # 11.51 H (1.80-7.70) X 10*3/uL Monocytes # 1.15 H (0.20-1.00) X 10*3/uL Eosinophils # 0.42 H (0.04-0.35) X 10*3/uL Basophils # 0.12 H (0.00-0.10) X 10*3/uL Chloride 110 H (96-109) mmol/L Carbon Dioxide 20.1 L (21.6-31.8) mmol/L Creatinine 0.5 L (0.6-1.5) mg/dL BUN/Creatinine Ratio 20.40 H (12.00-20.00) Ratio Microbiology - Last 24 Hours (Table) 07/21/24 18:45 Blood Culture - Final Blood Assessment and Plan (1) Abdominal pain Status: Acute Code(s): R10.9 - UNSPECIFIED ABDOMINAL PAIN SNOMED Code(s): 22052300 (2) Leukocytosis Status: Acute Code(s): D72.829 - ELEVATED WHITE BLOOD CELL COUNT, UNSPECIFIED SNOMED Code(s): 740799514 Plan: 1patient with a complicated history of perforated diverticulitis in this patient who did have initial colostomy subsequently worsened and did have ileostomy and recently surgery for fistulectomy and [facility] male presenting to hospital with rectal and abdominal pain along with nausea and vomiting with abnormality seen on a noncontrast CT likely the source for her elevated white count and high clinical suspicion for possible abscess 2-patient did have CT of abdominal pelvis with oral contrast did not show any intra-abdominal abscess or colitis patient did have a open draining wound to the perirectal area which has been cultured 3-patient perirectal cultures currently growing E. coli which is sensitive to Unasyn as well as Yina albicans 4patient has shown clinical improvement has been advised oral Augmentin and Diflucan on discharge with instruction to follow-up with her surgeon on 07/29/2024 question concern answered prescription sent to the pharmacy Dictation was produced using [employer] dictation software. please excuse any grammatical, word or spelling errors. Time with Patient: Less than 30
--- NOTE | 2024-07-29 08:12 | CDI ---
Documentation Clarification Form Date: From: Bruna Stokes Admit Date: 07/21/2024 09:42:00 PM Patient Name: Lanie Hooper Visit Number: [id number] Discharge Date: 07/27/2024 03:52:00 PM ATTENTION: The Clinical Documentation Specialists (CDI) and [facility] Coding Staff appreciate your assistance in clarifying documentation. Please respond to the clarification below the line at the bottom and electronically sign. The CDI & [facility] Coding staff will review the response and follow-up if needed. Please note: Queries are made part of the Legal Health Record. If you have any questions, please contact the author of this message via ITS. Doctor/Provider: Bong Nichols, Sepsis is documented in the H&P [which may lack sufficient clinical evidence/support in the medical record. Additional clarification is requested. History/Risk Factors: S/P colostomy converted to ileostomy w fistulectomy, previous sepsis, Clinical Indicators: Patient admitted withpain, weakness, dizziness, lightheaded, nausea and vomitingat times, decreased appetite, severeweight loss. Hypotensive BP 100/63 and leukocytosis 5.34.Pale, severely dehydrated, No fever, Neutrophils 12.55, OK 127, RR 20/22. Lactic acid 1.8, Procalcitonin 0.16, Cr 1.81, CRP 1.7, hypotensive BP 85/37 Treatment: IV fluids, IV Unasyn After work up and study, please clarify which diagnosis is most appropriate? [ ] Sepsis ruled out [ x ] Sepsis treated prophylactically, POA [ ] Sepsis is a valid diagnosis (POA) as evidence by the following: (Please add rationale): [ ] Non-Infectious SIRS due to (please specify) [ ] Non-infectious SIRS due to with organ dysfunction as evidenced by [list organ dysfunction] [ ] Other, please specify [ ] Unable to determine MTDD
== END 2024-07-27 15:52 | disposition home or self-care (01) | DRG 469 ==
LOC: EC 17:16 → 5NMEDONC 21:42 → 3SCARD 07-22 03:02 → 5NMEDONC 07-24 22:32
PROVIDERS: ADMIT Internal Medicine; ATTEND Internal Medicine
PROC: 30233N1 Transfusion of Nonautologous Red Blood Cells into Peripheral Vein, Percutaneous Approach (ICD-10-PCS; principal; 2024-07-21)
DX: N17.0 Acute kidney failure with tubular necrosis (principal); B37.49 Other urogenital candidiasis; A41.9 Sepsis, unspecified organism; E43 Unspecified severe protein-calorie malnutrition; E87.20 Acidosis, unspecified; R64 Cachexia; R62.7 Adult failure to thrive; D62 Acute posthemorrhagic anemia; D56.8 Other thalassemias; Z68.1 Body mass index [BMI] 19.9 or less, adult; Z93.2 Ileostomy status; E78.5 Hyperlipidemia, unspecified; E83.42 Hypomagnesemia; E83.52 Hypercalcemia; E86.0 Dehydration; E86.1 Hypovolemia; E87.1 Hypo-osmolality and hyponatremia; D25.9 Leiomyoma of uterus, unspecified; E73.9 Lactose intolerance, unspecified; E87.5 Hyperkalemia; E87.6 Hypokalemia; I10 Essential (primary) hypertension; K29.70 Gastritis, unspecified, without bleeding; K62.5 Hemorrhage of anus and rectum; K43.5 Parastomal hernia without obstruction or gangrene; K57.30 Diverticulosis of large intestine without perforation or abscess without bleeding; N20.0 Calculus of kidney; E63.9 Nutritional deficiency, unspecified; I95.9 Hypotension, unspecified; Z97.5 Presence of (intrauterine) contraceptive device; Z87.891 Personal history of nicotine dependence; Z88.8 Allergy status to other drugs, medicaments and biological substances; Z71.3 Dietary counseling and surveillance
CPT/HCPCS: 36415; 71046; 74176; 76770; 78582; 80048; 80053; 81001; 82330; 82607; 82728; 82746; 83540; 83550; 83605; 83690; 83735; 83880; 83970; 84100; 84134; 84145; 84443; 84484; 85025; 85379; 85610; 85730; 86140; 86850; 86900; 86901; 86920; 87040; 87070; 87075; 87077; 87086; 87186; 87205; 87636; 93005; 93306; 94760; 96361; 96365; 96366; 96367; 96372; 96375; 99285

== ENCOUNTER 2024-08-15 13:41 | Emergency (ER) | payer OTHER ==
[2024-08-15] MEDS ORDERED: IOPAMIDOL CONTRAST (ORAL USE) VIAL PO PRN (15:02)
--- NOTE | 2024-08-15 15:16 | ED ---
Nausea/Vomiting/Diarrhea HPI - General Chief complaint: Nausea/Vomiting/Diarrhea Stated complaint: Vomiting Time Seen by Provider: 08/15/24 15:06 Source: patient, family, RN notes reviewed Mode of arrival: ambulatory Limitations: no limitations - History of Present Illness Initial comments: 53-year-old female presenting for vomiting x 4 days with increased abdominal pain, weakness, and weight loss. Patient has underwent multiple abdominal surgeries over the past year and has subsequently had many complications and hospitalizations since. Patient had an acute perforation of colon in 2023 at [facility]. 6 months later underwent revision of colostomy by Dr. Conner general surgeon at [facility] and found another valve problem at which time he performed an ileostomy. 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 Last surgery by Dr. Olsen on June 18 at [facility] who performed last revision of fistulectomy. Patient has current ileostomy. Patient is experiencing chronic abdominal pain and rectal discharge. States since Saturday she has not been able to keep anything down due to vomiting. Also reports diffuse abdominal pain and rectal pain that is chronic in nature. States she has lost a significant amount of weight in the past week. - Related Data Previous Rx's Medication Instructions Recorded Amoxic-Pot Clav 875-125Mg 1 tab PO BID 10 Days #20 tab 07/27/24 [Augmentin 875-125] Ferrous Sulfate [Iron (65 MG 325 mg PO BID #60 tab 07/27/24 Elemental)] Fluconazole [Diflucan] 100 mg PO DAILY #10 tablet 07/27/24 HYDROcodone/APAP 5-325MG [[place] 1 each PO Q6HR PRN #12 tab 07/27/24 5-325] Potassium Chloride ER [K-Dur 20] 20 meq PO DAILY tab 07/27/24 Allergies Allergy/AdvReac Type Severity Reaction Status Date / Time lisinopril Allergy Swelling Verified 08/15/24 13:49 Review of Systems ROS Statement: Those systems with pertinent positive or pertinent negative responses have been documented in the HPI. ROS Other: All systems not noted in ROS Statement are negative. Past Medical History Past Medical History: Hyperlipidemia, Hypertension Additional Past Medical History / Comment(s): Iron deficiency anemia, "lung collapsed" may 2023 History of Any Multi-Drug Resistant Organisms: None Reported Past Surgical History: Section Additional Past Surgical History / Comment(s): Breast Biopsy; D/C for miscarriage, colon resection for bowel obstruction april 2023-ileostomy, was in ICU had trach, fistula repair may 2024 Past Anesthesia/Blood Transfusion Reactions: No Reported Reaction Past Psychological History: No Psychological Hx Reported Smoking Status: Former smoker Past Alcohol Use History: None Reported Past Drug Use History: Marijuana - Past Family History Mother Family Medical History: Cancer Additional Family Medical History / Comment(s): lung General Exam Limitations: no limitations General appearance: alert, in no apparent distress, other (Appears frail) Head exam: Present: atraumatic, normocephalic, normal inspection Eye exam: Present: normal appearance, PERRL, EOMI. Absent: scleral icterus, conjunctival injection, periorbital swelling Respiratory exam: Present: normal lung sounds bilaterally. Absent: respiratory distress, wheezes, rales, rhonchi, stridor Cardiovascular Exam: Present: regular rate, normal rhythm, normal heart sounds. Absent: systolic murmur, diastolic murmur, rubs, gallop, clicks GI/Abdominal exam: Present: soft, normal bowel sounds, other (Ileostomy present). Absent: distended, tenderness, guarding, rebound, rigid Neurological exam: Present: alert, oriented X3 Psychiatric exam: Present: normal affect, normal mood Skin exam: Present: warm, dry, intact, normal color. Absent: rash Course Vital Signs 08/15/24 08/15/24 08/15/24 13:46 17:24 17:45 Temperature 97.5 F L 98 F Pulse Rate 148 H 100 103 H Respiratory 18 18 16 Rate Blood Pressure 119/93 100/72 119/90 O2 Sat by Pulse 97 98 100 Oximetry 08/15/24 18:00 Temperature Pulse Rate 97 Respiratory 16 Rate Blood Pressure 121/95 O2 Sat by Pulse 100 Oximetry Medical Decision Making - Medical Decision Making Was pt. sent in by a medical professional or institution (, PA, ASSEM[employer], urgent care, hospital, or detention...) When possible be specific @ -No Did you speak to anyone other than the patient for history (EMS, parent, family, police, friend...)? What history was obtained from this source @ -Patient's friend provided some of history Did you review nursing and triage notes (agree or disagree)? Why? @ -I reviewed and agree with nursing and triage notes Were old charts reviewed (outside hosp., previous admission, EMS record, old EKG, old radiological studies, urgent care reports/EKG's, detention records)? Report findings @ -Previous ER and admission notes reviewed. Previous CT last month revealed no acute obstruction Differential Diagnosis (chest pain, altered mental status, abdominal pain women, abdominal pain men, vaginal bleeding, weakness, fever, dyspnea, syncope, headache, dizziness, GI bleed, back pain, seizure, CVA, palpatations, mental health, musculoskeletal)? @ -Differential Abdominal Pain Women: Appendicitis, Cholecystitis, diverticulosis, ischemic bowel, pancreatitis, hepatitis, UTI, gastroenteritis, AAA, incarcerated hernia, bowel obstruction, constipation, inflammatory bowel, hepatitis, peptic ulcer disease, splenic infar ction, perforated viscus, vulvitis, ovarian torsion, PID, kidney stone, placenta abruption, this is not meant to be an all-inclusive list EKG interpreted by me (3pts min.). @ -As above X-rays interpreted by me (1pt min.). @ -None done CT interpreted by me (1pt min.). @ -CT abdomen pelvis with contrast shows no sign of interval changes from recent study, persistent large parastomal hernia containing fat and numerous nonobstructed small bowel loops, no evidence of bowel obstruction U/S interpreted by me (1pt. min.). @ -None done What testing was considered but not performed or refused? (CT, X-rays, U/S, labs)? Why? @ -None What meds were considered but not given or refused? Why? @ -None Did you discuss the management of the patient with other professionals (professionals i.e. , PA, [employer], lab, RT, psych nurse, social science manager, dairy store manager, teacher, transit authority police officer, pillowcase turner)? Give summary @ -I spoke with patient's PCP Dr. Nichols who states he does not accept admission as patient's most recent surgery was at [facility] and feels patient needs continuity of care. I spoke with transfer team at [facility] who accepts transfer. Accepting physician is Dr. Villalpando Was smoking cessation discussed for >3mins.? @ -No Was critical care preformed (if so, how long)? @ -No Were there social determinants of health that impacted care today? How? (Homelessness, low income, unemployed, alcoholism, drug addiction, transportation, low edu. Level, literacy, decrease access to med. care, [facility], rehab)? @ -No Was there de-escalation of care discussed even if they declined (Discuss DNR or withdrawal of care, Hospice)? DNR status @ -No What co-morbidities impacted this encounter? (DM, HTN, Smoking, COPD, CAD, Cancer, CVA, ARF, Chemo, Hep., AIDS, mental health diagnosis, sleep apnea, morbid obesity)? @ -None Was patient admitted / discharged? Hospital course, mention meds given and route, prescriptions, significant lab abnormalities, going to OR and other pertinent info. @ - transferred. 53-year-old female with history of multiple abdominal surgeries and revisions over the past year with ileostomy presenting for vomiting x 4 days. States she is unable to keep anything down. Admits to chronic abdominal and rectal pain. Most recent surgery was fistulectomy revision performed by Dr. Olsen June 18 at [facility]. Initial vital signs remarkable for tachycardia, patient is afebrile. Provided with IV fluids, morphine, and Zofran. Lab work remarkable for leukocytosis of 20, MARISA with creatinine at 3.12, BUN 65. Anion gap 19, CO2 15, potassium elevated at 5.4 however hemolyzed specimen. Lactic acid normal at 1.5. Urinalysis remarkable for possible urinary tract infection however may be contaminated due to rectal discharge. CT abdomen pelvis with contrast shows no interval changes from re cent study, no evidence of bowel obstruction. Patient does meet sepsis criteria however no definitive source of infection. UTI unlikely cause of abdominal pain at this time. Blood cultures were taken and patient was started on IV fluids and Zosyn. Patient will be transferred to [facility] for continuity of care. Case was discussed with my ED attending Dr. Wang. Undiagnosed new problem with uncertain prognosis? @ -No Drug Therapy requiring intensive monitoring for toxicity (Heparin, Nitro, Insulin, Cardizem)? @ -No Were any procedures done? @ -No Diagnosis/symptom? @ -Acute kidney injury, persistent vomiting Acute, or Chronic, or Acute on Chronic? @ -Acute Uncomplicated (without systemic symptoms) or Complicated (systemic symptoms)? @ -Complicated Side effects of treatment? @ -No Exacerbation, Progression, or Severe Exacerbation? @ -No Poses a threat to life or bodily function? How? (Chest pain, [place], [place], pneumonia, PE, COPD, DKA, ARF, appy, cholecystitis, CVA, Diverticulitis, Homicidal, Suicidal, threat to staff... and all critical care pts) @ -Yes - Lab Data Result diagrams: 08/15/24 15:25 08/15/24 15:25 Lab Results 08/15/24 08/15/24 08/15/24 Range/Units 15:25 15:25 15:25 WBC 19.68 H (4.50-10.00) 10*3/uL RBC 5.02 (4.10-5.20) 10*6/uL Hgb 13.3 D (12.0-15.0) g/dL Hct 41.4 (37.2-46.3) % MCV 82.5 (80.0-97.0) fL MCH 26.5 L (27.0-32.0) pg MCHC 32.1 (32.0-37.0) g/dL Plt Count 532 H (140-440) 10*3/uL MPV 10.7 (9.5-12.2) fL Immature Gran % (Auto) 0.5 % Neutrophils % 87.5 % Lymphocytes % 5.3 % Monocytes % 5.5 % Eosinophils % 0.2 % Basophils % 1.0 % Immature Gran # 0.10 H (0.00-0.04) 10*3/uL Neutrophils # 17.22 H (1.80-7.70) 10*3/uL Lymphocytes # 1.04 (0.90-5.00) 10*3/uL Monocytes # 1.09 H (0.20-1.00) 10*3/uL Eosinophils # 0.04 (0.04-0.35) 10*3/uL Basophils # 0.19 H (0.00-0.10) 10*3/uL PT 11.4 (10.0-12.5) sec INR 1.0 (<1.2) APTT 25.3 (22.0-30.0) sec Sodium 134 L (137-145) mmol/L Potassium 5.4 H (3.5-5.1) mmol/L Chloride 100 (98-107) mmol/L Carbon Dioxide 15 L (22-30) mmol/L Anion Gap 19 mmol/L BUN 65 H (7-17) mg/dL Creatinine 3.12 H (0.52-1.04) mg/dL Est GFR (CKD-EPI)AfAm 19 (>60 ml/min/1.73 sqM) Est GFR (CKD-EPI)NonAf 16 (>60 ml/min/1.73 sqM) Glucose 131 H (74-99) mg/dL Plasma Lactic Acid Reyes (0.7-2.0) mmol/L Calcium 10.7 H (8.4-10.2) mg/dL Magnesium 2.6 H (1.6-2.3) mg/dL Total Bilirubin 0.9 (0.2-1.3) mg/dL AST 30 (14-36) U/L ALT 19 (4-34) U/L Alkaline Phosphatase 222 H (38-126) U/L Total Protein 9.7 H (6.3-8.2) g/dL Albumin 4.7 (3.5-5.0) g/dL Urine Color Urine Appearance (Clear) Urine pH (5.0-8.0) Ur Specific [place] (1.001-1.035) Urine Protein (Negative) Urine Glucose (UA) (Negative) Urine Ketones (Negative) Urine Blood (Negative) Urine Nitrite (Negative) Urine Bilirubin (Negative) Urine Urobilinogen (<2.0) mg/dL Ur Leukocyte Esterase (Negative) Urine RBC (0-5) /hpf Urine WBC (0-5) /hpf Urine WBC Clumps (None) /hpf Ur Squamous Epith Cells (0-4) /hpf Urine Bacteria (None) /hpf Hyaline Casts (0-2) /lpf Urine Mucus (None) /hpf 08/15/24 08/15/24 Range/Units 15:25 17:45 WBC (4.50-10.00) 10*3/uL RBC (4.10-5.20) 10*6/uL Hgb (12.0-15.0) g/dL Hct (37.2-46.3) % MCV (80.0-97.0) fL MCH (27.0-32.0) pg MCHC (32.0-37.0) g/dL Plt Count (140-440) 10*3/uL MPV (9.5-12.2) fL Immature Gran % (Auto) % Neutrophils % % Lymphocytes % % Monocytes % % Eosinophils % % Basophils % % Immature Gran # (0.00-0.04) 10*3/uL Neutrophils # (1.80-7.70) 10*3/uL Lymphocytes # (0.90-5.00) 10*3/uL Monocytes # (0.20-1.00) 10*3/uL Eosinophils # (0.04-0.35) 10*3/uL Basophils # (0.00-0.10) 10*3/uL PT (10.0-12.5) sec INR (<1.2) APTT (22.0-30.0) sec Sodium (137-145) mmol/L Potassium (3.5-5.1) mmol/L Chloride (98-107) mmol/L Carbon Dioxide (22-30) mmol/L Anion Gap mmol/L BUN (7-17) mg/dL Creatinine (0.52-1.04) mg/dL Est GFR (CKD-EPI)AfAm (>60 ml/min/1.73 sqM) Est GFR (CKD-EPI)NonAf (>60 ml/min/1.73 sqM) Glucose (74-99) mg/dL Plasma Lactic Acid [place] 1.5 (0.7-2.0) mmol/L Calcium (8.4-10.2) mg/dL Magnesium (1.6-2.3) mg/dL Total Bilirubin (0.2-1.3) mg/dL AST (14-36) U/L ALT (4-34) U/L Alkaline Phosphatase (38-126) U/L Total Protein (6.3-8.2) g/dL Albumin (3.5-5.0) g/dL Urine Color Yellow Urine Appearance Cloudy H (Clear) Urine pH 5.0 (5.0-8.0) Ur Specific [place] 1.026 (1.001-1.035) Urine Protein 1+ H (Negative) Urine Glucose (UA) Negative (Negative) Urine Ketones Negative (Negative) Urine Blood Moderate H (Negative) Urine Nitrite Negative (Negative) Urine Bilirubin Negative (Negative) Urine Urobilinogen <2.0 (<2.0) mg/dL Ur Leukocyte Esterase Large H (Negative) Urine RBC 17 H (0-5) /hpf Urine WBC 144 H (0-5) /hpf Urine WBC Clumps Few H (None) /hpf Ur Squamous Epith Cells 8 H (0-4) /hpf Urine Bacteria Rare H (None) /hpf Hyaline Casts 31 H (0-2) /lpf Urine Mucus Rare H (None) /hpf - EKG Data -: EKG Interpreted by Me EKG Comments: EKG reveals normal sinus rhythm with no acute ST changes. Ventricular rate 86 bpm, OR interval 138, QRS duration 89, QT/QTc 325/368 Disposition Clinical Impression: Acute kidney injury, Persistent vomiting Disposition: OTHER INSTITUTION NOT DEFINED Referrals: Bong Nichols MD [Primary Care Provider] - 1-2 days Time of Disposition: 18:51 - Out of Hospital Transfer - Req. Specs Out of Hospital Transfer - Requested Specifics: Other Emergency Center ([facility])
[2024-08-15 15:40] LABS: Basophils # (A) 0.19 10*3/uL (0.00-0.10); Eosinophils # (A) 0.04 10*3/uL (0.04-0.35); Eosinophils % (A) 0.2 %; HCT 41.4 % (37.2-46.3); Lymphocytes # (A) 1.04 10*3/uL (0.90-5.00); Lymphocytes % (A) 5.3 %; MCH 26.5 pg (27.0-32.0); MCHC 32.1 g/dL (32.0-37.0); MCV 82.5 fL (80.0-97.0); Mean Platelet Volume 10.7 fL (9.5-12.2); Monocytes # (A) 1.09 10*3/uL (0.20-1.00); Monocytes % (A) 5.5 %; Neutrophils # (A) 17.22 10*3/uL (1.80-7.70); Neutrophils % (A) 87.5 %; Platelet Count 532 10*3/uL (140-440); RBC 5.02 10*6/uL (4.10-5.20); RDW 16.9 % (11.5-14.5); WBC 19.68 10*3/uL (4.50-10.00)
[2024-08-15 15:41] LABS: HGB 13.3 g/dL (12.0-15.0)
[2024-08-15 15:50] LABS: Carbon Dioxide 15 mmol/L (22-30); Chloride 100 mmol/L (98-107); Glucose 131 mg/dL (74-99); Sodium 134 mmol/L (137-145)
[2024-08-15 15:51] LABS: African American GFR (CKD) 19 (>60 ml/min/1.73 sqM); Albumin 4.7 g/dL (3.5-5.0); Anion Gap 19 mmol/L; Blood Urea Nitrogen 65 mg/dL (7-17); Calcium 10.7 mg/dL (8.4-10.2); Magnesium 2.6 mg/dL (1.6-2.3); Non-African American GFR(CKD) 16 (>60 ml/min/1.73 sqM); Total Bilirubin 0.9 mg/dL (0.2-1.3); Total Protein 9.7 g/dL (6.3-8.2)
[2024-08-15 16:07] LABS: Potassium 5.4 mmol/L (3.5-5.1)
[2024-08-15 16:08] LABS: ALT 19 U/L (4-34); AST 30 U/L (14-36); Alkaline Phosphatase 222 U/L (38-126)
[2024-08-15 16:31] LABS: Partial Thromboplastin Time 25.3 sec (22.0-30.0); Prothrombin Time 11.4 sec (10.0-12.5)
[2024-08-15] MEDS: ONDANSETRON 4 MG/2 ML VIAL IVP STA (17:20)
[2024-08-15] MEDS: MORPHINE SULFATE 4 MG/ML SYRINGE IVP STA (17:21)
[2024-08-15] MEDS: SODIUM CHLORIDE 0.9% 1,000 ML IV STA ×2 (17:21→19:53)
--- NOTE | 2024-08-15 17:36 | CT ---
EXAMINATION TYPE: CT abdomen pelvis wo con DATE OF EXAM: 08/15/2024 5:05 PM COMPARISON: CT abdomen pelvis most recent from CLINICAL INDICATION: Female, 53 years old with history of abdominal pain, acute nonlocalized, vomitin g; Increased weakness, vomiting x 3 days, abdominal pain. 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 TECHNIQUE: Axial CT abdomen pelvis wo con;Sagittal and coronal reformats were created on a separate workstation. Oral contrast used: with Oral Contrast (none if empty) CT DLP: 377.9 mGycm, Automated exposure control for dose reduction was used. FINDINGS: Overall, significantly limited study due to lack of intra-abdominal fat and IV contrast. LOWER CHEST: Unremarkable ABDOMEN LIVER: Unremarkable GALLBLADDER AND BILE DUCTS: Unremarkable. PANCREAS: Unremarkable. SPLEEN: Unremarkable. ADRENAL GLANDS: Unremarkable. KIDNEYS AND URETERS: 3 mm calcific density in the region of the proximal right renal collecting syste m, not significantly changed from prior study. No definite evidence of significant hydronephrosis. PELVIS BLADDER: No evidence for wall thickening or mass given limitations of exam. REPRODUCTIVE: Heterogeneously enlarged calcified fibroid uterus. Intrauterine device present. STOMACH AND BOWEL: Stomach and duodenum are unremarkable. No evidence of bowel obstruction. Left mid abdominal ostomy with large parastomal hernia containing numerous nonobstructed small bowel loops.. PERITONEUM/RETROPERITONEUM: No evidence of pneumoperitoneum or free fluid. VASCULATURE: No evidence of aortic aneurysm. MUSCULOSKELETAL: No acute osseous abnormalities LYMPH NODES: No gross evidence for lymphadenopathy. SOFT TISSUE/ABDOMINAL WALL: Ostomy with large parastomal hernia as above. IMPRESSION: Overall, no significant interval changes from recent study 07/21/2024. Persistent large parastomal her lois containing fat and numerous nonobstructed small bowel loops as described above. No evidence of sm all bowel obstruction. [facility], , 08/15/2024 5:34 PM
[2024-08-15] MEDS: PIPERACILLIN-TAZOBACTAM 3.375 GM in SODIUM CHLORIDE 0.9% 100 ML IVPB STA (18:08)
[2024-08-15 18:21] LABS: Appearance,Urine Cloudy (Clear); Bacteria,Urine Rare /hpf; Bilirubin,Urine Negative (Negative); Blood,Urine Moderate (Negative); Color,Urine Yellow; Glucose,Urine (UA) Negative (Negative); Hyaline Casts,Urine 31 /lpf (0-2); Ketones,Urine Negative (Negative); Leukocyte Esterase,Urine Large (Negative); Mucus,Urine Rare /hpf; Nitrite,Urine Negative (Negative); Protein,Urine 1+ (Negative); RBC,Urine 17 /hpf (0-5); Specific Gravity,Urine 1.026 (1.001-1.035); Squamous Epithelial Cell,Urine 8 /hpf (0-4); Urobilinogen,Urine <2.0 mg/dL (<2.0); WBC,Urine 144 /hpf (0-5)
[2024-08-15 19:14] VITALS: TEMP 98.5
[2024-08-15 19:56] VITALS: BP 156/96; PULSE 60; RESP 18
== END 2024-08-15 20:02 | disposition other institution (70) ==
LOC: EC 13:41
DX: N17.9 Acute kidney failure, unspecified (principal); R11.15 Cyclical vomiting syndrome unrelated to migraine; Z87.891 Personal history of nicotine dependence; Z88.8 Allergy status to other drugs, medicaments and biological substances
CPT/HCPCS: 99285; 96365; 96375 ×2; 96361; 36415; 93005; 80053; 83605; 83735; 85025; 85610; 85730; 81001; 87040; 87086; 74176; J2543; J2270; J2405; 87077; 87186

== ENCOUNTER 2024-08-31 07:35 | Emergency (ER) | payer OTHER ==
--- NOTE | 2024-08-31 08:31 | ED ---
Weakness HPI - General Chief complaint: Weakness Stated complaint: Near syncope Time Seen by Provider: 08/31/24 07:45 Source: patient Mode of arrival: ambulatory Limitations: no limitations - History of Present Illness Initial comments: 53-year-old female with past medical history of hypertension, hyperlipidemia, bowel obstruction with history of bowel resection, ileostomy, multiple fistulectomy's who presents to the emergency department with weakness. States that she was at the hospital today to have lab work obtained. Labs were to be completed under the order of Dr. J Luis Snow. She does have an appointment with him today at 1032. States that while she was getting the lab work done she felt weak as if she was going to pass out. Reports to numbness in her hands. States that she has not been able to eat much this weekend. She did hold down some food yesterday however slept for approximately 12 hours. She denies any fevers. Has chronic abdominal pain. Has worsening drainage from her rectum due to perirectal abscess. She is not currently on any antibiotics. Her surgeon referred her to [place]. She has her first appointment on September 14. Denies any fevers. No chest pain. No other alleviating, precipitating modifying factors - Related Data Home Medications Medication Instructions Recorded Confirmed Ferrous Sulfate [Iron (65 MG 325 mg PO DAILY 08/31/24 08/31/24 Elemental)] Magnesium(Unknown Dose) 1 tab PO DAILY 08/31/24 08/31/24 Midodrine [ProAmatine] 5 mg PO BID 08/31/24 08/31/24 Sodium Bicarbonate Tab 650 mg PO BID 08/31/24 08/31/24 Allergies Allergy/AdvReac Type Severity Reaction Status Date / Time lisinopril Allergy Anaphylaxis Verified 08/31/24 10:31 Review of Systems ROS Statement: Those systems with pertinent positive or pertinent negative responses have been documented in the HPI. ROS Other: All systems not noted in ROS Statement are negative. Past Medical History Past Medical History: Hyperlipidemia, Hypertension Additional Past Medical History / Comment(s): Iron deficiency anemia, "lung collapsed" may 2023 History of Any Multi-Drug Resistant Organisms: None Reported Past Surgical History: Section Additional Past Surgical History / Comment(s): Breast Biopsy; D/C for miscarriage, colon resection for bowel obstruction april 2023-ileostomy, was in ICU had trach, fistula repair may 2024 Past Anesthesia/Blood Transfusion Reactions: No Reported Reaction Past Psychological History: No Psychological Hx Reported Smoking Status: Former smoker Past Alcohol Use History: None Reported Past Drug Use History: Marijuana - Past Family History Mother Family Medical History: Cancer Additional Family Medical History / Comment(s): lung General Exam Limitations: no limitations General appearance: alert, cachectic Head exam: Present: atraumatic, normocephalic, normal inspection Eye exam: Present: normal appearance, PERRL, EOMI. Absent: scleral icterus, conjunctival injection, periorbital swelling ENT exam: Present: normal exam, mucous membranes moist Neck exam: Present: normal inspection. Absent: tenderness, meningismus, lymphadenopathy Respiratory exam: Present: normal lung sounds bilaterally. Absent: respiratory distress, wheezes, rales, rhonchi, stridor Cardiovascular Exam: Present: regular rate, normal rhythm, normal heart sounds. Absent: systolic murmur, diastolic murmur, rubs, gallop, clicks GI/Abdominal exam: Present: soft, normal bowel sounds. Absent: distended, tenderness, guarding, rebound, rigid Rectal exam: Present: other (Significant ulceration of the rectum with some harrell discharge) Extremities exam: Present: normal inspection, full ROM, normal capillary refill. Absent: tenderness, pedal edema, joint swelling, calf tenderness Back exam: Present: normal inspection Neurological exam: Present: alert, oriented X3, CN II-XII intact Psychiatric exam: Present: normal affect, normal mood Skin exam: Present: warm, dry, intact, normal color. Absent: rash Course Vital Signs 08/31/24 08/31/24 08/31/24 07:40 08:43 10:45 Temperature 97.4 F L 97.9 F Pulse Rate 65 54 L 55 L Respiratory 22 16 18 Rate Blood Pressure 104/80 141/85 170/55 O2 Sat by Pulse 91 L 98 95 Oximetry 08/31/24 11:36 Temperature 97.9 F Pulse Rate 82 Respiratory 16 Rate Blood Pressure 117/87 O2 Sat by Pulse 100 Oximetry Medical Decision Making - Medical Decision Making Was pt. sent in by a medical professional or institution (, PA, EDGE TRIMMING MACHINE OPERATOR, urgent care, hospital, or half-way...) When possible be specific @ -Patient was sent in from the outpatient lab Did you speak to anyone other than the patient for history (EMS, parent, family, police, friend...)? What history was obtained from this source @ -No Did you review nursing and triage notes (agree or disagree)? Why? @ -I reviewed and agree with nursing and triage notes Were old charts reviewed (outside hosp., previous admission, EMS record, old EKG, old radiological studies, urgent care reports/EKG's, half-way records)? Report findings @ -I reviewed discharge summary from July 27 Differential Diagnosis (chest pain, altered mental status, abdominal pain women, abdominal pain men, vaginal bleeding, weakness, fever, dyspnea, syncope, headache, dizziness, GI bleed, back pain, seizure, CVA, palpatations, mental health, musculoskeletal)? @ -Differential Weakness: Hypoglycemia, shock, sepsis, hyponatremia, anemia, infection, MS, ETOH, adverse medicine reaction, overdose, stroke, this is not meant to be an all-inclusive list. EKG interpreted by me (3pts min.). @ -Yes which demonstrates sinus rhythm with a rate of 68. MN interval 138. QRS 80. QTc of 391. No acute ST segment elevations or depressions X-rays interpreted by me (1pt min.). @ -None done CT interpreted by me (1pt min.). @ -None done U/S interpreted by me (1pt. min.). @ -None done What testing was considered but not performed or refused? (CT, X-rays, U/S, labs)? Why? @ -None What meds were considered but not given or refused? Why? @ -None Did you discuss the management of the patient with other professionals (professionals i.e. , PA, EDGE TRIMMING MACHINE OPERATOR, lab, RT, psych nurse, social worker clinical, cuff setter overlock, teacher, contracts officer, vocational case manager)? Give summary @ -Spoke with Dr. Mccarthy. he would like the patient to follow-up this week. Wants the patient to go home and rest today. I did discuss the labs with him Was smoking cessation discussed for >3mins.? @ -No Was critical care preformed (if so, how long)? @ -No Were there social determinants of health that impacted care today? How? (Homelessness, low income, unemployed, alcoholism, drug addiction, transportation, low edu. Level, literacy, decrease access to med. care, residential, rehab)? @ -No Was there de-escalation of care discussed even if they declined (Discuss DNR or withdrawal of care, Hospice)? DNR status @ -No What co-morbidities impacted this encounter? (DM, HTN, Smoking, COPD, CAD, Cancer, CVA, ARF, Chemo, Hep., AIDS, mental health diagnosis, sleep apnea, morbid obesity)? @ -Protein calorie malnutrition, rectal abscess Was patient admitted / discharged? Hospital course, mention meds given and route, prescriptions, significant lab abnormalities, going to OR and other pertinent info. @ -Upon arrival patient seen and evaluated in room 31. Thorough history and physical exam was performed. IV access was established. Laboratory studies were conducted. I did discuss the results with Dr. Mccarthy. She was given intravenous fluids. I question whether she should go over to the office for her appointment however Dr. J Luis Sonw would like her to go home and rest. States that she should follow-up later this week with him and return to the ER for any new or worsening symptoms Undiagnosed new problem with uncertain prognosis? @ -No Drug Therapy requiring intensive monitoring for toxicity (Heparin, Nitro, Insulin, Cardizem)? @ -No Were any procedures done? @ -No Diagnosis/symptom? @ -Near syncope, dehydration, protein calorie malnutrition, colostomy status Acute, or Chronic, or Acute on Chronic? @ -Acute on chronic Uncomplicated (without systemic symptoms) or Complicated (systemic symptoms)? @Complicated Side effects of treatment? @ -No Exacerbation, Progression, or Severe Exacerbation? @ -Yes Poses a threat to life or bodily function? How? (Chest pain, USA, MS, pneumonia, PE, COPD, DKA, ARF, appy, cholecystitis, CVA, Diverticulitis, Homicidal, Suicidal, threat to staff... and all critical care pts) @ -No - Lab Data Result diagrams: 08/31/24 09:17 08/31/24 09:17 Lab Results 08/31/24 08/31/24 08/31/24 Range/Units 09:17 09:17 09:17 WBC 10.12 H (4.50-10.00) 10*3/uL RBC 4.64 (4.10-5.20) 10*6/uL Hgb 12.7 (12.0-15.0) g/dL Hct 39.8 (37.2-46.3) % MCV 85.8 (80.0-97.0) fL MCH 27.4 (27.0-32.0) pg MCHC 31.9 L (32.0-37.0) g/dL Plt Count 517 H (140-440) 10*3/uL MPV 10.2 (9.5-12.2) fL Immature Gran % (Auto) 0.3 % Neutrophils % 88.0 % Lymphocytes % 6.2 % Monocytes % 3.9 % Eosinophils % 0.5 % Basophils % 1.1 % Immature Gran # 0.03 (0.00-0.04) 10*3/uL Neutrophils # 8.91 H (1.80-7.70) 10*3/uL Lymphocytes # 0.63 L (0.90-5.00) 10*3/uL Monocytes # 0.39 (0.20-1.00) 10*3/uL Eosinophils # 0.05 (0.04-0.35) 10*3/uL Basophils # 0.11 H (0.00-0.10) 10*3/uL Sodium 138 (137-145) mmol/L Potassium 5.3 H (3.5-5.1) mmol/L Chloride 106 (98-107) mmol/L Carbon Dioxide 15 L (22-30) mmol/L Anion Gap 17 mmol/L BUN 23 H (7-17) mg/dL Creatinine 1.18 H (0.52-1.04) mg/dL Est GFR (CKD-EPI)AfAm 60 (>60 ml/min/1.73 sqM) Est GFR (CKD-EPI)NonAf 52 (>60 ml/min/1.73 sqM) Glucose 129 H (74-99) mg/dL Plasma Lactic Acid Reyes 1.5 (0.7-2.0) mmol/L Calcium 11.3 H (8.4-10.2) mg/dL Magnesium 2.0 (1.6-2.3) mg/dL Total Bilirubin 0.5 (0.2-1.3) mg/dL AST 19 (14-36) U/L ALT 12 (4-34) U/L Alkaline Phosphatase 125 (38-126) U/L Troponin I (0.000-0.034) ng/mL Total Protein 9.6 H (6.3-8.2) g/dL Albumin 4.9 (3.5-5.0) g/dL 08/31/24 Range/Units 09:17 WBC (4.50-10.00) 10*3/uL RBC (4.10-5.20) 10*6/uL Hgb (12.0-15.0) g/dL Hct (37.2-46.3) % MCV (80.0-97.0) fL MCH (27.0-32.0) pg MCHC (32.0-37.0) g/dL Plt Count (140-440) 10*3/uL MPV (9.5-12.2) fL Immature Gran % (Auto) % Neutrophils % % Lymphocytes % % Monocytes % % Eosinophils % % Basophils % % Immature Gran # (0.00-0.04) 10*3/uL Neutrophils # (1.80-7.70) 10*3/uL Lymphocytes # (0.90-5.00) 10*3/uL Monocytes # (0.20-1.00) 10*3/uL Eosinophils # (0.04-0.35) 10*3/uL Basophils # (0.00-0.10) 10*3/uL Sodium (137-145) mmol/L Potassium (3.5-5.1) mmol/L Chloride (98-107) mmol/L Carbon Dioxide (22-30) mmol/L Anion Gap mmol/L BUN (7-17) mg/dL Creatinine (0.52-1.04) mg/dL Est GFR (CKD-EPI)AfAm (>60 ml/min/1.73 sqM) Est GFR (CKD-EPI)NonAf (>60 ml/min/1.73 sqM) Glucose (74-99) mg/dL Plasma Lactic Acid Reyes (0.7-2.0) mmol/L Calcium (8.4-10.2) mg/dL Magnesium (1.6-2.3) mg/dL Total Bilirubin (0.2-1.3) mg/dL AST (14-36) U/L ALT (4-34) U/L Alkaline Phosphatase (38-126) U/L Troponin I <0.012 (0.000-0.034) ng/mL Total Protein (6.3-8.2) g/dL Albumin (3.5-5.0) g/dL Disposition Clinical Impression: Dehydration Disposition: HOME SELF-CARE Condition: Stable Instructions (If sedation given, give patient instructions): Dehydration (ED) Additional Instructions: Dr. Mccarthy wants you to go home and rest. He does not want to see you at your appointment today. He wants you to reschedule and see him later this week. Return to the emergency department for any new or worsening symptoms Is patient prescribed a controlled substance at d/c from ED?: No Referrals: Bong Nichols MD [Primary Care Provider] - 1-2 days Time of Disposition: 10:32
[2024-08-31] MEDS: SODIUM CHLORIDE 0.9% 1,000 ML IV ONE (08:41)
[2024-08-31 09:23] LABS: Basophils # (A) 0.11 10*3/uL (0.00-0.10); Basophils % (A) 1.1 %; Eosinophils # (A) 0.05 10*3/uL (0.04-0.35); Eosinophils % (A) 0.5 %; HCT 39.8 % (37.2-46.3); HGB 12.7 g/dL (12.0-15.0); Lymphocytes # (A) 0.63 10*3/uL (0.90-5.00); Lymphocytes % (A) 6.2 %; MCH 27.4 pg (27.0-32.0); MCHC 31.9 g/dL (32.0-37.0); MCV 85.8 fL (80.0-97.0); Monocytes # (A) 0.39 10*3/uL (0.20-1.00); Monocytes % (A) 3.9 %; Neutrophils # (A) 8.91 10*3/uL (1.80-7.70); Neutrophils % (A) 88.0 %; Platelet Count 517 10*3/uL (140-440); RBC 4.64 10*6/uL (4.10-5.20); RDW 17.2 % (11.5-14.5); WBC 10.12 10*3/uL (4.50-10.00)
[2024-08-31 09:36] LABS: ALT 12 U/L (4-34); AST 19 U/L (14-36); African American GFR (CKD) 60 (>60 ml/min/1.73 sqM); Albumin 4.9 g/dL (3.5-5.0); Alkaline Phosphatase 125 U/L (38-126); Anion Gap 17 mmol/L; Blood Urea Nitrogen 23 mg/dL (7-17); Calcium 11.3 mg/dL (8.4-10.2); Carbon Dioxide 15 mmol/L (22-30); Chloride 106 mmol/L (98-107); Glucose 129 mg/dL (74-99); Magnesium 2.0 mg/dL (1.6-2.3); Non-African American GFR(CKD) 52 (>60 ml/min/1.73 sqM); Potassium 5.3 mmol/L (3.5-5.1); Sodium 138 mmol/L (137-145); Total Protein 9.6 g/dL (6.3-8.2)
[2024-08-31 10:48] VITALS: TEMP 97.9
[2024-08-31] MEDS: MORPHINE SULFATE 2 MG/ML SYRINGE IVP STA (11:31)
[2024-08-31 11:40] VITALS: BP 117/87; PULSE 82; RESP 16
== END 2024-08-31 10:48 | disposition home or self-care (01) ==
LOC: EC 07:35
DX: E86.0 Dehydration (principal); K61.1 Rectal abscess; E46 Unspecified protein-calorie malnutrition; E78.5 Hyperlipidemia, unspecified; I10 Essential (primary) hypertension; Z90.49 Acquired absence of other specified parts of digestive tract; Z87.891 Personal history of nicotine dependence; Z88.8 Allergy status to other drugs, medicaments and biological substances
CPT/HCPCS: 36415; 93005; 80053; 83605; 83735; 84484; 85025; 99285; 96374; 96361; J2270

== ENCOUNTER → 2024-08-31 | Outpatient (CLI) | payer OTHER ==
[2024-08-31 10:48] LABS: Basophils # (A) 0.23 X 10*3/uL (0.00-0.10); Basophils % (A) 1.7 %; Eosinophils # (A) 0.21 X 10*3/uL (0.04-0.35); Eosinophils % (A) 1.6 %; HCT 38.9 % (37.2-46.3); HGB 11.8 g/dL (12.0-15.0); Immature Grans, Automated 0.30 %; Lymphocytes # (A) 2.48 X 10*3/uL (0.90-5.00); Lymphocytes % (A) 18.3 %; MCH 26.5 pg (27.0-32.0); MCHC 30.3 g/dL (32.0-37.0); MCV 87.4 FL (80.0-97.0); Monocytes # (A) 0.96 X 10*3/uL (0.20-1.00); Monocytes % (A) 7.1 %; NRBC Per 100 WBC 0 X 10*3/uL (0.00-0.01); Neutrophils # (A) 9.62 X 10*3/uL (1.80-7.70); Neutrophils % (A) 71.0 %; Platelet Count 579 X 10*3/uL (140-440); RBC 4.45 X 10*6/uL (4.10-5.20); RDW 17.6 % (11.5-14.5); WBC 13.54 X 10*3/uL (4.50-10.00)
[2024-08-31 11:16] LABS: ALT 10 U/L (8-44); AST 18 U/L (13-35); Albumin 4.2 g/dL (3.8-4.9); Albumin/Globulin Ratio 1.14 Ratio (1.60-3.17); Alkaline Phosphatase 108 U/L (41-126); Anion Gap 16.70 mmol/L (4.00-12.00); BUN/Creat Ratio 16.69 Ratio (12.00-20.00); Blood Urea Nitrogen 21.7 mg/dL (9.0-27.0); Calcium 10.5 mg/dL (8.7-10.3); Carbon Dioxide 15.3 mmol/L (21.6-31.8); Chloride 102 mmol/L (96-109); Cholesterol 200.00 mg/dL (0.00-200.00); Ferritin 945.0 ng/mL (10.0-291.0); Globulin 3.7 g/dL (1.6-3.3); Glucose 138 mg/dL (70-110); HDL Cholesterol 76.60 mg/dL (40.00-60.00); Iron 32 UG/DL (50-170); LDL Cholesterol,Calculated 82.2 mg/dL (0.0-131.0); Magnesium 1.8 mg/dL (1.5-2.4); Potassium 3.9 mmol/L (3.5-5.5); Sodium 134 mmol/L (135-145); T4, Free (Free Thyroxine) 1.33 ng/dL (0.80-1.80); Total Iron Binding Capacity 221 UG/DL (228-460); Total Protein 7.9 g/dL (6.2-8.2); Triglycerides 206.00 mg/dL (0.00-149.00); Uric Acid 8.2 mg/dL (2.9-7.7); VLDL Calculation 41.20 mg/dL (5.00-40.00)
== END | disposition home or self-care (01) ==
LOC: LABWHC1 07:17
PROVIDERS: ATTEND Internal Medicine
DX: I95.9 Hypotension, unspecified (principal); E87.8 Other disorders of electrolyte and fluid balance, not elsewhere classified; E55.9 Vitamin D deficiency, unspecified; E78.5 Hyperlipidemia, unspecified; N39.0 Urinary tract infection, site not specified; D64.9 Anemia, unspecified; M10.9 Gout, unspecified; N17.9 Acute kidney failure, unspecified
CPT/HCPCS: 36415; 80053; 80061; 82306; 82728; 83540; 83550; 83735; 83970; 84100; 84439; 84443; 84481; 84550; 85025

== ENCOUNTER 2024-09-09 13:25 | Inpatient (IN) | payer OTHER ==
--- NOTE | 2024-09-09 14:10 | ED ---
General Adult HPI - General Chief complaint: GI Bleed Stated complaint: Weakness,Vaginal bleeding Time Seen by Provider: 09/09/24 13:30 Source: patient Mode of arrival: wheelchair Limitations: no limitations - History of Present Illness Initial comments: Patient is a 53-year-old female with a past medical history of ileostomy, multiple abdominal surgeries, rectal fistulas and abscess presenting today for rectal pain, bleeding and generalized weakness. States ongoing for the last 2 weeks. Has had intermittent episodes of nausea and vomiting, nonbloody nonbilious emesis. States she has "good days and bad days". Yesterday had episode of rectal bleeding where small amount of blood ran down her leg. Also notes pain around her ostomy however states that this is chronic. She is not on blood thinners. Over last week she has had decreased appetite, generalized weakness, dizziness with ambulation. Denies fevers endorses chills. Denies chest pain shortness of breath, focal numbness or focal weakness. Denies headache. Notes a sore throat. Denies dysuria or hematuria. - Related Data Home Medications Medication Instructions Recorded Confirmed Midodrine [ProAmatine] 5 mg PO BID 08/31/24 09/09/24 Acetaminophen Tab [Tylenol Tab] 1,000 mg PO Q6H PRN 09/09/24 09/09/24 Allergies Allergy/AdvReac Type Severity Reaction Status Date / Time lisinopril Allergy Anaphylaxis Verified 09/09/24 16:12 Review of Systems ROS Statement: Those systems with pertinent positive or pertinent negative responses have been documented in the HPI. ROS Other: All systems not noted in ROS Statement are negative. Past Medical History Past Medical History: Hyperlipidemia, Hypertension Additional Past Medical History / Comment(s): Iron deficiency anemia, "lung collapsed" may 2023 History of Any Multi-Drug Resistant Organisms: None Reported Past Surgical History: Section Additional Past Surgical History / Comment(s): Breast Biopsy; D/C for miscarriage, colon resection for bowel obstruction april 2023-ileostomy, was in ICU had trach, fistula repair may 2024 Past Anesthesia/Blood Transfusion Reactions: No Reported Reaction Past Psychological History: No Psychological Hx Reported Smoking Status: Former smoker Past Alcohol Use History: None Reported Past Drug Use History: Marijuana - Past Family History Mother Family Medical History: Cancer Additional Family Medical History / Comment(s): lung General Exam - General Exam Comments Initial Comments: PE: CONSTITUTIONAL: No apparent distress, chronically appearing, cachectic SKIN: Warm, dry, no jaundice, hives or petechiae rectal abscess EYES: Pupils are equally round, extraocular movements intact without nystagmus, clear conjunctiva, non-icteric sclera HENT: Normocephalic, atraumatic, dry mucus membranes, oropharynx clear without e xudates NECK: , Full range of motion, normal appearance PULMONARY: Clear to auscultation without wheezes, rhonchi, or rales, normal excursion, no accessory muscle use and no stridor CARDIOVASCULAR: Regular rate, rhythm, normal S1 and S2. No appreciated murmurs, rubs or gallops. Strong radial pulses with intact distal perfusion. GASTROINTESTINAL: Soft, active bowel sounds throughout, tenderness patient at base of fistula non-distended, palpable soft hernia to the left of fistula, no rebound or guarding. No hepatosplenomegaly ostomy shows rectal performed with Jamilah RN at bedside, shows large perirectal fistula GENITOURINARY: MUSCULOSKELETAL: Extremities have no gross deformity, no edema, redness, or swelling. NEUROLOGIC:_a/o x 3, GCS 15, normal mentation and speech. Moves all extremities x 4 without motor or sensory deficit PSYCHIATRIC:_normal mood and affect, thought process is clear and linear Limitations: no limitations Course Vital Signs 09/09/24 09/09/24 09/09/24 13:27 14:24 15:01 Temperature 97.8 F Pulse Rate 128 H 92 85 Respiratory 18 20 16 Rate Blood Pressure 121/89 111/90 113/82 O2 Sat by Pulse 95 99 100 Oximetry 09/09/24 09/09/24 09/09/24 15:32 16:45 17:59 Temperature 97.8 F Pulse Rate 71 85 65 Respiratory 16 18 16 Rate Blood Pressure 116/81 121/91 129/85 O2 Sat by Pulse 100 100 100 Oximetry EKG Findings - EKG Comments: EKG Findings:: Sinus rhythm, rate 93 bpm intervals in acceptable limits, no significant ST elevations or depressions, no arrhythmia Medical Decision Making - Medical Decision Making Was pt. sent in by a medical professional or institution (, PA, MERCHANDISE MANAGER, urgent care, hospital, or retirement...) When possible be specific @ -No Did you speak to anyone other than the patient for history (EMS, parent, family, police, friend...)? What history was obtained from this source @ -No Did you review nursing and triage notes (agree or disagree)? Why? @ -I reviewed nursing and triage notes Were old charts reviewed (outside hosp., previous admission, EMS record, old EKG, old radiological studies, urgent care reports/EKG's, retirement records)? Report findings @ -Medical records reviewed-Reviewed CT from 08/15/2024, showed no significant changes from study from 07/21/2024, persistent large parastomal hernia containing fat numerous nonobstructed bowel loops no evidence of small bowel obstruction Differential Diagnosis (chest pain, altered mental status, abdominal pain women, abdominal pain men, vaginal bleeding, weakness, fever, dyspnea, syncope, headache, dizziness, GI bleed, back pain, seizure, CVA, palpatations, mental health, musculoskeletal)? @Differential Abdominal Pain Women: Appendicitis, Cholecystitis, diverticulosis, ischemic bowel, pancreatitis, hepatitis, UTI, gastroenteritis, AAA, incarcerated hernia, bowel obstruction, constipation, inflammatory bowel, hepatitis, peptic ulcer disease, splenic infarction, perforated viscus, PID, kidney stone, this is not meant to be an all-inclusive list Differential GI Bleed: Esophageal varices, aortoenteric fistula, Shawna-Delgado, gastritis, peptic ulcer disease, diverticulosis, inflammatory bowel disease, hemorrhoids, fissure, colit is, malignancy, Meckel's diverticulum, this is not meant to be an all-inclusive list. Differential Weakness: Hypoglycemia, shock, sepsis, hyponatremia, anemia, infection, AK, ETOH, adverse medicine reaction, overdose, stroke, this is not meant to be an all-inclusive list. EKG interpreted by me (3pts min.). @ -As above X-rays interpreted by me (1pt min.). @ -None done CT interpreted by me (1pt min.). Reviewed CT scan, I see no evidence of free air to indicate perforation, no evidence of obstruction agree with radiologist interpretation U/S interpreted by me (1pt. min.). @ -None done What testing was considered but not performed or refused? (CT, X-rays, U/S, labs)? Why? @ -None What meds were considered but not given or refused? Why? @ -None Did you discuss the management of the patient with other professionals (professionals i.e. , CARMELO, MERCHANDISE MANAGER, lab, RT, psych nurse, child welfare social worker, bridge welder, teacher, intelligence support officer, dependency case manager)? Give summary @ -No Was smoking cessation discussed for >3mins.? @ -No Was critical care preformed (if so, how long)? @ -No Were there social determinants of health that impacted care today? How? (Homelessness, low income, unemployed, alcoholism, drug addiction, transportation, low edu. Level, literacy, decrease access to med. care, nursing home, rehab)? @ -No Was there de-escalation of care discussed even if they declined (Discuss DNR or withdrawal of care, Hospice)? @ -No What co-morbidities impacted this encounter? (DM, HTN, Smoking, COPD, CAD, Cancer, CVA, ARF, Chemo, Hep., AIDS, mental health diagnosis, sleep apnea, morbid obesity)? @ -Perirectal abscess chronic Was patient admitted / discharged? Hospital course, mention meds given and route, prescriptions, significant lab abnormalities, going to OR and other pertinent info. @ Admission- Pt is a pleasant 53-year-old female history as above, presenting today for generalized weakness and rectal bleeding. Patient is tachycardic on arrival with heart rate 128. On my assessment she is chronically ill-appearing and cachectic. Rectal exam was performed MADAI Askew at bedside showed perirectal fistula. No active bleeding. There was tenderness to palpation around her stoma, stoma is draining rust colored seedy stool. Discussed with patient plan for pain medications fluids, labs. Will obtain CT abdomen pelvis to ensure no acute process. Patient agreeable with plan of care. Labs were ultimately significant for leukocytosis white blood count 20.26 with left shift, mild hyponatremia sodium 127, MARISA, creatinine 1.6 GFR 36, previously 1.18 on 08/31/2024, hypercalcemia, calcium 11.2 suspect hypercalcemia and MARISA are secondary to dehydration, lactic 0.9. On reassessment patient endorses impro vement in pain though is still mild in nature. Will order additional pain control.CT scan was significant for no change in patient's "massively enlarged uterus with multiple fibroids" no change in the ileostomy with parastomal hernia as described above. Discussed with patient plan for admission due to MARISA and leukocytosis. Case was discussed w/ Dr. Nichols, we did discuss considering transfer patient to [facility] as she is supposed to follow-up with them on Saturday regarding her perirectal fistula however patient would prefer to stay here. Ultimately with further discussion, Dr. Nichols kindly accepted patient for admission for MARISA, nephrology and infectious disease consultation. Undiagnosed new problem with uncertain prognosis? @ -No Drug Therapy requiring intensive monitoring for toxicity (Heparin, Nitro, Insulin, Cardizem)? @ -No Were any procedures done? @ -No Diagnosis/symptom? @ Abdominal pain, dehydration, MARISA Acute, or Chronic, or Acute on Chronic? @ -acute Uncomplicated (without systemic symptoms) or Complicated (systemic symptoms)? @complicated Side effects of treatment? @ -No Exacerbation, Progression, or Severe Exacerbation? @ -No Poses a threat to life or bodily function? How? (Chest pain, USA, AK, pneumonia, PE, COPD, DKA, ARF, appy, cholecystitis, CVA, Diverticulitis, Homicidal, Suicidal, threat to staff... and all critical care pts) @ possibly - Lab Data Result diagrams: 09/09/24 14:14 09/10/24 06:17 Lab Results 09/09/24 09/09/24 09/09/24 Range/Units 14:05 14:14 14:14 WBC 20.26 H (4.50-10.00) 10*3/uL RBC 4.78 (4.10-5.20) 10*6/uL Hgb 13.1 (12.0-15.0) g/dL Hct 40.0 (37.2-46.3) % MCV 83.7 (80.0-97.0) fL MCH 27.4 (27.0-32.0) pg MCHC 32.8 (32.0-37.0) g/dL Plt Count 520 H (140-440) 10*3/uL MPV 10.8 (9.5-12.2) fL Immature Gran % (Auto) 0.6 % Neutrophils % 83.3 % Lymphocytes % 6.1 % Monocytes % 8.6 % Eosinophils % 0.3 % Basophils % 1.1 % Immature Gran # 0.13 H (0.00-0.04) 10*3/uL Neutrophils # 16.87 H (1.80-7.70) 10*3/uL Lymphocytes # 1.23 (0.90-5.00) 10*3/uL Monocytes # 1.75 H (0.20-1.00) 10*3/uL Eosinophils # 0.06 (0.04-0.35) 10*3/uL Basophils # 0.22 H (0.00-0.10) 10*3/uL PT 10.7 (10.0-12.5) sec INR 1.0 (<1.2) APTT 25.0 (22.0-30.0) sec Sodium (137-145) mmol/L Potassium (3.5-5.1) mmol/L Chloride (98-107) mmol/L Carbon Dioxide (22-30) mmol/L Anion Gap mmol/L BUN (7-17) mg/dL Creatinine (0.52-1.04) mg/dL Est GFR (CKD-EPI)AfAm (>60 ml/min/1.73 sqM) Est GFR (CKD-EPI)NonAf (>60 ml/min/1.73 sqM) Glucose (74-99) mg/dL Calcium (8.4-10.2) mg/dL Magnesium (1.6-2.3) mg/dL Total Bilirubin (0.2-1.3) mg/dL AST (14-36) U/L ALT (4-34) U/L Alkaline Phosphatase (38-126) U/L Troponin I (0.000-0.034) ng/mL Total Protein (6.3-8.2) g/dL Albumin (3.5-5.0) g/dL Lipase (23-300) U/L Influenza Type A (PCR) (Not Detectd) Influenza Type B (PCR) (Not Detectd) RSV (PCR) (Not Detectd) SARS-CoV-2 (PCR) (Not Detectd) Blood Type A Positive Blood Type Recheck A Pos Bld Type Recheck Status No Antibody Screen NEGATIVE Spec Expiration Date 09/12/2024230409/09/24 09/09/24 09/09/24 Range/Units 14:14 14:14 14:14 WBC (4.50-10.00) 10*3/uL RBC (4.10-5.20) 10*6/uL Hgb (12.0-15.0) g/dL Hct (37.2-46.3) % MCV (80.0-97.0) fL MCH (27.0-32.0) pg MCHC (32.0-37.0) g/dL Plt Count (140-440) 10*3/uL MPV (9.5-12.2) fL Immature Gran % (Auto) % Neutrophils % % Lymphocytes % % Monocytes % % Eosinophils % % Basophils % % Immature Gran # (0.00-0.04) 10*3/uL Neutrophils # (1.80-7.70) 10*3/uL Lymphocytes # (0.90-5.00) 10*3/uL Monocytes # (0.20-1.00) 10*3/uL Eosinophils # (0.04-0.35) 10*3/uL Basophils # (0.00-0.10) 10*3/uL PT (10.0-12.5) sec INR (<1.2) APTT (22.0-30.0) sec Sodium 127 L (137-145) mmol/L Potassium 4.9 (3.5-5.1) mmol/L Chloride 97 L (98-107) mmol/L Carbon Dioxide 11 L (22-30) mmol/L Anion Gap 19 mmol/L BUN 46 H (7-17) mg/dL Creatinine 1.60 H (0.52-1.04) mg/dL Est GFR (CKD-EPI)AfAm 42 (>60 ml/min/1.73 sqM) Est GFR (CKD-EPI)NonAf 36 (>60 ml/min/1.73 sqM) Glucose 126 H (74-99) mg/dL Calcium 11.2 H (8.4-10.2) mg/dL Magnesium 2.0 (1.6-2.3) mg/dL Total Bilirubin 0.6 (0.2-1.3) mg/dL AST 21 (14-36) U/L ALT 10 (4-34) U/L Alkaline Phosphatase 134 H (38-126) U/L Troponin I <0.012 (0.000-0.034) ng/mL Total Protein 9.3 H (6.3-8.2) g/dL Albumin 4.6 (3.5-5.0) g/dL Lipase 117 (23-300) U/L Influenza Type A (PCR) Not Detected (Not Detectd) Influenza Type B (PCR) Not Detected (Not Detectd) RSV (PCR) Not Detected (Not Detectd) SARS-CoV-2 (PCR) Not Detected (Not Detectd) Blood Type Blood Type Recheck Bld Type Recheck Status Antibody Screen Spec Expiration Date Disposition Clinical Impression: MARISA (acute kidney injury) Disposition: ADMITTED IP TO THIS [facility] Condition: Stable
[2024-09-09 14:22] LABS: Basophils # (A) 0.22 10*3/uL (0.00-0.10); Basophils % (A) 1.1 %; Eosinophils # (A) 0.06 10*3/uL (0.04-0.35); Eosinophils % (A) 0.3 %; HCT 40.0 % (37.2-46.3); HGB 13.1 g/dL (12.0-15.0); Lymphocytes # (A) 1.23 10*3/uL (0.90-5.00); Lymphocytes % (A) 6.1 %; MCH 27.4 pg (27.0-32.0); MCHC 32.8 g/dL (32.0-37.0); MCV 83.7 fL (80.0-97.0); Monocytes # (A) 1.75 10*3/uL (0.20-1.00); Monocytes % (A) 8.6 %; Neutrophils # (A) 16.87 10*3/uL (1.80-7.70); Neutrophils % (A) 83.3 %; Platelet Count 520 10*3/uL (140-440); RBC 4.78 10*6/uL (4.10-5.20); RDW 17.1 % (11.5-14.5); WBC 20.26 10*3/uL (4.50-10.00)
[2024-09-09] MEDS: ONDANSETRON 4 MG/2 ML VIAL IVP STA (14:27)
[2024-09-09] MEDS: HYDROmorphone 0.5 MG/0.5 ML SYRINGE IVP STA (14:29)
[2024-09-09] MEDS: SODIUM CHLORIDE 0.9% 1,000 ML IV STA (14:29)
[2024-09-09 14:37] LABS: ALT 10 U/L (4-34); African American GFR (CKD) 42 (>60 ml/min/1.73 sqM); Albumin 4.6 g/dL (3.5-5.0); Anion Gap 19 mmol/L; Blood Urea Nitrogen 46 mg/dL (7-17); Calcium 11.2 mg/dL (8.4-10.2); Carbon Dioxide 11 mmol/L (22-30); Chloride 97 mmol/L (98-107); Glucose 126 mg/dL (74-99); Lipase 117 U/L (23-300); Non-African American GFR(CKD) 36 (>60 ml/min/1.73 sqM); Sodium 127 mmol/L (137-145); Total Protein 9.3 g/dL (6.3-8.2)
[2024-09-09 14:56] LABS: INR 1.0 (<1.2); Partial Thromboplastin Time 25.0 sec (22.0-30.0); Prothrombin Time 10.7 sec (10.0-12.5)
[2024-09-09 14:58] LABS: RSV Not Detected (Not Detectd)
[2024-09-09 15:01] LABS: Potassium 4.9 mmol/L (3.5-5.1)
[2024-09-09 15:02] LABS: AST 21 U/L (14-36); Alkaline Phosphatase 134 U/L (38-126); Magnesium 2.0 mg/dL (1.6-2.3)
--- NOTE | 2024-09-09 15:06 | CT ---
EXAMINATION TYPE: CT abdomen pelvis w con DATE OF EXAM: 09/09/2024 COMPARISON: 08/15/2024 CLINICAL INDICATION: Female, 53 years old with history of ileostomy, known rectal abscess; PHH, ileos keri, known rectal abscess, abdominal pain, rectal bleeding TECHNIQUE: Performed without Oral Contrast and with IV Contrast, patient injected with 75cc mL of Isovue 300. CT DLP: 331.[address] CTDI: mGy Automated exposure control for dose reduction was used. FINDINGS: The lung bases are clear. The gallbladder is normal without distention, wall thickening, pericholecystic fluid or gallstones. T here is no biliary ductal dilatation. There is no focal mass or organomegaly involving the liver, pancreas, spleen or adrenal glands. There is no solid renal mass or hydronephrosis and there is homogeneous contrast enhancement of the r enal parenchyma. The caliber the abdominal aorta is normal is no retroperitoneal adenopathy or hemorr rosalinda. There is no change in a large right lower quadrant ileostomy with large parastomal hernia containing nonobstructed and nonstrangulated bowel. Evaluation of the bowel is somewhat limited due to paucity o f abdominal and pelvic fat. There is no free intraperitoneal air or fluid. There is large heterogeneous mass involving the pelvis with scattered popcorn type calcifications con sistent with markedly enlarged fibroid uterus. There is an IUD device. The osseous structures are intact. IMPRESSION: 1. No change in the massively enlarged uterus with multiple fibroids. 2. No change in the ileostomy with parastomal hernia as described above [facility], , 09/09/2024 3:04 PM
[2024-09-09] MEDS ORDERED: HYDROmorphone 0.5 MG/0.5 ML SYRINGE IVP PRN (16:22)
[2024-09-09] MEDS ORDERED: ALPRAZolam 0.25 MG TAB PO PRN (16:22)
[2024-09-09] MEDS ORDERED: NALOXONE 0.4 MG/ML 1 ML VIAL IV PRN (16:22)
[2024-09-09] MEDS: HYDROmorphone 1 MG/ML 1 ML SYRINGE IVP STA (16:52)
[2024-09-09] MEDS: CEFEPIME 2 GM in SODIUM CHLORIDE 0.9% 100 ML IVPB STA (16:54)
[2024-09-09] MEDS: metroNIDAZOLE-NS PMX 500 MG in SALINE 1 100ML.BAG IVPB STA (17:31)
[2024-09-09] MEDS ORDERED: DEXTROSE 5% IN WATER 1,000 ML with SODIUM BICARB (1 MEQ/ML) 150 ML IV SCH (18:00)
[2024-09-09 18:25] LABS: ALT 7 U/L (4-34); AST 13 U/L (14-36); African American GFR (CKD) 62 (>60 ml/min/1.73 sqM); Albumin 3.7 g/dL (3.5-5.0); Alkaline Phosphatase 120 U/L (38-126); Anion Gap 14 mmol/L; Blood Urea Nitrogen 40 mg/dL (7-17); Calcium 10.0 mg/dL (8.4-10.2); Carbon Dioxide 10 mmol/L (22-30); Chloride 104 mmol/L (98-107); Glucose 106 mg/dL (74-99); Magnesium 1.9 mg/dL (1.6-2.3); Non-African American GFR(CKD) 53 (>60 ml/min/1.73 sqM); Potassium 4.3 mmol/L (3.5-5.1); Sodium 128 mmol/L (137-145); Total Protein 7.5 g/dL (6.3-8.2)
--- NOTE | 2024-09-09 18:38 | P.HPIM ---
History of Present Illness H&P Date: 09/09/24 Chief Complaint: Rectal bleeding, hypotension, severe dehydration, hyponatremia, MARISA. History and physical Date of service 09/09/[address] Nichols Location patient seen in the ER room 16. Chief complaint: Patient presented to Dr. Tejeda in the [place] emergency room, Complaint with bleeding per rectum last night and this morning from the area that she had fistulectomy with surgery done x [address] Platt in [facility]. Who sent her to currently [facility] outpatient surgery clinic which will be on Saturday, 14 September appointment Patient experienced dizziness, lightheaded with going to the bathroom which worsening with the underlying severe weight loss and dehydration and acute kidney injury She has been admitted to the hospital in [place] recently and seen by several specialist including HORIZONTAL RESAW OPERATOR for still presence of IUD for more than 30 years and fibroid of the uterus no action done at that time and was seen by Dr. Allyssa Schwab. Also was seen by surgeon Dr. Posada and at that time he referred her to go to her primary surgeon Dr. Brown who did 3 surgery for hysterectomy and he decided that he could not do more than that send her to [facility] which she could not go subsequently to [facility] surgical clinic who is having the appointment on September 14. History of present illness: Patient had history of acute ruptured diverticula in the sigmoid area underwent colostomy in the left side which done at [facility] by Dr. Huber and at that time she had multiple complication and she was admitted to the ICU and also had tracheostomy and placed on vent and subsequently observed and discharged. After 6 months was told that they may able to do revision at that time she was seen by Dr. Brown in [facility], who able to do reverse the colostomy, but he found another abnormalities in the ileum however we do not know what abnormalities he find and at that time he did ileostomy. Patient lost significant weight and in between she was admitted to [facility] at that time and found that has UTI and sepsis with the ESBL and treated by the infectious disease in that facility and subsequently discharged home. Patient subsequently seen by Dr. 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 Patient underwent fistulectomy x 2 and she still have a problem and she admitted to [place] and hydrated and she had also acute kidney injury at that time with the large amount of fluid in the back patient treated and patient referred back to her primary surgeon Dr. Olsen as or surgeons in the [place] stated that he goes back to the primary surgeon for her problem, patient subsequently had another third surgery for fistulectomy by Dr. Brown with another surgeon with them. Patient continued to have weight loss and abdominal pain, bleeding per rectal from the surgical fistulectomy and sepsis recurrent. In her last admission to [place]: She had sepsis and she had infection treated with antibiotic and also she had severe dehydration and acute kidney injury and she was seen by the infectious disease as well as nephrology on last admitted admission beside she was seen by HORIZONTAL RESAW OPERATOR Dr. Monalisa Baig who was not concerned about the fibroid large as well as the IUD that has been there for 30 years and the question was if this causing her the recurrent sepsis or not. Patient seen also by gastroenterology Dr. Barahona on that admission and seen by several consulting physicians and patient treated and the white count improved and hydrated and discharged home As outpatient patient has severe dehydration and hypotension with the blood pressure reaching 80s systolic over 50 with the symptomatic and she came to the ER and was referred back to [facility] however no action was done and they discharged her again Patient need aggressive hydration with her loss of muscle mass and dehydration with acute kidney injury and has a laboratory reviewed she today on 09/09/2024: Leukocytosis with WBC 20.26, hemoglobin 13.1 however that is hemoconcentration and her average hemoglobin is 10 with the chronic surgical intervention, her platelet count is 520. She had a normal PT and PTT and INR Sodium 127 with hyponatremia, her carbon dioxide 11 and chloride 97 on the low side BUN 46 and creatinine 1.60, patient normally her creatinine 0.70.8 with the GFR more than 90 after she have good hydration currently her GFR is 42 for Yessi, her calcium 11.2 with the hypercalcemia which has similar in the last admission once hydrated went back to the normal level also her magnesium although it is now 2 is normal but once she had the hydration she get hypomagnesemia. The alkaline phosphatase 134 elevated Her total protein 9.3 due to volume depletion last time has similar finding with hydration back to normal her albumin 4.6 however she is emaciated and has also due to the severe dehydration lipase 117 normal. Serology influenza A PCR, influenza B PCR, RSV, SARSCOVID2 PCR was negative. ROS: Vital signs on admission look like stable however that because she is taking midodrine 5 mg twice a day to keep her blood pressure up to the kidney from acute kidney injury and still occurred. With dehydration. Neuropsychiatry no complaint Cardiovascular no palpitations or chest pain but she had dizziness could not manage even going to the bathroom with severe lightheaded. Respiratory no shortness of breath GI multiple medical problem could not be solved by her surgeon who referred her to [facility] she has currently ileostomy bag which is functioning She had fistulectomy and bleeding per rectum. However the hemoglobin 13.1, hematocrit 40 with the severe dehydration Endocrine no history of diabetes mellitus but she had history of hypertension in the past prior all the surgery that done to her and currently is hypotensive. She had history of previous admission metabolic acidosis as well. Genitourinary: She had large fibroid as well as IUD which she has not for at least 30 years and I was suspicious of infection however Dr. Marcelino Baig HORIZONTAL RESAW OPERATOR he was not concerned. No behavioral disturbance. Rest of the [place] [address] was not helpful. On the physical exam: Patient is conscious alert oriented x 3 no history of confusion or disorientation, but she has significant history of lightheaded and weakness and inability to navigate at home or doing her ADLs. Her vital signs on admission indicate that her temperature 97.8 F4 and pulse rate 92 and respiratory rate 20 and blood pressure 111/90 with the midodrine her oxygen saturation 99 on room air. Head was normocephalic atraumatic, pupil was equal reactive, conjunctiva was pale, oropharynx normal natural teeth uvula midline, normal hearing, no nasal discharge Neck was supple no JVD no thyromegaly no lymph adenopathy trachea midline with the history of tracheostomy was close Chest: She had a mild kyphosis mild increased anteroposterior diameter however normal breath sound no rhonchi's or wheezes Heart: Regular sinus rhythm with the PMI in the fifth intercostal space normal S1-S2 no gallop Abdomen: She had ileostomy with a reversed colostomy and functioning bag with the stool, no tenderness in the 4 quadrant Extremities no edema and positive pulses bilateral and symmetrical. Neurologically stable normal reflexes and cranial nerves II to XII was intact no tremor. Psychiatry stable. Assessment: 1. Leukocytosis, rule out sepsis 2. Rectal bleeding at home and this morning from the previous surgery on the fistulectomy 3. Acute kidney injury with metabolic acidosis carbon dioxide was 11. 4. Hemoconcentration secondary to volume depletion 5. Hypercalcemia, elevated BUN and creatinine, could be underlying severe volume depletion and weight loss 6. Lactic acid was normal on admission Plan: Will consult infectious disease Dr. Medina Will consult Dr. Jimenez the nephrology Aggressive hydration Sodium bicarb in D5 discussed with the pharmacist Discussed with the patient that we will be hydrating her in the next 3 days and hopefully we will be able to discharge her prior to her appointment to the surgical clinic at [facility] on September 14 so she can have definitive treatment for her rectal bleeding with recurrent 3 times surgery for fistulectomy as we consulted our surgeon in the hospital in the previous admission and they could not do any surgical intervention for her. Past Medical History Past Medical History: Hyperlipidemia, Hypertension Additional Past Medical History / Comment(s): Iron deficiency anemia, "lung collapsed" may 2023 History of Any Multi-Drug Resistant Organisms: None Reported Past Surgical History: Section Additional Past Surgical History / Comment(s): Breast Biopsy; D/C for miscarriage, colon resection for bowel obstruction april 2023-ileostomy, was in ICU had trach, fistula repair may 2024 Past Anesthesia/Blood Transfusion Reactions: No Reported Reaction Past Psychological History: No Psychological Hx Reported Smoking Status: Former smoker Past Alcohol Use History: None Reported Past Drug Use History: Marijuana - Past Family History Mother Family Medical History: Cancer Additional Family Medical History / Comment(s): lung Medications and Allergies Home Medications Medication Instructions Recorded Confirmed Type Midodrine [ProAmatine] 5 mg PO BID 08/31/24 09/09/24 History Acetaminophen Tab [Tylenol Tab] 1,000 mg PO Q6H PRN 09/09/24 09/09/24 History Allergies Allergy/AdvReac Type Severity Reaction Status Date / Time lisinopril Allergy Anaphylaxis Verified 09/09/24 16:12 Physical Exam Vitals: Vital Signs Temp Pulse Resp BP Pulse Ox 09/09/24 16:45 85 18 121/91 100 09/09/24 15:32 71 16 116/81 100 09/09/24 15:01 85 16 113/82 100 09/09/24 14:24 92 20 111/90 99 09/09/24 13:27 97.8 F 128 H 18 121/89 95 Intake and Output 09/09/24 09/09/24 09/09/24 06:59 14:59 22:59 Other: Weight 34.019 kg Results CBC & Chem 7: 09/09/24 14:14 09/09/24 14:14 Labs: Abnormal Lab Results - Last 24 Hours (Table) 09/09/24 09/09/24 Range/Units 14:14 14:14 WBC 20.26 H (4.50-10.00) 10*3/uL Plt Count 520 H (140-440) 10*3/uL Immature Gran # 0.13 H (0.00-0.04) 10*3/uL Neutrophils # 16.87 H (1.80-7.70) 10*3/uL Monocytes # 1.75 H (0.20-1.00) 10*3/uL Basophils # 0.22 H (0.00-0.10) 10*3/uL Sodium 127 L (137-145) mmol/L Chloride 97 L (98-107) mmol/L Carbon Dioxide 11 L (22-30) mmol/L BUN 46 H (7-17) mg/dL Creatinine 1.60 H (0.52-1.04) mg/dL Glucose 126 H (74-99) mg/dL Calcium 11.2 H (8.4-10.2) mg/dL Alkaline Phosphatase 134 H (38-126) U/L Total Protein 9.3 H (6.3-8.2) g/dL
[2024-09-09] MEDS: HEPARIN SODIUM,PORCINE 5,000 UNIT/ML 1 ML VIAL SQ SCH (19:58)
[2024-09-09] MEDS: SODIUM CHLORIDE 0.9% 1,000 ML IV SCH (20:07)
[2024-09-09] MEDS: DEXTROSE 5% IN WATER 1,000 ML with SODIUM BICARB (1 MEQ/ML) 150 ML IV SCH (20:11)
[2024-09-10] MEDS: PIPERACILLIN-TAZOBACTAM 3.375 GM in SODIUM CHLORIDE 0.9% 100 ML IVPB SCH (01:16)
[2024-09-10] MEDS: HYDROmorphone 1 MG/ML 1 ML SYRINGE IVP PRN (01:48)
--- NOTE | 2024-09-10 07:14 | P.CONS ---
History of Present Illness - Reason for Consult Consult date: 09/09/24 Leukocytosis, known perirectal abscess Requesting physician: Jody Tejeda - Chief Complaint Perirectal pain and drainage x days - History of Present Illness Patient is a 53-year-old -[place]wegian female with a past medical history significant for hypertension hyperlipidemia and also a complicated history of perforated diverticulitis with sepsis in 2023 with the patient was treated at [facility] and did have colostomy subsequently patient did have r evision of the colostomy however at that time she noticed to have a fistula and the patient did have ileostomy and subsequent recent revision of the fistulectomy patient was admitted in June 2024 noticed to have a increased rectal pain and drainage concerning for infected fistula culture at that time were positive for E. coli and Yina with the patient was discharged on Augmentin and Diflucan as she was supposed to follow-up with the surgeon for further surgical care patient is a male presenting to [facility] ER concerning for rectal pain bleeding and generalized weakness symptom has been getting worse for the last 2 weeks patient describing the pain to be sharp moderate intensity without any radiation with associated nausea and vomiting patient complaining of bleeding as well as pus draining from her perirectal fistula did have some chills with the send the patient has been evaluated on presentation to the hospital patient was afebrile and no fever have been called subsequently patient was tachycardic but not hypotensive or hypoxic no need for supplemental oxygen she did have a white count of 20.26 with a left shift. Creatinine has been mildly elevated liver enzymes are normal influenza RSV COVID testing was negative patient did have abdominal pelvis CT no change in the enlarged uterus with multiple fibroids no change in the ileostomy with a parastomal hernia tender for any comment on the fistula or any perirectal abscess patient did receive a dose of cefepime infectious disease was consulted for further management of antibiotic therapy Review of Systems Positive point and negatives has been mentioned in the HPI, complete review of systems was performed and all other systems are negative Past Medical History Past Medical History: Hyperlipidemia, Hypertension Additional Past Medical History / Comment(s): Iron deficiency anemia, "lung collapsed" may 2023 History of Any Multi-Drug Resistant Organisms: None Reported Past Surgical History: Section Additional Past Surgical History / Comment(s): Breast Biopsy; D/C for miscarriage, colon resection for bowel obstruction april 2023-ileostomy, was in ICU had trach, fistula repair may 2024 Past Anesthesia/Blood Transfusion Reactions: No Reported Reaction Past Psychological History: No Psychological Hx Reported Smoking Status: Former smoker Past Alcohol Use History: None Reported Past Drug Use History: Marijuana - Past Family History Mother Family Medical History: Cancer Additional Family Medical History / Comment(s): lung Medications and Allergies Home Medications Medication Instructions Recorded Confirmed Type Midodrine [ProAmatine] 5 mg PO BID 08/31/24 09/09/24 History Acetaminophen Tab [Tylenol Tab] 1,000 mg PO Q6H PRN 09/09/24 09/09/24 History Allergies Allergy/AdvReac Type Severity Reaction Status Date / Time lisinopril Allergy Anaphylaxis Verified 09/09/24 16:12 Physical Exam Vitals: Vital Signs Temp Pulse Pulse Resp BP BP Pulse Ox 09/09/24 20:00 97.5 F L 71 17 97/63 98 09/09/24 17:59 97.8 F 65 16 129/85 100 09/09/24 16:45 85 18 121/91 100 09/09/24 15:32 71 16 116/81 100 09/09/24 15:01 85 16 113/82 100 09/09/24 14:24 92 20 111/90 99 09/09/24 13:27 97.8 F 128 H 18 121/89 95 Intake and Output 09/09/24 09/09/24 09/09/24 06:59 14:59 22:59 Other: # Voids 1 Weight 34.019 kg 34.019 kg GENERAL DESCRIPTION: Middle-age female lying in bed, no distress. No tachypnea or accessory muscle of respiration use. HEENT: Shows Pallor , no scleral icterus. Oral mucous membrane is dry. NECK: Trachea central, no thyromegaly. LUNGS: Unlabored breathing. Clear to auscultation anteriorly. No wheeze or crackle. HEART: S1, S2, regular rate and rhythm. No loud murmur ABDOMEN: Soft, no tenderness , patient did have a significant perirectal fistula with purulent drainage which was cultured EXTREMITIES: No edema of feet. SKIN: No rash, no masses palpable. NEUROLOGICAL: The patient is awake, alert, oriented x3, mood and affect normal. Results CBC & Chem 7: 09/09/24 14:14 09/09/24 18:00 Labs: Abnormal Lab Results - Last 24 Hours (Table) 09/09/24 09/09/24 09/09/24 Range/Units 14:14 14:14 18:00 WBC 20.26 H (4.50-10.00) 10*3/uL Plt Count 520 H (140-440) 10*3/uL Immature Gran # 0.13 H (0.00-0.04) 10*3/uL Neutrophils # 16.87 H (1.80-7.70) 10*3/uL Monocytes # 1.75 H (0.20-1.00) 10*3/uL Basophils # 0.22 H (0.00-0.10) 10*3/uL Sodium 127 L 128 L (137-145) mmol/L Chloride 97 L (98-107) mmol/L Carbon Dioxide 11 L 10 L (22-30) mmol/L BUN 46 H 40 H (7-17) mg/dL Creatinine 1.60 H 1.16 H (0.52-1.04) mg/dL Glucose 126 H 106 H (74-99) mg/dL Calcium 11.2 H (8.4-10.2) mg/dL AST 13 L (14-36) U/L Alkaline Phosphatase 134 H (38-126) U/L Total Protein 9.3 H (6.3-8.2) g/dL Assessment and Plan (1) Sepsis Current Visit: Yes Status: Acute Code(s): A41.9 - SEPSIS, UNSPECIFIED ORGANISM SNOMED Code(s): 65004470 (2) Perirectal abscess Current Visit: Yes Status: Acute Code(s): K61.1 - RECTAL ABSCESS SNOMED Code(s): 22784692 Plan: 1patient presented hospital with weakness chills perirectal pain and drainage in this patient who did have a tachycardia elevated white count meeting criteria for SIRS/sepsis source likely perirectal abscess/infected fistula and likely need to cover for the enteric gram-negative to be the likely pathogen 2local culture have been obtained that should guide further antibiotic therapy 3we will empirically start the patient on Zosyn 3.375 g every 8 hours 4patient mention she did have a appointment with [facility] surgeon on Saturday it may be blakely to get the patient transferred there for further local care We will follow on clinical condition and cultures to further adjust medication if needed Thank you for this consultation we will follow the patient along with you Dictation was produced using [employer] dictation software. please excuse any grammatical, word or spelling errors. Time with Patient: Greater than 30
[2024-09-10 07:16] LABS: ALT 8 U/L (4-34); AST 15 U/L (14-36); African American GFR (CKD) 77 (>60 ml/min/1.73 sqM); Albumin 3.5 g/dL (3.5-5.0); Alkaline Phosphatase 108 U/L (38-126); Anion Gap 10 mmol/L; Blood Urea Nitrogen 36 mg/dL (7-17); Calcium 10.4 mg/dL (8.4-10.2); Carbon Dioxide 17 mmol/L (22-30); Chloride 104 mmol/L (98-107); Glucose 100 mg/dL (74-99); Magnesium 2.0 mg/dL (1.6-2.3); Non-African American GFR(CKD) 67 (>60 ml/min/1.73 sqM); Potassium 4.1 mmol/L (3.5-5.1); Sodium 131 mmol/L (137-145); Total Protein 7.0 g/dL (6.3-8.2)
[2024-09-10] MEDS: PANTOPRAZOLE 40 MG/10 ML VIAL IV SCH (08:10)
--- NOTE | 2024-09-10 10:16 | P.NPCON ---
History of Present Illness - Reason for Consult acute renal failure - History of Present Illness Reason for consultation: Acute kidney injury History of present illness: Patient is a 53-year-old female seen in renal consultation for acute kidney injury. Creatinine was 1.6 on admission and is improved to 0.96 today. Patient came to the hospital due to rectal bleeding. Patient has an ileostomy but stat es she still has mucousy output from the rectum. Patient states she woke up around 3 AM and noticed red blood coming down her leg. She denies taking any blood thinners. No hematuria or dysuria. Admits to good urine output. She is currently receiving IV fluids. Denies use of nonsteroidals. Denies history of diabetes or coronary artery disease. She did undergo a CT of the abdomen and pelvis with IV contrast on September 09, 2024 which showed no acute changes. No hydronephrosis was noted. Denies chest pain or shortness of breath. Denies excessive output from the ileostomy. No vomiting. Vital signs are stable. General: No acute distress. HEENT: Head exam is unremarkable. LUNGS: No audible rhonchi or wheezes. HEART: Rate and Rhythm are regular. ABDOMEN: Ileostomy noted. EXTREMITITES: No edema. Past Medical History Past Medical History: Hyperlipidemia, Hypertension Additional Past Medical History / Comment(s): Iron deficiency anemia, "lung collapsed" may 2023 History of Any Multi-Drug Resistant Organisms: None Reported Past Surgical History: Section Additional Past Surgical History / Comment(s): Breast Biopsy; D/C for miscarr iage, colon resection for bowel obstruction april 2023-ileostomy, was in ICU had trach, fistula repair may 2024 Past Anesthesia/Blood Transfusion Reactions: No Reported Reaction Past Psychological History: No Psychological Hx Reported Smoking Status: Former smoker Past Alcohol Use History: None Reported Past Drug Use History: Marijuana - Past Family History Mother Family Medical History: Cancer Additional Family Medical History / Comment(s): lung Medications and Allergies Home Medications Medication Instructions Recorded Confirmed Type Midodrine [ProAmatine] 5 mg PO BID 08/31/24 09/09/24 History Acetaminophen Tab [Tylenol Tab] 1,000 mg PO Q6H PRN 09/09/24 09/09/24 History Allergies Allergy/AdvReac Type Severity Reaction Status Date / Time lisinopril Allergy Anaphylaxis Verified 09/09/24 16:12 Physical Exam Vitals: Vital Signs Temp Pulse Pulse Resp BP BP Pulse Ox 09/10/24 09:31 98.2 F 60 104/71 98 09/10/24 08:00 98.1 F 80 106/75 100 09/10/24 02:00 97.4 F L 66 17 99/69 98 09/09/24 20:00 97.5 F L 71 17 97/63 98 09/09/24 17:59 97.8 F 65 16 129/85 100 09/09/24 16:45 85 18 121/91 100 09/09/24 15:32 71 16 116/81 100 09/09/24 15:01 85 16 113/82 100 09/09/24 14:24 92 20 111/90 99 09/09/24 13:27 97.8 F 128 H 18 121/89 95 Intake and Output 09/09/24 09/10/24 09/10/24 22:59 06:59 14:59 Other: # Voids 1 0 Weight 34.019 kg 34.019 kg Results - Lab Results Most recent lab results Calcium 10.4 mg/dL (8.4-10.2) H 09/10/24 06:17 Magnesium 2.0 mg/dL (1.6-2.3) 09/10/24 06:17 09/09/24 14:14 09/10/24 06:17 Assessment and Plan Plan: Assessment: 1. Acute kidney injury secondary to vasomotor nephropathy secondary to hypovolemia. Improved. Creatinine 0.96 today. 2. Hypovolemic hyponatremia improved with IV fluids. 3. Rectal bleeding versus abscess. ID following. On antibiotics. 4. Hypercalcemia better with IV fluids. 5. Metabolic acidosis secondary to acute kidney injury and GI losses. Plan: Maintain IV fluids. Decrease rate to 75 cc an hour. Add oral bicarb. Check PTH, vitamin D level and serum electrophoresis. Avoid nephrotoxins. Continue to monitor renal function and urine output. Thank you for the consultation. I will continue to follow the patient with you during her hospital stay.
[2024-09-10] MEDS: SODIUM BICARBONATE TAB 650 MG TAB PO SCH (12:26)
[2024-09-10 13:56] VITALS: BMI 14.1
--- NOTE | 2024-09-10 15:08 | P.PN ---
Subjective Progress Note Date: 09/10/24 Principal diagnosis: Reason for follow-up is infected perirectal fistula Patient is a 53-year-old -[place] female with a past medical history significant for hypertension hyperlipidemia and also a complicated history of perforated diverticulitis with multiple surgeries and now dealing with a nonhealing perirectal fistula presented to hospital with pain bleeding and renée inage from the fistula site. On today's evaluation that is 09/10/2024,the patient remains to be afebrile, patient is on room air not requiring supplemental oxygen and mentioned breathing comfortably with no chest pain or cough.Patient denies having any nausea or vomiting, no abdominal pain and no worsening perirectal pain or drainage. Patient did have a creatinine 0.96 no CBC was done today cultures are currently pending Objective - Vital Signs Vital signs: Vital Signs Temp 98.2 F 09/10/24 14:36 Pulse 90 09/10/24 14:36 Resp 17 09/10/24 02:00 BP 109/71 09/10/24 14:36 Pulse Ox 100 09/10/24 14:36 FiO2 Intake & Output 09/09/24 09/10/24 09/10/24 18:59 06:59 18:59 Weight 34.019 kg 34.019 kg 34.019 kg Other: Voiding Method Toilet # Voids 0 - Exam GENERAL DESCRIPTION: Middle-age female lying in bed in no distress RESPIRATORY SYSTEM: Unlabored breathing , decreased breath sounds at bases HEART: S1 S2 regular rate and rhythm , ABDOMEN: Soft , no tenderness EXTREMITIES: No edema feet - Labs CBC & Chem 7: 09/09/24 14:14 09/10/24 06:17 Labs: Abnormal Lab Results - Last 24 Hours (Table) 09/09/24 09/10/24 Range/Units 18:00 06:17 Sodium 128 L 131 L (137-145) mmol/L Carbon Dioxide 10 L 17 L (22-30) mmol/L BUN 40 H 36 H (7-17) mg/dL Creatinine 1.16 H (0.52-1.04) mg/dL Glucose 106 H 100 H (74-99) mg/dL Calcium 10.4 H (8.4-10.2) mg/dL AST 13 L (14-36) U/L Microbiology - Last 24 Hours (Table) 07/16/25 16:45 Gram Stain - Preliminary Buttock Wound Culture - Preliminary Presumptive Staph aureus Escherichia coli Assessment and Plan (1) Sepsis Current Visit: Yes Status: Acute Code(s): A41.9 - SEPSIS, UNSPECIFIED ORGANISM SNOMED Code(s): 15869462 (2) Perirectal abscess Current Visit: Yes Status: Acute Code(s): K61.1 - RECTAL ABSCESS SNOMED Code(s): 22477738 Plan: 1patient presented hospital with weakness chills perirectal pain and drainage in this patient who did have a tachycardia elevated white count meeting criteria for SIRS/sepsis source likely perirectal abscess/infected fistula and likely need to cover for the enteric gram-negative to be the likely pathogen 2local culture have been obtained which are currently pending 3patient is currently being treated with Zosyn while waiting for the culture to finalize, care discussed with the admitting physician Dictation was produced using [employer] dictation software. please excuse any grammatical, word or spelling errors. Time with Patient: Less than 30
--- NOTE | 2024-09-10 16:54 | P.PN ---
Subjective Progress Note Date: 09/10/24 Principal diagnosis: Dictation progress note date of service 09/10/2024 Location 162 bed [address] Nichols. Patient seen today [id number] and discussed with the patient in detail. Patient admitted to the hospital because of complaint of rectal bleeding with a history of previous fistulectomy and found in the ER that she had severe dehydration, acute kidney injury, hemoconcentration, hypercalcemia with extreme volume depletion and associated with hyper proteinemia. Patient admitted with consultation with infectious disease, with the leukocytosis and infection of the site of the fistulectomy which has been operated upon 3 times by her primary surgeon Dr. Olsen who subsequently referred her to [facility], patient could not go because of transportation, subsequently referred to the surgical clinic at [facility]. She was transferred recently to [place] because of her symptoms and no solution but patient treated and discharged with still her problem is present On this admission we consulted Dr. Jimenez and Dr. Medina for the acute kidney injury, hyponatremia, hypoeuvolemia, and severe dehydration Initial blood pressure was normal due to use of midodrine to improve her blood pressure with severe hypotension in the office prior to this admission and was in the range of 80 systolic with symptomatic with dizziness. As patient seen and evaluated on admission and midodrine has been discontinued and patient started on D5 bicarb with the underlying metabolic acidosis and carbon dioxide was 11, repeat was 10 which is mildly improved with infusion of sodium bicarb and subsequently Dr. Cates started her on sodium bicarb tablet and her metabolic acidosis gradually improving to 17 CO2 still on the low side. In regard of leukocytosis and sepsis clinically her white count was 20,000 or more, Dr. Ang did a culture from the site which initially positive for coccus for cocci and presence of PMNs patient was started on antibiotic cefepime by Dr. Bocanegra. And patient has been with hydration currently adjusted by Dr. Jimenez. Vital sign: Temperature 98.0 F oral, blood pressure 108/73, pulse ox 99% In the ER the did type and screen and found that she has type a positive blood. Laboratories: Her sodium on admission 127, on hydration 131. Chloride 104, carbon dioxide was 11. And progressed to 10 subsequently with the sodium bicarb improved to 17. Her renal function also improved with hydration currently went down to cr eatinine to 0.96 and BUN 36 and glucose 100. Calcium was hypercalcemia 11.2 with hydration went down to 10 and subsequently 10.4 today Hyperproteinemia on admission 9.3 with hydration went down to 7, albumin was 4.6 and now 3.5. On the exam: The test with the patient as well as discussed with Dr. Medina infectious disease today. Pat was normocephalic atraumatic, pupil was equal reactive, conjunctiva was pale Oropharynx negative natural teeth and uvula midline no facial symmetry Neck was supple no JVD no thyromegaly no lymphadenopathy trachea midline. Chest is clear no wheezes no rhonchi's no axillary lymphadenopathy or supraclavicular. 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 Extremities no edema and positive pulses She had unhealed fistulectomy surgery x 3 Discussion she told me today that her appointment on Saturday, 14 September with surgical clinic and [facility] has been canceled and they gave her appointment in October. I did advise her to call them back to see them sooner as her main problem is the infection in the hysterectomy surgery and recurrent admission for sepsis probably due to that. Also advised her to tell them in the regard of the fibroid of her uterus as well as the retaining IUD for more 30 years approximately and could be causing recurrent infection is unknown to me however consultation with DIRECTOR OF RESEARCH AND DEVELOPMENT and her last admission he was not considered. Assessment: 1. Symptomatic dizziness and lethargy inability to do her ADLs 2. Presented with leukocytosis 20,000 with expected sepsis 3. Acute kidney injury with significant elevation from baseline the BUN and creatinine and decreased her EGFR. 4. Infected the wound in the fistulectomy with highly suspicious Dr. Medina. Culture of that hole in the butt "rectal area " 5. Severe dehydration with volume depletion 6. Hypercalcemia, hyperproteinemia, hyponatremia, associated with severe dehydration and volume depletion 7. Anemia of chronic disease and several surgical approach is considered. Plan: 1. Patient admitted for acute kidney injury and need extensive hydration as she was symptomatic. #2 treatment for the sepsis with the antibiotic 3. Patient advised to keep her appointment with the surgeon in outpatient clinic in [facility] as no community available surgeon and her on surgeon could not do any help for her. 4. Nutritional support with the severe weight loss and muscle mass decreased. 5. Continue hydration. Objective - Vital Signs Vital signs: Vital Signs Temp 98.2 F 09/10/24 14:36 Pulse 90 09/10/24 14:36 Resp 17 09/10/24 02:00 BP 109/71 09/10/24 14:36 Pulse Ox 100 09/10/24 14:36 FiO2 Intake & Output 09/09/24 09/10/24 09/10/24 18:59 06:59 18:59 Weight 34.019 kg 34.019 kg 34.019 kg Other: Voiding Method Toilet # Voids 0 - Labs CBC & Chem 7: 09/09/24 14:14 09/10/24 06:17 Labs: Abnormal Lab Results - Last 24 Hours (Table) 09/09/24 09/10/24 09/10/24 Range/Units 18:00 06:17 10:21 Sodium 128 L 131 L (137-145) mmol/L Carbon Dioxide 10 L 17 L (22-30) mmol/L BUN 40 H 36 H (7-17) mg/dL Creatinine 1.16 H (0.52-1.04) mg/dL Glucose 106 H 100 H (74-99) mg/dL Calcium 10.4 H (8.4-10.2) mg/dL AST 13 L (14-36) U/L Vitamin D 25-Hydroxy 24.1 L (30.0-100.0) ng/mL Microbiology - Last 24 Hours (Table) 09/09/24 16:45 Gram Stain - Preliminary Buttock Wound Culture - Preliminary Presumptive Staph aureus Escherichia coli
[2024-09-10] MEDS: ONDANSETRON 4 MG/2 ML VIAL IVP PRN (20:55)
[2024-09-11 04:23] LABS: Basophils # (A) 0.08 10*3/uL (0.00-0.10); Basophils % (A) 0.8 %; Eosinophils # (A) 0.18 10*3/uL (0.04-0.35); Eosinophils % (A) 1.9 %; HCT 29.5 % (37.2-46.3); Lymphocytes # (A) 1.17 10*3/uL (0.90-5.00); Lymphocytes % (A) 12.1 %; MCH 27.7 pg (27.0-32.0); MCHC 32.5 g/dL (32.0-37.0); MCV 85.0 fL (80.0-97.0); Monocytes # (A) 1.09 10*3/uL (0.20-1.00); Monocytes % (A) 11.3 %; Neutrophils # (A) 7.08 10*3/uL (1.80-7.70); Neutrophils % (A) 73.2 %; Platelet Count 386 10*3/uL (140-440); RBC 3.47 10*6/uL (4.10-5.20); RDW 17.3 % (11.5-14.5); WBC 9.67 10*3/uL (4.50-10.00)
[2024-09-11 04:38] LABS: African American GFR (CKD) 82 (>60 ml/min/1.73 sqM); Anion Gap 11 mmol/L; Blood Urea Nitrogen 24 mg/dL (7-17); Calcium 10.1 mg/dL (8.4-10.2); Carbon Dioxide 18 mmol/L (22-30); Chloride 103 mmol/L (98-107); Glucose 133 mg/dL (74-99); Magnesium 1.9 mg/dL (1.6-2.3); Non-African American GFR(CKD) 71 (>60 ml/min/1.73 sqM); Potassium 4.6 mmol/L (3.5-5.1); Sodium 132 mmol/L (137-145)
[2024-09-11 04:58] LABS: HGB 9.6 g/dL (12.0-15.0)
[2024-09-11] MEDS: PANTOPRAZOLE 40 MG TABLET PO SCH (06:11)
--- NOTE | 2024-09-11 10:14 | P.PN ---
Subjective Patient is seen in follow-up for acute kidney injury. Renal function improved. Receiving IV fluids. Tolerating oral intake. Still having drainage from the rectum. Vital signs are stable. General: No acute distress. HEENT: Head exam is unremarkable. LUNGS: No audible rhonchi or wheezes. HEART: Rate and Rhythm are regular. ABDOMEN: Non-tender. Ileostomy noted. EXTREMITITES: No edema. Objective - Vital Signs Vital signs: Vital Signs Temp 97.3 F L 09/11/24 08:49 Pulse 65 09/11/24 08:49 Resp 14 09/11/24 08:49 BP 108/73 09/11/24 08:49 Pulse Ox 100 09/11/24 08:49 FiO2 Intake & Output 09/10/24 09/11/24 09/11/24 18:59 06:59 18:59 Weight 34.019 kg Other: Voiding Method Toilet Toilet # Voids 0 - Labs CBC & Chem 7: 09/11/24 03:24 09/11/24 03:24 Labs: Abnormal Lab Results - Last 24 Hours (Table) 09/10/24 09/11/24 09/11/24 Range/Units 10:21 03:24 03:24 RBC 3.47 L (4.10-5.20) 10*6/uL Hgb 9.6 L D (12.0-15.0) g/dL Hct 29.5 L (37.2-46.3) % Immature Gran # 0.07 H (0.00-0.04) 10*3/uL Monocytes # 1.09 H (0.20-1.00) 10*3/uL Sodium 132 L (137-145) mmol/L Carbon Dioxide 18 L (22-30) mmol/L BUN 24 H (7-17) mg/dL Glucose 133 H (74-99) mg/dL Vitamin D 25-Hydroxy 24.1 L (30.0-100.0) ng/mL Microbiology - Last 24 Hours (Table) 09/09/24 16:31 Blood Culture - Preliminary Blood 09/09/24 16:45 Gram Stain - Preliminary Buttock Wound Culture - Preliminary Presumptive Staph aureus Escherichia coli Assessment and Plan Plan: Assessment: 1. Acute kidney injury secondary to vasomotor nephropathy secondary to hypovolemia. Improved. Creatinine 0.91 today. She did receive IV contrast on September 09, 2024. No hydronephrosis noted on CT. 2. Hypovolemic hyponatremia improved with IV fluids. 3. Rectal bleeding versus abscess. ID following. On antibiotics. 4. Hypercalcemia better with IV fluids. Improved. PTH 25.6. Vitamin D level 24.1. 5. Metabolic acidosis secondary to acute kidney injury, IV fluids and GI losses. On oral bicarb. Plan: Maintain IV fluids. Follow-up pending workup for hypercalcemia. Avoid nephrotoxins. Continue to monitor renal function and urine output.
--- NOTE | 2024-09-11 14:51 | P.PN ---
Subjective Progress Note Date: 09/11/24 Progress note Date of service 09/11/[address] Nichols Location observation unit 162 bed 1. Patient seen and evaluated [id number]. I was called by Starr by night nurse iron melter hour at 6 AM because of the abnormal CBC with the drop of hemoglobin to 9 with dehydration, which is expected as 9 is her normal level also the nurse said that she did not have no rectal bleeding and no other source of bleeding which we do with expected that already and I did document that in the previous note on admission as well. In regard of the anal pain due to presence of nonhealed fistula, and patient had 3 times surgery for fistulectomy by her primary surgeon Dr. Olsen in [facility], and subsequently he told her that he could not do any more surgery and she needs to go to tertiary center, he referred her to [facility] however the patient could not have transportation to a different state, and they made appointment for her to [facility] surgical clinic for consultation. Patient told me today that they called her yesterday and canceled the appointment and made it for October, and I did advise the patient to call them back to accelerate her appointment with the recurrent infection as well as her surgical problem could not be solved in [facility], and her previous admission we have several consultations with surgical as well as [facility] as well as GI and none can help her and advised to go to her primary surgeon. On today's exam: She had early pain in the anal area and they give her the Dilaudid IV with the discussion with the patient today we will switch her to p.o. pain medication and we will consult pain clinic to evaluate and treat and advise. Also nursing staff suggested Dermoplast spray local may help, and I did ask them to check with Dr. Medina infectious disease who did culture from the wound and the fistula which was appeared to be positive for E. coli as well staff aureus we do not have culture sensitivity yet. Patient currently on Zosyn IV piggyback because of the sepsis and leukocytosis and hypotension. Dr. Terrazas nephrology did see her also and he indicated in his note and consult that she had vasomotor nephropathy with the associated acute kidney injury and significant other abnormalities as hemoconcentration, hyperproteinemia, and elevated BUN and creatinine and drop in her GFR with the symptomatic lightheade d, dizzy, hypotensive, unable to do her ADLs at home. Added to have pain in the anal area due to whole and failure of fistulectomy to heal. On exam patient is conscious alert oriented x 3 able to communicate freely She feels better with dehydration. Her vital signs today, temperature 97.3 FL and her pulse rate 65 bpm, respiratory rate 14 with normal breath sound, blood pressure 108/73 with a mean blood pressure 84, oxygen saturation 100% on room air. Head was normocephalic atraumatic, pupil was equal reactive, conjunctiva was pale, sclera nonicteric, extraocular muscle movement is intact Oropharynx natural teeth normal swallowing, normal tongue normal facial symmetry Neck was supple no JVD no thyromegaly no lymph adenopathy trachea midline No axillary lymph node Chest was clear normal breath sounds no wheezes or rhonchi's Heart regular sinus rhythm no arrhythmias Abdomen: She had positive bowel sound and she had ileostomy bag with the CT scan on admission indicating gallbladder is normal, renal no masses no hydronephrosis. And there is large parastomal hernia containing nonobstructed and nonstrangulated bowel with large right lower quadrant ileostomy. She has also large heterogenous mass involving the pelvis with the scattered popcorn type calcification consistent with markedly enlarged fibroid uterus and there is IUD device as well. Extremities: No edema and positive pulses Psychiatry stable Neurologically stable. Laboratories #1 WBC 9.67, hemoglobin 9.6 with a drop from 13.1 and as I mentioned in my previous note that is not usual hemoglobin and that is due to her hemoconcentration with dehydration usually drop Also her hematocrit was 40 and dropped to 29.5, platelet count 520 and went down to 386. All the apparent number due to improved hydration Electrolyte indicating sodium 132 on admission was 127 with a gradual improvement, potassium is 4.6 stable, chloride 103, carbon dioxide 18 with significant improvement with the sodium bicarb ordered by Dr. Mesa 650 3 times daily. Also her BUN has been improved to 24, creatinine 0.91 initially was 1.6, blood glucose 133 however this is not fasting lab and magnesium 1.9 as well as the PTH was normal 25.6. Blood culture was negative Wound culture indicating Staph aureus and E. coli, currently patient on Zosyn empirically, we do not have the result of the sensitivity. Assessment: 1. Sepsis probably associated with infection in the wound nonhealed fistulectomy. 2. Vasomotor nephropathy with the volume depletion and severe dehydration. 3. Metabolic acidosis with the presentation: Dioxide 11went to 10 treated with bicarb 4. Severe dehydration and weight loss muscle mass loss 5. Anal/rectal pain associated with the fistula which she operated on at x 3 by the primary surgeon Dr. Martinez 6. Intermittent rectal bleeding from the site which patient experience the night before admission and iron melter on the day of admission. 7. Patient has symptomatic hypotension which was treated as outpatient with midodrine which is discontinued on admission which appear blood pressure on admission in the ER that was false normal Plan: 1. Will continue hydration 2. Waiting for culture and sensitivity completed specially with the presence of staff aureus 3. Waiting for clearance from nephrology and infectious disease as well 4. Will obtain CBC and BMP tomorrow. 5. Patient to be allowed to ambulate with each shift as tolerated with the community relations assistant of the nursing staff. Objective - Vital Signs Vital signs: Vital Signs Temp 97.3 F L 09/11/24 08:49 Pulse 65 09/11/24 08:49 Resp 14 09/11/24 08:49 BP 108/73 09/11/24 08:49 Pulse Ox 100 09/11/24 08:49 FiO2 Intake & Output 09/10/24 09/11/24 09/11/24 18:59 06:59 18:59 Weight 34.019 kg Other: Voiding Method Toilet Toilet Toilet # Voids 0 - Labs CBC & Chem 7: 09/11/24 03:24 09/11/24 03:24 Labs: Abnormal Lab Results - Last 24 Hours (Table) 09/10/24 09/11/24 09/11/24 Range/Units 10:21 03:24 03:24 RBC 3.47 L (4.10-5.20) 10*6/uL Hgb 9.6 L D (12.0-15.0) g/dL Hct 29.5 L (37.2-46.3) % Immature Gran # 0.07 H (0.00-0.04) 10*3/uL Monocytes # 1.09 H (0.20-1.00) 10*3/uL Sodium 132 L (137-145) mmol/L Carbon Dioxide 18 L (22-30) mmol/L BUN 24 H (7-17) mg/dL Glucose 133 H (74-99) mg/dL Vitamin D 25-Hydroxy 24.1 L (30.0-100.0) ng/mL Microbiology - Last 24 Hours (Table) 09/09/24 16:31 Blood Culture - Preliminary Blood 09/09/24 16:45 Gram Stain - Preliminary Buttock Wound Culture - Preliminary Presumptive Staph aureus Escherichia coli
--- NOTE | 2024-09-11 15:10 | P.PN ---
Subjective Progress Note Date: 09/11/24 Principal diagnosis: Reason for follow-up is infected perirectal fistula Patient is a 53-year-old -Indian female with a past medical history significant for hypertension hyperlipidemia and also a complicated history of perforated diverticulitis with multiple surgeries and now dealing with a nonhealing perirectal fistula presented to hospital with pain bleeding and renée inage from the fistula site. On today's evaluation that is 09/11/2024, the patient continues to be afebrile, the patient is on room air and breathing comfortably, the Pt denies having any chest pain or cough, the patient denies having any abdominal pain no vomiting mention some decrease in the pain to the perirectal wound area still having some drainage. Patient white count normalized to 9.67, creatinine 0.91 local culture growing Staph aureus and E. coli with sensitivities pending Objective - Vital Signs Vital signs: Vital Signs Temp 97.3 F L 09/11/24 08:49 Pulse 65 09/11/24 08:49 Resp 14 09/11/24 08:49 BP 108/73 09/11/24 08:49 Pulse Ox 100 09/11/24 08:49 FiO2 Intake & Output 09/10/24 09/11/24 09/11/24 18:59 06:59 18:59 Weight 34.019 kg Other: Voiding Method Toilet Toilet # Voids 0 - Exam GENERAL DESCRIPTION: Middle-age female lying in bed in no distress RESPIRATORY SYSTEM: Unlabored breathing , decreased breath sounds at bases HEART: S1 S2 regular rate and rhythm , ABDOMEN: Soft , no tenderness EXTREMITIES: No edema feet - Labs CBC & Chem 7: 09/11/24 03:24 09/11/24 03:24 Labs: Abnormal Lab Results - Last 24 Hours (Table) 09/10/24 09/11/24 09/11/24 Range/Units 10:21 03:24 03:24 RBC 3.47 L (4.10-5.20) 10*6/uL Hgb 9.6 L D (12.0-15.0) g/dL Hct 29.5 L (37.2-46.3) % Immature Gran # 0.07 H (0.00-0.04) 10*3/uL Monocytes # 1.09 H (0.20-1.00) 10*3/uL Sodium 132 L (137-145) mmol/L Carbon Dioxide 18 L (22-30) mmol/L BUN 24 H (7-17) mg/dL Glucose 133 H (74-99) mg/dL Vitamin D 25-Hydroxy 24.1 L (30.0-100.0) ng/mL Microbiology - Last 24 Hours (Table) 09/09/24 16:31 Blood Culture - Preliminary Blood 09/09/24 16:45 Gram Stain - Preliminary Buttock Wound Culture - Preliminary Presumptive Staph aureus Escherichia coli Assessment and Plan (1) Sepsis Current Visit: Yes Status: Acute Code(s): A41.9 - SEPSIS, UNSPECIFIED ORGANISM SNOMED Code(s): 83246950 (2) Perirectal abscess Current Visit: Yes Status: Acute Code(s): K61.1 - RECTAL ABSCESS SNOMED Code(s): 24713134 Plan: 1patient presented hospital with weakness chills perirectal pain and drainage in this patient who did have a tachycardia elevated white count meeting criteria for SIRS/sepsis source likely perirectal abscess/infected fistula and likely need to cover for the enteric gram-negative to be the likely pathogen 2local culture have been obtained which are currently growing Staph aureus and E. coli with sensitivities pending 3patient white count has normalized hence we will continue with Zosyn while waiting for the culture to finalize determine discharge antibiotics Dictation was produced using [employer] dictation software. please excuse any grammatical, word or spelling errors. Time with Patient: Less than 30
[2024-09-11] MEDS: BENZOCAINE/MENTHOL SPRAY 1 GM/SPRAY AEROSOL TOPICAL PRN (16:02)
--- NOTE | 2024-09-11 16:54 | P.PAINCN ---
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 Patient had multiple surgeries done including evaluation in [facility] and [facility]. She has an upcoming [facility] consultation also. Currently she is on multiple pain medications which she is giving her relief to some extent. Past Medical History Past Medical History: Hyperlipidemia, Hypertension Additional Past Medical History / Comment(s): Iron deficiency anemia, "lung collapsed" may 2023 History of Any Multi-Drug Resistant Organisms: None Reported Past Surgical History: Section Additional Past Surgical History / Comment(s): Breast Biopsy; D/C for miscarriage, colon resection for bowel obstruction april 2023-ileostomy, was in ICU had trach, fistula repair may 2024 Past Anesthesia/Blood Transfusion Reactions: No Reported Reaction Past Psychological History: No Psychological Hx Reported Smoking Status: Former smoker Past Alcohol Use History: None Reported Past Drug Use History: Marijuana - Past Family History Mother Family Medical History: Cancer Additional Family Medical History / Comment(s): lung Medications and Allergies Home Medications Medication Instructions Recorded Confirmed Type Midodrine [ProAmatine] 5 mg PO BID 08/31/24 09/09/24 History Acetaminophen Tab [Tylenol Tab] 1,000 mg PO Q6H PRN 09/09/24 09/09/24 History Allergies Allergy/AdvReac Type Severity Reaction Status Date / Time lisinopril Allergy Anaphylaxis Verified 09/09/24 16:12 Physical Exam Vitals: Vital Signs Temp Pulse Pulse Resp BP BP Pulse Ox 09/11/24 08:49 97.3 F L 65 14 108/73 100 09/11/24 01:18 98.3 F 77 17 100/63 100 09/10/24 20:00 98.4 F 75 17 99/67 99 Intake and Output 09/11/24 09/11/24 09/11/24 06:59 14:59 22:59 Other: Voiding Method Toilet Toilet # Voids 0 Results CBC & Chem 7: 09/11/24 03:24 09/11/24 03:24 Labs: Abnormal Lab Results - Last 24 Hours (Table) 09/11/24 09/11/24 Range/Units 03:24 03:24 RBC 3.47 L (4.10-5.20) 10*6/uL Hgb 9.6 L D (12.0-15.0) g/dL Hct 29.5 L (37.2-46.3) % Immature Gran # 0.07 H (0.00-0.04) 10*3/uL Monocytes # 1.09 H (0.20-1.00) 10*3/uL Sodium 132 L (137-145) mmol/L Carbon Dioxide 18 L (22-30) mmol/L BUN 24 H (7-17) mg/dL Glucose 133 H (74-99) mg/dL Microbiology - Last 24 Hours (Table) 09/09/24 16:45 Anaerobic Culture - Preliminary Buttock 09/09/24 16:45 Gram Stain - Final Buttock Wound Culture - Final Staphylococcus aureus Escherichia coli 09/09/24 16:31 Blood Culture - Preliminary Blood Assessment and Plan Assessment: Rectal pain secondary to rectovaginal fistula. Plan: My suggestion would be- 1. Continue current pain medications. 2. Application of 5% lidocaine and ano rectal cream or Preparation H application in the rectal area. PQRS Measure Charge Sheet Pain Comment: See MAR PQRS Narrative: Blood Pressure [Right Arm] 100/63 Blood Pressure 108/73 Pain Intensity [Generalized] 0 Pain Intensity 9 Pain Scale Used Numeric (1 - 10) Scale Used Numeric (1 - 10) Home Medications: Ambulatory Orders Midodrine [ProAmatine] 5 mg PO BID 08/31/24 Acetaminophen Tab [Tylenol Tab] 1,000 mg PO Q6H PRN 09/09/24
[2024-09-12] MEDS: ACETAMINOPHEN TAB 325 MG TAB PO PRN ×2 (02:01→18:23)
[2024-09-12 09:04] LABS: Basophils # (A) 0.08 X 10*3/uL (0.00-0.10); Basophils % (A) 0.8 %; Eosinophils # (A) 0.16 X 10*3/uL (0.04-0.35); Eosinophils % (A) 1.7 %; HCT 26.7 % (37.2-46.3); HGB 8.3 g/dL (12.0-15.0); Immature Grans, Automated 0.70 %; Lymphocytes # (A) 1.20 X 10*3/uL (0.90-5.00); Lymphocytes % (A) 12.6 %; MCH 27.1 pg (27.0-32.0); MCHC 31.1 g/dL (32.0-37.0); MCV 87.3 FL (80.0-97.0); Monocytes # (A) 0.99 X 10*3/uL (0.20-1.00); Monocytes % (A) 10.4 %; NRBC Per 100 WBC 0 X 10*3/uL (0.00-0.01); Neutrophils # (A) 7.04 X 10*3/uL (1.80-7.70); Neutrophils % (A) 73.8 %; Platelet Count 357 X 10*3/uL (140-440); RBC 3.06 X 10*6/uL (4.10-5.20); RDW 18.1 % (11.5-14.5); WBC 9.54 X 10*3/uL (4.50-10.00)
[2024-09-12 09:05] LABS: BUN/Creat Ratio 13.70 Ratio (12.00-20.00); Blood Urea Nitrogen 13.7 mg/dL (9.0-27.0); Chloride 108 mmol/L (96-109); Glucose 133 mg/dL (70-110); Iron 53 UG/DL (50-170); Magnesium 1.7 mg/dL (1.5-2.4); Potassium 4.2 mmol/L (3.5-5.5); Sodium 135 mmol/L (135-145); Total Iron Binding Capacity 143 UG/DL (228-460)
[2024-09-12 09:06] LABS: Anion Gap 8.40 mmol/L (4.00-12.00); Calcium 9.2 mg/dL (8.7-10.3); Carbon Dioxide 18.6 mmol/L (21.6-31.8)
[2024-09-12] MEDS: AMPICILLIN-SULBACTAM 3 GM in SODIUM CHLORIDE 0.9% 100 ML IVPB SCH (13:48)
[2024-09-12] MEDS: CHOLECALCIFEROL 25 MCG (1000 IU) TABLET PO SCH (13:50)
--- NOTE | 2024-09-12 14:42 | P.PN ---
Subjective Progress Note Date: 09/12/24 Progress note Date of service 09/12/[address] Nichols Location 453 bed 1 Patient seen and evaluated today [id number] and discussed with the patient in detail new Patient has minimal complaint of pain with the currently of Dilaudid and with the plan for discharge within the next 48 hours we will change the IV pain medication to orally. Pain physician Dr. Sage did see the patient however I do not see that he ordered what he mentioned in his note, meanwhile the Dermoplast has been withheld as well. Patient denied any bleeding from the fistula at this point and no discharge Patient with IV fluid hydration, which did accomplished and her blood pressure today 120/67 which is significantly improved from hypotension which has been described as was a water nephropathy with hypovolemia by Dr. Cates White count did dissolve currently her white count is normal 9.54 with the current antibiotic was designed and ordered by Dr. Medina currently Zosyn has been discontinued and she was started today on ampicillin-sulbactam 3 g IV piggyback every 8 hour with the underlying sepsis and wound culture was Staph aureus, E. coli. With the associated sepsis on admission and acute kidney injury. Vitamin D insufficiency and today we started her on vitamin D3 1000 international unit once a day. Medication discontinued: 1. Pantoprazole IV/p.o. due to no nausea and vomiting 2. Dilaudid IV as preparing patient for discharge at home and changed to oral pain medication 3. Advised to his ambulation 4. Zofran IV/p.o. discontinued as well due to no nausea and vomiting. 5. Xanax has been discontinued no evidence of anxiety Requested from the specialist Dr. Medina and Dr. Jimenez the clearance for possible discharge tomorrow I did order lab for BMP and CBC tomorrow and magnesium Sensitivity for the Staph aureus/E. coli was not available today. On the physical exam patient was comfortable, ambulatory, no dizziness.. Her vital signs stable, blood pressure 120/67, temperature 97.8 F oral respi ratory rate 18/min nonlabored, oxygen saturation 100% on room air. Head was normocephalic atraumatic pupil was equal reactive conjunctiva was pale to the normal iron on the recent lab Oropharynx was natural teeth normal swallowing Neck was supple no JVD no thyromegaly no lymphadenopathy Chest was clear to auscultation percussion Heart was regular sinus rhythm Abdomen is soft positive bowel sounds and the ileostomy functioning with the stool no abdominal pain. The extremities no edema and positive pulses. Psychiatry stable Neurologically stable no lateralizing sign ambulatory. Assessment: 1. Presented with a short period of rectal bleeding not significant with the underlying failure of fistulectomy done 3 time by her primary surgeon Dr. Platt who referred her to [facility] surgical clinic 2. Acute kidney injury vasomotor nephropathy with with hypovolemia severe 3. Metabolic acidosis secondary to acute kidney injury currently on sodium bicarb 4. Hyperproteinemia, hypercalcemia, hyponatremia secondary to severe volume contraction 5. Weight loss with the underlying repeated surgical intervention 6. Currently ileostomy with ileostomy bag prior to that she had colostomy bag. 7. Sepsis with hypotension and leukocytosis 8. E. coli and Staph aureus from the culture of the fistula infection with abscess formation. Plan 1. Will plan for continuing the antibiotic until clearance from Dr. Medina as well as switching IV antibiotic to oral 2. The severe hypotension has been corrected. 3. Will request from Dr. Cates the evaluation for her renal failure and recurrence now and currently resolved and his recommendation for discharge 4. Continue to be sodium bicarb until Dr. Cates decide if patient needs to continue or to stop as well as the follow-up as outpatient. Objective - Vital Signs Vital signs: Vital Signs Temp 97.8 F 09/12/24 06:45 Pulse 52 L 09/12/24 06:45 Resp 18 09/12/24 06:45 BP 120/67 09/12/24 06:45 Pulse Ox 100 09/12/24 06:45 FiO2 Intake & Output 09/11/24 09/12/24 09/12/24 18:59 06:59 18:59 Other: Voiding Method Toilet Toilet # Voids 0 2 - Labs CBC & Chem 7: 09/12/24 02:44 09/12/24 02:44 Labs: Abnormal Lab Results - Last 24 Hours (Table) 09/12/24 09/12/24 Range/Units 02:44 02:44 RBC 3.06 L (4.10-5.20) X 10*6/uL Hgb 8.3 L (12.0-15.0) g/dL Hct 26.7 L (37.2-46.3) % MCHC 31.1 L (32.0-37.0) g/dL RDW 18.1 H (11.5-14.5) % Immature Gran # 0.07 H (0.00-0.04) X 10*3/uL Carbon Dioxide 18.6 L (21.6-31.8) mmol/L Glucose 133 H (70-110) mg/dL TIBC 143 L (228-460) UG/DL Transferrin 102.0 L (204.0-354.0) mg/dL Microbiology - Last 24 Hours (Table) 09/09/24 16:31 Blood Culture - Preliminary Blood 09/09/24 16:45 Anaerobic Culture - Preliminary Buttock 09/09/24 16:45 Gram Stain - Final Buttock Wound Culture - Final Staphylococcus aureus Escherichia coli
--- NOTE | 2024-09-12 14:58 | P.PN ---
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 On today's evaluation that is 09/12/2024, patient did have a temperature of 98 F this morning and denies having any chills, patient is on room air and breathing comfortably no chest pain or cough, the patient did not have any nausea vomiting abdominal pain and mention decrease in drainage from the perirectal fistula wound area. Patient white count is 9.54, creatinine is 1.0 local culture with MSSA and E. coli Objective - Vital Signs Vital signs: Vital Signs Temp 97.8 F 09/12/24 06:45 Pulse 52 L 09/12/24 06:45 Resp 18 09/12/24 06:45 BP 120/67 09/12/24 06:45 Pulse Ox 100 09/12/24 06:45 FiO2 Intake & Output 09/11/24 09/12/24 09/12/24 18:59 06:59 18:59 Other: Voiding Method Toilet Toilet # Voids 0 2 - Exam GENERAL DESCRIPTION: Middle-age female lying in bed in no distress RESPIRATORY SYSTEM: Unlabored breathing , decreased breath sounds at bases HEART: S1 S2 regular rate and rhythm , ABDOMEN: Soft , no tenderness EXTREMITIES: No edema feet - Labs CBC & Chem 7: 09/12/24 02:44 09/12/24 02:44 Labs: Abnormal Lab Results - Last 24 Hours (Table) 09/12/24 09/12/24 Range/Units 02:44 02:44 RBC 3.06 L (4.10-5.20) X 10*6/uL Hgb 8.3 L (12.0-15.0) g/dL Hct 26.7 L (37.2-46.3) % MCHC 31.1 L (32.0-37.0) g/dL RDW 18.1 H (11.5-14.5) % Immature Gran # 0.07 H (0.00-0.04) X 10*3/uL Carbon Dioxide 18.6 L (21.6-31.8) mmol/L Glucose 133 H (70-110) mg/dL TIBC 143 L (228-460) UG/DL Transferrin 102.0 L (204.0-354.0) mg/dL Microbiology - Last 24 Hours (Table) 09/09/24 16:31 Blood Culture - Preliminary Blood 09/09/24 16:45 Anaerobic Culture - Preliminary Buttock 09/09/24 16:45 Gram Stain - Final Buttock Wound Culture - Final Staphylococcus aureus Escherichia coli Assessment and Plan (1) Sepsis Current Visit: Yes Status: Acute Code(s): A41.9 - SEPSIS, UNSPECIFIED ORGANISM SNOMED Code(s): 83112776 (2) Perirectal abscess Current Visit: Yes Status: Acute Code(s): K61.1 - RECTAL ABSCESS SNOMED Code(s): 52166860 Plan: 1patient presented hospital with weakness chills perirectal pain and drainage in this patient who did have a tachycardia elevated white count meeting criteria for SIRS/sepsis source likely perirectal abscess/infected fistula and likely need to cover for the enteric gram-negative to be the likely pathogen 2local culture have been obtained which are currently growing MSSA and E. coli both sensitive to Unasyn 3patient mention improvement in her symptoms antibiotic switched over to Unasyn 3 g every 6 hours discontinue Zosyn. Question answered Dictation was produced using [employer] dictation software. please excuse any grammatical, word or spelling errors. Time with Patient: Less than 30
[2024-09-12] MEDS: HYDROcodone/APAP 5-325MG 1 EACH TAB PO PRN (16:01)
--- NOTE | 2024-09-12 18:13 | P.PN ---
Progress Note - Text Progress Note Date: 09/12/24 Addendum. I received a call from the nurse Nayla AJ on the fourth floor who attending the patient on the [facility] indicating that the patient had severe pain and was taken already [place] 5 mg / 325 mg of acetaminophen and did not help meanwhile her pain level is 10/10 and we did today discontinuation of Dilaudid for the preparation patient will be discharged in 24 to 48-hour once we have clearance from infectious disease and nephrology. After significant discussion we increased her dose to 10 mg of [place]/325 every 6 hour as needed. With the discussion with the nurse I found out that patient was not treated as rendered by the patient clinic physician Dr. Dr. Bach. Sabir with the lidocaine patch or cream as well as hemorrhoid Preparation H, and was not ordered on the chart as well as they did not use the Dermoplast spray, the nurse stated that it was ordered as needed and they do not use it because it is a as needed however the patient has radiating pain in the anal area which she is not the reason to be used I did ask her to do it 3 times daily and changing that order so she can apply it to the area because her pain in this area and that is why she taken the pain medication which was not controlled subsequently the nurse called me on the phone and I did explain to her again as well as I did advise her that the medication for the pain has been increased but no use for Dilaudid at this time because of the preparing patient to be discharged.
[2024-09-12] MEDS: HYDROcodone/APAP 10-325MG 1 EACH TAB PO PRN (21:24)
[2024-09-12] MEDS: BENZOCAINE/MENTHOL SPRAY 1 GM/SPRAY AEROSOL TOPICAL SCH (21:24)
[2024-09-13] MEDS: AMPICILLIN-SULBACTAM 3 GM in SODIUM CHLORIDE 0.9% 100 ML IVPB SCH ×2 (00:08→13:21)
[2024-09-13 07:29] LABS: Basophils # (A) 0.08 10*3/uL (0.00-0.10); Basophils % (A) 0.8 %; Eosinophils # (A) 0.23 10*3/uL (0.04-0.35); Eosinophils % (A) 2.2 %; HCT 25.9 % (37.2-46.3); HGB 8.2 g/dL (12.0-15.0); Lymphocytes # (A) 1.48 10*3/uL (0.90-5.00); Lymphocytes % (A) 14.5 %; MCH 26.6 pg (27.0-32.0); MCHC 31.7 g/dL (32.0-37.0); MCV 84.1 fL (80.0-97.0); Monocytes # (A) 0.84 10*3/uL (0.20-1.00); Monocytes % (A) 8.2 %; Neutrophils # (A) 7.54 10*3/uL (1.80-7.70); Neutrophils % (A) 73.6 %; Platelet Count 327 10*3/uL (140-440); RBC 3.08 10*6/uL (4.10-5.20); RDW 18.1 % (11.5-14.5); WBC 10.24 10*3/uL (4.50-10.00)
[2024-09-13 07:49] LABS: African American GFR (CKD) >90 (>60 ml/min/1.73 sqM); Anion Gap 5 mmol/L; Blood Urea Nitrogen 10 mg/dL (7-17); Calcium 9.4 mg/dL (8.4-10.2); Carbon Dioxide 20 mmol/L (22-30); Chloride 115 mmol/L (98-107); Glucose 75 mg/dL (74-99); Magnesium 1.5 mg/dL (1.6-2.3); Non-African American GFR(CKD) >90 (>60 ml/min/1.73 sqM); Potassium 3.6 mmol/L (3.5-5.1); Sodium 140 mmol/L (137-145)
--- NOTE | 2024-09-13 10:41 | P.PN ---
Subjective Patient is seen for follow-up for acute kidney injury. Renal function has improved and serum creatinine down to 0.57. Maintained on oral sodium bicarb. Is tolerating oral intake No significant complaints today. Objective - Vital Signs Vital signs: Vital Signs Temp 97.5 F L 09/13/24 07:31 Pulse 51 L 09/13/24 07:31 Resp 18 09/13/24 07:31 BP 129/64 09/13/24 07:31 Pulse Ox 100 09/13/24 07:31 FiO2 Intake & Output 09/12/24 09/13/24 09/13/24 18:59 06:59 18:59 Other: Voiding Method Toilet # Voids 2 - Exam Patient is awake, comfortable, no acute distress Examination of the heart S1 and S2 Examination of the lungs bilateral breath sounds are heard Abdomen is soft nontender Examination of lower extremities shows no significant edema [employer] exam grossly intact - Labs CBC & Chem 7: 09/13/24 07:08 09/13/24 07:08 Labs: Abnormal Lab Results - Last 24 Hours (Table) 09/13/24 09/13/24 Range/Units 07:08 07:08 WBC 10.24 H (4.50-10.00) 10*3/uL RBC 3.08 L (4.10-5.20) 10*6/uL Hgb 8.2 L (12.0-15.0) g/dL Hct 25.9 L (37.2-46.3) % MCH 26.6 L (27.0-32.0) pg MCHC 31.7 L (32.0-37.0) g/dL RDW 18.1 H (11.5-14.5) % Immature Gran # 0.07 H (0.00-0.04) 10*3/uL Chloride 115 H (98-107) mmol/L Carbon Dioxide 20 L (22-30) mmol/L Magnesium 1.5 L (1.6-2.3) mg/dL Microbiology - Last 24 Hours (Table) 09/09/24 16:45 Anaerobic Culture - Final Buttock 09/09/24 16:31 Blood Culture - Preliminary Blood Assessment and Plan Assessment: 1. Acute kidney injury secondary to vasomotor nephropathy secondary to hypovolemia. Improved. Creatinine 0.59 today. She did receive IV contrast on September 09, 2024. No hydronephrosis noted on CT. 2. Hypovolemic hyponatremia improved with IV fluids. 3. Rectal bleeding versus abscess. ID following. On antibiotics. 4. Hypercalcemia better with IV fluids. Improved. PTH 25.6. Vitamin D level 24.1. 5. Metabolic acidosis secondary to acute kidney injury, IV fluids and GI losses. On oral bicarb. Plan: Continue with oral sodium bicarb Stable for discharge from nephrology standpoint Maintain good oral intake Check serum and urine immunofixation, can follow-up postdischarge
--- NOTE | 2024-09-13 11:40 | P.PN ---
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 On today's evaluation that is 09/13/2024, Patient is afebrile patient is currently on room air and denies having any shortness of breath, the patient denies any chest pain or cough, the patient denies any nausea vomiting abdominal pain is currently controlled overall. Rectal drainage has decreased. Patient white count is 10.24, creatinine 0.59 culture with MSSA and E. coli Objective - Vital Signs Vital signs: Vital Signs Temp 97.5 F L 09/13/24 07:31 Pulse 51 L 09/13/24 07:31 Resp 18 09/13/24 07:31 BP 129/64 09/13/24 07:31 Pulse Ox 100 09/13/24 07:31 FiO2 Intake & Output 09/12/24 09/13/24 09/13/24 18:59 06:59 18:59 Other: Voiding Method Toilet # Voids 2 - Exam GENERAL DESCRIPTION: Middle-age female lying in bed in no distress RESPIRATORY SYSTEM: Unlabored breathing , decreased breath sounds at bases HEART: S1 S2 regular rate and rhythm , ABDOMEN: Soft , no tenderness EXTREMITIES: No edema feet - Labs CBC & Chem 7: 09/13/24 07:08 09/13/24 07:08 Labs: Abnormal Lab Results - Last 24 Hours (Table) 09/13/24 09/13/24 Range/Units 07:08 07:08 WBC 10.24 H (4.50-10.00) 10*3/uL RBC 3.08 L (4.10-5.20) 10*6/uL Hgb 8.2 L (12.0-15.0) g/dL Hct 25.9 L (37.2-46.3) % MCH 26.6 L (27.0-32.0) pg MCHC 31.7 L (32.0-37.0) g/dL RDW 18.1 H (11.5-14.5) % Immature Gran # 0.07 H (0.00-0.04) 10*3/uL Chloride 115 H (98-107) mmol/L Carbon Dioxide 20 L (22-30) mmol/L Magnesium 1.5 L (1.6-2.3) mg/dL Microbiology - Last 24 Hours (Table) 09/09/24 16:45 Anaerobic Culture - Final Buttock 09/09/24 16:31 Blood Culture - Preliminary Blood Assessment and Plan (1) Sepsis Current Visit: Yes Status: Acute Code(s): A41.9 - SEPSIS, UNSPECIFIED ORGANISM SNOMED Code(s): 06267718 (2) Perirectal abscess Current Visit: Yes Status: Acute Code(s): K61.1 - RECTAL ABSCESS SNOMED Code(s): 50324866 Plan: 1patient presented hospital with weakness chills perirectal pain and drainage in this patient who did have a tachycardia elevated white count meeting criteria for SIRS/sepsis source likely perirectal abscess/infected fistula and likely need to cover for the enteric gram-negative to be the likely pathogen 2local culture have been obtained which are currently growing MSSA and E. coli both sensitive to Unasyn 3patient is afebrile patient white count is normal abdominal pain is currently controlled we will continue with the IV Unasyn with the plan to finish therapy with oral Augmentin prescription sent to the pharmacy Dictation was produced using [employer] dictation software. please excuse any grammatical, word or spelling errors.
[2024-09-13] MEDS: MAGNESIUM SULFATE-D5W PMX 1 GM in DEXTROSE/WATER 1 100ML.BAG IVPB SCH (14:23)
--- NOTE | 2024-09-13 15:17 | P.DS ---
Providers Date of admission: 09/09/24 16:24 Admission date Discharge date: 09/13/2024 Expected date of discharge: 09/13/24 Attending physician: Bong Nichols Consults: 09/09/24 16:22 Consult Physician Urgent Consulting Provider: Deon Jimenez Consult Reason/Comments: MARIAS Do you want consulting provider notified?: Yes, Notify in am Consult Physician Urgent Consulting Provider: Radha Medina Consult Reason/Comments: leukocytosis, known rectal abscess Do you want consulting provider notified?: Yes, Notify in am Primary care physician: Bong Nichols Discharge summary: " 1. Presented with rectal bleeding from fistulectomy area minimal 2. Sepsis secondary to rectal and fistula infection and abscess formation and leukocytosis. 3. History of failure of surgical repair of fistulectomy x 3 in out hospital surgery [place] by Dr. Platt surgeon 4. Acute kidney injury secondary to vasomotor nephropathy and hypovolemia 5. Hemoconcentration with severe dehydration 6. Hyponatremia, hyper calcium Karen, hyper proteinemia. 7. Multiple surgical approach with the history of diverticular rupture followed by colostomy 8. Subsequent colostomy revision and repair, followed by ileostomy with bag and underlying parastomal hernia by CT scan of the abdomen. 9. Metabolic acidosis secondary to acute renal failure treated with sodium bicarb and Dr. Wilson today advised to continue the sodium bicarb. 10. Hypotension was treated outpatient by midodrine which discontinued on admission. 11. Chronic anemia with the significant weight loss, multiple abdominal surgery, and decreased intake. 12. Vitamin D insufficiency supplemented. Patient presentation in the ER: Patient seen by Dr. Tejeda with the rectal bleeding and dizziness lightheaded with underlying leukocytosis and multiple abnormalities in the laboratories. Patient admitted to the hospital initially on observation On admission found that she had acute kidney injury, severe hemoconcentration with the hyponatremia and severe dehydration and hypovolemia also found that she had elevated protein and calcium and the hemoglobin and hematocrit out of range of her previous laboratories. Patient seen by consulting physician Dr. Medina infectious disease Dr. Jimenez nephrology and subsequently Dr. Wilson. Dr. Sage the pain management. With the diagnosis of nephrology vasomotor nephropathy secondary to hypovolemia and severe dehydration. Dr. Medina infectious disease did culture from the infected fistula, found to have E. coli and methicillin sensitive Staph aureus was treated with Zosyn, and followed by Unasyn with the resolution of the leukocytosis Patient with the stability changed to current Augmentin antibiotic orally for discharge. As patient hydrated her hemoglobin dropped to her normal range with the chronic anemia and her iron studies was negative for iron deficiency. Currently her glomerular filtration rate more than 90. Also her magnesium dropped and we are infusing magnesium 2 g prior to discharge IV piggyback and to be followed in the office as well as to be rechecked again. Patient has a previous admission with the ask at that time Dr. Posada surgeon to check on her fistula and he advised at that time to go back to her surgeon Dr. Platt patient followed with Dr. Platt subsequently and he advised her to go to [facility] and the patient could not go there due to transportation for different state and she had appointment with [facility] surgical clinic on 14 September, however [facility] called the patient advised her with the cancellation of her appointment and make it in October, she called them again and they put her on the waiting list. Today on the discharge: Patient is conscious alert oriented x 3 ambulatory Her pain is tolerated with the current medication which pain adjusted. Vital sign temperature 97.5 F oral, heart rate 51 bpm, respiratory rate 18/min, blood pressure 129/64 normalized her mean blood pressure 85, oxygen saturation 100%. Head was normocephalic atraumatic pupil was equal reactive conjunctiva was pale sclera nonicteric with chronic anemia Oropharynx natural teeth able to eat and swallow Neck was supple no JVD no thyromegaly no lymphadenopathy trachea midline Chest was clear normal breath sound no wheezes no rhonchi's Heart PMI in the fifth intercostal space normal S1-S2 no gallop regular sinus Abdomen: Soft positive bowel sound and ileostomy bag functioning with the stools no tenderness in the 4 quadrant Anal area she had a whole with the fistulectomy x 3 not healed and with the no bleeding at this time of discharge. Extremities no edema and positive pulses Psychiatry stable Neurologically stable no lateralizing sign. Assessment: Stable for discharge to be followed in [facility] surgical clinic for further definitive treatment for her main problem at the failure of fistulectomy surgery done x 3 in [facility]. Patient otherwise hypotension resolved, she had chronic anemia, electrolyte has been corrected, metabolic acidosis and she is on sodium bicarb to be followed as outpatient and to also follow-up with Dr. Terrazas/Dr. Wilson nephrology. Medication reconciliation. Patient on vitamin D3 gelatin capsule 1000 international unit equal 25 mcg once daily Augmentin 875 mg p.o. twice daily for 14 days prescription given from Dr. Medina infectious disease Sodium bicarb 650 3 times daily as recommendation from nephrology for metabolic acidosis. Dermoplast, benzocaine/menthol spray 1 g topical applied on the area of the perineum 4 times a day Short prescription for 3 days of [place] 10/325 mg every 6 hour as needed for severe pain Tylenol 325 mg as needed OTC. Will follow-up in 1 to 2 days in the office Follow-up with Dr. Jimenez/Dr. Wilson in 1 week. Patient Condition at Discharge: Stable Plan - Discharge Summary Discharge Rx Participant: No New Discharge Prescriptions: New Amoxic-Pot Clav 875-125Mg [Augmentin 875-125] 1 tab PO BID 14 Days #28 tab Sodium Bicarbonate Tab 650 mg PO TID tab Benzocaine/Menthol [place] [Dermoplast [place]] 1 gm TOPICAL QID each HYDROcodone/APAP 10-325MG [[place] 10-325] 1 each PO Q6HR PRN tab PRN Reason: Pain Cholecalciferol [Vitamin D3 (25 Mcg = 1000 Iu)] 25 mcg PO DAILY tab Continue Acetaminophen Tab [Tylenol] 1,000 mg PO Q6H PRN PRN Reason: Pain Discontinued Midodrine [ProAmatine] 5 mg PO BID Discharge Medication List Acetaminophen Tab [Tylenol] 1,000 mg PO Q6H PRN 09/09/24 [History] Amoxic-Pot Clav 875-125Mg [Augmentin 875-125] 1 tab PO BID 14 Days #28 tab 09/13/24 [Rx] Benzocaine/Menthol [place] [Dermoplast [place]] 1 gm TOPICAL QID each 09/13/24 [Rx] Cholecalciferol [Vitamin D3 (25 Mcg = 1000 Iu)] 25 mcg PO DAILY tab 09/13/24 [Rx] HYDROcodone/APAP 10-325MG [[place] 10-325] 1 each PO Q6HR PRN tab 09/13/24 [Rx] Sodium Bicarbonate Tab 650 mg PO TID tab 09/13/24 [Rx] Follow up Appointment(s)/Referral(s): Kina Wilson MD [STAFF PHYSICIAN] - 1 Week Bong Nichols MD [Primary Care Provider] - 1-2 days Discharge Disposition: HOME SELF-CARE
[2024-09-13 15:41] VITALS: BP 114/67; PULSE 62; RESP 17; TEMP 98.4
[2024-09-14 15:12] LABS: Albumin 2.96 g/dL (3.80-4.90); Gamma Globulin 1.51 g/dL (0.70-1.50)
--- NOTE | 2024-09-16 15:15 | CDI ---
Documentation Clarification Form Date: 09/16/2024 02:48:45 PM From: Sabine Awan RN, CCDS Email: [email or web address] Admit Date: 09/09/2024 04:24:00 PM Patient Name: Lanie Hooper Visit Number: [id number] Discharge Date: 09/13/2024 04:50:00 PM ATTENTION: The Clinical Documentation Specialists (CDI) and [facility] Coding Staff appreciate your assistance in clarifying documentation. Please respond to the clarification below the line at the bottom and electronically sign. The CDI & [facility] Coding staff will review the response and follow-up if needed. Please note: Queries are made part of the Legal Health Record. If you have any questions, please contact the author of this message via ITS. Doctor Nichols, Coding guidelines do not allow coding professionals to assign diagnosis codes based on ancillary documentation without supportive documentation from a provider; therefore, clarification is requested. The Registered Dietitian assessment on 09/10 indicates this patient meets criteria for severe chronic malnutrition. Based on this information and the findings below, is there an additional diagnosis that is clinically appropriate for this patient? History/Risk Factors: From the 09/09 ED note: "53-year-old female with a past medical history of ileostomy, multiple abdominal surgeries, rectal fistulas and abscess presenting today for rectal pain, bleeding and generalized weakness." Admitted with Sepsis secondary to rectal and fistula infection and abscess formation and leukocytosis. Clinical Indicators: ED: "On my assessment she is chronically ill-appearing and cachectic." 09/09 H&P: "Her total protein 9.3 due to volume depletion last time has similar finding with hydration back to normal her albumin 4.6 however she is emaciated and has also due to the severe dehydration. Hypercalcemia, elevated BUN and creatinine, could be underlying severe volume depletion and weight loss." 09/10 IM: "Nutritional support with the severe weight loss and muscle mass decreased." Current BMI: 14.1 Weight: 47.7 kg Height: 5 ft 1 in 09/10 RD Consult Assessment: "Malnutrition chronic severe. decreased ability to consume sufficient energy, altered GI function/structure. Severe muscle and fat losses - temporal, trapezius, deltoid, quadriceps, gastrocnemius." Treatment: Commercial beverage, trial plant based KF BID, regular diet, monitor po intake daily Is there an additional diagnosis that is clinically appropriate for this patient? [ ] Mild Protein-Calorie Malnutrition [ x] Moderate Protein-Calorie Malnutrition [ ] Severe Protein-Calorie Malnutrition [ ] No additional diagnosis/Not clinically significant [ ] Other condition, please specify [ ] Unable to Determine MTDD
== END 2024-09-13 16:50 | disposition home or self-care (01) | DRG 721 ==
LOC: EC 13:25 → 1SOBS 16:24 → OBSVTOIN 16:24 → 1SOBS 17:47 → 4SSUR 09-11 16:32
PROVIDERS: ADMIT Internal Medicine; ATTEND Internal Medicine
DX: T81.43XA Infection following a procedure, organ and space surgical site, initial encounter (principal); N17.0 Acute kidney failure with tubular necrosis; T81.44XA Sepsis following a procedure, initial encounter; D25.9 Leiomyoma of uterus, unspecified; K91.841 Postprocedural hemorrhage of a digestive system organ or structure following other procedure; Z11.52 Encounter for screening for COVID-19; E78.5 Hyperlipidemia, unspecified; E44.0 Moderate protein-calorie malnutrition; Z68.1 Body mass index [BMI] 19.9 or less, adult; E83.42 Hypomagnesemia; E83.52 Hypercalcemia; B95.61 Methicillin susceptible Staphylococcus aureus infection as the cause of diseases classified elsewhere; B96.20 Unspecified Escherichia coli [E. coli] as the cause of diseases classified elsewhere; E86.0 Dehydration; E86.1 Hypovolemia; E87.1 Hypo-osmolality and hyponatremia; G89.29 Other chronic pain; E87.20 Acidosis, unspecified; E88.09 Other disorders of plasma-protein metabolism, not elsewhere classified; K43.5 Parastomal hernia without obstruction or gangrene; K61.1 Rectal abscess; M40.209 Unspecified kyphosis, site unspecified; N82.3 Fistula of vagina to large intestine; Z79.899 Other long term (current) drug therapy; Z87.891 Personal history of nicotine dependence; Z90.710 Acquired absence of both cervix and uterus; Z93.2 Ileostomy status; Z93.3 Colostomy status; Z97.5 Presence of (intrauterine) contraceptive device; Z88.8 Allergy status to other drugs, medicaments and biological substances
CPT/HCPCS: 36415; 74177; 80048; 80053; 82306; 82652; 83540; 83550; 83605; 83690; 83735; 83970; 84165; 84484; 85025; 85045; 85610; 85730; 86334; 86335; 86850; 86900; 86901; 87040; 87070; 87075; 87077; 87186; 87205; 87636; 93005; 96365; 96368; 96375; 99285

== ENCOUNTER → 2024-09-25 | Outpatient (CLI) | payer OTHER ==
[2024-09-25 15:24] LABS: Anion Gap 13.30 mmol/L (4.00-12.00); BUN/Creat Ratio 20.43 Ratio (12.00-20.00); Blood Urea Nitrogen 14.3 mg/dL (9.0-27.0); Calcium 9.8 mg/dL (8.7-10.3); Carbon Dioxide 19.7 mmol/L (21.6-31.8); Chloride 109 mmol/L (96-109); Glucose 69 mg/dL (70-110); Magnesium 1.6 mg/dL (1.5-2.4); Potassium 4.0 mmol/L (3.5-5.5); Sodium 142 mmol/L (135-145)
[2024-09-25 15:31] LABS: Basophils # (A) 0.11 X 10*3/uL (0.00-0.10); Basophils % (A) 1.4 %; Eosinophils # (A) 0.10 X 10*3/uL (0.04-0.35); Eosinophils % (A) 1.3 %; HCT 29.6 % (37.2-46.3); HGB 8.8 g/dL (12.0-15.0); Immature Grans, Automated 0.30 %; Lymphocytes # (A) 1.39 X 10*3/uL (0.90-5.00); Lymphocytes % (A) 17.7 %; MCH 27.3 pg (27.0-32.0); MCHC 29.7 g/dL (32.0-37.0); MCV 91.9 FL (80.0-97.0); Monocytes # (A) 0.48 X 10*3/uL (0.20-1.00); Monocytes % (A) 6.1 %; NRBC Per 100 WBC 0 X 10*3/uL (0.00-0.01); Neutrophils # (A) 5.74 X 10*3/uL (1.80-7.70); Neutrophils % (A) 73.2 %; Platelet Count 350 X 10*3/uL (140-440); RBC 3.22 X 10*6/uL (4.10-5.20); RDW 20.0 % (11.5-14.5); WBC 7.84 X 10*3/uL (4.50-10.00)
== END | disposition home or self-care (01) ==
LOC: LABWHC1 11:31
PROVIDERS: ATTEND Internal Medicine
DX: E83.42 Hypomagnesemia (principal); E86.0 Dehydration
CPT/HCPCS: 36415; 80048; 83735; 84100; 85025